=== PATIENT | female | born 1955 | race Caucasian/White ===

== ENCOUNTER 2017-07-01 17:07 | Inpatient (IN) | payer MEDICARE ==
[~2017-07-01] VITALS: Ht 170.2 cm; Wt 123.9 kg
[2017-07-01] VITALS (11 sets, daily range): BP systolic 63–171; BP diastolic 23–123
--- NOTE | 2017-07-01 17:07 | NUR ---
61 YO FEMALE BB FAMILY. PATIENT IS NON RESPONSIVE AT THIS TIME. PATIENT TAKEN TO ED ROOM 12 VIA [facility] BY [facility] STAFF. PATIENT WAS PLACED ON BOTTLE PACKING MACHINE CLEANER, PATIENT IS NOTED TO BE AGINAL BREATHING AT THIS TIME AT A RATE OF 3 BREATHS A MIN, STARTED BVM WITH RT. SPO2 WENT UP TO 80%, 18G RIGHT HAND IV STARTED AND 20G LEFT HAND IV STARTED. MD WOMACK ATTEMPTED TO INTUBATE AT BEDSIDE. MD SANCHEZ WAS UNSUCCESSFUL. AT 1520 PATIENT LOSS PULSES, STARTED CPR PER ACLS GUIDLINES. SEE CODE BLUE PAPER CHARTING. PULSES RETURNED AT 1535, NS, PATIENT DOES NOT HAVE SPONTANIOUS BREATHING, CONTINUED TO BVM WITH RT .SET UP CRIC TRAY. MD WOMACK ATTEMPTED CRIC 1740, WAS UNSUCCESSFUL, WENT BACK TO BVM. SPO2 IS IN 80'S VIA BVM. PATIENT IS IN NORMAL SINUS AT A RATE OF 80'S. BP REMAINS STABLE. SKIN WARM AND DRY, PATIENT REMAINS ON BOTTLE PACKING MACHINE CLEANER. WILL CONTINUE TO MONITOR.
[2017-07-01] MEDS ORDERED: CELLULOSE,OXIDIZED 1 EA PACK MC ONE (17:10)
[2017-07-01] MEDS ORDERED: GELATIN SPONGE,ABSORBABLE 1 GM POWDER TP ONE (17:10)
--- NOTE | 2017-07-01 17:43 | NUR ---
PAGED DR MARCH
--- NOTE | 2017-07-01 17:44 | NUR ---
EM GOYAL [phone]
--- NOTE | 2017-07-01 17:45 | NUR ---
EM DEL TORO [phone]
--- NOTE | 2017-07-01 17:57 | NUR ---
Eliza BARBOSA CALLED
--- NOTE | 2017-07-01 17:58 | NUR ---
DR WOMACK ON THE PHONE WITH DR BARBOSA
[2017-07-01] MEDS ORDERED: PROPOFOL 100 ML ONE (18:07)
--- NOTE | 2017-07-01 18:08 | NUR ---
CALLED DR. ESPITIA [phone] WILL BE HERE IN 15MIN
[2017-07-01] MEDS ORDERED: LIDOCAINE 1% INJ 50 ML MDV IJ ONE (18:27)
[2017-07-01] MEDS ORDERED: LIDOCAINE 1%-EPI 1:100,000 20 ML VIAL ONE (18:28)
[2017-07-01] MEDS: PROPOFOL 100 ML IV PRN ×2 (18:30→23:15)
--- NOTE | 2017-07-01 18:30 | NUR ---
MD FARRELL, ENT FROM [facility] IS AT BED SIDE FOR CRI
--- NOTE | 2017-07-01 18:50 | NUR ---
CRI IS IN PLACE, PATIENT IS PLACED ON VENT
[2017-07-01] MEDS ORDERED: VANCOMYCIN 1 GM in IV D5W 250 ML IV ONE (19:00)
[2017-07-01] MEDS ORDERED: PIPERACILLIN /TAZOBACTAM 3.375 G in IV D5W 50 ML IV ONE (19:00)
[2017-07-01] MEDS ORDERED: IV NS 0.9% 1,000 ML BAG IV ONE (19:00)
--- NOTE | 2017-07-01 19:05 | NUR ---
RT PATIENT WAS REC'D IN ER A CODE BLUE. PATIENT BAGGED AND INTUBATION ATTEMPTED BUT WAS UNSUCCESSFUL. EMERGENCY TRACH WAS NEEDED. PATIENT WAS BAGGED UNTIL ENT DOCTOR ARRIVED AND WAS ABLE TO TRACH PATIENT. NOC SHIFT TOOK OVER PATIENT TO RELIEVE DAY SHIFT.
[2017-07-01] MEDS ORDERED: VANCOMYCIN 1 GM VIAL ONE (19:33)
[2017-07-01] MEDS ORDERED: PIPERACILLIN /TAZOBACTAM 3.375 G VIAL IV ONE (19:33)
[2017-07-01 19:58] LABS: BASOPHILS # (AUTO) 0.3 /CMM (0.0-0.2); BASOPHILS % (AUTO) 2.6 % (0.0-2.0); EOSINOPHILS % (AUTO) 0.2 % (0.0-6.0); HEMATOCRIT 41 % (33-45); HEMOGLOBIN 13.4 g/dL (11.5-14.8); LYMPHOCYTES # (AUTO) 1.3 /CMM (0.8-4.8); LYMPHOCYTES % (AUTO) 9.8 % (20.0-44.0); MEAN CORPUSCULAR HGB CONC 33 g/dl (31.0-36.0); MEAN CORPUSCULAR VOLUME 93 fL (82-100); MONOCYTES # (AUTO) 0.4 /CMM (0.1-1.30); MONOCYTES % (AUTO) 3.2 % (2.0-12.0); NEUTROPHILS # (AUTO) 11.2 /CMM (1.8-8.9); NEUTROPHILS % (AUTO) 84.2 % (43.0-81.0); PLATELET COUNT (AUTO) 177 /CMM (150-450); RDW COEFFICIENT OF VARIATION 15.9 (11.5-15.0); RED BLOOD CELL COUNT(AUTO) 4.38 MIL/uL (4.0-5.2); WHITE BLOOD COUNT (AUTO) 13.3 K/uL (4.3-11.0)
[2017-07-01] MEDS ORDERED: ETOMIDATE 2 MG/ML VIAL IV ONE (20:00)
[2017-07-01] MEDS ORDERED: SUCCINYLCHOLINE CHLORIDE 20 MG/ML VIAL IV ONE (20:00)
[2017-07-01] MEDS ORDERED: IV NS 0.9% 1,000 ML BAG IV PRN ×2 (20:00)
[2017-07-01 20:03] LABS: ABG BASE EXCESS -7.5 mmol/L; ABG OXYGEN SATURATION 94.6 % (92.0-98.5); ABG PCO2 60.7 mmHg (35.0-45.0); ABG PH 7.172 (7.350-7.450); ABG PO2 90.6 mmHg (75.0-100.0); AaDO2 561.7 mmHg; COHb 2.5 % (0.5-1.5); MetHb 0.5 % (0.0-1.5); O2Hb 91.8 % (94.0-97.0); PEEP,BG 5 cm H2O; SITE, ABG Left Radial; VENT MODE, BG A/C 16 500 100% +5; VT, ABG 550 mL
[2017-07-01 20:10] LABS: INR 1.16 (0.85-1.15)
[2017-07-01 20:12] LABS: CALCIUM, SERUM 7.4 mg/dL (8.5-10.1); CARBON DIOXIDE 21 mmol/L (21-32); CHLORIDE 110 mmol/L (98-107); CREATININE 1.6 mg/dL (0.6-1.3); GLUCOSE 124 mg/dL (74-106); POTASSIUM 5.2 mmol/L (3.5-5.1); SODIUM SERUM 142 mmol/L (136-145); UREA NITROGEN, BLOOD 28 mg/dL (7-18)
[2017-07-01 20:24] LABS: TROPONIN I 0.829 ng/mL (0.00-0.056)
[2017-07-01 20:26] LABS: ALANINE AMINOTRANSFERASE 1033 U/L (12-78); ALBUMIN 2.2 g/dL (3.4-5.0); ALKALINE PHOSPHATASE 90 U/L (46-116); ASPARTATE AMINOTRANSFERASE -1 U/L (15-37); B-TYPE NATRIURETIC PEPTIDE 6319 PG/ML (0-125); BILIRUBIN,DIRECT 0.2 mg/dL (0.0-0.2); BILIRUBIN,TOTAL 0.7 mg/dL (0.2-1.0); TOTAL PROTEIN, SERUM 5.2 g/dL (6.4-8.2)
--- NOTE | 2017-07-01 20:32 | NUR ---
RADIOLOGY AT BED SIDE FOR CHEST X RAY FOR PICC LINE PLACEMENT
[2017-07-01 21:06] LABS: APPEARANCE,URINE Clear (CLEAR); BILIRUBIN,URINE MODERATE (NEGATIVE); BLOOD, URINE Large Ery/uL (NEGATIVE); COLOR,URINE Yellow (YELLOW); KETONES,URINE Negative (NEGATIVE); LEUKOCYTE ESTERASE ,URINE Negative (NEGATIVE); NITRITE, URINE Negative (NEGATIVE); PROTEIN,URINE >=300 mg/dl (NEGATIVE); UGLUCOSE Negative (NEGATIVE)
--- NOTE | 2017-07-01 21:09 | NUR ---
TRANSPORTED PATIENT TO ICU BED WITHOUT INCIDENT WITH EMT AND RT WITHOUT INCIDENT
[2017-07-01 22:00] LABS: BACTERIA,URINE Moderate /HPF (None Seen); RBC,URINE 81-100 /HPF (0-2); SQUAMOUS EPITHELIAL CELL,UR Moderate /HPF (None Seen)
[2017-07-01 22:01] LABS: URINE AMORPHOUS URATE Moderate /HPF (None Seen)
[2017-07-01] MEDS ORDERED: NOREPINEPHRINE 4 MG/4 ML AMPUL IV ONE (22:40)
[2017-07-01] MEDS ORDERED: IV NS 0.9% 1,000 ML IV PRN (23:30)
[2017-07-01] MEDS ORDERED: ONDANSETRON HCL/PF 4 MG/2 ML VIAL IVP PRN (23:30)
[2017-07-01] MEDS ORDERED: MAGNESIUM HYDROXIDE 30 ML UDC PO PRN (23:30)
[2017-07-01] MEDS ORDERED: ZOLPIDEM TARTRATE 5 MG TABLET PO PRN (23:30)
[2017-07-01] MEDS ORDERED: HYDROCODONE/APAP 5/325MG 1 EACH TABLET PO PRN (23:30)
[2017-07-01] MEDS: NOREPINEPHRINE 16 MG in IV D5W 500 ML IV PRN (23:39)
[2017-07-02] VITALS (63 sets, daily range): BP systolic 79–148; BP diastolic 39–90
--- NOTE | 2017-07-02 00:18 | NUR ---
FUEL CELL TECHNICIAN; BLOOD PRESSURE DROPPED TO SBP 75/23, LEVOPHED STARTED AT 2MCG/MIN, IV FLUID ONGOING NS AT 50 ML/HR. DIPRIVAN STOPPED FOR NOW DUE TO HEART RATE GOES DOWN TO 30, JENNIFER GOMEZ AT BEDSIDE,AWARE FOR HEART RATE DWON TO 30. CRASH CART AT BEDSIDE. PATIENT IS UNRESPONSIVE. PUPILS ARE SLUGGISH, PIN PO[place]. FAMILY ATE BEDSIDE, JENNIFER GOMEZ DISCUSSED WITH FAMILY CURRENT SITUATION. FAMILY UNDERSTANDS WELL. EARLIER UNABLE TO FIND BLOOD PRESSURE, MANNUALY CHECKED BY JENNIFER GOMEZ, ONGOING MONITORING.
--- NOTE | 2017-07-02 00:48 | NUR ---
FACILITIES MAINTENANCE MANAGER: PATIENT WAKES UP, OPEN EYES WHEN SUCTIONED TRACH AND ORALLY, DOES HAVE COUGH AND GAG REFLEX.. , FOLLOWS SIMPLE COMMANDS, FAMILY AT BEDSIDE. KEEP MONITORING.
[2017-07-02] MEDS ORDERED: ENOXAPARIN SODIUM 40 MG/0.4 ML DISP.SYRIN SQ ONE (01:30)
--- NOTE | 2017-07-02 02:50 | NUR ---
CHEMISTRY ACCOUNT MANAGER: troponin level 4.563, MADE AWARE JENNIFER DENSON, ORDERS TO GIVE LOVENOX 140 MG SQ WHICH IS GIVEN 40 MG SQ EARLIER, NEEDS TO GIVE 100 MG SQ X ONE. PT HAS NO URINE OUTPUT , MADE AWARE TO JENNIFER GOMEZ, ORDERS TO GIVE NS 500ML BOLUS. WILL FOLLOW UP ALL ORDERS.
[2017-07-02] MEDS ORDERED: CEFTRIAXONE 1 G VIAL ONE ×2 (02:54→03:22)
[2017-07-02] MEDS ORDERED: ENOXAPARIN SODIUM 100 MG/ML DISP.SYRIN SQ ONE (03:00)
[2017-07-02] MEDS ORDERED: CEFTRIAXONE 2 G in IV NS 0.9% 100 ML IV SCH (03:00)
[2017-07-02] MEDS ORDERED: ENOXAPARIN SODIUM 60 MG/0.6 ML DISP.SYRIN SQ SCH (03:00)
--- NOTE | 2017-07-02 03:25 | NUR ---
SHEET METAL PATTERN CUTTER; LOVENOX 100 MG SQ GIVEN, NS 500 ML BOLUS ONGOING. AWAITING FOR SLUBBER FRAME CHANGER TO GET ROCEPHIN 2 GM..
[2017-07-02] MEDS ORDERED: IV NS 0.9% 500 ML IV ONE (03:30)
--- NOTE | 2017-07-02 05:08 | NUR ---
CRACKING STILL OPERATOR; PATIENT HAS NO URINE OUTPUT EVEN AFTER GAVE NS BOLUS, JENNIFER DENSON ACNP AWARE.
[2017-07-02 05:11] LABS: HEMATOCRIT 40 % (33-45); HEMOGLOBIN 13.2 g/dL (11.5-14.8); LYMPHOCYTES # (AUTO) 0.8 /CMM (0.8-4.8); LYMPHOCYTES % (AUTO) 5.4 % (20.0-44.0); MEAN CORPUSCULAR HGB CONC 33 g/dl (31.0-36.0); MEAN CORPUSCULAR VOLUME 93 fL (82-100); MONOCYTES # (AUTO) 0.6 /CMM (0.1-1.30); MONOCYTES % (AUTO) 3.9 % (2.0-12.0); NEUTROPHILS # (AUTO) 13.3 /CMM (1.8-8.9); NEUTROPHILS % (AUTO) 90.7 % (43.0-81.0); PLATELET COUNT (AUTO) 133 /CMM (150-450); RDW COEFFICIENT OF VARIATION 16.7 (11.5-15.0); RED BLOOD CELL COUNT(AUTO) 4.25 MIL/uL (4.0-5.2); WHITE BLOOD COUNT (AUTO) 14.7 K/uL (4.3-11.0)
[2017-07-02 05:29] LABS: CALCIUM, SERUM 7.7 mg/dL (8.5-10.1); CREATININE 2.1 mg/dL (0.6-1.3); MAGNESIUM 1.6 mg/dL (1.8-2.4); PHOSPHORUS 4.6 mg/dL (2.5-4.9); POTASSIUM 4.1 mmol/L (3.5-5.1)
--- NOTE | 2017-07-02 05:57 | NUR ---
CLINICAL DIETITIAN; NEW ORDERS RECEIVED LASIX 20 MG X 1 NOW, GIVEN FOR LOW URINE OUTPUT.
[2017-07-02] MEDS ORDERED: FUROSEMIDE 20 MG/2 ML VIAL IV ONE (06:00)
--- NOTE | 2017-07-02 08:10 | NUR ---
WOUND CARE CONSULT: PT PRESENTS WITH IMMOBILITY, ON VENTILATOR WITH CURRENT HODA SCORE OF 11. SKIN TEAR NOTED TO RT ARM PRESENT ON ADMISSION. ALL SKIN PROTECTION MEASURES IN PLACE AND DISCUSSED WITH NURSING STAFF. RECOMMENDATIONS MADE FOR WOUND CARE AND DISCUSSED WITH NURSING STAFF. BARIMAX BED ORDERED. WILL SEE PRN. GREER IN AGREEMENT WITH PLAN OF CARE. Addendum: 07/02/17 at 0812 by TULIO MANCUSO WNDNU Amended: Links added.
[2017-07-02 08:25] LABS: ABG BASE EXCESS 0.1 mmol/L; ABG OXYGEN SATURATION 94.6 % (92.0-98.5); ABG PCO2 42.9 mmHg (35.0-45.0); ABG PH 7.388 (7.350-7.450); ABG PO2 79.9 mmHg (75.0-100.0); AaDO2 373.1 mmHg; COHb 0.5 % (0.5-1.5); MetHb 0.5 % (0.0-1.5); O2Hb 93.7 % (94.0-97.0); PEEP,BG 5 cm H2O; SITE, ABG Right Radial; VT, ABG 550 mL
[2017-07-02] MEDS ORDERED: FEE EMEERGENCY 1 MIN EA MC ONE ×2 (08:32→11:47)
[2017-07-02] MEDS ORDERED: ETOMIDATE 2 MG/ML VIAL IV ONE (08:32)
[2017-07-02] MEDS ORDERED: SUCCINYLCHOLINE CHLORIDE 20 MG/ML VIAL IV ONE (08:32)
--- NOTE | 2017-07-02 08:39 | NUR ---
SPOKE WITH RN. PATIENT STILL UNSTABLE TO COME DOWN FOR CT. ALSO, PATIENT'S CREATININE HAS INCREASED TO 2.1. RN WILL DISCUSS WITH MD REGARDING CARE AND WILL CALL RADIOLOGY BACK TO COORDINATE.
[2017-07-02] MEDS: ASPIRIN 81 MG TAB.CHEW PO SCH (10:27)
[2017-07-02] MEDS: FUROSEMIDE 40 MG/4 ML VIAL IV SCH ×2 (10:27→17:09)
[2017-07-02] MEDS ORDERED: Magnesium 1GM/D5W 100ML PREMIX 100 ML IV SCH (11:30)
[2017-07-02] MEDS ORDERED: EPINEPHRINE (1:10,000) SYRINGE 1 MG/10 ML DISP.SYRIN IVP ONE (11:47)
[2017-07-02] MEDS: CEFEPIME 1 GM in IV D5W 50 ML IV SCH (12:41)
[2017-07-02] MEDS: ENOXAPARIN SODIUM 60 MG/0.6 ML DISP.SYRIN SQ SCH ×2 (12:42→23:16)
--- NOTE | 2017-07-02 15:43 | NUR ---
NETWORK OPERATIONS SPECIALIST NOTE 0720: Received patient awake, A/Ox3, able to follow commands. No respiratory distress noted at this time. With trache to vent, tolerated settings well. No c/o paina t this time. Wuth right NGT intact, clamped. SR 70's on the monitor. Barkley cath intact, very minimal king colored urine noted. NOAH PICC intact, on Levo @ 5mcg will titrate as ordered. 0930: S/E by Dr. Fleming, daughter at bedside, made aware for the POC, MD aware for trop 6.996, said to continue Lovenox, also ordered to DC IVF and start on Lasix 40 q8. MD aware for no UOP noted. Asked MD if able to bring patient to CT for CT angio, MD said to DC order, not needed at this time. 1130: S/E by Dr. Sotelo, aware for the ABG, asked MD if able to bring patient to CT for CT head and neck, per MD, patient does not need any more CT for patient is A/Ox3 and able to communicate well. DCd order for CT. 1220: S/E by Dr. Steven, still no UOP. Will keep Lasix on and no HD needed at this time. 2 daughters at bedside, discussed re: the POC. 1330: S/E by Dr. Rebolledo, no new order at this time. Daughter at bedside, discussed re: the POC. industrial technology education teacher at bedside. EKG done and notified Dr. Fleming for the result., no new order at this time 1530: Cleaned and placed patient to Barimaxx.
[2017-07-02] MEDS: NOREPINEPHRINE 16 MG in IV D5W 500 ML IV PRN (17:09)
[2017-07-02] MEDS: Z GUARD REMEDY 2 OZ OINT TP PRN (17:09)
--- NOTE | 2017-07-02 17:20 | NUR ---
RT END OF THE SHIFT REPORT, PT 61 Y OLD FEMALE REMAINED TRACHED SHILEY XLT # 6 ON VENT. FIO2 TITRATED TO 70% T/O DAY NO OTHER CHANGES. TOLERATING VENT SETTINGS. NO DISTRESS NOTED T/O SHIFT SUX'D FOR SMALL AMT OF THICK PALE SECRETIONS. B/S BILATERALLY RALED/DIMINISHED, EQUAL CHEST RISE NOTED. NO CHANGES ON VENT, ALARMS SET AND AUDIBLE. AMBU BAG AT BEDSIDE. VENT PLUGGED INTO RED OUTLET. HME CHANGED. WILL CONTINUE TO MONITOR. AND REPORT WILL PASS TO PM SHIFT. Addendum: 07/02/17 at 1721 by LUX LEVIN RT Amended: Links added.
[2017-07-02] MEDS ORDERED: NOREPINEPHRINE 16 MG in IV D5W 500 ML IV PRN (17:30)
--- NOTE | 2017-07-02 19:00 | NUR ---
RN INITIAL NOTES RECEIVED PT SLEEPING ON BED, EASILY AROUSABLE TO NAME, A/OX3, ABLE TO MOUTH WORDS IN RESPONSE. CURRENTLY ON VENT WITH SETTINGS AC 20, TV 550, FIO2 70%, AND PEEP 5, SHILEY 6, NO S/S OF RESP DISTRESS, SATURATING WELL. CURRENTLY SR ON THE MONITOR, HR 60'S. RIGHT NARE NGT IS CLAMPED. GERMAN CATH INTACT, NO URINE OUTPUT NOTED. RIGHT UPER ARM PICC, LEFT HAND 20G, AND RIGHT HAND 18G ALL FLUSHED AND PATENT, NO S/S OF INFILTRATION/INFECTION, DRESSINGS CDI. BED LOW AND LOCKED, SIDERAILS UP, CALL LIGHT WITHIN REACH. WILL MONITOR
[2017-07-02] MEDS ORDERED: ENOXAPARIN SODIUM 40 MG/0.4 ML DISP.SYRIN SQ SCH (21:00)
[2017-07-02] MEDS ORDERED: CEFEPIME 1 GM VIAL IM SCH (21:00)
--- NOTE | 2017-07-02 22:25 | NUR ---
RN NOTES NOTIFIED ON-CALL DR TERRY OF PATIENT'S ACTIVE BLEEDING IN TRACH SITE WELL PRESENCE OF MULTIPLE CLOTS THAT WERE SUCTIONED FROM HER MOUTH. PER MD, DO NOT ADMINISTER LOVENOX 140MG SCHEDULED TO BE GIVEN AT MIDNIGHT.
[2017-07-02 23:22] LABS: CREATININE, URINE 113.7 MG/DL (30.0-125.0)
[2017-07-03] VITALS (51 sets, daily range): BP systolic 94–152; BP diastolic 49–98
[2017-07-03] MEDS: FUROSEMIDE 40 MG/4 ML VIAL IV SCH ×3 (00:33→16:28)
[2017-07-03 04:13] LABS: EOSINOPHILS % (AUTO) 0.1 % (0.0-6.0); HEMATOCRIT 35 % (33-45); HEMOGLOBIN 11.7 g/dL (11.5-14.8); LYMPHOCYTES # (AUTO) 0.9 /CMM (0.8-4.8); LYMPHOCYTES % (AUTO) 8.5 % (20.0-44.0); MEAN CORPUSCULAR HGB CONC 34 g/dl (31.0-36.0); MEAN CORPUSCULAR VOLUME 92 fL (82-100); MONOCYTES # (AUTO) 0.4 /CMM (0.1-1.30); NEUTROPHILS # (AUTO) 8.9 /CMM (1.8-8.9); NEUTROPHILS % (AUTO) 87.4 % (43.0-81.0); PLATELET COUNT (AUTO) 104 /CMM (150-450); RDW COEFFICIENT OF VARIATION 16.6 (11.5-15.0); RED BLOOD CELL COUNT(AUTO) 3.76 MIL/uL (4.0-5.2); WHITE BLOOD COUNT (AUTO) 10.2 K/uL (4.3-11.0)
[2017-07-03 04:30] LABS: CALCIUM, SERUM 7.5 mg/dL (8.5-10.1); CREATININE 4.1 mg/dL (0.6-1.3); MAGNESIUM 1.9 mg/dL (1.8-2.4); PHOSPHORUS 3.9 mg/dL (2.5-4.9); POTASSIUM 4.4 mmol/L (3.5-5.1)
--- NOTE | 2017-07-03 06:30 | NUR ---
RN CLOSING NOTES PT REMAINS TO BLEED ON TRACH SITE. OTHERWISE, VITALS ARE STABLE. ALL DUE MEDS GIVEN, AM CARE PROVIDED. WILL ENDORSE ROSE TO AM RN
--- NOTE | 2017-07-03 08:00 | NUR ---
PATIENT SEEN FULLY AWAKE AND FOLLOWING COMMNADS. INDICATES UNDERSTANDING TO CONDITION AND PLAN OF CARE. NO DISTRESS ON THE VENT. DENIES PAIN. SIGNIFICANT AMOUNT OF BLOOD NOTED UPON SUCTIONING ORALLY AND VIA TRACHE. WILL NOTIFY MD. BP STABLE OFF PRESSOR. AFEBRILE. NO URINE OUTPUT NOTED. WILL REFER ACCORDINGLY.
[2017-07-03] MEDS: ASPIRIN 81 MG TAB.CHEW PO SCH (08:40)
--- NOTE | 2017-07-03 09:00 | NUR ---
PATIENT SEEN AND EXAMINED BY DR. SINGH. DISCUSSED WITH MD BLEEDING ON TRACHE SITE-LOVENOX DISCONTINUED BY . JON TO GIVE ASPIRIN ORDERED.
[2017-07-03] MEDS ORDERED: IV D5/ 0.9% NACL 1,000 ML IV PRN (10:00)
--- NOTE | 2017-07-03 10:00 | NUR ---
DR. STOVALL FOR RENAL FF UP. DISCUSSED WITH PATIENT AND FAMILY POSSIBLE HD IF KIDNEY FUNCTION WILL NOT IMPROVED BY TOMORROW. PATIENT AND FAMILY AGGREED WITH PLAN OF CARE.
--- NOTE | 2017-07-03 10:30 | NUR ---
DR. DOMINGUEZ IN TO SEE PATIENT. SPOKE TO PATIENT AND FAMILY AT [facility] FOR PLAN OF CARE. NOTIFIED MD RE: BLEEDING AT TRACHE SITE. PER MD TO CALL DR. DAY FOR FF UP.
[2017-07-03 11:25] LABS: ABG BASE EXCESS -2.2 mmol/L; ABG OXYGEN SATURATION 98.1 % (92.0-98.5); ABG PCO2 29.6 mmHg (35.0-45.0); ABG PH 7.461 (7.350-7.450); ABG PO2 148.4 mmHg (75.0-100.0); AaDO2 318.9 mmHg; COHb 0.1 % (0.5-1.5); MetHb 0.6 % (0.0-1.5); O2Hb 97.4 % (94.0-97.0); PEEP,BG 5 cm H2O; SITE, ABG Left Radial; VT, ABG 650 mL
--- NOTE | 2017-07-03 12:00 | NUR ---
DR. KIM FOR PULMO FF UP. NO VENT CHANGES AT THIS TIME. TITRATE FIO2 ABLE. CONTINUE TO SUCTION BLOODY SECRETIONS BUT LESS AMOUNT.
[2017-07-03] MEDS: CEFEPIME 1 GM in IV D5W 50 ML IV SCH (12:47)
--- NOTE | 2017-07-03 14:00 | NUR ---
DR. DAY NOTIFIED REGARDING TRACH BLEEDING TO FOLLOW UP. AWARE FOR FOLLOW UP.
--- NOTE | 2017-07-03 14:08 | NUR ---
FIO2 DECREASED FROM 70% TO 60%. SPO2 96% Addendum: 07/03/17 at 1409 by LUANNE WANG RT Amended: Links added.
--- NOTE | 2017-07-03 16:00 | NUR ---
LESS BLEEDING NOTED UPON ORAL/TRACHE SUCTIONING. BP REMIANS STABLE. AFEBRILE.
--- NOTE | 2017-07-03 18:00 | NUR ---
NO SIGNIFICANT CHANGES. URINE OUTPUT IMPROVED TOWARDS THE END OF SHIFT-TOTAL 100ML. LASIX 80 MG IV GIVEN ORDERED. WILL CONTINUE TO MONITOR AND REFER ACCORDINGLY.
--- NOTE | 2017-07-03 19:00 | NUR ---
RN INITIAL NOTES RECEIVED PT AWAKE ON BED, A/OX3, ABLE TO MOUTH WORDS IN RESPONSE. CURRENTLY ON VENT WITH SETTINGS AC 20, TV 550, FIO2 60%, AND PEEP 5, SHILEY 6, NO S/S OF RESP DISTRESS, SATURATING WELL. SOME BLEEDING FROM THE TRACH SITE IS PRESENT. CURRENTLY SR ON THE MONITOR, HR 60'S, BP IS WNL. RIGHT NARE NGT IS CLAMPED. GERMAN CATH INTACT, NO URINE OUTPUT NOTED. RIGHT UPPER ARM PICC FLUSHED AND PATENT, NO S/S OF INFILTRATION/INFECTION, DRESSING CDI. BED LOW AND LOCKED, SIDERAILS UP, CALL LIGHT WITHIN REACH. WILL MONITOR
[2017-07-04] VITALS (37 sets, daily range): BP systolic 79–144; BP diastolic 45–70
[2017-07-04] MEDS: FUROSEMIDE 40 MG/4 ML VIAL IV SCH ×3 (00:43→16:38)
[2017-07-04 04:58] LABS: EOSINOPHILS % (AUTO) 0.3 % (0.0-6.0); HEMATOCRIT 32 % (33-45); HEMOGLOBIN 10.6 g/dL (11.5-14.8); LYMPHOCYTES # (AUTO) 0.8 /CMM (0.8-4.8); LYMPHOCYTES % (AUTO) 9.6 % (20.0-44.0); MEAN CORPUSCULAR HGB CONC 33 g/dl (31.0-36.0); MEAN CORPUSCULAR VOLUME 92 fL (82-100); MONOCYTES # (AUTO) 0.6 /CMM (0.1-1.30); MONOCYTES % (AUTO) 6.9 % (2.0-12.0); NEUTROPHILS % (AUTO) 83.2 % (43.0-81.0); PLATELET COUNT (AUTO) 95 /CMM (150-450); RDW COEFFICIENT OF VARIATION 16.7 (11.5-15.0); RED BLOOD CELL COUNT(AUTO) 3.48 MIL/uL (4.0-5.2); WHITE BLOOD COUNT (AUTO) 8.4 K/uL (4.3-11.0)
[2017-07-04 05:13] LABS: CALCIUM, SERUM 7.8 mg/dL (8.5-10.1); CREATININE 6.2 mg/dL (0.6-1.3); POTASSIUM 4.6 mmol/L (3.5-5.1)
--- NOTE | 2017-07-04 06:00 | NUR ---
RN CLOSING NOTES PT REMAINS STABLE OF THE MOMENT. ALL DUE MEDS GIVEN, AM CARE PROVIDED. WILL ENDORSE ROSE TO AM RN
--- NOTE | 2017-07-04 07:57 | NUR ---
RN NOTES RECEIVED PT AWAKE ON BED, A/OX3, ABLE TO MOUTH WORDS TO COMMUNICATE. TRACHE MIDLINE SHILEY 6, CURRENTLY ON VENT WITH SETTINGS AC 20, TV 550, FIO2 60%, AND PEEP 5. SUCTIONED FOR AIRWAY CLEARANCE. NO S/S OF RESP DISTRESS, SATURATING WELL. NO BLEEDING ON TRACHE SITE NOTED. CURRENTLY SB ON THE MONITOR, HR 58. BP IS WNL 109/63. RIGHT NARE NGT. CLAMPED. GERMAN CATH INTACT, NO URINE OUTPUT NOTED AT THIS TIME. RIGHT UPPER ARM PICC FLUSHED AND PATENT, NO S/S OF INFILTRATION/INFECTION, DRESSING CDI. BED LOW AND LOCKED, SIDERAILS UP, INSTRUCTED PT REGARDIBF THE USE OF CALL LIGHT NEEDED, KEPT WITHIN REACH. WILL MONITOR
[2017-07-04] MEDS: ASPIRIN 81 MG TAB.CHEW PO SCH (08:49)
[2017-07-04] MEDS ORDERED: LIDOCAINE HCL/MPF 1% 30 ML VIAL IJ ONE (10:11)
[2017-07-04] MEDS ORDERED: FENTANYL PF 100MCG/2ML AMPUL IV ONE (10:30)
[2017-07-04] MEDS ORDERED: LIDOCAINE 1%-EPI 1:100,000 20 ML VIAL TP ONE ×2 (10:30)
--- NOTE | 2017-07-04 10:59 | NUR ---
RN NOTES S/P HD CATH INSERTION ON R FEMORAL BY DR SINGH AT BEDSIDE. LIDOCAINE 1% GIVEN BY MD PRE-OP. PT WAS ALSO GIVEN FENTANYL 50MCG IVP PER MD ORDER. PT TOLERATED PROCEDURE WELL. VS STABLE. PER DR ERNST PT WILL GET DIALYSIS TODAY
[2017-07-04] MEDS: CEFEPIME 1 GM in IV D5W 50 ML IV SCH (12:16)
[2017-07-04 12:28] LABS: ABG BASE EXCESS -3.6 mmol/L; ABG OXYGEN SATURATION 95.9 % (92.0-98.5); ABG PCO2 41.6 mmHg (35.0-45.0); ABG PH 7.341 (7.350-7.450); ABG PO2 95.3 mmHg (75.0-100.0); AaDO2 286.7 mmHg; COHb 0.3 % (0.5-1.5); MetHb 0.6 % (0.0-1.5); PEEP,BG 5 cm H2O; SITE, ABG Left Radial
[2017-07-04] MEDS: FIBERSOURCE HN 1,000 ML BOTTLE GT PRN (16:38)
[2017-07-04] MEDS: IPRATROPIUM NEB FS 0.5 MG/2.5 ML AMPUL.NEB NEB SCH ×2 (17:00→19:58)
--- NOTE | 2017-07-04 18:10 | NUR ---
RN NOTES PT REFUSED REPOSITIONING AT THIS TIME. PT REFUSED BED BATH.RISKS AND BENEFITS EXPLAINED. PT SAID SHE'S OKAY. CALL LIGHT KEPT WITHIN REACH. ENCOURAGE TO USE CALL LIGHT FOR ASSISTANCE
--- NOTE | 2017-07-04 18:53 | NUR ---
RN NOTES PT RESTING IN BED, DAUGHTER AT BEDSIDE. TOLERATING CURRENT [facility] VENT SETTINGS WELL. SUCTIONED FOR AIRWAY CLEARANCE. OPT SUCTIONED ORALLY, ORAL CARE PROVIDED. NO BLEEDING NOTED ON TRACHE SITE. ONGOING GTF FIBERSOURCE@20ML/HR, CHANTAL WELL NO RESIDUAL NOTED. DENIES PAIN AT THIS TIME. VS STABLE. DUE MEDS GIVEN, NEEDS ATTENDED. ENDORSED TO EVARISTO LINARES FOR CONTINUITY OF CARE
--- NOTE | 2017-07-04 19:00 | NUR ---
RN INITIAL NOTES RECEIVED PT AWAKE ON BED, A/OX3, ABLE TO MOUTH WORDS IN RESPONSE. CURRENTLY ON VENT WITH SETTINGS AC 20, TV 550, FIO2 60%, AND PEEP 5, SHILEY 6, NO S/S OF RESP DISTRESS, SATURATING WELL. SOME BLEEDING FROM THE TRACH SITE IS PRESENT. CURRENTLY SB/SR ON THE MONITOR, HR 50-60'S, BP IS WNL. RIGHT NARE NGT IS CONNECTED TO FIBERSOURCE FEEDING @ 20MLS/HR, NO RESIDUALS, TOLERATING WELL. GERMAN CATH INTACT, NO URINE OUTPUT NOTED. RIGHT UPPER ARM PICC FLUSHED AND PATENT, NO S/S OF INFILTRATION/INFECTION, DRESSING CDI. BED LOW AND LOCKED, SIDERAILS UP, CALL LIGHT WITHIN REACH. WILL MONITOR
[2017-07-04] MEDS: Z GUARD REMEDY 2 OZ OINT TP PRN (20:47)
[2017-07-04] MEDS: Z GUARD REMEDY 2 OZ OINT TP SCH (21:10)
[2017-07-05] VITALS (48 sets, daily range): BP systolic 94–137; BP diastolic 43–79
[2017-07-05] MEDS: IPRATROPIUM NEB FS 0.5 MG/2.5 ML AMPUL.NEB NEB SCH ×4 (02:08→19:12)
[2017-07-05] MEDS: FUROSEMIDE 40 MG/4 ML VIAL IV SCH ×3 (02:17→16:26)
[2017-07-05 05:22] LABS: BASOPHILS % (AUTO) 0.3 % (0.0-2.0); EOSINOPHILS % (AUTO) 1.6 % (0.0-6.0); HEMATOCRIT 29 % (33-45); HEMOGLOBIN 9.8 g/dL (11.5-14.8); LYMPHOCYTES # (AUTO) 0.8 /CMM (0.8-4.8); LYMPHOCYTES % (AUTO) 12.7 % (20.0-44.0); MEAN CORPUSCULAR HGB CONC 34 g/dl (31.0-36.0); MEAN CORPUSCULAR VOLUME 92 fL (82-100); MONOCYTES # (AUTO) 0.6 /CMM (0.1-1.30); MONOCYTES % (AUTO) 10.9 % (2.0-12.0); NEUTROPHILS # (AUTO) 4.4 /CMM (1.8-8.9); NEUTROPHILS % (AUTO) 74.5 % (43.0-81.0); PLATELET COUNT (AUTO) 79 /CMM (150-450); RDW COEFFICIENT OF VARIATION 16.2 (11.5-15.0); RED BLOOD CELL COUNT(AUTO) 3.18 MIL/uL (4.0-5.2)
[2017-07-05 05:42] LABS: BILIRUBIN,DIRECT 0.2 mg/dL (0.0-0.2); BILIRUBIN,TOTAL 0.6 mg/dL (0.2-1.0); CALCIUM, SERUM 8.1 mg/dL (8.5-10.1); CREATININE 5.9 mg/dL (0.6-1.3); POTASSIUM 4.4 mmol/L (3.5-5.1); TOTAL PROTEIN, SERUM 5.2 g/dL (6.4-8.2)
--- NOTE | 2017-07-05 06:00 | NUR ---
RN CLOSING NOTES PT REMAINS STABLE OF THE MOMENT. ALL DUE MEDS GIVEN, AM CARE PROVIDED. WILL ENDORSE ROSE TO AM RN
--- NOTE | 2017-07-05 07:36 | NUR ---
RN NOTES RECEIVED PT ASLEEP IN BED, AROUSABLE TO VERBAL AND TACTILE STIMULI, ABLE TO MOUTH WORDS TO COMMUNICATE. TRACHE MIDLINE SHILEY 6, CURRENTLY ON VENT WITH SETTINGS AC 20, TV 550, FIO2 60%, AND PEEP 5. SUCTIONED FOR AIRWAY CLEARANCE. NO S/S OF RESP DISTRESS, SATURATING WELL. NO FURTHER BLEEDING ON TRACHE SITE NOTED. CURRENTLY SB ON THE MONITOR, HR 47. RIGHT NARE NGT WITH ONGOING GTF FIBERSOURCE CHANTAL WELL NO RESIDUAL NOTED. GERMAN CATH INTACT, MIN UO NOTED AT THIS TIME. RIGHT UPPER ARM PICC FLUSHED, PATENT NO S/S OF INFILTRATION/INFECTION, DRESSING CDI. BED LOW AND LOCKED, SIDERAILS UPX3. PT ABLE TO USE CALL LIGHT FOR ASSISTANCE. KEPT WITHIN REACH. WILL MONITOR CLOSELY
[2017-07-05] MEDS: ASPIRIN 81 MG TAB.CHEW PO SCH (08:40)
[2017-07-05] MEDS: Z GUARD REMEDY 2 OZ OINT TP SCH ×2 (08:41→21:00)
[2017-07-05 09:39] LABS: EOSINOPHILS % (MANUAL) 2 % (0-4); LYMPHOCYTES % (MANUAL) 9 % (16-48); MONOCYTES % (MANUAL) 5 % (0-11.0); NEUTROPHILS % (MANUAL) 84 (42-76)
[2017-07-05] MEDS ORDERED: ALBUMIN 25% 25 GM in PREMIX 1 EA IV PRN (11:30)
[2017-07-05] MEDS: CEFEPIME 1 GM in IV D5W 50 ML IV SCH (12:45)
[2017-07-05 16:18] LABS: ABG BASE EXCESS 8.5 mmol/L; ABG OXYGEN SATURATION 93.5 % (92.0-98.5); ABG PCO2 52.3 mmHg (35.0-45.0); ABG PH 7.432 (7.350-7.450); ABG PO2 72.2 mmHg (75.0-100.0); AaDO2 189.2 mmHg; COHb 0.4 % (0.5-1.5); MetHb 0.4 % (0.0-1.5); O2Hb 92.8 % (94.0-97.0); SITE, ABG Left Radial; VENT MODE, BG CPAP 5 PSV 12 45% +5
--- NOTE | 2017-07-05 16:30 | NUR ---
RN NOTES PT CURRENTLY ON CPAP MODE, WILL RECHECK ABG PER DR IVGIL ORDER. TOLERATING CURRENT SETTINGS WELL. PT APPEARS CALM AND COMFORTABLE. REFUSED TO BE REPOSITIONED AT THIS TIME.
--- NOTE | 2017-07-05 18:28 | NUR ---
RN NOTES PT RESTING COMFORTABLY. TRACHE SHILEY 6 XLT PROXIMAL, ON COOL AEROSOL AT 80% FIO2. SUCTIONED JOHN AIRWAY CLEARANCE STILL NOTED WITH SOME BLOOD UPON SUCTIONING. PT APPEARS CALM AND COMFORTABLE, DAUGHTER AT [facility]. PM CARE GIVEN, PT HAD ONE LARGE BM. ONGOING GTF FIBERSOURCE@40ML/HR TOLERATED WELL. NOAH PICC RUNNING NS AT TKO, DRESSING CDI. ALL DUE MEDS GIVEN. FC PATENT UO IMPROVING. S/P HD TODAY 1 LITER OUT. NEEDS ATTENDED. CALL LIGHT WITHIN REACH.
--- NOTE | 2017-07-05 19:34 | NUR ---
WAREHOUSE PACKAGING SUPERVISOR. INITIAL ASSESSMENT. RECEIVED THE PT REST ON THE BED. AWAKE, ALERT, FOLLOW COMMANDS. TRACH TO CONNECTED OXYGEN T PIECE 80%. SAT 93%, HOB ELEVATED. RT NARE NGT FIBER SOURCE 40 ML/H. FC PATENT. TURN AND REPOSITION Q2H. IV RT UPPER ARM PICC LINE. TKO RUNNING. RT FEMORAL HD CATH. WILL CONTINUE TO MONITOR VITALS.
[2017-07-05] MEDS: ATORVASTATIN 10 MG TABLET PO SCH (22:24)
[2017-07-06] VITALS (33 sets, daily range): BP systolic 101–157; BP diastolic 34–85
[2017-07-06] MEDS: FUROSEMIDE 40 MG/4 ML VIAL IV SCH ×3 (00:25→16:55)
[2017-07-06] MEDS: FIBERSOURCE HN 1,000 ML BOTTLE GT PRN (00:25)
[2017-07-06] MEDS: IPRATROPIUM NEB FS 0.5 MG/2.5 ML AMPUL.NEB NEB SCH ×4 (01:01→19:38)
--- NOTE | 2017-07-06 05:16 | NUR ---
SUPERVISOR FIREWORKS ASSEMBLY, AM CARE, ORAL CARE, BED BATH GIVEN, REMAINING SAME OXYGEN TOLERATED WELL. SAT 97%, DISTRIBUTION COLLECTION OPERATOR SHOWING NSR, IV RT UPPER ARM PICC LINE SALINE LOCK. FC PATENT. HOB ELEVATED, TURN AND REPOSITION Q2H. WILL CONTINUE TO MONITOR VITALS.
[2017-07-06 05:31] LABS: BASOPHILS % (AUTO) 0.2 % (0.0-2.0); EOSINOPHILS % (AUTO) 2.2 % (0.0-6.0); HEMATOCRIT 32 % (33-45); HEMOGLOBIN 10.8 g/dL (11.5-14.8); LYMPHOCYTES # (AUTO) 0.6 /CMM (0.8-4.8); LYMPHOCYTES % (AUTO) 11.3 % (20.0-44.0); MEAN CORPUSCULAR HGB CONC 34 g/dl (31.0-36.0); MEAN CORPUSCULAR VOLUME 91 fL (82-100); MONOCYTES # (AUTO) 0.8 /CMM (0.1-1.30); MONOCYTES % (AUTO) 13.7 % (2.0-12.0); NEUTROPHILS # (AUTO) 4.1 /CMM (1.8-8.9); NEUTROPHILS % (AUTO) 72.6 % (43.0-81.0); PLATELET COUNT (AUTO) 84 /CMM (150-450); RDW COEFFICIENT OF VARIATION 16.7 (11.5-15.0); WHITE BLOOD COUNT (AUTO) 5.7 K/uL (4.3-11.0)
[2017-07-06 05:49] LABS: CALCIUM, SERUM 8.3 mg/dL (8.5-10.1); CREATININE 5.6 mg/dL (0.6-1.3); MAGNESIUM 2.4 mg/dL (1.8-2.4); PHOSPHORUS 5.5 mg/dL (2.5-4.9); POTASSIUM 4.3 mmol/L (3.5-5.1)
[2017-07-06 05:57] LABS: THYROID STIMULATING HORMONE 5.479 uIU/mL (0.358-3.74)
[2017-07-06 05:59] LABS: BAND % (MANUAL) 1 % (0.0-5.0); EOSINOPHILS % (MANUAL) 2 % (0-4); LYMPHOCYTES % (MANUAL) 14 % (16-48); MONOCYTES % (MANUAL) 14 % (0-11.0); NEUTROPHILS % (MANUAL) 69 (42-76)
[2017-07-06] MEDS: ASPIRIN 81 MG TAB.CHEW PO SCH (08:34)
[2017-07-06] MEDS: Z GUARD REMEDY 2 OZ OINT TP SCH ×2 (08:34→22:23)
[2017-07-06 09:21] LABS: ABG BASE EXCESS 7.6 mmol/L; ABG OXYGEN SATURATION 91.7 % (92.0-98.5); ABG PCO2 58.6 mmHg (35.0-45.0); ABG PH 7.385 (7.350-7.450); ABG PO2 66.5 mmHg (75.0-100.0); AaDO2 296.8 mmHg; COHb 0.8 % (0.5-1.5); MetHb 0.4 % (0.0-1.5); O2Hb 90.6 % (94.0-97.0); SITE, ABG Left Radial; VENT MODE, BG CA 60%
--- NOTE | 2017-07-06 10:47 | NUR ---
SUPPLY ASSISTANT NOTE 0720: Received patient resting well. A/Ox4. With trache to cool aerosol, tolerated. Noted with bleeding on the trache site. With OGT intact, feeding tolerated, no residuals noted. Kept HOB elevated. ON Barimaxx. With dubon cath intact, but noted with minimal yellow urine drained to BSD. NOAH PICC intact. SR 60-70's on the monitor. 1035: S/E by Dr. Hartmann, aware for the ABG, verbalized with the RT to place patient on CPAP at night and cool aerosol during the day. Patient aware for the POC, verbalized understanding. Hold transfer, keep in ICU for now per MD. 1045: No significant changes noted at this time. Continue POC. Kept clean, warm and dry. Needs attended.
[2017-07-06] MEDS: CEFEPIME 1 GM in IV D5W 50 ML IV SCH (11:07)
[2017-07-06] MEDS: RENAL NOVASOURCE 1,000 ML BOTTLE GT PRN (16:55)
--- NOTE | 2017-07-06 19:45 | NUR ---
ICU/PARIMUTUEL CLERK PT PLACED ON CPAP FROM T-PIECE, WILL MONITOR PT PT'S SATURATION.
--- NOTE | 2017-07-06 21:50 | NUR ---
ICU/TELEVISION NEWS ANCHOR PT ASKED IF IT'S OK TO HAVE PM CARE GIVEN AT THIS TIME, PT REFUSED. EXPLAINED THE BENEFITS OF PM CARE. CALL LIGHT WITHIN REACH.
[2017-07-06] MEDS: ATORVASTATIN 10 MG TABLET PO SCH (22:23)
--- NOTE | 2017-07-06 23:50 | NUR ---
ICU/MANUFACTURING SALES REPRESENTATIVE PT ASKED IF IT'S OK TO HAVE PM CARE GIVEN AT THIS TIME, PT REFUSED. EXPLAINED THE BENEFITS OF PM CARE AGAIN, HOWEVER PT STILL REFUSED. CALL LIGHT WITHIN REACH.
[2017-07-07] VITALS (34 sets, daily range): BP systolic 105–149; BP diastolic 54–75
[2017-07-07] MEDS: FUROSEMIDE 40 MG/4 ML VIAL IV SCH ×3 (00:35→17:04)
--- NOTE | 2017-07-07 01:15 | NUR ---
ICU/INVESTIGATOR WELFARE PT ASKED IF IT'S OK TO HAVE AM CARE GIVEN AT THIS TIME, PT REFUSED. EXPLAINED THE BENEFITS OF AM CARE AGAIN BUT STILL REFUSED. CALL LIGHT WITHIN REACH. PT DENIED ANY PAIN AND NO SOB SEEN. PT APPEARS COMFORTABLE.
[2017-07-07] MEDS: IPRATROPIUM NEB FS 0.5 MG/2.5 ML AMPUL.NEB NEB SCH ×4 (01:30→20:18)
--- NOTE | 2017-07-07 03:20 | NUR ---
ICU/CLOCKMAKER APPRENTICE PT ASKED IF IT'S OK TO HAVE AM CARE GIVEN AT THIS TIME, PT REFUSED. EXPLAINED THE BENEFITS OF AM CARE AGAIN BUT STILL REFUSED. CALL LIGHT WITHIN REACH. PT DENIED ANY PAIN AND NO SOB SEEN. PT APPEARS COMFORTABLE.
[2017-07-07 04:35] LABS: BASOPHILS % (AUTO) 0.1 % (0.0-2.0); EOSINOPHILS % (AUTO) 3.4 % (0.0-6.0); HEMATOCRIT 31 % (33-45); HEMOGLOBIN 10.5 g/dL (11.5-14.8); LYMPHOCYTES # (AUTO) 0.7 /CMM (0.8-4.8); LYMPHOCYTES % (AUTO) 13.8 % (20.0-44.0); MEAN CORPUSCULAR HGB CONC 34 g/dl (31.0-36.0); MEAN CORPUSCULAR VOLUME 91 fL (82-100); MONOCYTES # (AUTO) 0.9 /CMM (0.1-1.30); MONOCYTES % (AUTO) 17.4 % (2.0-12.0); NEUTROPHILS # (AUTO) 3.2 /CMM (1.8-8.9); NEUTROPHILS % (AUTO) 65.3 % (43.0-81.0); PLATELET COUNT (AUTO) 90 /CMM (150-450); RDW COEFFICIENT OF VARIATION 16.2 (11.5-15.0); RED BLOOD CELL COUNT(AUTO) 3.44 MIL/uL (4.0-5.2); WHITE BLOOD COUNT (AUTO) 4.9 K/uL (4.3-11.0)
[2017-07-07 04:44] LABS: CALCIUM, SERUM 8.4 mg/dL (8.5-10.1); CREATININE 5.1 mg/dL (0.6-1.3); MAGNESIUM 2.3 mg/dL (1.8-2.4); PHOSPHORUS 4.7 mg/dL (2.5-4.9); POTASSIUM 4.4 mmol/L (3.5-5.1)
--- NOTE | 2017-07-07 06:30 | NUR ---
ICU/PRODUCTION GRIP PT ASKED IF IT'S OK TO HAVE AM CARE GIVEN AT THIS TIME, PT REFUSED. EXPLAINED THE BENEFITS OF AM CARE AGAIN BUT STILL REFUSED. CALL LIGHT WITHIN REACH. PT DENIED ANY PAIN AND NO SOB SEEN. PT APPEARS COMFORTABLE.
--- NOTE | 2017-07-07 07:46 | NUR ---
RT PT RECEIVED TRACHED ON THE VENT WITH NOTE SETTINGS. PT IS AWAKE AND ALERT. VENT ALARMS ARE SET AND AUDIBLE WITH BVM BY BEDSIDE. BROKERAGE OFFICE MANAGER CUFF PRESSURE NOTED. VENT IS PLUGGED INTO RED OUTLET. SX MINIMAL SECRETIONS. NO RESPIRATORY DISTRESS NOTED AT THIS TIME, WILL CONTINUE TO MONITOR. Addendum: 07/07/17 at 1749 by ETHEL GUSMAN RT Amended: Links added.
[2017-07-07 08:00] LABS: ABG BASE EXCESS 7.3 mmol/L; ABG OXYGEN SATURATION 95.5 % (92.0-98.5); ABG PCO2 60.9 mmHg (35.0-45.0); ABG PH 7.369 (7.350-7.450); ABG PO2 86.9 mmHg (75.0-100.0); AaDO2 273.9 mmHg; COHb 0.9 % (0.5-1.5); MetHb 0.6 % (0.0-1.5); O2Hb 94.1 % (94.0-97.0); SITE, ABG Left Radial; VENT MODE, BG CPAP 5 / PS 12
[2017-07-07] MEDS: ASPIRIN 81 MG TAB.CHEW PO SCH (08:50)
[2017-07-07] MEDS: Z GUARD REMEDY 2 OZ OINT TP SCH ×2 (08:51→21:00)
[2017-07-07] MEDS: CEFEPIME 1 GM in IV D5W 50 ML IV SCH (13:01)
[2017-07-07] MEDS: RENAL NOVASOURCE 1,000 ML BOTTLE GT PRN (17:04)
--- NOTE | 2017-07-07 19:02 | NUR ---
BLANKET WEAVER NOTE Patient awake, A/Ox4, able to mouth words or write on a communication pad. With trache to CPAP, tolerated at this time. Dr. Hartmann aware for the ABG today, with order to do AC at night and CPAP during daytime. Still with bleeding on the trache stoma and trache when suctioned. Right NGT intact, feeding tolerated well, kept HOB elevated. NOAH PICC intact. Right femoral HD cath intact. Barkley cath intact, noted with minimal clear yellow urine drained to BSD. HD done today, with 2500mL out.
--- NOTE | 2017-07-07 20:05 | NUR ---
ROUTE PROCESS ADMINISTRATOR DF PT RECEIVED TO ROOM#259 PT A/OX4, PT RECEIVED ON CPAP TRACH TO VENT SETTINGS.VSS. PT FOLLOWING COMMANDS, ALL NEEDS ATTENDED TO NO COMPLAINTS AT THIS TIME.POC PT SWITCHED BACK TO AC SETTINGS FROM [id number] PER PULMONARY MD. PT TOLERATING TUBE FEEDING OF NOVASOURCE NO RESIDUALS NOTED.
--- NOTE | 2017-07-07 20:25 | NUR ---
PT PLACED ON AC PER MD ORDER AC AT NOC Addendum: 07/07/17 at 2025 by CHERRIE VASQUEZ RT Amended: Links added.
[2017-07-07] MEDS: ATORVASTATIN 10 MG TABLET PO SCH (21:17)
--- NOTE | 2017-07-07 22:22 | NUR ---
PT RECEIVED ON VENT VIA CHARTED SETTINGS AND ROUTE. DISCONNECT ALARMS CHECKED. VENT PLUGGED INTO RED OUTLET. AMBU BAG AT BEDSIDE. ALARMS SET AND AUDIBLE. TOLERATING VENT SETTINGS AT THIS TIME Addendum: 07/07/17 at 2222 by CHERRIE VASQUEZ RT Amended: Links added.
[2017-07-08] VITALS (32 sets, daily range): BP systolic 114–155; BP diastolic 56–74
[2017-07-08] MEDS: FUROSEMIDE 40 MG/4 ML VIAL IV SCH ×3 (01:12→16:22)
[2017-07-08] MEDS: IPRATROPIUM NEB FS 0.5 MG/2.5 ML AMPUL.NEB NEB SCH ×4 (02:14→19:31)
[2017-07-08 04:51] LABS: BASOPHILS % (AUTO) 0.2 % (0.0-2.0); EOSINOPHILS % (AUTO) 3.8 % (0.0-6.0); HEMATOCRIT 29 % (33-45); HEMOGLOBIN 9.7 g/dL (11.5-14.8); LYMPHOCYTES # (AUTO) 0.8 /CMM (0.8-4.8); LYMPHOCYTES % (AUTO) 15.9 % (20.0-44.0); MEAN CORPUSCULAR HGB CONC 33 g/dl (31.0-36.0); MEAN CORPUSCULAR VOLUME 90 fL (82-100); MONOCYTES # (AUTO) 0.7 /CMM (0.1-1.30); MONOCYTES % (AUTO) 13.8 % (2.0-12.0); NEUTROPHILS # (AUTO) 3.4 /CMM (1.8-8.9); NEUTROPHILS % (AUTO) 66.3 % (43.0-81.0); PLATELET COUNT (AUTO) 97 /CMM (150-450); RDW COEFFICIENT OF VARIATION 16.3 (11.5-15.0); RED BLOOD CELL COUNT(AUTO) 3.24 MIL/uL (4.0-5.2); WHITE BLOOD COUNT (AUTO) 5.1 K/uL (4.3-11.0)
[2017-07-08 04:59] LABS: CALCIUM, SERUM 8.3 mg/dL (8.5-10.1); CREATININE 5.4 mg/dL (0.6-1.3); MAGNESIUM 2.3 mg/dL (1.8-2.4); PHOSPHORUS 3.8 mg/dL (2.5-4.9); POTASSIUM 4.2 mmol/L (3.5-5.1)
--- NOTE | 2017-07-08 05:38 | NUR ---
FLOORWORKER DISTRIBUTOR DF PT REFUSED AM BATH. PT IS CLEAN NO BM NOTED.VSS.NAD NOTED.
--- NOTE | 2017-07-08 05:39 | NUR ---
SCRAP BALER DF PT REFUSED TURNING Q 2 HOURS. PT EXPLAINED IMPORTANCE OF TURNING AND PT STILL REFUSED TO BE TURNED Q 2 HOURS.
[2017-07-08] MEDS: ASPIRIN 81 MG TAB.CHEW PO SCH (08:17)
[2017-07-08] MEDS: Z GUARD REMEDY 2 OZ OINT TP SCH ×2 (08:18→21:47)
[2017-07-08 08:49] LABS: ABG BASE EXCESS 6.2 mmol/L; ABG OXYGEN SATURATION 94.9 % (92.0-98.5); ABG PCO2 56.8 mmHg (35.0-45.0); ABG PH 7.378 (7.350-7.450); ABG PO2 82.3 mmHg (75.0-100.0); AaDO2 210.3 mmHg; COHb 0.9 % (0.5-1.5); MetHb 0.5 % (0.0-1.5); O2Hb 93.6 % (94.0-97.0); PEEP,BG 5 cm H2O; SITE, ABG Left Radial; VT, ABG 500 mL
[2017-07-08] MEDS: CEFEPIME 1 GM in IV D5W 50 ML IV SCH (12:43)
--- NOTE | 2017-07-08 13:36 | NUR ---
BLUE SPLIT TRIMMER NOTE 0720: Received patient awake, A/Ox4, able to mouth words. With trache to CPAP, tolerated at this time. No respiratory distress noted. With trache bleeding still, MD aware. Right NGT intact, feeding tolerated, no residuals. Kept HOB elevated. NOAH PICC intact. Right femoral HD cath intact. With Barkley cath, noted with minimal amount of clear yellow urine drained to BSD. Able to suction mouth independently, nick at reach. 1000: S/E by Dr. Lisa, verbalized may transfer to [facility] per CN. With order to do cool aerosol tomorrow. and 2 daughters at bedside aware for the POC. 1130: S/E by Dr. Steven, with repeat labs in am and HD in am. 1300: S/E by Phyllis NIÑO, agreed for transfer to [facility]. 1330: S/E by wound nurse re: lower back blister, applied Mepilex. Made nurse aware with episode of refusal or turning at times even though after telling the risks of repositioning frequently. 1335: No any significant changes noted at this time. Kept clean, warm and dry. Needs attended. Kept call light at reach.
--- NOTE | 2017-07-08 13:38 | NUR ---
WOUND CARE CONSULT: PT SEEN FOR LOWER MIDBACK OPEN BLISTER. PT NOTED TO HAVE GENERALIZED EDEMA. RECOMMENDATIONS MADE FOR SKIN PROTECTION AND WOUND CARE. DISCUSSED WITH NURSING STAFF. PT ON BARICAYCE BED WITH ETS AIR. ALL SKIN PROTECTION MEASURES IN PLACE. WILL SEE PRN. GREER IN AGREEMENT WITH PLAN OF CARE. Addendum: 07/08/17 at 1339 by TULIO MANCUSO WNDNU Amended: Links added.
--- NOTE | 2017-07-08 18:41 | NUR ---
URGENT CARE PHYSICIAN NOTE No any significant changes. Kept clean, warm and dry. Needs attended. Kept call light at reach. Transferred patient to [facility] 115-1. On CPAP tolerated.
--- NOTE | 2017-07-08 18:45 | NUR ---
RN [facility] NOTE: RECEIVED PATIENT IN RM 115-1 AND REPORT WAS RECEIVED FROM DIMITRY SCIENCE INSTRUCTOR. PATIENT IS AWAKE, ALERT AND NON-VERBAL, BUT MOUTH WORDS AND USED A WHITEBOARD TO COMMUNICATE W/ THE NURSES. NGT ON THE (R) NARE NOTED IN PLACED W/ GT FEEDING OF NOVASOURCE @45CC/HR. (R) UA PICC LINE PATENT AND INTACT. ON TOOLING SPECIALIST, SR HR= 77. (R) FEMORAL HD CATH NOTED W/ DRESSING CLEAN AND DRY. GERMAN CATHETER IN PLACED W/ YELLOW URINE DRAINING TO GRAVITY. BED ALARM AND LOCKED AT ALL TIMES. CALL LIGHT WITHIN REACH. REPORT GIVEN TO PM SHIFT NURSE FOR CONTINUITY OF CARE AND EMPHASIZED THE ORDER FROM DR. VIGIL RE: TO START THE COOL AEROSOL IN AM AND TO DO AN ABG 2HOUR POST COOL AEROSOL.
[2017-07-08] MEDS: RENAL NOVASOURCE 1,000 ML BOTTLE GT PRN (18:50)
[2017-07-08] MEDS: ATORVASTATIN 10 MG TABLET PO SCH (21:46)
[2017-07-08] MEDS: METOPROLOL TARTRATE 25 MG TABLET PO SCH (21:47)
[2017-07-09] VITALS: BP 128/59
[2017-07-09] MEDS: FUROSEMIDE 40 MG/4 ML VIAL IV SCH ×3 (00:44→18:37)
[2017-07-09] MEDS: IPRATROPIUM NEB FS 0.5 MG/2.5 ML AMPUL.NEB NEB SCH ×4 (00:57→19:28)
[2017-07-09 04:00] VITALS: BP 135/61
--- NOTE | 2017-07-09 07:15 | NUR ---
[facility] RN NOTES RECEIVED PATIENT AOX3 ABLE TO MOUTH WORDS AND COMMUNICATE THROUGH WHITE BOARD , DENIES SOB AND DISCOMFORT AT THIS TIME , SPO2 OF 100% VIA CPAP MODE , TRACH OF DELON # [address] , SR 75 ON BEDSIDE MONITOR , FC DRAINING VIA GRAVITY , ON [facility] BED , R NARE NGT IN PLACE WITH NOVASOURCE @ 45ML/HR TOLERATING WELL WITH NO RESIDUALS , NOAH PICC LINE PATENT AND INTACT , R FEMORAL HD CATH C/D/I , ALL NEEDS ATTENDED , BED ON LOW AND LOCKED POSITION , SIDE RAILS X2 ,CALL LIGHT WITHIN REACH , HOB @ 35 , WILL CONTINUE TO MONITOR.
[2017-07-09 07:51] LABS: BASOPHILS % (AUTO) 0.1 % (0.0-2.0); EOSINOPHILS % (AUTO) 5.1 % (0.0-6.0); HEMATOCRIT 30 % (33-45); HEMOGLOBIN 10.1 g/dL (11.5-14.8); LYMPHOCYTES # (AUTO) 0.7 /CMM (0.8-4.8); LYMPHOCYTES % (AUTO) 13.4 % (20.0-44.0); MEAN CORPUSCULAR HGB CONC 34 g/dl (31.0-36.0); MEAN CORPUSCULAR VOLUME 91 fL (82-100); MONOCYTES # (AUTO) 0.7 /CMM (0.1-1.30); MONOCYTES % (AUTO) 12.6 % (2.0-12.0); NEUTROPHILS # (AUTO) 3.8 /CMM (1.8-8.9); NEUTROPHILS % (AUTO) 68.8 % (43.0-81.0); PLATELET COUNT (AUTO) 124 /CMM (150-450); RED BLOOD CELL COUNT(AUTO) 3.27 MIL/uL (4.0-5.2); WHITE BLOOD COUNT (AUTO) 5.5 K/uL (4.3-11.0)
[2017-07-09 08:00] VITALS: BP 122/52
[2017-07-09 08:08] LABS: CALCIUM, SERUM 8.4 mg/dL (8.5-10.1); CREATININE 7.3 mg/dL (0.6-1.3); MAGNESIUM 2.8 mg/dL (1.8-2.4); PHOSPHORUS 5.5 mg/dL (2.5-4.9); POTASSIUM 4.4 mmol/L (3.5-5.1)
[2017-07-09] MEDS: ASPIRIN 81 MG TAB.CHEW PO SCH (08:11)
[2017-07-09] MEDS: METOPROLOL TARTRATE 25 MG TABLET PO SCH ×2 (08:11→21:35)
[2017-07-09] MEDS: Z GUARD REMEDY 2 OZ OINT TP SCH ×2 (08:12→21:35)
--- NOTE | 2017-07-09 08:16 | NUR ---
PT. IS AWAKE AND FOLLOW COMMANDS, PLACED INTO COOL AEROSOL @ 50% FIO2 ORDER. SPO2 96% HR 72 Addendum: 07/09/17 at 0818 by LUANNE WANG RT Amended: Links added.
--- NOTE | 2017-07-09 10:00 | NUR ---
SOLAR PANEL INSTALLER NOTES TRACH SUTURES REMOVED BY RT LUX , TRACH TIE CHANGED , NOTED WITH MINIMAL BLEEDING , APPLIED 4X4 GAUZE , WILL CONTINUE TO MONITOR
--- NOTE | 2017-07-09 10:25 | NUR ---
SANTOS RN NOTES SEEN AND EVALUATED BY DR VIGIL , DISCUSSED PT WAS ON CPAP AT NIGHT , CHANGE TO COOL AEROSOL 50% FIO2 @ 10LPM SPO2 OF 97% TOLERATING WELL WITH NO S/S OF DISTRESS , NOTIFIED THAT SUTURE WAS STILL INTACT , PER MD OK TO REMOVE SUTURES AND DO SWALLOW EVAL ( PSV ) MD AWARE .
[2017-07-09 10:52] LABS: ABG BASE EXCESS 6.2 mmol/L; ABG PH 7.366 (7.350-7.450); ABG PO2 71.7 mmHg (75.0-100.0); AaDO2 218.4 mmHg; COHb 0.9 % (0.5-1.5); MetHb 0.6 % (0.0-1.5); O2Hb 91.6 % (94.0-97.0); SITE, ABG Left Radial
--- NOTE | 2017-07-09 11:22 | NUR ---
SANTOS RN NOTES NOTIFIED DR VIGIL REGARDING ABG RESULT ON COOL AEROSOL @ 50% FIO2 , PER COOL AEROSOL @ AM AND CPAP 15/5 AT NIGHT .
[2017-07-09] MEDS: CEFEPIME 1 GM in IV D5W 50 ML IV SCH (11:47)
[2017-07-09 12:00] VITALS: BP 140/59
--- NOTE | 2017-07-09 12:12 | NUR ---
SANTOS RN NOTES NOTIFIED DR RUBEN COLLINS THAT PT WAS NOT ON PROTONIX , PT COMPLAINING OF ACID REFLUX , PER MD START PT ON PROTONIX 40MG Q DAILY AND CARAFATE Q6 ,ORDERS CARRIED OUT
[2017-07-09] MEDS: PANTOPRAZOLE 40 MG VIAL IV SCH (12:38)
[2017-07-09 16:00] VITALS: BP 138/77
--- NOTE | 2017-07-09 16:00 | NUR ---
SANTOS RN NOTES PT STABLE AT THIS TIME , HD ONGOING , WILL CONTINUE TO MONITOR
--- NOTE | 2017-07-09 18:36 | NUR ---
SANTOS RN NOTES PT STABLE S/P HD BP OF 126/50 2 L OUT , WILL CONTINUE TO MONITOR
[2017-07-09] MEDS: SUCRALFATE 1 G/10 ML UDC NG SCH (18:37)
[2017-07-09] MEDS: RENAL NOVASOURCE 1,000 ML BOTTLE GT PRN (18:38)
--- NOTE | 2017-07-09 19:20 | NUR ---
MINK FARMER OPENING NOTES RECEIVED REPORT FROM DULCE LINARES. PATIENT A/A/O X3, ABLE TO MAKE NEEDS KNOWN. BREATHING EVEN & UNLABORED W/ TRACH INTACT & ON COOL AEROSOL. TOLERATING WELL. ON TELE W/ SINUS RHYTHM, HR IN THE 80S. RIGHT NARE NGT INTACT & FLUSHING WELL, TOLERATING FIBERSOURCE @ 45 ML/HR. NO RESIDUAL NOTED @ THIS TIME. RIGHT UPPER ARM PICC LINE W/ DRESSING CDI, TKO. RIGHT FEMORAL HD CATH W/ PIGTAILS INTACT W/ DRESSING CDI. GERMAN CATH DRAINING LIVAN COLORED URINE. DENIES ANY PAIN OR DISCOMFORT @ THIS TIME. SAFETY MEASURES IN PLACE W/ CALL LIGHT WITHIN REACH. INSTRUCTED TO CALL FOR ASSISTANCE. HOB ELEVATED. WILL CONTINUE TO MONITOR CLOSELY.
[2017-07-09 20:00] VITALS: BP 128/62
--- NOTE | 2017-07-09 21:15 | NUR ---
PT IS AWAKE AND ALERT. PLACED ON NOC CPAP PS 15, +5, 50%. RN NOTIFIED. WILL CONTINUE TO MONITOR. Addendum: 07/09/17 at 2117 by JV CONLEY RT Amended: Links added.
[2017-07-09] MEDS: ATORVASTATIN 10 MG TABLET PO SCH (21:35)
[2017-07-10] VITALS: BP_SYST 115; BP_SYST 119; BP_DIAS 50; BP_DIAS 52
[2017-07-10] MEDS: FUROSEMIDE 40 MG/4 ML VIAL IV SCH ×3 (00:20→16:46)
[2017-07-10] MEDS: SUCRALFATE 1 G/10 ML UDC NG SCH ×4 (00:20→18:21)
[2017-07-10] MEDS: IPRATROPIUM NEB FS 0.5 MG/2.5 ML AMPUL.NEB NEB SCH ×4 (01:16→20:11)
[2017-07-10 04:00] VITALS: BP 114/49
[2017-07-10 07:20] LABS: BASOPHILS % (AUTO) 0.2 % (0.0-2.0); EOSINOPHILS % (AUTO) 4.5 % (0.0-6.0); HEMATOCRIT 30 % (33-45); HEMOGLOBIN 10.1 g/dL (11.5-14.8); LYMPHOCYTES # (AUTO) 0.9 /CMM (0.8-4.8); LYMPHOCYTES % (AUTO) 13.7 % (20.0-44.0); MEAN CORPUSCULAR HGB CONC 34 g/dl (31.0-36.0); MEAN CORPUSCULAR VOLUME 91 fL (82-100); MONOCYTES # (AUTO) 0.8 /CMM (0.1-1.30); MONOCYTES % (AUTO) 12.7 % (2.0-12.0); NEUTROPHILS # (AUTO) 4.4 /CMM (1.8-8.9); NEUTROPHILS % (AUTO) 68.9 % (43.0-81.0); PLATELET COUNT (AUTO) 112 /CMM (150-450); RDW COEFFICIENT OF VARIATION 15.6 (11.5-15.0); RED BLOOD CELL COUNT(AUTO) 3.29 MIL/uL (4.0-5.2); WHITE BLOOD COUNT (AUTO) 6.4 K/uL (4.3-11.0)
[2017-07-10 07:31] LABS: CALCIUM, SERUM 8.4 mg/dL (8.5-10.1); CREATININE 6.5 mg/dL (0.6-1.3); MAGNESIUM 2.6 mg/dL (1.8-2.4); PHOSPHORUS 4.8 mg/dL (2.5-4.9); POTASSIUM 4.3 mmol/L (3.5-5.1)
--- NOTE | 2017-07-10 07:36 | NUR ---
PER ORDER SWITCHED PT FROM VENT TO COOL AEROSOL. Addendum: 07/10/17 at 0748 by NADEEN MONREAL RT Amended: Links added.
--- NOTE | 2017-07-10 07:48 | NUR ---
CHAIR FRAME BUILDER NOTE: RECEIVED PATIENT IN BED, AWAKE, ALERT AND NONVERBAL, BUT ABLE TO MOUTHWORD AND USED A WHITE BOARD TO COMMUNICATE W/ THE NURSES. DENIED PAIN. ON COOL AEROSOL SATURATING 98%. ON CONCRETE BATCHER, SR HR= 61. NOTED W/ NGT ON THE (R) NARE W/ FEEDING OF FIBERSOURCE @45CC/HR AND TOLERATING IT WELL. (R) UA PICC LINE NOTED PATENT AND INTACT W/ TRANSPARENT DRESSING. (R) FEMORAL HD CATH NOTED W/ DRESSING. GERMAN CATHETER IN PLACED W/ SMALL AMOUNT OF YELLOW URINE DRAINING TO GRAVITY. BED LOCKED AT ALL TIMES. CALL LIGHT WITHIN REACH. NEEDS ANTICIPATED. Addendum: 07/10/17 at 0844 by DAVID DESAI RN ON NOVASOURCE RENAL @45CC/HR.
[2017-07-10 08:00] VITALS: BP 135/52
[2017-07-10] MEDS: ASPIRIN 81 MG TAB.CHEW PO SCH (09:39)
[2017-07-10] MEDS: METOPROLOL TARTRATE 25 MG TABLET PO SCH ×2 (09:41→21:26)
[2017-07-10] MEDS: Z GUARD REMEDY 2 OZ OINT TP SCH ×2 (09:42→21:26)
[2017-07-10] MEDS: PANTOPRAZOLE 40 MG VIAL IV SCH (11:42)
[2017-07-10] MEDS: CEFEPIME 1 GM in IV D5W 50 ML IV SCH (11:42)
[2017-07-10 12:00] VITALS: BP 125/46
--- NOTE | 2017-07-10 14:35 | NUR ---
TECHNICIAN SUPPORT ENGINEER NOTE: SALINAS MIRANDA WAS INFORMED ABOUT THE PATIENT'S TOLERANCE FOR THE PUREED DIET W/ THIN LIQUID FOR LUNCH TIME (ORAL GRATIFICATION). HE WAS INFORMED THAT THE PATIENT WAS COUGHING IN BETWEEN THE SPOON OF PUREED FOOD. BUT WAS ABLE TO TOLERATE THE ICE CHIPS. INTERACTIVE MULTIMEDIA DESIGNER W/ NO NEW ORDER.
[2017-07-10 16:00] VITALS: BP 126/56
--- NOTE | 2017-07-10 16:28 | NUR ---
RT NOTE PT CHANTAL AEROSOL T/O DAY. PMV TRIAL IN MORNING, PT DID WELL. SPEECH THERAPIST ON STANDBY. AMBU BAG AT HOB. SX T/O SHIFT.
--- NOTE | 2017-07-10 19:25 | NUR ---
YOUTH TEACHER OPENING NOTES RECEIVED REPORT FROM VIVIAN LINARES. PATIENT A/A/O X3, ABLE TO MAKE NEEDS KNOWN BY MOUTHING WORDS AND WIRITNG ON COMMUNICATION BOARD. BREATHING EVEN & UNLABORED W/ TRACH INTACT & ON CPAP. TOLERATING WELL. ON TELE W/ SINUS RHYTHM, HR IN THE 80S. RIGHT NARE NGT INTACT & FLUSHING WELL, TOLERATING NOVASOURCE @ 45 ML/HR. NO RESIDUAL NOTED @ THIS TIME. RIGHT UPPER ARM PICC LINE W/ DRESSING CDI, TKO. RIGHT FEMORAL HD CATH W/ PIGTAILS INTACT W/ DRESSING CDI. GERMAN CATH DRAINING LIVAN COLORED URINE W/ MINIMAL BLOOD CLOTS . DENIES ANY PAIN OR DISCOMFORT @ THIS TIME. SAFETY MEASURES IN PLACE W/ CALL LIGHT WITHIN REACH. INSTRUCTED TO CALL FOR ASSISTANCE. HOB ELEVATED. WILL CONTINUE TO MONITOR CLOSELY.
--- NOTE | 2017-07-10 19:41 | NUR ---
ASSOCIATE MANAGER AFFILIATE MARKETING NOTE: PATIENT IN BED, AWAKE, ALERT AND WATCHING TELEVISION. NOT ON ANY FORM OF DISTRESS. VERBALIZED THAT SHE FELT GASSY, BUT NOT NAUSEOUS. PT ALSO VERBALIZED THAT SHE FELT UNCOMFORTABLE W/ HER EARS. SALINAS MIRANDA WAS MADE AWARE AND GAVE NEW ORDER AND SAID THAT HE WOULD CHECK THE PATIENT'S EAR IN AM. NOTED AND CARRIED OUT. ON RETAIL LEADER, SR HR= 64. CALL LIGHT WITHIN REACH. REPORT GIVEN TO PM SHIFT FOR CONTINUITY OF CARE.
[2017-07-10 20:00] VITALS: BP 132/61
[2017-07-10] MEDS: SIMETHICONE 80 MG TAB.CHEW PO PRN (21:25)
[2017-07-10] MEDS: ATORVASTATIN 10 MG TABLET PO SCH (21:26)
[2017-07-11] VITALS: BP 119/52
[2017-07-11] MEDS: SUCRALFATE 1 G/10 ML UDC NG SCH ×5 (00:23→23:43)
[2017-07-11] MEDS: FUROSEMIDE 40 MG/4 ML VIAL IV SCH ×2 (00:23→09:01)
[2017-07-11] MEDS: IPRATROPIUM NEB FS 0.5 MG/2.5 ML AMPUL.NEB NEB SCH ×4 (02:08→19:41)
[2017-07-11] MEDS: RENAL NOVASOURCE 1,000 ML BOTTLE GT PRN (02:10)
[2017-07-11 04:00] VITALS: BP 116/48
[2017-07-11 07:20] LABS: BASOPHILS % (AUTO) 0.2 % (0.0-2.0); HEMATOCRIT 28 % (33-45); HEMOGLOBIN 9.3 g/dL (11.5-14.8); LYMPHOCYTES # (AUTO) 0.8 /CMM (0.8-4.8); LYMPHOCYTES % (AUTO) 15.9 % (20.0-44.0); MEAN CORPUSCULAR HGB CONC 33 g/dl (31.0-36.0); MEAN CORPUSCULAR VOLUME 91 fL (82-100); MONOCYTES # (AUTO) 0.7 /CMM (0.1-1.30); MONOCYTES % (AUTO) 13.3 % (2.0-12.0); NEUTROPHILS # (AUTO) 3.3 /CMM (1.8-8.9); NEUTROPHILS % (AUTO) 65.6 % (43.0-81.0); PLATELET COUNT (AUTO) 132 /CMM (150-450); RDW COEFFICIENT OF VARIATION 15.8 (11.5-15.0)
[2017-07-11 07:35] LABS: CALCIUM, SERUM 7.9 mg/dL (8.5-10.1); MAGNESIUM 2.5 mg/dL (1.8-2.4); PHOSPHORUS 4.8 mg/dL (2.5-4.9); POTASSIUM 4.6 mmol/L (3.5-5.1)
--- NOTE | 2017-07-11 07:44 | NUR ---
AIR HOLE DRILLER NOTES RECEIVED PATIENT IN BED, ALERT AND ORIENTED. CURRENTLY ON HD. WITH TRACH TO VENT SETTING ON CPAP MODE ORDERED, AMBU BAG AT BEDSIDE. PATIENT HAS FC TO GRAVITY CLEAR YELLOW COLOR. NGT INTACT PATENT WITH NO RESIDUAL, HOB ELEVATED TO PREVENT ASPIRATION. PATIENT HAS A RIGHT UA PICC LINE AND RIGHT FEMORAL HD CATH WITH PIGTAIL. JUANJO RT WAS AT BEDSIDE ADJUST SETTINGS. CALL LIGHT WITHIN REACH, BED LOCK LOW POSITION, PLAN DISCUSSED WITH PATIENT
[2017-07-11 07:48] LABS: CREATININE 7.8 mg/dL (0.6-1.3)
[2017-07-11 08:00] VITALS: BP 113/53
[2017-07-11] MEDS: METOPROLOL TARTRATE 25 MG TABLET PO SCH ×2 (09:00→21:37)
[2017-07-11] MEDS: ASPIRIN 81 MG TAB.CHEW PO SCH (09:01)
[2017-07-11] MEDS: Z GUARD REMEDY 2 OZ OINT TP SCH ×2 (09:01→21:49)
--- NOTE | 2017-07-11 09:04 | NUR ---
KNITTING MACHINE MECHANIC NOTE HD COMPLETED REMOVED 2.5 L BP 113/53 HR 52 ,RT AT BEDSIDE PLACED ON COOLER AEROSOL 40% TO 10 L O2 SAT 96%, SPOKE WITH DR DEE MASTER MECHANIC OK TO HOLD LASIX 80 MG IVP AT THIS TIME, AWARE THAT HD JUST DONE AND 2.5 L OUT
--- NOTE | 2017-07-11 10:11 | NUR ---
BUSINESS CENTER MANAGER NOTE PER ST OK TO FEED PATIENT PUREE DIET
[2017-07-11] MEDS: SIMETHICONE 80 MG TAB.CHEW PO PRN (10:22)
[2017-07-11] MEDS: PANTOPRAZOLE 40 MG VIAL IV SCH (11:17)
[2017-07-11] MEDS: CEFEPIME 1 GM in IV D5W 50 ML IV SCH (11:17)
[2017-07-11 12:00] VITALS: BP 118/48
--- NOTE | 2017-07-11 13:05 | NUR ---
VESSEL SLAG WORKER NOTE N G TUBE REMOVED ORDERED, PT EVAL DONE ORDERED
--- NOTE | 2017-07-11 14:00 | NUR ---
YOUTH ADVOCATE NOTE HAD LUNCH ATE 10% RT AT BEDSIDE HAD PMV ON TRACH NO SOB
--- NOTE | 2017-07-11 14:08 | NUR ---
EXPERIMENTAL MECHANIC SPACECRAFT OPENING NOTES RECEIVED REPORT FROM VIVIAN LINARES FOR ROSE PATIENT A/A/O X3, ABLE TO MAKE NEEDS KNOWN BY MOUTH VERB RESPIRATIONS EVEN & UNLABORED ON TRACH PIECE CONNECTED TO COOL AEROSOL 40% AT 10LPM 02 SAT AT94%, ON MONITOR CPAP WITH NIGHTLY USE. ON TELE W/ SINUS RHYTHM, HR IN THE 60S. RIGHT UPPER ARM PICC LINE W/ DRESSING CDI, TKO. RIGHT FEMORAL HD CATH W/ DRESSING CDI. GERMAN CATH DRAINING LIVAN COLORED URINE. PATIENT DENIES PAIN OR DISCOMFORT AT THIS TIME. SAFETY MEASURES IN PLACE W/ CALL LIGHT WITHIN EASY REACH. WILL CONTINUE TO MONITOR.
--- NOTE | 2017-07-11 14:45 | NUR ---
RELATIONSHIP MGR NOTE \ENDORSED CARE TO CESAR LINARES
--- NOTE | 2017-07-11 19:44 | NUR ---
TELE/RN NOTES PATIENT RESTING IN BED COMFORTABLY, NO S/S OF DISTRESS OR DISCOMFORT, ON T-PIECE CONNECTED TO COOL AEROSOL 40% 10L. SUCTIONED PATIENT NEEDED. PATIENT CONSUMED 15% OF MEAL WITH SLIGHT DIFFICULTIES OF SWALLOWING. GERMAN CATH IN PLACE DRAINING WELL. PER TELE READING SR IN 70S. TKO TO NOAH PICCLINE. SAFETY MEASURES RENDERED, CALL LIGHT PLACED WITHIN REACH. WILL ENDORSE CARE TO REAL ESTATE SALES ASSOCIATE FOR ROSE.
[2017-07-11 20:00] VITALS: BP 123/48
--- NOTE | 2017-07-11 20:00 | NUR ---
RN NOTES IN BED WATCHING TV WITH NO RESPIRATORY DISTRESS OR SHORTNESS OF BREATH. BREATHING EVEN AND UNLABORED. ALERT AND ORIENTED. ABLE TO COMMUNICATE NEEDS THROUGH MOUTHWORDS OR HANDWRITING. NO COMPLAINT OF PAIN OF THIS TIME. COOL AEROSOL WELL TOLERATED. GERMAN CATHETER IN PLACE DRAINING CLEAR YELLOW WITH FOUL ODOR URINE. KEPT CLEAN AND DRY. WILL CONTINUE TO MONITOR.
[2017-07-11] MEDS: ATORVASTATIN 10 MG TABLET PO SCH (21:35)
[2017-07-11 22:00] VITALS: BP 135/66
[2017-07-12] VITALS: BP 135/66
[2017-07-12] MEDS: IPRATROPIUM NEB FS 0.5 MG/2.5 ML AMPUL.NEB NEB SCH ×4 (01:08→20:20)
[2017-07-12 04:00] VITALS: BP 141/67
[2017-07-12] MEDS: SUCRALFATE 1 G/10 ML UDC NG SCH ×3 (06:36→17:34)
[2017-07-12 07:23] LABS: BASOPHILS % (AUTO) 0.2 % (0.0-2.0); EOSINOPHILS % (AUTO) 4.6 % (0.0-6.0); HEMATOCRIT 30 % (33-45); HEMOGLOBIN 9.9 g/dL (11.5-14.8); LYMPHOCYTES % (AUTO) 17.8 % (20.0-44.0); MEAN CORPUSCULAR HGB CONC 33 g/dl (31.0-36.0); MEAN CORPUSCULAR VOLUME 90 fL (82-100); MONOCYTES # (AUTO) 0.7 /CMM (0.1-1.30); MONOCYTES % (AUTO) 13.2 % (2.0-12.0); NEUTROPHILS # (AUTO) 3.5 /CMM (1.8-8.9); NEUTROPHILS % (AUTO) 64.2 % (43.0-81.0); PLATELET COUNT (AUTO) 149 /CMM (150-450); WHITE BLOOD COUNT (AUTO) 5.4 K/uL (4.3-11.0)
--- NOTE | 2017-07-12 07:23 | NUR ---
RN CLSOING NOTES PATIENT IN BED RESTING COMFORTABLY WITH NO DISTRESS NOTED. BREATHING EVEN AND UNLABORED. NO COMPLAINT OF PAIN. NOTED PATIENT TO HAVE DIFFICULTY SWALLOWING. VITAL SIGNS WNL. WILL ENDORSE TO AM SHIFT FOR CONTINUITY OF CARE
[2017-07-12 07:38] LABS: CALCIUM, SERUM 8.5 mg/dL (8.5-10.1); MAGNESIUM 2.5 mg/dL (1.8-2.4); PHOSPHORUS 5.1 mg/dL (2.5-4.9); POTASSIUM 5.4 mmol/L (3.5-5.1)
[2017-07-12 07:39] LABS: CREATININE 7.7 mg/dL (0.6-1.3)
--- NOTE | 2017-07-12 07:50 | NUR ---
RN NOTE(INITIAL) PATIENT RECEIVED ALERT AWAKE ORIENTED X4, INTUBATED, TOLERATING SETTINGS WELL. ABLE TO COMMUNICATE VIA WRITING ON BOARD & MOUTH WORDS. NO RESPIRATORY DISTRESS NOTED. HOB ELEVATED. ASPIRATION PRECAUTIONS OBSERVED. SAFETY MEASURES MAINTAIN. PT CLEAN & DRY. IV CATHETER INTACT. DRESSING DRY & INTACT. CALL LIGHT WITHIN REACH. WILL CONTINUE TO MONITOR.
[2017-07-12 08:00] VITALS: BP 132/53
[2017-07-12] MEDS: METOPROLOL TARTRATE 25 MG TABLET PO SCH ×2 (09:32→21:00)
[2017-07-12] MEDS: ASPIRIN 81 MG TAB.CHEW PO SCH (09:32)
[2017-07-12] MEDS: Z GUARD REMEDY 2 OZ OINT TP SCH ×2 (09:36→21:57)
--- NOTE | 2017-07-12 10:30 | NUR ---
RN NOTE;(COOL AEROSOL) PT SWITCH TO COOL AEROSOL/T-PIECE ON 10 LPM FROM VENTILATOR. SPO2 MAINTAINS 93-95%. NO RESPIRATORY DISTRESS NOTED. ABLE TO CONSUME ONLY 25% MEAL, TOLERATED WELL. CONTINUE TO MONITOR.
[2017-07-12 12:00] VITALS: BP 137/46
[2017-07-12] MEDS: PANTOPRAZOLE 40 MG VIAL IV SCH (12:16)
[2017-07-12 16:00] VITALS: BP 120/50
[2017-07-12] MEDS: IV NS 0.9% 250 ML IV PRN (17:35)
--- NOTE | 2017-07-12 17:56 | NUR ---
RN NOTE: PATIENT REMAINS ALERT AWAKE ORIENTED DURING SHIFT. ABLE TO MAKE NEEDS KNOWN VIA WRITING METHOD & ABLE TO MOUTH WORDS. T-PIECE/COOL AEROSOL TOLERATING WELL. ABLE TO CONSUME >25% MEAL, TOLERATING WELL. CONTINUE TO ENCOURAGE. PICC LINE INTACT, RED PORT EASILY ABLE TO FLUSH WITH GOOD BLOOD RETURN, FINCH PORT ABLE TO FLUSH WITH DIFFICULTY WITH GOOD BLOOD RETURN & WHITE PORT ABLE TO FLUSH WITH DIFFICULTY WITH NO BLOOD RETURN, CONTINUE TO FLUSH Q4H. RIGHT FEMORAL HD CATH INTACT. PATIENT REFUSED FOR BED BATH. PERINEAL CARE IS DONE. WOUND DRESSING CHANGED ON RIGHT FOREARM ORDERED. ASPIRATION PRECAUTIONS OBSERVED. SAFETY MEASURES OBSERVED. CALL LIGHT WITHIN REACH. WILL ENDORSE TO PM SHIFT FOR CONTINUITY OF CARE.
[2017-07-12 20:00] VITALS: BP 150/57
--- NOTE | 2017-07-12 20:00 | NUR ---
HUMAN RESOURCES DISTRICT MANAGER NOTES RECEIVED PTS ON BED ON CPAP SETTINGS WELL TOLERATED NO SOB NO DISTRESS NOTED ,ON TELE SB -55 ON THE MONITOR, NO SOB NO DISTRESS NOTED , HOB ELEVATED FOR ASPIRATION PRECAUTION , SUCTION SECRETION DONE AND PRN ALL NEEDS ATTENDED TOO CALL LIGHT WITHIN REACH , KEPT PTS CLEAN DRY AND COMFORTABLE V/S STABLE AFEBRILE.WILL CONTINUE TO MONITOR PTS.
--- NOTE | 2017-07-12 20:23 | NUR ---
RT NOTE PT PLACED ON CPAP SETTING. NO RESP DISTRESS OR SOB NOTED.
[2017-07-12] MEDS: ATORVASTATIN 10 MG TABLET PO SCH (21:58)
--- NOTE | 2017-07-12 22:00 | NUR ---
GREEN MATERIAL VALUE ADDED ASSESSOR NOTES ALL DUE MEDS GIVEN EXCEPT METOPROLOL D/T HR IS 55 WILL CONTINUE TO MONITOR PTS.
[2017-07-13] VITALS: BP 147/59
[2017-07-13] MEDS: SUCRALFATE 1 G/10 ML UDC NG SCH ×5 (00:18→23:50)
[2017-07-13] MEDS: IPRATROPIUM NEB FS 0.5 MG/2.5 ML AMPUL.NEB NEB SCH ×4 (01:23→19:15)
[2017-07-13 04:00] VITALS: BP 140/52
--- NOTE | 2017-07-13 04:53 | NUR ---
PT ANDERSON'D ON MECHANICAL VENT. TREATMENTS GIVEN AND NO ADVERSE REACTION NOTED. SUCTION DONE THROUGHOUT SHIFT. PT ANDERSON SECURE AND PATENT. ALARMS SET AND AUDIBLE. WILLIAMU BAG AT [facility]. VENT PLUGGED INTO RED OUTLET. Addendum: 07/13/17 at 0457 by NADEEN MONREAL RT Amended: Links added.
--- NOTE | 2017-07-13 05:51 | NUR ---
teletypesetter operator notes pts remains in bed awake and responsive remains on cpap settings well tolerated ,v/s stable afebrile hob elevated at all times , suction secretion done and prn, will endorse to rn dy shift for continuity of care.
[2017-07-13 08:00] VITALS: BP 134/59
[2017-07-13] MEDS: ASPIRIN 81 MG TAB.CHEW PO SCH (09:16)
[2017-07-13] MEDS: METOPROLOL TARTRATE 25 MG TABLET PO SCH ×2 (09:16→21:14)
[2017-07-13] MEDS: Z GUARD REMEDY 2 OZ OINT TP SCH ×2 (09:32→21:15)
[2017-07-13 12:00] VITALS: BP 134/59
[2017-07-13] MEDS: PANTOPRAZOLE 40 MG VIAL IV SCH (13:17)
[2017-07-13 16:00] VITALS: BP 134/59
--- NOTE | 2017-07-13 19:20 | NUR ---
VEGETABLE II FARMWORKER OPENING NOTES RECEIVED REPORT FROM AMBER LINARES. PATIENT A/A/O X3, ABLE TO MAKE NEEDS KNOWN BY MOUTHING WORDS AND WRITING ON COMMUNICATION BOARD. BREATHING EVEN & UNLABORED W/ TRACH INTACT & ON CPAP MODE. TOLERATING WELL. ON TELE W/ SINUS RHYTHM, HR IN THE 60S. RIGHT UPPER ARM PICC LINE W/ DRESSING CDI, TKO. RIGHT FEMORAL HD CATH W/ PIGTAIL INTACT W/ DRESSING CDI. GERMAN CATH DRAINING LIVAN COLORED URINE. DENIES ANY PAIN OR DISCOMFORT @ THIS TIME. SAFETY MEASURES IN PLACE W/ CALL LIGHT WITHIN REACH. INSTRUCTED TO CALL FOR ASSISTANCE. SUCTIONED & HOB KEPT ELEVATED. WILL CONTINUE TO MONITOR CLOSELY.
[2017-07-13 20:00] VITALS: BP 143/56
[2017-07-13] MEDS: ATORVASTATIN 10 MG TABLET PO SCH (21:14)
[2017-07-14] VITALS: BP_SYST 135; BP_SYST 144; BP_DIAS 110; BP_DIAS 64
[2017-07-14] MEDS: IPRATROPIUM NEB FS 0.5 MG/2.5 ML AMPUL.NEB NEB SCH ×4 (00:54→19:31)
[2017-07-14 04:00] VITALS: BP 156/76
[2017-07-14] MEDS: SUCRALFATE 1 G/10 ML UDC NG SCH ×3 (06:05→17:14)
[2017-07-14 06:36] LABS: INR 0.99 (0.87-1.13)
[2017-07-14 06:54] LABS: CALCIUM, SERUM 8.8 mg/dL (8.5-10.1); POTASSIUM 4.9 mmol/L (3.5-5.1)
[2017-07-14 07:58] LABS: CREATININE 8.1 mg/dL (0.6-1.3)
[2017-07-14 08:00] VITALS: BP 132/41
[2017-07-14] MEDS: Z GUARD REMEDY 2 OZ OINT TP SCH ×2 (09:00→21:30)
[2017-07-14] MEDS: METOPROLOL TARTRATE 25 MG TABLET PO SCH ×2 (09:00→21:00)
[2017-07-14] MEDS: ASPIRIN 81 MG TAB.CHEW PO SCH (09:00)
[2017-07-14] MEDS: AMLODIPINE BESYLATE 2.5 MG TABLET PO SCH (11:30)
--- NOTE | 2017-07-14 11:44 | NUR ---
RN NOTES: PATIENT REFUSING ASPIRIN. BENEFITS AND RISKS EXPLAINED TO PATIENT. REFUSED ZGUARD AND PATIENT STATED THAT SHE WILL GET CHANGED LATER AMLODIPINE OFFERED TO PATIENT. BP NOTED TO BE 130/70. PATIENT STATES THAT IT IS NORMAL FOR HER, REFUSED MEDICATION
[2017-07-14 12:00] VITALS: BP 130/70
[2017-07-14] MEDS: PANTOPRAZOLE 40 MG VIAL IV SCH (12:52)
[2017-07-14 16:00] VITALS: BP 132/60
--- NOTE | 2017-07-14 17:14 | NUR ---
RN NOTES: PATIENT REFUSING SUCRALFATE. BENEFITS AND RISKS EXPLAINED TO PATIENT AT LENGTH. PATIENT STATES THAT "IT TASTES BAD"
--- NOTE | 2017-07-14 19:25 | NUR ---
RN NOTES: PATIENT RESTING IN BED. NONLABORED BREATHING NOTED ON 10 L COOL AEROSOL. PATIENT AOX3 MOUTHING WORDS AND WRITING ON WHITE BOARD. DENYING SOB. PICCLINE ON NOAH AND FEMORAL HD CATHETER ITNACT WITH DRESSINGS INTACT WELL. PATIENT SINUS RHYTHM AND SINUS BRADYCADIC DURING SHIFT 58-66. DENYING CHEST PAIN DURING SHIFT. DR RUBEN COLLINS AWARE OF LABS. PATIENT RECEIVED DIALYSIS TODAY WITH 2 L OUTPUT, TOLERATED WELL. GERMAN CATHETER INTACT. PATIENT TO BE NPO AT MIDNIGHT, DISCUSSED WITH NIGHT NURSE AND PATIENT. PATIENT TO BE TRANSFERRED TO [facility] TOMORROW. FAMILY AWARE. PATIENT KEPT CLEAN AND DRY DURING SHIFT. TURNED AND REPOSITIONED EVERY 2 HOURS. ENDORSED TO NEXT SHIFT
[2017-07-14 20:00] VITALS: BP 120/51
--- NOTE | 2017-07-14 20:11 | NUR ---
RN NOTE RECEIVED PATIENT IN THE BED, ALERT/ORIENTED X 3, NO RESPIRATORY DISTRESS NOTED, ALL SAFETY MEASURES TAKEN, WILL CONTINUE TO MONITOR PATIENT
[2017-07-14] MEDS: ATORVASTATIN 10 MG TABLET PO SCH (21:31)
[2017-07-15] VITALS: BP 130/54
[2017-07-15] MEDS: IPRATROPIUM NEB FS 0.5 MG/2.5 ML AMPUL.NEB NEB SCH ×4 (01:26→19:18)
[2017-07-15 04:00] VITALS: BP 133/57
[2017-07-15] MEDS: SUCRALFATE 1 G/10 ML UDC NG SCH ×4 (06:00→18:09)
--- NOTE | 2017-07-15 07:48 | NUR ---
RN NOTE' NO CHANGES ON MY SHIFT, PATIENT IS STABLE, VITAL SIGNS ARE STABLE, ALL SAFETY MEASURES TAKEN
--- NOTE | 2017-07-15 08:00 | NUR ---
RN NOTE Pt in stable condition left to [facility] cardiac cath via ambulance, report given to Kalani by maintenance technician 2nd shift nurse, papers signed, Passy Dariela valve given to pt. Pt's family aware.
[2017-07-15] MEDS: METOPROLOL TARTRATE 25 MG TABLET PO SCH ×2 (09:00→21:00)
[2017-07-15] MEDS: AMLODIPINE BESYLATE 2.5 MG TABLET PO SCH (09:00)
[2017-07-15] MEDS: ASPIRIN 81 MG TAB.CHEW PO SCH (09:00)
--- NOTE | 2017-07-15 14:50 | NUR ---
RN NOTE PT BACK TO UNIT FROM [facility] CARDIAC CATH, AFTER THE CATHETERIZATION WITHOUT ANY SIGNIFICANT FINDINGS. PT AOX4, VS STABLE, DENIES PAIN OR SOB. PT HAS DRESSING AND BRACE ON THE R WRIST. PICC LINE IN PLACE, HD CATH IN PLACE. WILL MONITOR. AWARE.
[2017-07-15] MEDS: PANTOPRAZOLE 40 MG VIAL IV SCH (14:55)
[2017-07-15] MEDS: Z GUARD REMEDY 2 OZ OINT TP SCH ×2 (14:55→22:07)
[2017-07-15 16:00] VITALS: BP 149/85
[2017-07-15 20:00] VITALS: BP 153/63
[2017-07-15] MEDS: ATORVASTATIN 10 MG TABLET PO SCH (22:07)
[2017-07-16] VITALS (7 sets, daily range): BP systolic 122–143; BP diastolic 50–72
[2017-07-16] MEDS: IPRATROPIUM NEB FS 0.5 MG/2.5 ML AMPUL.NEB NEB SCH ×4 (01:06→20:00)
[2017-07-16] MEDS: SUCRALFATE 1 G/10 ML UDC NG SCH ×5 (06:00→23:42)
--- NOTE | 2017-07-16 07:30 | NUR ---
RN INITIAL NOTE ; PATIENT ON THE BED WITHOUT ANY DISTRESS , ON COOL AEROSOL ORDERED. ALERT/ORIENTED . SR IN TELE MONITOR , NOAH PICC LINE INTACT AND PATENT . DENIED ANY PAIN AT THIS TIME . F/C INTACT AND DRAINING CLOUDY COLORED URINE . WILL TURN AND REPOSITION Q2H. WILL CONTINUE TO MONITOR .
--- NOTE | 2017-07-16 07:35 | NUR ---
RN NOTE NO CHANGES DURING MY SHIFT, PATIENT RESTED WELL AT NIGHT, NO RESPIRATORY DISTRESS NOTED, ALL SAFETY MEASURES TAKEN
[2017-07-16 08:28] LABS: CALCIUM, SERUM 8.8 mg/dL (8.5-10.1); MAGNESIUM 2.4 mg/dL (1.8-2.4); PHOSPHORUS 7.6 mg/dL (2.5-4.9); POTASSIUM 4.7 mmol/L (3.5-5.1)
[2017-07-16 08:30] LABS: CREATININE 9.3 mg/dL (0.6-1.3)
[2017-07-16] MEDS: ASPIRIN 81 MG TAB.CHEW PO SCH (09:08)
[2017-07-16] MEDS: AMLODIPINE BESYLATE 2.5 MG TABLET PO SCH (09:08)
[2017-07-16] MEDS: METOPROLOL TARTRATE 25 MG TABLET PO SCH ×2 (09:09→21:00)
[2017-07-16] MEDS: Z GUARD REMEDY 2 OZ OINT TP SCH ×2 (09:10→21:58)
--- NOTE | 2017-07-16 09:40 | NUR ---
Pt taken off CA, self propelled dredge operator and O2 via nasal cannula placed on pt per MD order. Dr. Lisa at bedside. Pt tolerating self propelled dredge operator at this time. Addendum: 07/16/17 at 1315 by YARA NUÑEZ RT Amended: Links added.
[2017-07-16] MEDS: PANTOPRAZOLE 40 MG VIAL IV SCH (11:30)
--- NOTE | 2017-07-16 15:00 | NUR ---
RN NOTE; HEMODIALYSIS DONE WITH 2 LTR OUTPUT . PATIENT TOLERATED WELL. NO DISTRESS NOTED.
--- NOTE | 2017-07-16 19:09 | NUR ---
RN EOS NOTE; no distress within the shift. report given to electrician outside rn .
--- NOTE | 2017-07-16 20:00 | NUR ---
TELE 1 RN NOTE PT IN BED AWAKE. ON T PIECE SHELEY #6 WITH PMV ON. ON 3L 02 VIA N/C O2 SAT 99%. NO DISTRESS OR DISCOMFORT NOTED. DENIES PAIN. F/C INTACT AND PATENT. DRAINING YELLOWISH COLOR URINE. ON TELE SR HR 71. NOAH PICC LINE INTACT AND PATENT TKO. R FEMORAL HD CATH WITH PIGTAIL INTACT. SIDE RAILS UP X 3 AND CALL LIGHT WITHIN REACH. VSS. CONTINUE TO MONITOR HER.
[2017-07-16] MEDS: ATORVASTATIN 10 MG TABLET PO SCH (21:57)
[2017-07-17] VITALS: BP 126/61
[2017-07-17] MEDS: IPRATROPIUM NEB FS 0.5 MG/2.5 ML AMPUL.NEB NEB SCH ×4 (01:53→19:53)
--- NOTE | 2017-07-17 03:39 | NUR ---
TELE 1 RN NOTE FREQUENTLY SUCTIONED THE PT, THICK YELLOWISH SECRETIONS NOTED. ALL NEEDS ATTENDED. PT IS TOLERATING COOL AEROSOL WELL. NO DISTRESS NOTED. SLEEPING ON AND OFF.
[2017-07-17 04:00] VITALS: BP 139/64
[2017-07-17] MEDS: SUCRALFATE 1 G/10 ML UDC NG SCH ×4 (05:07→23:47)
--- NOTE | 2017-07-17 06:39 | NUR ---
TELE 1 RN NOTE PT IN BED ASLEEP, EASILY AROUSABLE. NO DISTRESS OR DISCOMFORT NOTED. DENIES PAIN. ON TELE SR HR IN 72. F/C INTACT AND PATENT DRAINING YELLOWISH COLOR URINE. SIDE RAILS UP X 3 AND CALL LIGHT WITHIN REACH. WILL ENDORSE TO DAY SHIFT NURSE FOR CONTINUE TO CARE.
[2017-07-17 07:26] LABS: BASOPHILS % (AUTO) 0.4 % (0.0-2.0); HEMATOCRIT 30 % (33-45); HEMOGLOBIN 10.2 g/dL (11.5-14.8); LYMPHOCYTES % (AUTO) 19.1 % (20.0-44.0); MEAN CORPUSCULAR HGB CONC 34 g/dl (31.0-36.0); MEAN CORPUSCULAR VOLUME 90 fL (82-100); MONOCYTES # (AUTO) 0.7 /CMM (0.1-1.30); MONOCYTES % (AUTO) 13.1 % (2.0-12.0); NEUTROPHILS # (AUTO) 3.4 /CMM (1.8-8.9); NEUTROPHILS % (AUTO) 64.4 % (43.0-81.0); PLATELET COUNT (AUTO) 194 /CMM (150-450); RDW COEFFICIENT OF VARIATION 15.8 (11.5-15.0); RED BLOOD CELL COUNT(AUTO) 3.35 MIL/uL (4.0-5.2); WHITE BLOOD COUNT (AUTO) 5.3 K/uL (4.3-11.0)
[2017-07-17 07:29] LABS: ALBUMIN 2.7 g/dL (3.4-5.0); BILIRUBIN,TOTAL 0.5 mg/dL (0.2-1.0); CALCIUM, SERUM 8.6 mg/dL (8.5-10.1); MAGNESIUM 2.2 mg/dL (1.8-2.4); PHOSPHORUS 6.2 mg/dL (2.5-4.9); POTASSIUM 4.7 mmol/L (3.5-5.1); TOTAL PROTEIN, SERUM 6.4 g/dL (6.4-8.2)
--- NOTE | 2017-07-17 07:35 | NUR ---
AURICULAR THERAPIST OPENING RECEIVED PATIENT A/XO4 UNABLE TO SPEAK HOWEVER ALERT AND MOUTHING WORDS. PATIENT DENIES PAIN, SOB, DIFFICULTY BREATHING. LUNG SOUNDS CLEAR. PATIENT STATES NO NEEDS AT THIS TIME. ALL NEEDS IN REACH. CALL LIGHT IN REACH. PATIENT APPEARS STABLE AT THIS TIME. BED LOWERED AND LOCKED, RAILS UPX3 FOR SAFETY AND BED ALARM ON. HOB ELEVATED. PATIENT TOLERATING COOL AEROSOL.
[2017-07-17 07:36] LABS: CREATININE 8.3 mg/dL (0.6-1.3)
[2017-07-17 08:00] VITALS: BP 124/51
[2017-07-17] MEDS: ASPIRIN 81 MG TAB.CHEW PO SCH (08:12)
[2017-07-17] MEDS: Z GUARD REMEDY 2 OZ OINT TP SCH ×2 (08:13→21:16)
--- NOTE | 2017-07-17 08:14 | NUR ---
ASSURANCE SENIOR NOTES RT CAPPED PATIENT TRACH AND PATIENT ON COOL AEROSOL 3LPM. TOLERATING WELL. NO SOB, DIFFICULTY BREATHING. WILL CONTINUE TO MONITOR
[2017-07-17] MEDS: METOPROLOL TARTRATE 25 MG TABLET PO SCH ×2 (09:00→21:00)
--- NOTE | 2017-07-17 09:13 | NUR ---
REGRINDER NOTES DR VIGIL AT BEDSIDE. UPDATED ON PATIENT PLAN OF CARE. PATIENT SPEAKING WITH NO COMPLICATIONS WITH EDUCATIONAL RECRUITER.
--- NOTE | 2017-07-17 09:14 | NUR ---
ABSTRACT MANAGER NOTES CONFIRMED WITH PHYSICAL THERAPY PATIENT WILL HAVE TREATMENT TODAY
[2017-07-17] MEDS: AMLODIPINE BESYLATE 2.5 MG TABLET PO SCH (10:09)
--- NOTE | 2017-07-17 11:25 | NUR ---
ENGINE CLEANER NOTES DR Manas STOVALL AT BEDSIDE. MD AWARE AND UPDATED ON PATIENT LAB VALUES AND CONDITION. NO NEW ORDERS PER MD.
[2017-07-17 12:00] VITALS: BP 136/59
[2017-07-17] MEDS: PANTOPRAZOLE 40 MG VIAL IV SCH (12:28)
--- NOTE | 2017-07-17 12:30 | NUR ---
FIELD CLINICAL ENGINEER NOTES DR SINGH AT BEDSIDE.
[2017-07-17 16:00] VITALS: BP 127/59
--- NOTE | 2017-07-17 19:23 | NUR ---
WORKFORCE DEVELOPMENT VICE PRESIDENT CLOSING PATIENT STABLE. ALL DUE MEDS GIVEN AND ALL NEEDS MET. PATIENT NEEDS IN REACH. TRACH CAPPED AND TOLERATING WELL. BED LOWERED AND LOCKED, RAILS UPX3 FOR SAFRTY AND BED ALARM ON. CARE ENDORSED TO RN FOR ROSE
[2017-07-17 20:00] VITALS: BP 126/52
[2017-07-17] MEDS: ATORVASTATIN 10 MG TABLET PO SCH (22:16)
[2017-07-18] VITALS: BP 123/77
[2017-07-18] MEDS: IPRATROPIUM NEB FS 0.5 MG/2.5 ML AMPUL.NEB NEB SCH ×4 (01:34→19:37)
[2017-07-18 04:00] VITALS: BP 109/53
[2017-07-18] MEDS: SUCRALFATE 1 G/10 ML UDC NG SCH ×3 (05:55→17:13)
--- NOTE | 2017-07-18 07:14 | NUR ---
PRESCRIPTION BENEFIT SPECIALIST NOTES RECEIVED PATIENT A/OX4 DENIES SOB, DIFFICULTY BREATHING OR PAIN AT THIS TIME AT REST. PATIENT NEEDS IN REACH, BED LOWERED AND LOCKED, RAILS UPX3 FOR SAFETY. TRACH CAPPED AND NO SOB TOLERATING WELL. HOB ELEVATED. WILL ROUND PRN
[2017-07-18 08:00] VITALS: BP 122/56
[2017-07-18] MEDS: Z GUARD REMEDY 2 OZ OINT TP SCH ×2 (08:19→21:55)
[2017-07-18] MEDS: METOPROLOL TARTRATE 25 MG TABLET PO SCH ×2 (08:19→21:54)
[2017-07-18] MEDS: AMLODIPINE BESYLATE 2.5 MG TABLET PO SCH (08:20)
[2017-07-18] MEDS: ASPIRIN 81 MG TAB.CHEW PO SCH (08:24)
--- NOTE | 2017-07-18 08:45 | NUR ---
CLINICAL PHARMACY TECHNICIAN NOTES HD RN AT BEDSIDE
--- NOTE | 2017-07-18 11:08 | NUR ---
MOBILE MARKETING SPECIALIST NOTES HD COMPLETED. 1.5L OUT. PATIENT VS STABLE. PROVIDED ICE CHIPS. EDUCATED PATIENT ON ORAL INTAKE FLUIDS
[2017-07-18 12:00] VITALS: BP 139/53
[2017-07-18] MEDS: PANTOPRAZOLE 40 MG VIAL IV SCH (12:04)
--- NOTE | 2017-07-18 14:44 | NUR ---
MIDDLE SCHOOL TECHNOLOGY TEACHER NOTES CALLED KITCHEN TO HAVE BOOST BROUGHT FOR PATIENT
[2017-07-18] MEDS: RENAL NOVASOURCE (8OZ) 1 EA BOX PO SCH ×2 (14:57→20:29)
[2017-07-18 16:00] VITALS: BP 138/55
[2017-07-18] MEDS: Z GUARD REMEDY 2 OZ OINT TP PRN (17:13)
[2017-07-18] MEDS: SEVELAMER CARBONATE 0.8 GM POWD.PACK PO SCH (17:35)
[2017-07-18] MEDS ORDERED: SEVELAMER CARBONATE 800 MG TABLET PO SCH (18:00)
--- NOTE | 2017-07-18 18:43 | NUR ---
POSITION CLERK CLOSING PATIENT STABLE. ALL DUE MEDS GIVEN AND ALL NEEDS MET. PATIENT NEEDS IN REACH. PATIENT ON T PEICE AT 10LPM TOLERATING WELL. BED LOWERED AND LOCKED, RAILS UPX3 FOR SAFRTY AND BED ALARM ON. CARE ENDORSED TO RN FOR ROSE
[2017-07-18 20:00] VITALS: BP 112/47
[2017-07-18] MEDS: ATORVASTATIN 10 MG TABLET PO SCH (21:48)
[2017-07-19] VITALS: BP 128/56
[2017-07-19] MEDS: SUCRALFATE 1 G/10 ML UDC NG SCH ×5 (00:47→23:28)
[2017-07-19] MEDS: IPRATROPIUM NEB FS 0.5 MG/2.5 ML AMPUL.NEB NEB SCH ×4 (01:38→19:50)
[2017-07-19 04:00] VITALS: BP 133/50
--- NOTE | 2017-07-19 06:37 | NUR ---
RN CLOSING NOTE PT REMAINS IN NO ACUTE DISTRESS IN BED. PT DID NOT HAVE ANY SIGNIFICANT CHANGE IN CONDITION DURING SHIFT. PT TOLERATED COOL AEROSOL WELL WITH O2 SAT @ 98%. ALL NEEDS MET, ALL ORDERS CARRIED OUT. WILL ENDORSE CARE TO AM RN FOR CONTINUITY OF CARE.
[2017-07-19 08:00] VITALS: BP 131/54
[2017-07-19] MEDS: Z GUARD REMEDY 2 OZ OINT TP SCH ×2 (09:00→21:42)
[2017-07-19] MEDS: RENAL NOVASOURCE (8OZ) 1 EA BOX PO SCH ×3 (10:00→21:34)
[2017-07-19] MEDS: ASPIRIN 81 MG TAB.CHEW PO SCH (11:04)
[2017-07-19] MEDS: METOPROLOL TARTRATE 25 MG TABLET PO SCH ×2 (11:05→21:33)
[2017-07-19] MEDS: ATORVASTATIN 10 MG TABLET PO SCH (11:05)
[2017-07-19] MEDS: PANTOPRAZOLE 40 MG VIAL IV SCH (11:07)
[2017-07-19] MEDS: AMLODIPINE BESYLATE 2.5 MG TABLET PO SCH (11:07)
[2017-07-19] MEDS: SEVELAMER CARBONATE 0.8 GM POWD.PACK PO SCH ×3 (11:09→17:16)
[2017-07-19 12:00] VITALS: BP_SYST 109; BP_SYST 130; BP_DIAS 55; BP_DIAS 65
[2017-07-19] MEDS ORDERED: ALLA266C2 TP (14:05)
[2017-07-19] MEDS ORDERED: METO25TA20 PO (14:05)
[2017-07-19] MEDS ORDERED: ASPI-1169 PO (14:05)
[2017-07-19] MEDS ORDERED: ATOR10TA PO (14:05)
[2017-07-19] MEDS ORDERED: ACET325T53 PO (14:05)
[2017-07-19] MEDS ORDERED: SEVE0.8P PO (14:05)
[2017-07-19] MEDS ORDERED: HYDR-3972 PO (14:05)
[2017-07-19] MEDS ORDERED: SIME80TA15 PO (14:05)
[2017-07-19] MEDS ORDERED: AMLO2.5T3 PO (14:05)
[2017-07-19] MEDS ORDERED: IPRA0.2S9 NEB (14:05)
[2017-07-19] MEDS ORDERED: Renal Novasource GT (14:05)
[2017-07-19] MEDS ORDERED: SUCR1ORA6 NG (14:05)
[2017-07-19] MEDS ORDERED: PANT40TA2 PO (14:05)
[2017-07-19 16:00] VITALS: BP_SYST 109; BP_SYST 122; BP_DIAS 46; BP_DIAS 65
--- NOTE | 2017-07-19 19:14 | NUR ---
ALL AM CARE RCVD. NO DISTRESS NOTED THIS SHIFT. CALL LIGHT AVAILABLE AND WITHIN REACH. COOPERATIVE WITH STAFF. TURNED AND REPOSITIONED FOR COMFORT AND REQUESTED. CALL LIGHT AVAILABLE AND WITHIN REACH. ENCOURAGED TO CALL FOR ASSIST IF NEEDED. VERBALIZED UNDERSTANDING
[2017-07-19 20:00] VITALS: BP 127/75
--- NOTE | 2017-07-19 20:13 | NUR ---
RN TEL INITIAL NOTE RECEVIED PT IN NO ACUTE DISTRESS IN BED. PT IS A/O X 3 AND ABLE TO MAKE NEEDS KNOWN. PT CAN MOUTH WORDS. PT IS ON COOL AEROSOL VIA TRACH. TRACH SITE IS CLEAN DRY AND INTACT. PT TOLERATING COOL AEROSOL WELL WITH O2 SAT @ 98%. PT IS NOT C/O ANY SOB, DIFFICULTY BREATHING OR PAIN AT THIS TIME. BED IN LOW LOCK POSITION WITH RIALS UP X 2. CALL LIGHT WITHIN REACH AND ALL SAFETY MEASURES ENSURED AND CARRIED OUT. WILL CONTINUE TO MONITOR PT.
[2017-07-20] VITALS: BP 130/62
[2017-07-20] MEDS: IPRATROPIUM NEB FS 0.5 MG/2.5 ML AMPUL.NEB NEB SCH ×4 (01:50→19:40)
[2017-07-20 04:00] VITALS: BP_SYST 110; BP_SYST 133; BP_DIAS 46; BP_DIAS 59
[2017-07-20] MEDS: SUCRALFATE 1 G/10 ML UDC NG SCH ×3 (05:06→17:37)
--- NOTE | 2017-07-20 07:15 | NUR ---
RN TEL CLOSING NOTE PT ENDORSED STABLE ON C/A WELL CHANTAL, FOR POSSIBLE DC IN AM, REFUSED AM CARE STATING SHE'S CLEAN AND WOULD PREFER TO BE CLEANED AT 9AM, RISK AND BENEFIT EXPLAINED, WILL ENDORSE TO AM SHIFT NURSE TO F/U ON PT NON COMPLIANT BEHAVIOR, ALL NEEDS MET.
[2017-07-20 08:00] VITALS: BP_SYST 129; BP_SYST 130; BP_DIAS 58; BP_DIAS 62
[2017-07-20] MEDS: METOPROLOL TARTRATE 25 MG TABLET PO SCH ×2 (09:00→21:00)
[2017-07-20] MEDS: ASPIRIN 81 MG TAB.CHEW PO SCH (09:20)
[2017-07-20] MEDS: AMLODIPINE BESYLATE 2.5 MG TABLET PO SCH (09:23)
[2017-07-20] MEDS: Z GUARD REMEDY 2 OZ OINT TP SCH ×2 (09:24→21:09)
[2017-07-20] MEDS: RENAL NOVASOURCE (8OZ) 1 EA BOX PO SCH ×3 (09:25→20:59)
[2017-07-20] MEDS: SEVELAMER CARBONATE 0.8 GM POWD.PACK PO SCH ×3 (09:26→17:38)
--- NOTE | 2017-07-20 11:40 | NUR ---
CARPET LAYER HELPER NOTE ON HD AT THIS TIME
[2017-07-20 12:00] VITALS: BP_SYST 112; BP_SYST 129; BP_DIAS 53; BP_DIAS 62
--- NOTE | 2017-07-20 12:50 | NUR ---
KICKING MACHINE OPERATOR NOTE HD COMPLETED REMOVED 1.5 L OF FLUIDS BP 112/53, PER RUBEN LORENZANA OK TO HOLD DISCHARGE NEED TO PLACE PERMCATH FOR HD WILL F\U
[2017-07-20] MEDS: PANTOPRAZOLE 40 MG VIAL IV SCH (12:56)
--- NOTE | 2017-07-20 15:25 | NUR ---
MS RN NOTE ALL NEEDS ATTENDED ,KEEP CLEAN DRY ,NOT IN ACUTE DISTRESS
[2017-07-20 16:00] VITALS: BP 110/46
--- NOTE | 2017-07-20 19:00 | NUR ---
MS RN NOTE CONT CARE FED BY AWNING CRAFTSMAN, NOT IN ACUTE DISTRESS
[2017-07-20 20:00] VITALS: BP_SYST 116; BP_DIAS 46; BP_DIAS 50
--- NOTE | 2017-07-20 20:29 | NUR ---
RN INITIAL TEL NOTE RECEIVED PT IN NO ACUTE DISTRESS IN BED. PT IS A/O X 3 AND ABLE TO MAKE NEEDS KNOWN. PT CAN MOUTH WORDS. PT IS ON COOL AEROSOL VIA TRACH. TRACH SITE IS CLEAN DRY AND INTACT. PT TOLERATING COOL AEROSOL 35% WELL WITH O2 SAT @ 98%. PT IS NOT C/O ANY SOB, DIFFICULTY BREATHING OR PAIN AT THIS TIME. BED IN LOW LOCK POSITION WITH RIALS UP X 2. CALL LIGHT WITHIN REACH AND ALL SAFETY MEASURES ENSURED AND CARRIED OUT. WILL CONTINUE TO MONITOR PT. WITH GERMAN CATH TO GRAVITY BED IN LOWEST AND LOCKED POSITION , CALL LIGHT WITHIN REACH
[2017-07-20] MEDS: ATORVASTATIN 10 MG TABLET PO SCH (21:00)
[2017-07-21] VITALS (7 sets, daily range): BP systolic 110–124; BP diastolic 50–56
[2017-07-21] MEDS: IPRATROPIUM NEB FS 0.5 MG/2.5 ML AMPUL.NEB NEB SCH ×4 (00:56→19:41)
[2017-07-21] MEDS: SUCRALFATE 1 G/10 ML UDC NG SCH ×4 (01:05→17:09)
--- NOTE | 2017-07-21 06:24 | NUR ---
RN CLOSING NOTE PT CONT TO BE STABLE, FOR PENDING DC TO ACUTE REHAB D/T HD CATH PLACEMENT PLANNING NEXT WK, F/U WITH PLAN OF CARE.
--- NOTE | 2017-07-21 07:18 | NUR ---
RN INITIAL NOTES: REC'D PT AWAKE ON BED, A/O X 3, NOT IN ANY DISTRESS. HAS TRACH, CAPPED, ON NC AT 4LPM, SATING AT 96%. HAS NOAH PICC LINE, TLC, FLUSHING WELL, NO S/SX OF INFECTION/INFILTRATION NOTED. HAS R FEMORAL HD CATH IN PLACE. HAS FC PATENT & INTACT DRAINING TO LIVAN COLORED URINE OUTPUT. PROVIDED COMFORT & SAFETY MEASURES. BED KEPT LOW & IN LOCKED POS. CALL LIGHT PLACED W/IN REACH. WILL CONTINUE TO MONITOR & ATTEND PT NEEDS.
[2017-07-21] MEDS: SEVELAMER CARBONATE 0.8 GM POWD.PACK PO SCH ×3 (08:49→17:09)
[2017-07-21] MEDS: ASPIRIN 81 MG TAB.CHEW PO SCH (08:49)
[2017-07-21] MEDS: Z GUARD REMEDY 2 OZ OINT TP SCH ×2 (08:50→21:13)
[2017-07-21] MEDS: AMLODIPINE BESYLATE 2.5 MG TABLET PO SCH (08:52)
[2017-07-21] MEDS: METOPROLOL TARTRATE 25 MG TABLET PO SCH ×2 (08:52→21:00)
[2017-07-21] MEDS: RENAL NOVASOURCE (8OZ) 1 EA BOX PO SCH ×3 (08:55→21:04)
[2017-07-21] MEDS: PANTOPRAZOLE 40 MG VIAL IV SCH (11:44)
[2017-07-21] MEDS: ACETAMINOPHEN 325 MG TABLET PO PRN (11:44)
--- NOTE | 2017-07-21 12:00 | NUR ---
RN NOTES: PT SEEN & EXAMINED BY DR. VALENTINO. PLACED BACK TO COOL AEROSOL, PER PT'S REQUEST & MD'S ORDER.
--- NOTE | 2017-07-21 18:32 | NUR ---
RN CLOSING NOTES: NO ACUTE CHANGES NOTED W/IN SHIFT. PT TOLERATING TPIECE AT 8LPM, SATING AT 96%. NOAH PICC LINE, TLC, KEPT PATENT & INTACT W/ NO S/SX OF INFECTION/INFILTRATION NOTED. R FEMORAL HD CATH KEPT IN PLACE. FC KEPT PATENT & INTACT, DR MIRANDA MADE AWARE OF BLOODY URINE W/ NO NEW ORDERS MADE. KEPT WELL RESTED. NEEDS ATTENDED. BED KEPT LOW & IN LOCKED POS. CALL LIGHT PLACED W/IN REACH. WILL ENDORSE TO PM RN FOR ROSE.
[2017-07-21] MEDS: ATORVASTATIN 10 MG TABLET PO SCH (21:04)
--- NOTE | 2017-07-21 21:15 | NUR ---
RN NOTE HR 56, METOPROLOL WAS NOT ADMINISTERED
--- NOTE | 2017-07-21 23:30 | NUR ---
RN NOTE PATIENT WAS TRANSFERRED TO ROOM 205 (1), REPORT GIVEN , NO RESPIRATORY DISTRESS NOTED, PATIENT WAS TRANSFERRED IN STABLE CONDITION, RT MARLO ACCOMPANIED, ALL SAFETY MEASURES TAKEN, ENDORSED TO NURSE TO TAKE WEEKLY SKIN PICTURES
--- NOTE | 2017-07-21 23:45 | NUR ---
MS RN NOTE: RECEIVED PATIENT FROM [facility], NO ACUTE DISTRESS NOTED. BREATHING EVEN AND UNLABORED, NO SOB NOTED. T-PIECE IN PLACE TO COOL AEROSOL. PICCLINE TO NOAH IN PLACE. HD CATH TO RIGHT FEMORAL IN PLACE. BED LOCKED AND IN LOWEST POSITION, CALL LIGHT IN REACH. WILL CONTINUE TO MONITOR.
[2017-07-22] MEDS: SUCRALFATE 1 G/10 ML UDC NG SCH ×5 (00:34→23:27)
[2017-07-22] MEDS: IPRATROPIUM NEB FS 0.5 MG/2.5 ML AMPUL.NEB NEB SCH ×4 (01:26→19:34)
--- NOTE | 2017-07-22 06:20 | NUR ---
MS RN NOTE: PATIENT RESTING IN BED, NO ACUTE DISTRESS NOTED. BREATHING EVEN AND UNLABORED, NO SOB NOTED. T-PIECE IN PLACE TO COOL AEROSOL. PICC LINE TO NOAH IN PLACE. HD CATH TO RIGHT FEMORAL IN PLACE. BED LOCKED AND IN LOWEST POSITION, CALL LIGHT IN REACH. WILL ENDORSE TO DAY NURSE TO CONTINUE WITH PLAN OF CARE.
--- NOTE | 2017-07-22 07:15 | NUR ---
MS RN NOTES PATIENT IN BED, A/O X4, ABLE TO MOUTH WORDS TO COMMUNICATE. TRACH INTACT CONNECTED TO COOL AEROSOL 35% 8L OXYGEN, TOLERATING WELL. GERMAN CATH INTACT, DRAINING TO GRAVITY, URINE LIVAN COLORED WITH MINIMAL SMALL CLOTS OF BLOOD, HEMATURIA MD IS AWARE PER NIGHT RN REPORT. DENIES PAIN, MAINTAIN FALL PRECAUTION. WILL CONT TO MONITOR.
[2017-07-22 07:31] LABS: BASOPHILS % (AUTO) 0.5 % (0.0-2.0); EOSINOPHILS % (AUTO) 4.7 % (0.0-6.0); HEMATOCRIT 33 % (33-45); HEMOGLOBIN 11.1 g/dL (11.5-14.8); MEAN CORPUSCULAR HGB CONC 34 g/dl (31.0-36.0); MEAN CORPUSCULAR VOLUME 89 fL (82-100); MONOCYTES # (AUTO) 0.6 /CMM (0.1-1.30); MONOCYTES % (AUTO) 11.3 % (2.0-12.0); NEUTROPHILS # (AUTO) 3.2 /CMM (1.8-8.9); NEUTROPHILS % (AUTO) 63.5 % (43.0-81.0); PLATELET COUNT (AUTO) 171 /CMM (150-450); RDW COEFFICIENT OF VARIATION 15.3 (11.5-15.0); RED BLOOD CELL COUNT(AUTO) 3.71 MIL/uL (4.0-5.2); WHITE BLOOD COUNT (AUTO) 5.1 K/uL (4.3-11.0)
[2017-07-22 07:44] LABS: PHOSPHORUS 5.5 mg/dL (2.5-4.9); POTASSIUM 3.9 mmol/L (3.5-5.1)
[2017-07-22 07:45] LABS: CREATININE 8.4 mg/dL (0.6-1.3)
[2017-07-22 08:00] VITALS: BP 121/60
[2017-07-22] MEDS: AMLODIPINE BESYLATE 2.5 MG TABLET PO SCH (08:29)
[2017-07-22] MEDS: METOPROLOL TARTRATE 25 MG TABLET PO SCH ×2 (08:29→21:49)
[2017-07-22] MEDS: SEVELAMER CARBONATE 0.8 GM POWD.PACK PO SCH ×3 (08:29→17:23)
[2017-07-22] MEDS: ASPIRIN 81 MG TAB.CHEW PO SCH (08:29)
[2017-07-22] MEDS: Z GUARD REMEDY 2 OZ OINT TP SCH ×2 (09:05→21:49)
[2017-07-22] MEDS: RENAL NOVASOURCE (8OZ) 1 EA BOX PO SCH ×3 (09:08→19:48)
[2017-07-22] MEDS: PANTOPRAZOLE 40 MG VIAL IV SCH (11:31)
[2017-07-22 13:21] VITALS: BP 87/50
--- NOTE | 2017-07-22 13:23 | NUR ---
LOW BP 87/50 ALBUMIN VIA FEMORAL HD CATH ADMINISTERED BY AMET-DIALYSIS NURSE.
[2017-07-22 13:57] VITALS: BP 105/51
--- NOTE | 2017-07-22 14:24 | NUR ---
RT PLACED PT ON TPLUG AT 0900 UNTIL NOON TIME CHANTAL WELL BUT PT IS UNCOMFORTABLE DUE TO COPIOUS THICK SECRETIONS. PLACE BACK ON TBAR ORE FEEDER AEROSOL AND SHE SAID SHES COMFORTABOE DOES NOT NOT TO TRY AGAIN INFORMED RN
[2017-07-22 16:00] VITALS: BP 108/53
--- NOTE | 2017-07-22 19:16 | NUR ---
MS RN CLOSING NOTES A/O X4. PATIENT HAD DIALYSIS TODAY WITH ZERO OUTPUT, CLEANING ONLY PER DIALYSIS NURSE. SEEN BY PT TODAY, NOT ABLE TO AMBULATE PER PT, SAT DOWN ONLY AT THE EDGE OF THE BED. TRACH INTACT, SUCTION PRN. T-PIECE IN PLACE CONNECTED TO COOL AEROSOL 35% 8L OXYGEN, PATIENT TOLERATED WELL. PATIENT WILL BE NPO MIDNIGHT, FOR PERMACATH PLACEMENT BY DR. MARCH AND DR. SHOEMAKER ORDERED. DAUGHTER CONSENTED THE PROCEDURE, CONSENT FORM PLACE IN THE CHART. MAINTAIN FALL PRECAUTION. ENDORSED TO NIGHT RN.
[2017-07-22] MEDS: ACETAMINOPHEN 325 MG TABLET PO PRN (19:48)
--- NOTE | 2017-07-22 19:50 | NUR ---
MS RN NOTE: PATIENT RESTING IN BED, NO ACUTE DISTRESS NOTED, FAMILY AT BEDSIDE. BREATHING EVEN AND UNLABORED, NO SOB NOTED. T-PIECE IN PLACE TO COOL AEROSOL. PICC LINE TO NOAH IN PLACE. HD CATH TO RIGHT FEMORAL IN PLACE. PATIENT TO HAVE PERMACATH PLACEMENT TOMORROW, CONSENT SIGNED AND IN CHART. INFORMED PATIENT THAT SHE CAN NOT EAT OR DRINK AFTER MIDNIGHT FOR PROCEDURE. BED LOCKED AND IN LOWEST POSITION, CALL LIGHT IN REACH. WILL CONTINUE TO MONITOR.
[2017-07-22 19:51] VITALS: BP 120/56
[2017-07-22] MEDS: ATORVASTATIN 10 MG TABLET PO SCH (21:48)
[2017-07-22] MEDS: IV NS 0.9% 250 ML IV PRN (21:49)
--- NOTE | 2017-07-23 00:30 | NUR ---
MS RN NOTE: PATIENT NPO FOR PERMACATH PLACEMENT IN THE MORNING. INFORMED PATIENT THAT SHE IS SCHEDULED AT 0730 IN THE MORNING AND THAT WE INFORMED HER DAUGHTER ABOUT SURGERY TIME. INFORMED PATIENT SHE CAN NOT EAT OR DRINK. WILL CONTINUE TO MONITOR.
[2017-07-23] MEDS: IPRATROPIUM NEB FS 0.5 MG/2.5 ML AMPUL.NEB NEB SCH ×4 (01:23→20:29)
[2017-07-23] MEDS: SUCRALFATE 1 G/10 ML UDC NG SCH ×4 (05:08→23:46)
--- NOTE | 2017-07-23 06:30 | NUR ---
MS RN NOTE: PATIENT RESTING IN BED, NO ACUTE DISTRESS NOTED. BREATHING EVEN AND UNLABORED, NO SOB NOTED. T-PIECE IN PLACE TO COOL AEROSOL. PICC LINE TO NOAH IN PLACE. HD CATH TO RIGHT FEMORAL IN PLACE. PATIENT WAITING TO BE PICKED UP FOR PERMACATH PLACEMENT. BED LOCKED AND IN LOWEST POSITION, CALL LIGHT IN REACH. WILL ENDORSE TO DAY NURSE TO CONTINUE WITH PLAN OF CARE.
[2017-07-23] MEDS ORDERED: HEPARIN SODIUM, PORCINE 1,000 UNIT/ML VIAL ONE (06:46)
[2017-07-23] MEDS ORDERED: LIDOCAINE 1% INJ 50 ML MDV IJ ONE (06:46)
[2017-07-23] MEDS ORDERED: ANESTHESIA TRAY IN PYXIS 1 EA TRAY MC ONE (06:48)
[2017-07-23 08:00] VITALS: BP 129/62
--- NOTE | 2017-07-23 08:30 | NUR ---
MS RN NOTES PATIENT IS A/OX4, TRACH INTACT WITH TPIECE, ON COOL AEROSOL 38% AT 8L OXYGEN. PATIENT IN NPO STATUS, TAKEN TO OR FOR PERMACATH PLACEMENT, DAUGHTER CONSENTED THE PROCEDURE. WILL CONT TO MONITOR.
--- NOTE | 2017-07-23 09:30 | NUR ---
PATIENT IS BACK TO THE UNIT MS-2, S/P PERMACATH PLACEMENT BY DR. MARCH/DR. ALEJANDRA. LEFT CHEST WALL PERMACATH, DRESSING INTACT, NO BLEEDING NOTED. VS BP 118/57 P58 R20 TEMP 98.3 WILL CONT TO MONITOR PATIENT, CONT PREOP ORDERS PER MD.
[2017-07-23] MEDS: ASPIRIN 81 MG TAB.CHEW PO SCH (09:57)
[2017-07-23] MEDS: SEVELAMER CARBONATE 0.8 GM POWD.PACK PO SCH ×3 (09:57→17:36)
[2017-07-23] MEDS: METOPROLOL TARTRATE 25 MG TABLET PO SCH ×2 (09:57→21:28)
[2017-07-23] MEDS: AMLODIPINE BESYLATE 2.5 MG TABLET PO SCH (09:57)
[2017-07-23] MEDS: Z GUARD REMEDY 2 OZ OINT TP SCH ×2 (09:58→21:29)
[2017-07-23] MEDS: RENAL NOVASOURCE (8OZ) 1 EA BOX PO SCH ×3 (09:58→21:27)
[2017-07-23] MEDS: PANTOPRAZOLE 40 MG VIAL IV SCH (13:30)
[2017-07-23 16:00] VITALS: BP_SYST 111; BP_SYST 115; BP_DIAS 51
[2017-07-23] MEDS ORDERED: SEVELAMER CARBONATE 800 MG TABLET PO SCH (18:00)
--- NOTE | 2017-07-23 18:21 | NUR ---
RT NOTE PATIENT TRANSFERRED TO SURGERY @ 0750 VIA T-PIECE @ 35%. TRACH SECURED AND PATENT AT ALL TIMES. PATIENT RETURNED TO ROOM AND REFUSED WEANING ON HOSPITALIST POST PROCEDURE. EXPLAINED RISKS AND BENEFITS. PATIENT REQUESTED TO TRY WEANING TOMORROW. CONTINUOUS PULSE OX @ BEDSIDE. NO SOB NOTED T/O SHIFT.
--- NOTE | 2017-07-23 18:44 | NUR ---
MS RN CLOSING NOTES PATIENT IN BED, A/O X4. S/P PERMACATH PLACEMENT TODAY BY DR. MARCH/[place] WITH NO BLEEDING ON THE SITE-LEFT CHEST WALL PERMACATH INTACT, DRESSING IN PLACE. NO HD TODAY. PATIENT IS SEEN BY PT TODAY, PATIENT UNABLE TO AMBULATE PER PT. ABLE TO SIT DOWN IN THE CHAIR WITH SHORT PERIOD OF TIME BUT EPISODE OF BLOOD PRESSURE DROPPED, FROM BP 116/64 DROPPED DOWN TO 86/31. ASSISTED PATIENT BACK TO BED, MADE COMFORTABLE. RECHECK BP SHOWED 126/49. URINE STILL NOTED TEA COLO TO DARK RED, MD IS AWARE WITH NO NEW ORDERS AT THIS TIME. MAINTAIN FALL PRECAUTION AND ASPIRATION PRECAUTION. DC PLANNING, CM FOR PLACEMENT PER MD. WILL ENDORSE TO ONCOMING RN.
--- NOTE | 2017-07-23 19:00 | NUR ---
RN NOTES RECEIVE PT IN BED A/O X 4, NO S/S OF DISTRESS, STABLE, SAFETY MEASURES IN PLACE, CALL LIGHT WITHIN REACH, WILL CONTINUE TO MONITOR.
[2017-07-23 19:55] VITALS: BP 116/56
[2017-07-23 20:00] VITALS: BP 116/56
[2017-07-23] MEDS: ATORVASTATIN 10 MG TABLET PO SCH (21:28)
--- NOTE | 2017-07-23 23:52 | NUR ---
MS RN NOTES CARAFATE DUE AT 0000 NON ADMINISTRATION REFUSED DESPITE EXPLAINING RISKS AND BENEFITS OFFERED 3 TIMES STILL REFUSING PER PATIENT IT MAKES HER NAUSEAS PT A/O X4, HOSPITALIST DIETARY AIDE COOK MADE AWARE.
[2017-07-24] MEDS: IPRATROPIUM NEB FS 0.5 MG/2.5 ML AMPUL.NEB NEB SCH ×4 (01:25→19:56)
[2017-07-24] MEDS: SUCRALFATE 1 G/10 ML UDC NG SCH ×4 (06:00→23:58)
--- NOTE | 2017-07-24 06:29 | NUR ---
MS RN CLOSING NOTES PT COMFORTABLY ASLEEP AND EASILY AWAKEN, A/0 X 4, T PIECE IN PLACE TO COOL AEROSOL. 02 SAT 100%. HEAD OF BED ELEVATED AT ALL TIMES FOR BETTER LUNG EXPANSION AND GOOD CIRCULATION. NOT IN RESPIRATORY DISTRESS, STABLE, KEPT CLEAN AND DRY AND COMFORTABLE. NURSING CARE RENDERED. NEEDS ATTENDED AND ANTICIPATED. GOOD SKIN CARE PROVIDED.ASSISTED REPOSITION EVERY 2 HOURS FOR SKIN MANAGEMENT. ON LOW BED TO ENSURE SAFETY, CALL LIGHT WITHIN REACH, WILL ENDORSE TO THE NEXT SHIFT CONTINUE PLAN OF CARE.
--- NOTE | 2017-07-24 06:45 | NUR ---
MS RN NOTES CARAFATE DUE AT 0600 NON ADMINISTRATION REFUSED DESPITE EXPLAINING RISKS AND BENEFITS OFFERED 3 TIMES STILL REFUSING PER PATIENT IT MAKES HER NAUSEOUS PT A/O X4, HOSPITALIST HELPER/DRIVER MADE AWARE.
--- NOTE | 2017-07-24 07:02 | NUR ---
MS RN OPENING NOTES RECEIVED BEDSIDE SBAR REPORT ON THE PATIENT. PATIENT IS AWAKE, A/O X3, FORGETFUL OF SPECIFIC DATES. PATIENT IS IN BED. BED IS LOCKED IN LOWEST POSITION, SIDE RAILS UP X3, BED ALARM IS ON, CALL LIGHT WITHIN REACH., PATIENT EDUCATED TO CALL FOR ASSISTANCE USING THE CALL LIGHT AND VERBALIZED UNDERSTANDING. DENIES PAIN/DISCOMFORT AT THIS TIME. PATIENT HAS A T-PIECE CAPPED. PATIENT IS ON 4L OXYGEN VIA NC. TOLERATING WELL, SPO2 95%. WILL CONTINUE TO ASSESS/MONITOR THROUGHOUT THE SHIFT.
[2017-07-24 08:00] VITALS: BP 118/56
[2017-07-24] MEDS: AMLODIPINE BESYLATE 2.5 MG TABLET PO SCH (09:09)
[2017-07-24] MEDS: METOPROLOL TARTRATE 25 MG TABLET PO SCH ×2 (09:09→21:25)
[2017-07-24] MEDS: ASPIRIN 81 MG TAB.CHEW PO SCH (09:09)
[2017-07-24] MEDS: Z GUARD REMEDY 2 OZ OINT TP SCH ×2 (09:10→21:25)
[2017-07-24] MEDS: PANTOPRAZOLE 40 MG TABLET.DR PO SCH (09:11)
[2017-07-24] MEDS: RENAL NOVASOURCE (8OZ) 1 EA BOX PO SCH ×3 (09:11→20:00)
[2017-07-24] MEDS: SEVELAMER CARBONATE 0.8 GM POWD.PACK PO SCH ×3 (09:11→17:52)
--- NOTE | 2017-07-24 09:17 | NUR ---
PER DR VIGIL SPEECH THERAPIST TO DO ANOTHER SPEECH EVALUATION TO SEE IF THE DIET CAN BE ADVANCED. ORDER RECEIVED AND READ BACK.
--- NOTE | 2017-07-24 12:00 | NUR ---
PATIENT PRESENTS WITH AN ANXIETY EPISODE. GUIDED IMAGERY TECHNIQUE USED BY RN A RELAXATION TECHNIQUE. PATIENT IS ALLERGIC TO BENZODIAZEPINES. ALLERGIES RECORDED/VERIFIED. PATIENT DESATURATED. OPLACED ON COOL AEROSOL 35% ORDERED. SPO2 96%.
--- NOTE | 2017-07-24 12:34 | NUR ---
HD NURSE AT THE BEDSIDE . NO NEW LAB RESULTS AVAILABLE. STAT CBC ORDER PLACED. LAB NOTIFIED. PER DR DOMINGUEZ ORDER STAT CMP. ORDER READ BACK AND VERIFIED.
[2017-07-24 13:17] LABS: CALCIUM, SERUM 9.3 mg/dL (8.5-10.1); POTASSIUM 4.2 mmol/L (3.5-5.1)
[2017-07-24 13:24] LABS: ALBUMIN 3.4 g/dL (3.4-5.0); BILIRUBIN,TOTAL 0.4 mg/dL (0.2-1.0); TOTAL PROTEIN, SERUM 7.1 g/dL (6.4-8.2)
--- NOTE | 2017-07-24 13:58 | NUR ---
PATIENT REFUSED TO TAKE TRAZADONE STATING SHE TAKES IT AT NIGHT FOR SLEEP. PHARMACY NOTIFIED.
[2017-07-24 16:00] VITALS: BP 128/66
[2017-07-24 16:25] VITALS: BP 128/66
--- NOTE | 2017-07-24 17:51 | NUR ---
RT NOTE PATIENT TOLERATED MACHINE TOOL ELECTRICIAN WITH NASAL CANNULA @ 32% WELL FOR 4 HOURS. PLACED PATIENT BACK ON COOL AEROSOL @ 35% DUE TO SOB POST PT THERAPY. SUCTION DONE, TRACH SECURED AND PATENT AT ALL TIMES. WATER REPLACED. PATIENT STABLE ON C/A.
--- NOTE | 2017-07-24 19:47 | NUR ---
MS RN CLOSING NOTES GAVE BEDSIDE SBAR REPORT ON THE PATIENT. PATIENT IS AWAKE, A/O X3, FORGETFUL OF SPECIFIC DATES. PATIENT IS IN BED. BED IS LOCKED IN LOWEST POSITION, SIDE RAILS UP X3, BED ALARM IS ON, CALL LIGHT WITHIN REACH., PATIENT EDUCATED TO CALL FOR ASSISTANCE USING THE CALL LIGHT AND VERBALIZED UNDERSTANDING. DENIES PAIN/DISCOMFORT AT THIS TIME. PATIENT IS STILL ON T-PIECE ORDERED. ENDORSED TO THE RN PERITONEAL DIALYSIS NURSE FOR ROSE.
--- NOTE | 2017-07-24 19:48 | NUR ---
MS RN NOTES (OPENING) RECEIVED PT IN BED, AWAKE, A/O X4 , ABLE TO COMMUNICATE THROUGH MOUTHING OF WORDS AND WRITING ON WHITE BOARD. PT ON TRACH , T PIECE WITH COOL AEROSOL , CHANTAL WELL. 02 SAT IS 98 % AT THIS TIME. NO S/S OF DISTRESS NOR SOB NOTED, RESPIRATION IS EVEN AND UNLABORED. SUCTIONED PRN. NOAH PICC LINE, INTACT AND PATENT, NO S/S OF INFILTRATION NOTED. LCW PERMACATH INTACT WITH CLEAN AND INTACT DRESSING. NO BLEEDING NOTED AT THIS TIME. DENIES PAIN OR DISCOMFORT AT THIS TIME. ALL NEEDS ATTENDED AND MET. SAFETY MEASURES IN PLACE, CALL LIGHT WITHIN REACH, WILL CONTINUE TO MONITOR.
[2017-07-24 19:51] VITALS: BP 137/59
--- NOTE | 2017-07-24 20:18 | NUR ---
PT REFUSED NOVASOURCE RENAL BOX SNACK, RISK AND BENEFITS EXPLAINED PT STILL REFUSED X 3. PT IS A/O X 4. WILL CONT TO MONITOR
[2017-07-24] MEDS: ATORVASTATIN 10 MG TABLET PO SCH (21:24)
[2017-07-25] MEDS: IPRATROPIUM NEB FS 0.5 MG/2.5 ML AMPUL.NEB NEB SCH ×4 (02:27→20:28)
[2017-07-25] MEDS: SUCRALFATE 1 G/10 ML UDC NG SCH ×4 (06:08→23:19)
--- NOTE | 2017-07-25 06:53 | NUR ---
MS RN NOTES (CLOSING) PT IN BED, AWAKE, WATCHING TV AT THIS TIME, A/O X4 , ABLE TO COMMUNICATE THROUGH MOUTHING OF WORDS AND WRITING ON WHITE BOARD. PT ON TRACH , T PIECE WITH COOL AEROSOL , CHANTAL WELL. 02 SAT IS 98 % AT THIS TIME. NO S/S OF DISTRESS NOR SOB NOTED, RESPIRATION IS EVEN AND UNLABORED. SUCTIONED PRN. NOAH PICC LINE, INTACT AND PATENT, NO S/S OF INFILTRATION NOTED. LCW PERMACATH INTACT WITH CLEAN AND INTACT DRESSING. NO BLEEDING NOTED AT THIS TIME. FC IS INTACT AND PATENT. DENIES PAIN OR DISCOMFORT AT THIS TIME. ALL NEEDS ATTENDED AND MET. SAFETY MEASURES IN PLACE, CALL LIGHT WITHIN REACH, WILL ENDORSE TO NEXT SHIFT ACCORDINGLY FOR ROSE.
[2017-07-25 08:00] VITALS: BP 122/46
--- NOTE | 2017-07-25 08:00 | NUR ---
M/S RN - AM Assessment Received pt in bed awake, A/O x 4, denies pain at this time, no apparent distress noted, t-piece in place Chhayaley#6 xlt, tolerating CA at 35%, PMV in use. Trach care done as ordered. PICC line on the NOAH is patent, intact, with no s/s of infiltration. Barkley catheter in place. Skin assessment done and documented. Pt independent with bed mobility. All needs anticipated and met. Will continue with current plan of care.
[2017-07-25] MEDS: SEVELAMER CARBONATE 0.8 GM POWD.PACK PO SCH ×3 (08:09→17:14)
[2017-07-25] MEDS: AMLODIPINE BESYLATE 2.5 MG TABLET PO SCH (08:10)
[2017-07-25] MEDS: ASPIRIN 81 MG TAB.CHEW PO SCH (08:10)
[2017-07-25] MEDS: METOPROLOL TARTRATE 25 MG TABLET PO SCH ×2 (08:10→21:00)
[2017-07-25] MEDS: PANTOPRAZOLE 40 MG TABLET.DR PO SCH (08:10)
[2017-07-25] MEDS: Z GUARD REMEDY 2 OZ OINT TP SCH ×2 (08:11→21:57)
--- NOTE | 2017-07-25 08:40 | NUR ---
REMOVED COOL AEROSOL. PLACED PT ON LOGGING ENGINEER. PT CHANTAL WELL. SPO2: 98% Addendum: 07/25/17 at 1645 by RAUDEL ROLDAN RT Amended: Links added.
--- NOTE | 2017-07-25 10:44 | NUR ---
PLACED PT BACK ON COOL AEROSOL PER PT SHE WANTS TO DO P/T WITH COOL AEROSOL ON. Addendum: 07/25/17 at 1645 by RAUDEL ROLDAN RT Amended: Links added.
--- NOTE | 2017-07-25 13:00 | NUR ---
M/S RN - Notes Pt watching TV comfortably, denies pain, not in any form of distress, remain afebrile. Needs attended. Daughter at bedside. Will continue to monitor.
--- NOTE | 2017-07-25 14:26 | NUR ---
PT RQST TO STAY ON C/A. PT NOT CHANTAL DEPUTY SHERIFF BAILIFF ON AT THIS TIME. WILL CONTINUE TO MONITOR PT. Addendum: 07/25/17 at 1647 by RAUDEL ROLDAN RT Amended: Links added.
[2017-07-25 16:15] VITALS: BP 119/69
--- NOTE | 2017-07-25 18:50 | NUR ---
M/S RN -End of shift notes No new events seen, denies pain, no apparent distress. Patient did well with PT treatment. Anticipate discharge to sub-acute facility if she continues to be stable. Will continue with current medical management.
--- NOTE | 2017-07-25 19:30 | NUR ---
MS RN NOTES RECEIVED PT IN BED, AWAKE, WATCHING TV AT THIS TIME, A/O X4 , ABLE TO COMMUNICATE THROUGH MOUTHING OF WORDS AND WRITING ON WHITE BOARD. PT ON TRACH, ON T PIECE WITH COOL AEROSOL , CHANTAL WELL. 02 SAT IS 98 % AT THIS TIME. NO S/S OF DISTRESS NOR SOB NOTED, RESPIRATION IS EVEN AND UNLABORED. SUCTIONED PRN. NOAH PICC LINE, INTACT AND PATENT, NO S/S OF INFILTRATION NOTED. LCW PERMACATH INTACT WITH CLEAN AND INTACT DRESSING. NO BLEEDING NOTED AT THIS TIME. DENIES PAIN OR DISCOMFORT AT THIS TIME. ALL NEEDS ATTENDED AND MET. SAFETY MEASURES IN PLACE, CALL LIGHT WITHIN REACH, WILL CONTINUE TO MONITOR.
[2017-07-25 20:00] VITALS: BP 118/55
[2017-07-25] MEDS: ATORVASTATIN 10 MG TABLET PO SCH (21:59)
[2017-07-26] MEDS: IPRATROPIUM NEB FS 0.5 MG/2.5 ML AMPUL.NEB NEB SCH ×4 (01:10→20:38)
[2017-07-26] MEDS: SUCRALFATE 1 G/10 ML UDC NG SCH ×3 (06:04→17:20)
--- NOTE | 2017-07-26 06:40 | NUR ---
MS RN CLOSING NOTES PT IN BED, AWAKE, WATCHING TV AT THIS TIME, A/O X4 , ABLE TO COMMUNICATE THROUGH MOUTHING OF WORDS AND WRITING ON WHITE BOARD. PT ON TRACH, ON T PIECE WITH COOL AEROSOL , CHANTAL WELL. 02 SAT IS 98 % AT THIS TIME. NO S/S OF DISTRESS NOR SOB NOTED, RESPIRATION IS EVEN AND UNLABORED. SUCTIONED PRN. NOAH PICC LINE, INTACT AND PATENT, NO S/S OF INFILTRATION NOTED. LCW PERMACATH INTACT WITH CLEAN AND INTACT DRESSING. NO BLEEDING NOTED AT THIS TIME. DENIES PAIN OR DISCOMFORT AT THIS TIME. ALL MEDS DUE GIVEN. ALL NEEDS ATTENDED AND MET. SAFETY MEASURES IN PLACE, CALL LIGHT WITHIN REACH, WILL ENDORSE TO NEXT SHIFT ACCORDINGLY. .
[2017-07-26 08:00] VITALS: BP 115/60
--- NOTE | 2017-07-26 08:00 | NUR ---
M/S RN - AM Assessment Patient in bed awake, A/O x 4, no events overnight, denies pain, t-piece in place Chhayaley#6 xlt, tolerating CA at 35%, PMV in use. PICC line on the NOAH is patent, intact, with no s/s of infiltration. Barkley catheter in place. Pt independent with bed mobility. All needs anticipated and met. Possible discharge to [facility] sub-acute unit today per .
[2017-07-26] MEDS: ASPIRIN 81 MG TAB.CHEW PO SCH (08:14)
[2017-07-26] MEDS: PANTOPRAZOLE 40 MG TABLET.DR PO SCH (08:14)
[2017-07-26] MEDS: METOPROLOL TARTRATE 25 MG TABLET PO SCH ×2 (08:14→20:33)
[2017-07-26] MEDS: SEVELAMER CARBONATE 0.8 GM POWD.PACK PO SCH ×3 (08:14→17:20)
[2017-07-26] MEDS: Z GUARD REMEDY 2 OZ OINT TP SCH (08:15)
[2017-07-26] MEDS: AMLODIPINE BESYLATE 2.5 MG TABLET PO SCH (08:15)
--- NOTE | 2017-07-26 13:00 | NUR ---
M/S RN - HD treatment and right femoral HD catheter removal HD RN notified me that she removed the right femoral HD catheter as ordered by Dr. Uziel Hua. Noted right femoral access site with dressing heavily saturated with blood, pressure dressing and sandbag applied to the area. HD RN informed Dr. Hua. Will continue to monitor right femoral site for bleeding. HD treatment completed and pt tolerated it well, total fluid removed was 4 liters out.
[2017-07-26 15:55] VITALS: BP 115/54
--- NOTE | 2017-07-26 16:30 | NUR ---
M/S RN - Notes Report given to MILAGROS Llamas (sub-acute) accordingly.
--- NOTE | 2017-07-26 18:00 | NUR ---
M/S RN - End of shift notes Patient stable for discharge tonight to [facility] sub-acute unit, daughter at beside aware. Patient with no further bleeding on the right femoral HD catheter site, pressure dressing still in place. Flu vaccine administered on the right deltoid with no adverse reaction seen. All discharge papers done and endorsed to MILAGROS Parker accordingly.
--- NOTE | 2017-07-26 19:30 | NUR ---
MS2/RN RECEIVE PATIENT AWAKE, ALERT, ORIENTED COMFORTABLE, NO C/O PAIN, NO DISTRESS NOTED, PATIENT IS WITH TRACH CONNECTION TO COOL AEROSOL TOLERATING WELL. PATIENT IS TO BE DISCHARGED TO SUB ACUTE.
[2017-07-26 20:00] VITALS: BP 110/63
[2017-07-26] MEDS ORDERED: PNEUMOCOCCAL 23-VAL P-SAC VAC 0.5 ML VIAL SQ ONE (20:00)
[2017-07-26] MEDS: ATORVASTATIN 10 MG TABLET PO SCH (20:32)
[2017-07-26 20:33] VITALS: BP 110/63
--- NOTE | 2017-07-26 21:00 | NUR ---
MS2/RN PATIENT WAS TRANSFERRED TO SUB ACUTE ROOM 206 PER HOSPITAL PROTOCOL.
[2017-07-27] MEDS ORDERED: ACET-868 PO (09:04)
[2017-07-27] MEDS ORDERED: HYDR-552 PO (09:04)
[2017-07-27] MEDS ORDERED: ASPI-1169 PO (09:04)
[2017-07-27] MEDS ORDERED: ATOR10TA PO (09:04)
[2017-07-27] MEDS ORDERED: PANT40TA2 PO (09:05)
[2017-07-27] MEDS ORDERED: ONDA4VIA52 IVP (09:05)
[2017-07-27] MEDS ORDERED: IPRA0.2S9 IH (09:05)
[2017-07-27] MEDS ORDERED: SIME40DR7 PO (09:05)
[2017-07-27] MEDS ORDERED: ALLA266C2 TP (09:05)
[2017-07-27] MEDS ORDERED: SEVE0.8P PO (09:05)
[2017-07-27] MEDS ORDERED: MAGN400O6 PO (09:05)
[2017-07-27] MEDS ORDERED: SUCR1ORA PO (09:05)
[2017-07-27] MEDS ORDERED: METO25TA20 PO (09:05)
== END 2017-07-26 21:00 | DRG 3 ==
LOC: ER 17:09 → ICU 19:23 → TELE-TD 07-08 18:18 → TELE1 07-09 12:29 → MEDSG1 07-20 10:35 → MEDSG2 07-21 23:10
PROVIDERS: ADMIT Nurse Practitioner Acute Care; ATTEND Nurse Practitioner Acute Care
PROC: 0B110F4 Bypass Trachea to Cutaneous with Tracheostomy Device, Open Approach (ICD-10-PCS; principal; 2017-07-01)
PROC: 0BB10ZZ Excision of Trachea, Open Approach (ICD-10-PCS; 2017-07-01)
PROC: 5A12012 Performance of Cardiac Output, Single, Manual (ICD-10-PCS; 2017-07-01)
PROC: 5A1945Z Respiratory Ventilation, 24-96 Consecutive Hours (ICD-10-PCS; 2017-07-01)
PROC: 02HV33Z Insertion of Infusion Device into Superior Vena Cava, Percutaneous Approach (ICD-10-PCS; 2017-07-01)
PROC: B548ZZA Ultrasonography of Superior Vena Cava, Guidance (ICD-10-PCS; 2017-07-01)
PROC: 06HM33Z Insertion of Infusion Device into Right Femoral Vein, Percutaneous Approach (ICD-10-PCS; 2017-07-04)
PROC: 5A1D70Z Performance of Urinary Filtration, Intermittent, Less than 6 Hours Per Day (ICD-10-PCS; 2017-07-04)
PROC: 5A1D70Z Performance of Urinary Filtration, Intermittent, Less than 6 Hours Per Day (ICD-10-PCS; 2017-07-05)
PROC: 5A1D70Z Performance of Urinary Filtration, Intermittent, Less than 6 Hours Per Day (ICD-10-PCS; 2017-07-06)
PROC: 5A1945Z Respiratory Ventilation, 24-96 Consecutive Hours (ICD-10-PCS; 2017-07-07)
PROC: 5A1D70Z Performance of Urinary Filtration, Intermittent, Less than 6 Hours Per Day (ICD-10-PCS; 2017-07-07)
PROC: 5A1D70Z Performance of Urinary Filtration, Intermittent, Less than 6 Hours Per Day (ICD-10-PCS; 2017-07-09)
PROC: 5A1D70Z Performance of Urinary Filtration, Intermittent, Less than 6 Hours Per Day (ICD-10-PCS; 2017-07-11)
PROC: 5A1D70Z Performance of Urinary Filtration, Intermittent, Less than 6 Hours Per Day (ICD-10-PCS; 2017-07-13)
PROC: 5A1D70Z Performance of Urinary Filtration, Intermittent, Less than 6 Hours Per Day (ICD-10-PCS; 2017-07-14)
PROC: 4A023N7 Measurement of Cardiac Sampling and Pressure, Left Heart, Percutaneous Approach (ICD-10-PCS; 2017-07-15)
PROC: B211YZZ Fluoroscopy of Multiple Coronary Arteries using Other Contrast (ICD-10-PCS; 2017-07-15)
PROC: 5A1D70Z Performance of Urinary Filtration, Intermittent, Less than 6 Hours Per Day (ICD-10-PCS; 2017-07-16)
PROC: 5A1D70Z Performance of Urinary Filtration, Intermittent, Less than 6 Hours Per Day (ICD-10-PCS; 2017-07-18)
PROC: 5A1D70Z Performance of Urinary Filtration, Intermittent, Less than 6 Hours Per Day (ICD-10-PCS; 2017-07-20)
PROC: 5A1D70Z Performance of Urinary Filtration, Intermittent, Less than 6 Hours Per Day (ICD-10-PCS; 2017-07-22)
PROC: 02H633Z Insertion of Infusion Device into Right Atrium, Percutaneous Approach (ICD-10-PCS; 2017-07-23)
PROC: B214YZZ Fluoroscopy of Right Heart using Other Contrast (ICD-10-PCS; 2017-07-23)
PROC: 5A1D70Z Performance of Urinary Filtration, Intermittent, Less than 6 Hours Per Day (ICD-10-PCS; 2017-07-24)
PROC: 5A1D70Z Performance of Urinary Filtration, Intermittent, Less than 6 Hours Per Day (ICD-10-PCS; 2017-07-26)
DX: J96.02 Acute respiratory failure with hypercapnia (principal); I46.9 Cardiac arrest, cause unspecified; I21.A1 Myocardial infarction type 2; J69.0 Pneumonitis due to inhalation of food and vomit; E43 Unspecified severe protein-calorie malnutrition; D69.6 Thrombocytopenia, unspecified; N17.0 Acute kidney failure with tubular necrosis; E83.51 Hypocalcemia; I50.33 Acute on chronic diastolic (congestive) heart failure; E87.2 Acidosis; E46 Unspecified protein-calorie malnutrition; N39.0 Urinary tract infection, site not specified; Z99.11 Dependence on respirator [ventilator] status; E66.2 Morbid (severe) obesity with alveolar hypoventilation; Z68.41 Body mass index [BMI] 40.0-44.9, adult; J96.01 Acute respiratory failure with hypoxia; I11.0 Hypertensive heart disease with heart failure; D63.8 Anemia in other chronic diseases classified elsewhere; G47.30 Sleep apnea, unspecified; I25.2 Old myocardial infarction; J44.9 Chronic obstructive pulmonary disease, unspecified; M79.7 Fibromyalgia; Z87.01 Personal history of pneumonia (recurrent); D72.829 Elevated white blood cell count, unspecified; R73.9 Hyperglycemia, unspecified; R74.0 Nonspecific elevation of levels of transaminase and lactic acid dehydrogenase [LDH]; L98.8 Other specified disorders of the skin and subcutaneous tissue; S51.811A Laceration without foreign body of right forearm, initial encounter; X58.XXXA Exposure to other specified factors, initial encounter; Y93.9 Activity, unspecified; Y92.009 Unspecified place in unspecified non-institutional (private) residence as the place of occurrence of the external cause; K76.0 Fatty (change of) liver, not elsewhere classified; M06.9 Rheumatoid arthritis, unspecified; Z72.0 Tobacco use
CPT/HCPCS: 31720; 36415; 36600; 71045-TC; 76770-TC; 80048-TC; 80053-TC; 80061-TC; 80076-TC; 81000-TC; 82570-TC; 82803-TC; 82962-TC; 83605-TC; 83735-TC; 83880; 84100-TC; 84439-TC; 84443-TC; 84484-TC; 85025-TC; 85610-TC; 85730-TC; 86704; 86705; 86706; 86803; 87040-TC; 87081-TC; 87086-TC; 87340; 90732; 90935-TC; 92526; 92611-TC; 93307-TC; 93970-TC; 94002-TC; 94003-TC; 94640-TC; 94664-TC; 94760-TC; 94762-TC; 97110-TC; 97116-TC; 97530-TC; 99082-TC; A4216; A4217; A4606; A4623; A6253; A6402; A6403; A7526; C1750; C9113; J0171; J0330; J0690; J0692; J0696; J1644; J1650; J1940; J2543; J2704; J3010; J3370; J3475; J3490; J7030; J7040; J7050; J7060; L8501; P9047; Q2036; Z7610

== ENCOUNTER 2017-07-26 15:19 | Inpatient (IN) | payer MEDICARE ==
[~2017-07-26] VITALS: Ht 170.2 cm; Wt 120.4 kg
[~2017-07-26 15:19] MED LIST: ACET325T53 PO; ALLA266C2 TP; AMLO2.5T PO; ASPI-1169 PO; ATOR10TA PO; HYDR-3972 PO; IPRA0.2S9 NEB; METO25TA20 PO; PANT40TA2 PO; Renal Novasource GT; SEVE0.8P PO; SIME80TA15 PO; SUCR1ORA6 NG
[2017-07-26 21:30] VITALS: BP 105/54
--- NOTE | 2017-07-26 21:30 | NUR ---
RN NOTES Newly admitted 61yr old female from med surg, under the care of Dr. Rebolledo. Dx: Respiratory failure, anemia, acute renal failure with HD (q [id number]) sleep apnea, COPD, sepsis, NSTEMI. Pt alert and oriented x3. On c/a @ 35% fiO2 with no respiratory distress no SOB. HD catheter to left upper chest with no s/s of bleeding, right upper arm PICC line, intact and patent. F/C intact and draining dark reddish urine. Right femoral old HD site with pressure gauze in place, no bleeding noted. All orders verified with Dr. Rebolledo. Routine body assessment done. Pt able to make needs known. No c/o pain or discomfort at this time. Will continue to monitor.
[2017-07-27 03:21] VITALS: BP 110/57
[2017-07-27 06:11] VITALS: BP 112/55
[2017-07-27 07:49] VITALS: BP 119/73
[2017-07-27] MEDS ORDERED: ATOR10TA PO (09:04)
[2017-07-27] MEDS ORDERED: HYDR-552 PO (09:04)
[2017-07-27] MEDS ORDERED: ASPI-1169 PO (09:04)
[2017-07-27] MEDS ORDERED: ACET-868 PO (09:04)
[2017-07-27] MEDS ORDERED: ONDA4VIA30 IVP (09:05)
[2017-07-27] MEDS ORDERED: METO25TA20 PO (09:05)
[2017-07-27] MEDS ORDERED: SUCR1ORA PO (09:05)
[2017-07-27] MEDS ORDERED: SIME40DR7 PO (09:05)
[2017-07-27] MEDS ORDERED: PANT40TA2 PO (09:05)
[2017-07-27] MEDS ORDERED: ALLA266C2 TP (09:05)
[2017-07-27] MEDS ORDERED: SEVE0.8P PO (09:05)
[2017-07-27] MEDS ORDERED: IPRA0.2S9 IH (09:05)
[2017-07-27] MEDS ORDERED: MAGN400O6 PO (09:05)
--- NOTE | 2017-07-27 09:05 | NUR ---
Notified Dr. Rebolledo that per record resident does not have any bowel movement for the past 10 days. New order given for Colace and Senakot to be given routinely. Resident informed.
--- NOTE | 2017-07-27 10:00 | NUR ---
Resident alert oriented x3, on cool aerosol breathing regularly, no evidence of discomfort and distress. Resident did not want to be bothered at this time, refused to be clean or turn. Tolerating PO feeding with SUPERVISOR BOAT OUTFITTING assist, no s/s of aspiration.
[2017-07-27] MEDS ORDERED: ONDANSETRON HCL/PF 4 MG/2 ML VIAL IVP PRN (11:00)
[2017-07-27] MEDS ORDERED: SIMETHICONE 80 MG TAB.CHEW PO PRN (11:00)
[2017-07-27] MEDS ORDERED: HYDROCODONE/APAP 5/325MG 1 EACH TABLET PO PRN (11:00)
[2017-07-27] MEDS: METOPROLOL TARTRATE 25 MG TABLET PO SCH ×2 (11:00→20:31)
[2017-07-27] MEDS: DOCUSATE SODIUM 100 MG CAPSULE PO SCH (11:04)
[2017-07-27 12:00] VITALS: BP 121/57
[2017-07-27] MEDS: TUBERCULIN,PURIF.PROT.DERIV. 5 TU/0.1 ML VIAL ID SCH ×2 (12:06→12:19)
[2017-07-27] MEDS: SUCRALFATE 1 G/10 ML UDC PO SCH ×3 (12:11→23:24)
[2017-07-27] MEDS: SENNOSIDES 8.6 MG TABLET PO SCH ×2 (12:12→12:19)
[2017-07-27] MEDS: Z GUARD REMEDY 4 OZ OINT TP SCH ×3 (12:12→20:32)
[2017-07-27] MEDS: SEVELAMER CARBONATE 800 MG TABLET PO SCH ×2 (13:40→17:00)
[2017-07-27] MEDS: IPRATROPIUM NEB FS 0.5 MG/2.5 ML AMPUL.NEB NEB SCH ×2 (14:59→19:24)
[2017-07-27 16:00] VITALS: BP 112/65
--- NOTE | 2017-07-27 19:00 | NUR ---
Notified Dr. Rebolledo resident's urine output dark red in color, according to patient it has been like this for the past 3 days, dark red color. But at this time patient's F/C tubing and drainage bag with bloody urine. Per Dr. Rebolledo to call Dr. Hua. Place a call to Dr. Hua's polymerization kettle operator, awaiting for call back. Resident's daughter Beba at bedside aware that MD will be notified regarding blood in the urine.
--- NOTE | 2017-07-27 19:15 | NUR ---
Received a call from Dr. Lo, drilling field professional for Dr. Hua and reported hematuria. New order given to irrigate F/C with NS and do an bladder ultrasound in AM. Endorsed to incoming shift.
[2017-07-27] MEDS: HYDROGEN PEROXIDE 480 ML BOTTLE TP SCH (20:32)
[2017-07-27 20:39] VITALS: BP 109/55
[2017-07-27] MEDS ORDERED: ATORVASTATIN 40 MG TABLET ONE (21:03)
[2017-07-27] MEDS: ATORVASTATIN 10 MG TABLET PO SCH (21:10)
--- NOTE | 2017-07-28 00:05 | NUR ---
Pt remains afebrile and with stable v/s, dubon cath flushed with 60 cc Ns , tolerated well , dubon patent and free flowing urine with hematuria still noted light red in color. Cont to monitor.
[2017-07-28 00:39] VITALS: BP 111/55
[2017-07-28] MEDS: IPRATROPIUM NEB FS 0.5 MG/2.5 ML AMPUL.NEB NEB SCH ×4 (01:56→19:56)
[2017-07-28] MEDS ORDERED: PANTOPRAZOLE 40 MG/PACK PACK ONE (04:01)
[2017-07-28 04:30] VITALS: BP 110/60
[2017-07-28] MEDS: PANTOPRAZOLE 40 MG TABLET.DR PO SCH (05:13)
[2017-07-28] MEDS: SUCRALFATE 1 G/10 ML UDC PO SCH ×4 (05:13→23:08)
--- NOTE | 2017-07-28 06:36 | NUR ---
Pt awake , denies pain or discomfort, completed and javad pm/am care, no resp. distress noted, remains afebrile and v/s wnl, flushed dubon cath with 60 cc NS, urine output of 400 cc's with hematuria. Dubon cath set up changed PRN d/t to soiled, javad well by pt with no c/o pain clear yellow urine flowing with no s/sx of hematuria at this time. Will cont to monitor, and endorse continue of care to am oncoming nurse. Call light kept within pt's reach, hob elevated, sr's up x 2 for safety, pulse ox monitor on with 02 98% hr.
[2017-07-28] MEDS: DOCUSATE SODIUM 100 MG CAPSULE PO SCH (09:00)
[2017-07-28] MEDS: SENNOSIDES 8.6 MG TABLET PO SCH (09:00)
[2017-07-28] MEDS: METOPROLOL TARTRATE 25 MG TABLET PO SCH ×2 (09:00→20:15)
[2017-07-28] MEDS: SEVELAMER CARBONATE 800 MG TABLET PO SCH ×3 (09:21→17:14)
[2017-07-28] MEDS: HYDROGEN PEROXIDE 480 ML BOTTLE TP SCH ×2 (09:22→20:15)
[2017-07-28] MEDS: Z GUARD REMEDY 4 OZ OINT TP SCH ×2 (09:23→20:15)
[2017-07-28] MEDS: ASPIRIN 81 MG TAB.CHEW PO SCH (09:27)
[2017-07-28 10:00] VITALS: BP 114/56
--- NOTE | 2017-07-28 10:45 | NUR ---
Patient refused her morning laxatives today, gesturing that she's been having bowel movements already, same reported by night nurse that she did bowel two times during the night. Will continue to monitor,
[2017-07-28 11:07] VITALS: BP 114/56
[2017-07-28 20:04] VITALS: BP 107/54
[2017-07-28] MEDS: ATORVASTATIN 10 MG TABLET PO SCH (22:18)
[2017-07-29] MEDS: IPRATROPIUM NEB FS 0.5 MG/2.5 ML AMPUL.NEB NEB SCH ×4 (01:50→19:03)
[2017-07-29] MEDS: SUCRALFATE 1 G/10 ML UDC PO SCH ×4 (06:00→23:32)
[2017-07-29] MEDS: PANTOPRAZOLE 40 MG TABLET.DR PO SCH (06:00)
[2017-07-29 07:54] VITALS: BP 124/52
[2017-07-29] MEDS: HYDROGEN PEROXIDE 480 ML BOTTLE TP SCH ×2 (09:00→21:11)
[2017-07-29] MEDS: METOPROLOL TARTRATE 25 MG TABLET PO SCH ×2 (09:00→21:11)
[2017-07-29] MEDS: ASPIRIN 81 MG TAB.CHEW PO SCH (09:00)
[2017-07-29] MEDS: DOCUSATE SODIUM 100 MG CAPSULE PO SCH (09:00)
[2017-07-29] MEDS: SENNOSIDES 8.6 MG TABLET PO SCH (09:00)
[2017-07-29] MEDS: Z GUARD REMEDY 4 OZ OINT TP SCH ×2 (09:00→21:11)
[2017-07-29] MEDS: SEVELAMER CARBONATE 800 MG TABLET PO SCH ×3 (09:00→17:08)
--- NOTE | 2017-07-29 09:00 | NUR ---
Seen by Dr. Lisa. He ordered trach capping during the day as tolerated.
--- NOTE | 2017-07-29 09:48 | NUR ---
RECEIVED ORDER FOR PATIENT TO GET CAPPED DURING DAY CHANTAL. PT REFUSED TO BE CAPPED AT THIS TIME. PT WROTE THAT SHE HAS A LOT OF FLEM AND DOES NOT WANT TO BE CAPPED. SPOKE TO CHARGE NURSE. WILL CONT TO MONITOR PT.
--- NOTE | 2017-07-29 10:00 | NUR ---
Notified Dr. Lisa that pt refused trach capping. Dr. Lisa said he has seen the pt trach capped in the acute hospital and she was fine. He said to try this afternoon. Notified RT.
--- NOTE | 2017-07-29 12:18 | NUR ---
Dr. Bowden ordered to DC pt's Barkley catheter and PICC line.
--- NOTE | 2017-07-29 13:17 | NUR ---
PT REFUSED DRAPERY WORKER AT THIS TIME. Addendum: 07/29/17 at 1317 by NADEEN MONREAL RT Amended: Links added.
--- NOTE | 2017-07-29 15:00 | NUR ---
Pt ambulated a few step from the bed to the door with PT. Pt said she felt a little tired. No respiratory distress noted.
--- NOTE | 2017-07-29 16:00 | NUR ---
Dr. Bowden ordered renal high pureed diet per driver medic's recommendation. Pt may also have ice chips and candies per [facility]'s recommendation and pt's request.
[2017-07-29 19:49] VITALS: BP 114/58
[2017-07-29] MEDS: ATORVASTATIN 10 MG TABLET PO SCH (21:11)
[2017-07-30] MEDS: IPRATROPIUM NEB FS 0.5 MG/2.5 ML AMPUL.NEB NEB SCH ×4 (01:57→19:08)
[2017-07-30] MEDS: PANTOPRAZOLE 40 MG TABLET.DR PO SCH (05:40)
[2017-07-30] MEDS: SUCRALFATE 1 G/10 ML UDC PO SCH ×4 (05:40→21:12)
[2017-07-30 08:00] VITALS: BP 121/47
[2017-07-30] MEDS: SENNOSIDES 8.6 MG TABLET PO SCH (09:00)
[2017-07-30] MEDS: SEVELAMER CARBONATE 800 MG TABLET PO SCH ×3 (09:00→17:00)
[2017-07-30] MEDS: DOCUSATE SODIUM 100 MG CAPSULE PO SCH (09:00)
[2017-07-30] MEDS: ASPIRIN 81 MG TAB.CHEW PO SCH (09:00)
[2017-07-30] MEDS: METOPROLOL TARTRATE 25 MG TABLET PO SCH ×2 (09:00→21:13)
[2017-07-30] MEDS: Z GUARD REMEDY 4 OZ OINT TP SCH ×2 (15:00→21:14)
[2017-07-30] MEDS: HYDROGEN PEROXIDE 480 ML BOTTLE TP SCH ×2 (15:00→21:13)
--- NOTE | 2017-07-30 18:30 | NUR ---
Discontinued PICC LINE, intact ,no bleeding noticed.apply dry dressing .resident denied the pain.continue to monitor.
[2017-07-30 20:09] VITALS: BP 104/56
[2017-07-30] MEDS: ATORVASTATIN 10 MG TABLET PO SCH (21:13)
[2017-07-31] MEDS: IPRATROPIUM NEB FS 0.5 MG/2.5 ML AMPUL.NEB NEB SCH ×4 (01:10→20:55)
[2017-07-31] MEDS: PANTOPRAZOLE 40 MG TABLET.DR PO SCH (05:54)
[2017-07-31] MEDS: SUCRALFATE 1 G/10 ML UDC PO SCH ×4 (05:54→23:35)
[2017-07-31 07:47] VITALS: BP 96/40
[2017-07-31] MEDS: Z GUARD REMEDY 4 OZ OINT TP SCH ×2 (09:00→21:20)
[2017-07-31] MEDS: METOPROLOL TARTRATE 25 MG TABLET PO SCH ×3 (09:00→21:19)
[2017-07-31] MEDS: HYDROGEN PEROXIDE 480 ML BOTTLE TP SCH ×2 (09:00→21:20)
[2017-07-31] MEDS: DOCUSATE SODIUM 100 MG CAPSULE PO SCH (09:50)
[2017-07-31] MEDS: SEVELAMER CARBONATE 800 MG TABLET PO SCH ×3 (09:50→17:35)
[2017-07-31] MEDS: ASPIRIN 81 MG TAB.CHEW PO SCH (09:50)
[2017-07-31] MEDS: SENNOSIDES 8.6 MG TABLET PO SCH (09:51)
--- NOTE | 2017-07-31 14:30 | NUR ---
Spoke with [facility] dispatch c/o [facility] confirming transportation for tomorrow's dialysis. PUT between [id number]. Resident observed ambulating using FWW with physical therapist in the hallway, well tolerated using O2. No c/o pain, SOB. Patient stable frequent visual rounds made and kept call light within easy reach.
[2017-07-31 20:10] VITALS: BP 117/86
[2017-07-31] MEDS: ATORVASTATIN 10 MG TABLET PO SCH (21:20)
[2017-08-01] MEDS: IPRATROPIUM NEB FS 0.5 MG/2.5 ML AMPUL.NEB NEB SCH ×4 (01:28→19:23)
[2017-08-01] MEDS ORDERED: PANTOPRAZOLE 40 MG/PACK PACK ONE (03:56)
[2017-08-01] MEDS: PANTOPRAZOLE 40 MG TABLET.DR PO SCH (05:23)
[2017-08-01] MEDS: SUCRALFATE 1 G/10 ML UDC PO SCH ×4 (05:23→23:57)
--- NOTE | 2017-08-01 06:09 | NUR ---
Pt remains stable and afebrile, no c/o pain or discomfort, no changes in loc, pt able to make needs known. Noted with no BM x 3 days and 1/2 , abd soft non tender no distention,.no n/v, offered PRN MOM for constipation , pt refused explained benefits of medication and risks , verbalized understanding but still refused to take mom, and verbalized that she prefers to have PRN Dulcolax suppository instead, notified transmitter engineer in charge nurse, shakir ask MD for order. Pt voided x 3 clear yellow urine, completed and tolerated am care. Hob elevated, sr's up x 2, call light within pt's reach. SPo2 monitor on with O2 sat 98% hr 60.
[2017-08-01 07:50] VITALS: BP 96/40
[2017-08-01] MEDS: DOCUSATE SODIUM 100 MG CAPSULE PO SCH (09:00)
[2017-08-01] MEDS: Z GUARD REMEDY 4 OZ OINT TP SCH ×2 (09:35→20:21)
[2017-08-01] MEDS: SENNOSIDES 8.6 MG TABLET PO SCH (09:35)
[2017-08-01] MEDS: SEVELAMER CARBONATE 800 MG TABLET PO SCH ×3 (09:35→17:00)
[2017-08-01] MEDS: ASPIRIN 81 MG TAB.CHEW PO SCH (09:35)
[2017-08-01] MEDS: HYDROGEN PEROXIDE 480 ML BOTTLE TP SCH ×2 (09:35→20:21)
--- NOTE | 2017-08-01 18:57 | NUR ---
Seen by Dr. Rebolledo. Received order to give Dulcolax suppository for constipation and he said if it it ineffective, pt may be given Miralax. Pt aware of new orders.
[2017-08-01] MEDS ORDERED: POLYETHYLENE GLYCOL 3350 17 GM POWD.PACK PO PRN (19:30)
[2017-08-01] MEDS: METOPROLOL TARTRATE 25 MG TABLET PO SCH (20:21)
[2017-08-01] MEDS: BISACODYL SUPP (10 MG) 10 MG/SUPP.RECT SUPP.RECT RC PRN (20:33)
[2017-08-01 21:16] VITALS: BP 112/60
[2017-08-01] MEDS: ATORVASTATIN 10 MG TABLET PO SCH (21:18)
[2017-08-02] MEDS: IPRATROPIUM NEB FS 0.5 MG/2.5 ML AMPUL.NEB NEB SCH ×4 (02:17→20:00)
[2017-08-02] MEDS: SUCRALFATE 1 G/10 ML UDC PO SCH ×4 (05:08→23:17)
[2017-08-02] MEDS: PANTOPRAZOLE 40 MG TABLET.DR PO SCH (05:08)
[2017-08-02 07:47] VITALS: BP 121/51
[2017-08-02] MEDS: SEVELAMER CARBONATE 800 MG TABLET PO SCH ×3 (09:00→17:00)
[2017-08-02] MEDS: Z GUARD REMEDY 4 OZ OINT TP SCH ×2 (09:00→21:20)
[2017-08-02] MEDS: METOPROLOL TARTRATE 25 MG TABLET PO SCH ×2 (09:00→21:00)
[2017-08-02] MEDS: ASPIRIN 81 MG TAB.CHEW PO SCH (09:00)
[2017-08-02] MEDS: HYDROGEN PEROXIDE 480 ML BOTTLE TP SCH ×2 (09:00→21:20)
[2017-08-02] MEDS: SENNOSIDES 8.6 MG TABLET PO SCH (09:00)
[2017-08-02] MEDS: DOCUSATE SODIUM 100 MG CAPSULE PO SCH (09:00)
--- NOTE | 2017-08-02 09:50 | NUR ---
Seen and examined by Chloe Sanchez, SALINAS, resident expressed to Chloe that she has thick secretions. Chloe ordered Musinex and she told the patient that it will be stopped if she complain of too much secretions. Order noted and carried out.
[2017-08-02] MEDS ORDERED: GUAIFENESIN LA 600 MG TABLET.SA PO SCH (10:11)
--- NOTE | 2017-08-02 14:42 | NUR ---
RT NOTE PT TOLERATED TRACH CAP WELL TODAY FOR 4 HOURS. NO RESPIRATORY DISTRESS NOTED WITH A MAINTAINED SP02 OF 98% ON 3LPM N/C. PT AND FAMILY WAS EDUCATED ON APPROPRIATE USE OF CAP. MV RN AWARE. WILL CONTINUE TO MONITOR T/O SHIFT.
--- NOTE | 2017-08-02 16:08 | NUR ---
Worked with the Dietitian to provide better menu for Resident who has limited choices of food to eat while in subacute. Rubia somewhat satisfied with suggestions so she could eat. Also provided with crossword puzzles as Activity while in bed.. She loves to listen to music in nature to be able to sleep. I am still working with Engineering to provide music channel for Residents as intervention.
[2017-08-02] MEDS: GUAIFENESIN 300 MG/15 ML UDC PO SCH ×2 (17:00→23:00)
[2017-08-02 19:54] VITALS: BP 103/51
[2017-08-02] MEDS: ATORVASTATIN 10 MG TABLET PO SCH (21:20)
[2017-08-03] MEDS: IPRATROPIUM NEB FS 0.5 MG/2.5 ML AMPUL.NEB NEB SCH ×4 (00:46→19:17)
[2017-08-03] MEDS: GUAIFENESIN 300 MG/15 ML UDC PO SCH ×4 (05:00→23:00)
[2017-08-03] MEDS: PANTOPRAZOLE 40 MG TABLET.DR PO SCH (05:23)
[2017-08-03] MEDS: SUCRALFATE 1 G/10 ML UDC PO SCH ×3 (05:23→18:16)
--- NOTE | 2017-08-03 06:41 | NUR ---
Pt slept good during shift, woke up @ 0600, complete bed bath given and tolerated well , trach care rendered, suctioned mod amt pale yellow secretions, no episode of resp distress noted. Refused her cough medicine, and verbalized that she doesn't like the taste and it makes her nauseous. @ 0630 Pt complained sharp pain to left chest area radiating to left ear with pain scale of 7/10, v/s noted B/p 106/58 hr 68 rr 16 SPo2 99%, offered pt pain medicine, but refused; verbalizing " it's painful sharp shooting pain , then goes away" . furnace charger made aware and will notify md regarding pt's concern. Call light within pt's reach and safety measures noted. Will endorse care to am oncoming nurse.
--- NOTE | 2017-08-03 07:08 | NUR ---
Endorsed pt to am nurse, re- assessed pt's pain and verbalized " no pain at this time".
[2017-08-03 07:49] VITALS: BP 107/46
[2017-08-03] MEDS: METOPROLOL TARTRATE 25 MG TABLET PO SCH ×2 (08:38→21:00)
[2017-08-03] MEDS: ASPIRIN 81 MG TAB.CHEW PO SCH (08:38)
[2017-08-03] MEDS: DOCUSATE SODIUM 100 MG CAPSULE PO SCH (08:38)
[2017-08-03] MEDS: SEVELAMER CARBONATE 800 MG TABLET PO SCH ×3 (08:39→17:00)
[2017-08-03] MEDS: Z GUARD REMEDY 4 OZ OINT TP SCH ×2 (08:39→21:00)
[2017-08-03] MEDS: SENNOSIDES 8.6 MG TABLET PO SCH (08:39)
[2017-08-03] MEDS: HYDROGEN PEROXIDE 480 ML BOTTLE TP SCH ×2 (08:39→21:00)
--- NOTE | 2017-08-03 18:30 | NUR ---
Resident verbalized that her food taste bland and did not want to eat. Dietary staff came to talk to her and offer options, the only one she like was the soup which has a sodium content of her entire diet for 24 hours. Endorsed to incoming shift to obtain an order from the doctor for a swallow re-eval if diet can be upgraded. Resident can wait if this happen on Saturday. Resident's friend and daughter at bedside. Patient also wants an entire history of what happened how she ended up in this condition. Suggested to speak with [facility] on Saturday to obtain release of information from medical records. Verbalized understanding.
--- NOTE | 2017-08-03 18:30 | NUR ---
Resident came back from dialysis, alert oriented x4, no respiratory distress noted, BP 104/52, HR 71, Temperature 98.2, denies pain at this time, HD access on left upper chest dressing intact with no bleeding noted.
[2017-08-03] MEDS: ATORVASTATIN 10 MG TABLET PO SCH (22:00)
--- NOTE | 2017-08-04 | NUR ---
PATIENT REFUSED TO TAKE ROBITUSSIN AT 2300 AND ALSO CARAFATE AT 0000, SHE JUST TAKE ORAL PILL WITH APPLESAUCE.TOLERATED.
[2017-08-04 00:10] VITALS: BP 110/59
[2017-08-04] MEDS: IPRATROPIUM NEB FS 0.5 MG/2.5 ML AMPUL.NEB NEB SCH ×4 (00:42→19:57)
[2017-08-04] MEDS: GUAIFENESIN 300 MG/15 ML UDC PO SCH ×4 (05:00→22:34)
[2017-08-04] MEDS: SUCRALFATE 1 G/10 ML UDC PO SCH ×5 (05:17→23:14)
[2017-08-04] MEDS: PANTOPRAZOLE 40 MG TABLET.DR PO SCH (06:10)
[2017-08-04 07:29] VITALS: BP 108/41
[2017-08-04] MEDS: DOCUSATE SODIUM 100 MG CAPSULE PO SCH (08:45)
[2017-08-04] MEDS: ASPIRIN 81 MG TAB.CHEW PO SCH (08:45)
[2017-08-04] MEDS: METOPROLOL TARTRATE 25 MG TABLET PO SCH ×2 (08:45→21:27)
[2017-08-04] MEDS: SEVELAMER CARBONATE 800 MG TABLET PO SCH ×3 (08:46→17:00)
[2017-08-04] MEDS: SENNOSIDES 8.6 MG TABLET PO SCH (08:46)
[2017-08-04] MEDS: Z GUARD REMEDY 4 OZ OINT TP SCH ×2 (09:07→21:27)
[2017-08-04] MEDS: HYDROGEN PEROXIDE 480 ML BOTTLE TP SCH ×2 (09:07→21:27)
--- NOTE | 2017-08-04 17:27 | NUR ---
Patient refused to take Robitussin syrup as routine saying she vomits when she takes it, explain R/B but she cannot take it. CN informed.
[2017-08-04 20:25] VITALS: BP 105/55
[2017-08-04] MEDS: ATORVASTATIN 10 MG TABLET PO SCH (21:30)
[2017-08-05] MEDS: IPRATROPIUM NEB FS 0.5 MG/2.5 ML AMPUL.NEB NEB SCH ×4 (01:09→20:05)
[2017-08-05] MEDS: GUAIFENESIN 300 MG/15 ML UDC PO SCH ×4 (05:00→23:00)
[2017-08-05] MEDS: PANTOPRAZOLE 40 MG TABLET.DR PO SCH (05:46)
[2017-08-05] MEDS: SUCRALFATE 1 G/10 ML UDC PO SCH ×4 (05:46→23:35)
[2017-08-05 07:55] VITALS: BP 112/55
[2017-08-05] MEDS: METOPROLOL TARTRATE 25 MG TABLET PO SCH ×2 (08:41→21:21)
[2017-08-05] MEDS: ASPIRIN 81 MG TAB.CHEW PO SCH (08:41)
[2017-08-05] MEDS: DOCUSATE SODIUM 100 MG CAPSULE PO SCH (08:41)
[2017-08-05] MEDS: Z GUARD REMEDY 4 OZ OINT TP SCH ×2 (08:42→21:21)
[2017-08-05] MEDS: SEVELAMER CARBONATE 800 MG TABLET PO SCH ×3 (08:42→17:27)
[2017-08-05] MEDS: HYDROGEN PEROXIDE 480 ML BOTTLE TP SCH ×2 (08:42→21:21)
[2017-08-05] MEDS: SENNOSIDES 8.6 MG TABLET PO SCH (08:42)
--- NOTE | 2017-08-05 10:40 | NUR ---
Seen by [facility]. Received order to change diet to mechanical soft. Perl Developer recommended to continue renal high diet.
[2017-08-05 19:53] VITALS: BP 106/58
[2017-08-05] MEDS: ATORVASTATIN 10 MG TABLET PO SCH (21:20)
[2017-08-06] MEDS: IPRATROPIUM NEB FS 0.5 MG/2.5 ML AMPUL.NEB NEB SCH ×4 (00:58→20:20)
[2017-08-06] MEDS: GUAIFENESIN 300 MG/15 ML UDC PO SCH (05:00)
[2017-08-06] MEDS: SUCRALFATE 1 G/10 ML UDC PO SCH ×4 (05:29→23:02)
[2017-08-06] MEDS: PANTOPRAZOLE 40 MG TABLET.DR PO SCH (05:29)
[2017-08-06 08:03] VITALS: BP 112/46
[2017-08-06] MEDS: ASPIRIN 81 MG TAB.CHEW PO SCH (08:57)
[2017-08-06] MEDS: SEVELAMER CARBONATE 800 MG TABLET PO SCH ×2 (08:57→13:00)
[2017-08-06] MEDS: HYDROGEN PEROXIDE 480 ML BOTTLE TP SCH ×2 (08:57→21:30)
[2017-08-06] MEDS: SENNOSIDES 8.6 MG TABLET PO SCH (08:57)
[2017-08-06] MEDS: Z GUARD REMEDY 4 OZ OINT TP SCH ×2 (08:57→21:30)
[2017-08-06] MEDS: METOPROLOL TARTRATE 25 MG TABLET PO SCH ×2 (08:58→21:00)
--- NOTE | 2017-08-06 09:30 | NUR ---
Patient seen and examined by Dr Lisa. Orders given and carried out: -discontinue robitussin and colace as patient refusing both medications. -trach capping as tolerated.
--- NOTE | 2017-08-06 17:10 | NUR ---
Phosphorus level low at 2.3. angel Borrero to be held until further notice.
[2017-08-06 20:54] VITALS: BP 97/50
[2017-08-06] MEDS: ATORVASTATIN 10 MG TABLET PO SCH (21:29)
[2017-08-07] MEDS: IPRATROPIUM NEB FS 0.5 MG/2.5 ML AMPUL.NEB NEB SCH ×4 (00:42→20:09)
[2017-08-07] MEDS: PANTOPRAZOLE 40 MG TABLET.DR PO SCH (06:18)
[2017-08-07] MEDS: SUCRALFATE 1 G/10 ML UDC PO SCH ×3 (06:18→17:43)
[2017-08-07] MEDS: METOPROLOL TARTRATE 25 MG TABLET PO SCH ×2 (09:00→21:00)
[2017-08-07] MEDS: ASPIRIN 81 MG TAB.CHEW PO SCH (09:33)
[2017-08-07] MEDS: SENNOSIDES 8.6 MG TABLET PO SCH (09:33)
[2017-08-07] MEDS: HYDROGEN PEROXIDE 480 ML BOTTLE TP SCH ×2 (09:33→21:59)
[2017-08-07] MEDS: Z GUARD REMEDY 4 OZ OINT TP SCH ×2 (09:33→21:59)
[2017-08-07 11:21] VITALS: BP 104/64
--- NOTE | 2017-08-07 12:50 | NUR ---
Seen by Dr. Rebolledo today. Relayed lab results from [facility] to him. No new order.
[2017-08-07] MEDS: BISACODYL SUPP (10 MG) 10 MG/SUPP.RECT SUPP.RECT RC PRN (19:10)
[2017-08-07 21:41] VITALS: BP 97/55
[2017-08-07] MEDS: ATORVASTATIN 10 MG TABLET PO SCH (22:00)
[2017-08-08] MEDS: SUCRALFATE 1 G/10 ML UDC PO SCH ×4 (00:32→18:02)
[2017-08-08] MEDS: IPRATROPIUM NEB FS 0.5 MG/2.5 ML AMPUL.NEB NEB SCH ×5 (01:58→20:23)
[2017-08-08] MEDS: PANTOPRAZOLE 40 MG TABLET.DR PO SCH (05:59)
--- NOTE | 2017-08-08 06:57 | NUR ---
Patient no bowel movement during the shift.Dulcolax suppository not effective yet will endorse.
[2017-08-08 07:37] VITALS: BP 97/52
[2017-08-08] MEDS: HYDROGEN PEROXIDE 480 ML BOTTLE TP SCH ×2 (09:00→21:49)
[2017-08-08] MEDS: Z GUARD REMEDY 4 OZ OINT TP SCH ×2 (09:00→21:49)
[2017-08-08] MEDS: METOPROLOL TARTRATE 25 MG TABLET PO SCH ×2 (09:00→21:00)
[2017-08-08] MEDS: ASPIRIN 81 MG TAB.CHEW PO SCH (09:06)
[2017-08-08] MEDS: SENNOSIDES 8.6 MG TABLET PO SCH (09:06)
--- NOTE | 2017-08-08 09:35 | NUR ---
Resident picked up by Reynold 2 EMT's via [facility] for hemodialysis tx. LT upper chest HD catheter intact, no bleeding noted. covered with dressing, clean and dry. trach intact, at midline, airway patent, no respiratory distress noted. resident in stable condition.
--- NOTE | 2017-08-08 09:50 | NUR ---
Social Service Section of [facility] (admission) completed. Resident is alert and oriented and can communicate by using her whiteboard and mouthing words. Her daughters Keyonna Kay and Karoline Grimm are her responsible parties . Discharge to a lower level of care when medically appropriate. Resident understands her need for placement in subacute at this time. The resident was transferred from [facility] to [facility] on 07/26/2017. The resident is receiving dialysis 3x/week (Tuesdays, , and Saturdays). Her daughter's visit as often as they can. LENA sent referral to [facility] at the wound center for the resident to be seen by the roundhouse worker. SW to ask resident if she wants an optometry consultation (currently wears glasses) and a dental consultation. LENA will follow up.
--- NOTE | 2017-08-08 09:53 | NUR ---
SW spoke to the resident to complete [facility] assessment. She noted that she feels sad/depressed because of her current situation and being in the hospital. She noted that she sometimes thinks about not wanting to be here (ideation) but expressed no suicidal plan, means, or intent. She stated "I would not hurt myself." Informed the charge nurse to ask resident's doctor to see if the resident would benefit from a psych consult.
--- NOTE | 2017-08-08 12:11 | NUR ---
Received recommendation from [facility] slabber light to offer double portions of high protein foods and to hold Renagel. Renagel already on hold due to low phosphorus level. Discussed pt's diet with slabber light Mar. She is aware of pt's low albumin and low phosphorus. Pt has been offered several high protein food options but pt has been refusing them and pt does not eat well. Performing Artist discussed pt's diet with her and her daughter yesterday. Pt only likes to eat chicken and meat.
--- NOTE | 2017-08-08 14:15 | NUR ---
Resident returned from S/P hemodialysis tx. LT upper chest HD catheter, intact, no bleeding noted. covered with dressing, clean and dry. no respiratory distress noted. afebrile. resident in stable condition.
--- NOTE | 2017-08-08 14:39 | NUR ---
Pt's blood pressure 78/47 HR 66. Pt awake, alert and responsive, able to communicate verbally. Pt unable to tolerate Trendelenburg position, placed her flat in bed. Pt just had dialysis, 1.3 L of fluids removed. Notified Dr. Rebolledo. Received order to give NS 250 mL IV bolus x 1. Pt aware of order.
--- NOTE | 2017-08-08 14:45 | NUR ---
dry drug worker spoke to the resident about her request to see her medical information. Resident notes that she wants to know if she was defibrillated in the emergency room. SW printed out the H&P and informed the resident that she was coded with four rounds of epinephrine and ROSC was achieved but that there is no mention of defibrillation. H&P also indicates that the resident was given CPR. Resident noted that she did not have any other questions and appreciated the information given to her by the SW. She did not ask for a copy of her medical record.
--- NOTE | 2017-08-08 14:55 | NUR ---
Started NS IV bolus. Pt alert and responsive.
[2017-08-08] MEDS ORDERED: IV NS 0.9% 250 ML IV ONE (15:00)
--- NOTE | 2017-08-08 15:15 | NUR ---
Rechecked pt's blood pressure, BP 107/45 HR 62.
--- NOTE | 2017-08-08 16:13 | NUR ---
Pt's blood pressure 108/42 HR 58. HOB elevated.
[2017-08-08 19:57] VITALS: BP 103/58
[2017-08-08] MEDS: ATORVASTATIN 10 MG TABLET PO SCH (21:49)
[2017-08-09] MEDS: IPRATROPIUM NEB FS 0.5 MG/2.5 ML AMPUL.NEB NEB SCH ×4 (01:57→19:30)
[2017-08-09] MEDS: SUCRALFATE 1 G/10 ML UDC PO SCH ×5 (06:33→23:23)
[2017-08-09] MEDS: PANTOPRAZOLE 40 MG TABLET.DR PO SCH (06:33)
[2017-08-09 07:55] VITALS: BP 98/49
[2017-08-09] MEDS: METOPROLOL TARTRATE 25 MG TABLET PO SCH ×2 (09:00→20:07)
[2017-08-09] MEDS: ASPIRIN 81 MG TAB.CHEW PO SCH (09:21)
[2017-08-09] MEDS: SENNOSIDES 8.6 MG TABLET PO SCH (09:23)
[2017-08-09] MEDS: VIT B CMPLX 3/FA/VIT C/BIOTIN 1 TAB TABLET PO SCH (09:23)
[2017-08-09] MEDS: Z GUARD REMEDY 4 OZ OINT TP SCH ×2 (09:24→20:23)
[2017-08-09] MEDS: HYDROGEN PEROXIDE 480 ML BOTTLE TP SCH ×2 (10:15→20:23)
[2017-08-09 20:03] VITALS: BP 95/49
--- NOTE | 2017-08-09 21:30 | NUR ---
PATIENT BLOOD PRESSURE LEVEL 95/49, NO S/S OF HYPOTENSION NOTED. PATIENT DENIES DIZZINESS AT THIS TIME. WILL CONTINUE TO MONITOR. Addendum: 08/10/17 at 0108 by TARA WALKER RN LOPRESSOR MEDICATION HELD DUE TO LOW BLOOD PRESSURE.
[2017-08-09] MEDS: ATORVASTATIN 10 MG TABLET PO SCH (21:39)
[2017-08-10] MEDS: IPRATROPIUM NEB FS 0.5 MG/2.5 ML AMPUL.NEB NEB SCH ×4 (01:23→19:52)
[2017-08-10] MEDS: SUCRALFATE 1 G/10 ML UDC PO SCH ×4 (05:23→23:24)
[2017-08-10] MEDS: PANTOPRAZOLE 40 MG TABLET.DR PO SCH (05:23)
--- NOTE | 2017-08-10 08:47 | NUR ---
Left a message to Dr. Rebolledo, patient's B/P at 8am 95/60, HR 82 but now 83/46, 68. Awaiting for MD to call back.
[2017-08-10] MEDS: ASPIRIN 81 MG TAB.CHEW PO SCH (08:56)
[2017-08-10] MEDS: METOPROLOL TARTRATE 25 MG TABLET PO SCH ×2 (08:56→21:00)
[2017-08-10] MEDS: HYDROGEN PEROXIDE 480 ML BOTTLE TP SCH ×2 (08:57→21:07)
[2017-08-10] MEDS: VIT B CMPLX 3/FA/VIT C/BIOTIN 1 TAB TABLET PO SCH (08:57)
[2017-08-10] MEDS: Z GUARD REMEDY 4 OZ OINT TP SCH ×2 (08:57→21:07)
[2017-08-10] MEDS: SENNOSIDES 8.6 MG TABLET PO SCH (08:57)
--- NOTE | 2017-08-10 09:05 | NUR ---
Obtain an order from Dr. Rebolledo to start patient on Midodrine 5 mg. daily to hold if SBP greater than 120. Resident informed.
[2017-08-10] MEDS: MIDODRINE HCL (5MG) 5 MG TABLET PO SCH (09:37)
[2017-08-10 11:04] VITALS: BP 95/60
--- NOTE | 2017-08-10 19:20 | NUR ---
Patient in bed awake with family member at bedside. Member express concern regarding latest Midodrine order. Morning charge nurse and night charge nurse informed her that will evaluate on Saturday and contact the MD to see if Midodrine can be order as PRN instead of routine. Patient verbalized understanding
[2017-08-10 20:01] VITALS: BP 103/58
[2017-08-10] MEDS: ATORVASTATIN 10 MG TABLET PO SCH (21:07)
[2017-08-11] MEDS: IPRATROPIUM NEB FS 0.5 MG/2.5 ML AMPUL.NEB NEB SCH ×4 (01:47→20:03)
[2017-08-11] MEDS: SUCRALFATE 1 G/10 ML UDC PO SCH ×3 (05:20→18:39)
[2017-08-11] MEDS: PANTOPRAZOLE 40 MG TABLET.DR PO SCH (05:20)
[2017-08-11 07:27] VITALS: BP 95/52
[2017-08-11] MEDS: ASPIRIN 81 MG TAB.CHEW PO SCH (08:48)
[2017-08-11] MEDS: SENNOSIDES 8.6 MG TABLET PO SCH (08:52)
[2017-08-11] MEDS: MIDODRINE HCL (5MG) 5 MG TABLET PO SCH ×2 (08:52→09:00)
[2017-08-11] MEDS: METOPROLOL TARTRATE 25 MG TABLET PO SCH ×2 (08:52→20:51)
[2017-08-11] MEDS: HYDROGEN PEROXIDE 480 ML BOTTLE TP SCH ×2 (08:52→21:00)
[2017-08-11] MEDS: VIT B CMPLX 3/FA/VIT C/BIOTIN 1 TAB TABLET PO SCH (08:52)
[2017-08-11] MEDS: Z GUARD REMEDY 4 OZ OINT TP SCH ×2 (08:52→21:00)
[2017-08-11 20:12] VITALS: BP 124/74
[2017-08-11] MEDS: ATORVASTATIN 10 MG TABLET PO SCH (22:52)
--- NOTE | 2017-08-12 | NUR ---
RN NOTES Reassessed, B/P 130/61, HR 61. Pt appears to be calm and relaxed. Offered to come back in an hour and if she would feel more comfortable for charge nurse to give her next medications due and she stated it would make her feel so much better. She apologized for being so upset and angry earlier and was smiling and very appreciative of care provided and for comforting her. Stated she felt more comfortable and safe. Expressed her gratitude for providing the comfort she needed. Will reassess b/p. Addendum: 08/13/17 at 0651 by NIA ADHIKARI RN error in time and date CORRECT TIME AND DATE: 08/13/17 0000
[2017-08-12] MEDS: SUCRALFATE 1 G/10 ML UDC PO SCH ×4 (00:52→23:59)
[2017-08-12] MEDS: IPRATROPIUM NEB FS 0.5 MG/2.5 ML AMPUL.NEB NEB SCH ×4 (01:00→19:54)
[2017-08-12 07:46] VITALS: BP 92/48
[2017-08-12] MEDS: MIDODRINE HCL (5MG) 5 MG TABLET PO SCH (09:00)
[2017-08-12] MEDS: ASPIRIN 81 MG TAB.CHEW PO SCH (09:00)
[2017-08-12] MEDS: SENNOSIDES 8.6 MG TABLET PO SCH (09:00)
[2017-08-12] MEDS: Z GUARD REMEDY 4 OZ OINT TP SCH ×2 (09:00→21:00)
[2017-08-12] MEDS: METOPROLOL TARTRATE 25 MG TABLET PO SCH ×2 (09:00→21:00)
[2017-08-12] MEDS: HYDROGEN PEROXIDE 480 ML BOTTLE TP SCH ×2 (09:00→21:00)
[2017-08-12] MEDS: VIT B CMPLX 3/FA/VIT C/BIOTIN 1 TAB TABLET PO SCH (09:00)
--- NOTE | 2017-08-12 11:01 | NUR ---
Social Service Section of [facility] (14 day PPS) completed. Resident is alert and oriented and can communicate by using her whiteboard and mouthing words. She has no difficulties speaking with her PMV on. Her daughters Keyonna Kay and Karoline Grimm are her responsible parties . Discharge to a lower level of care when medically appropriate. Resident understands her need for placement in subacute at this time. The resident was transferred from [facility] to [facility] on 07/26/2017. The resident is receiving dialysis 3x/week (Tuesdays, , and Saturdays). Her daughter's visit as often as they can. Resident was seen by education supervisor Dr. Huffman on 08/09/2017. LENA sent referral to office of Dr. Rodriguez/Dr William GARCIA and will be seen by Dr. William GARCIA on 08/26/2017 for initial exam. LENA sent referral to office of Dr. Agosto and will await appt date. LENA to follow up.
[2017-08-12 19:51] VITALS: BP 99/79
--- NOTE | 2017-08-12 20:30 | NUR ---
RN NOTES Seen and examined by Dr. Colorado. Dr. Colorado explained to use of Cymbalta, benefits and risks of medication. He spoke to her about starting a low dose to treat her depression. Pt verbalized understanding of medication and expressed feeling afraid of taking medication but agreed to try medication. Received new order from Dr. Colorado and obtained consent form with Dr. Colorado and pt's signature. Order noted and carried out, faxed to pharmacy.
[2017-08-12] MEDS: ATORVASTATIN 10 MG TABLET PO SCH (22:52)
--- NOTE | 2017-08-12 23:00 | NUR ---
RN NOTES Was called to speak with pt regarding a concern of medication received. Pt verbalized she was given a medication that she was not supposed to receive. When asked what medication she stated Metoprolol. She was extremely anxious and worried her B/P would drop dangerously low. B/P was checked at the moment and reassured B/P 131/78, HR 87 was safe parameters for medication to be given. Pt seemed very upset and angry and she began to cry. She expressed how she feared that medication because her boyfriend, who a year ago, was taking that medication and also expressed her fear of taking medications from past bad experiences. She stated it is exactly why she does not like to take medications and asked me to rip up consent signed earlier for Rosanna. Reassured and attempted to comfort pt that she would be ok. Also reassured that if she has changed her mind on medication she will not be obligated to take it and we would notify Dr. Colorado in am. Reassured pt B/p can be monitored in 30min. Pt agreed to have it checked in 30min. Will reassess B/P and monitor pt.
--- NOTE | 2017-08-12 23:30 | NUR ---
RN NOTES Pt appears to be upset still. B/P 133/78, HR 82. Reassured pt b/p is stable and we will recheck in one hour. Pt restated story of boyfriend who and how she is scared of everything. Allowed pt to express feelings and concerns. After she finished pt seem to be more calm since no drop in b/p was observed. Reassured pt she is not alone and we will continue to monitor b/p. Will continue to monitor.
--- NOTE | 2017-08-13 01:00 | NUR ---
RN NOTES B/P 99/54, HR 61. Pt stable and is comfortable in bed. Pt is smiling and stated she can now go to sleep. Will continue to monitor pt.
[2017-08-13] MEDS: IPRATROPIUM NEB FS 0.5 MG/2.5 ML AMPUL.NEB NEB SCH ×4 (02:11→19:56)
[2017-08-13] MEDS: SUCRALFATE 1 G/10 ML UDC PO SCH ×4 (05:52→23:36)
[2017-08-13] MEDS: PANTOPRAZOLE 40 MG TABLET.DR PO SCH (05:53)
[2017-08-13 07:24] VITALS: BP 101/49
[2017-08-13] MEDS ORDERED: DULOXETINE HCL 20 MG CAPSULE.DR PO SCH (09:00)
[2017-08-13] MEDS: METOPROLOL TARTRATE 25 MG TABLET PO SCH ×2 (09:00→21:00)
[2017-08-13] MEDS: ASPIRIN 81 MG TAB.CHEW PO SCH (09:01)
[2017-08-13] MEDS: VIT B CMPLX 3/FA/VIT C/BIOTIN 1 TAB TABLET PO SCH (09:07)
[2017-08-13] MEDS: SENNOSIDES 8.6 MG TABLET PO SCH (09:08)
[2017-08-13] MEDS: Z GUARD REMEDY 4 OZ OINT TP SCH ×2 (09:08→21:31)
[2017-08-13] MEDS: MIDODRINE HCL (5MG) 5 MG TABLET PO SCH ×2 (09:08→18:04)
--- NOTE | 2017-08-13 10:00 | NUR ---
Seen by Dr. Lisa. Notified him pt is on Metoprolol 25 mg q 12 and Midodrine [address] Lisa that pt's blood pressure runs low that is why Midodrine is being given. Pt said her blood pressure last night was (SBP) 130. Dr. Lisa aware that heart rate is in the 50s and 60s. He ordered to decrease Metoprolol to 12.5 mg BID and to give Midodrine [address] mg [address]. Also notified Dr. Lisa that SUPERVISOR FRAME SAMPLE AND PATTERN Chloe Sanchez is concerned pt is being dialyzed when pt's BUN 17 Cr 2.8, pt hypotensive after hemodialysis, and pt is voiding regularly. Pt verbalized she is sometimes unable to control her bladder. Dr. Lisa ordered nephrology consult. Pt still has sutures on her trach tube site. Dr. Lisa ordered to DC the sutures.
[2017-08-13] MEDS: HYDROGEN PEROXIDE 480 ML BOTTLE TP SCH ×2 (14:35→21:31)
--- NOTE | 2017-08-13 14:52 | NUR ---
SW spoke to the resident to clarify if she wants to take the medication that Dr. Colorado prescribed to her (Cymbalta) for her depression. Resident stated that she does not want to take any medications that she does not need to and is currently declining to take the Cymbalta. anode worker informed charge nurse who will inform Dr. Colorado (psychiatrist). anode worker asked resident if she would like to see a psychologist and she stated she would be okay with that. Informed charge nurse who stated that resident would be comfortable seeing a psychologist and she will obtain order from the resident's physician.
--- NOTE | 2017-08-13 15:09 | NUR ---
Notified Dr. Colorado that pt is refusing to take Cymbalta. SW already spoke with pt about Cymbalta and pt said she does not want to take any more medication that she does not really need.
--- NOTE | 2017-08-13 15:35 | NUR ---
Spoke with Dr. Steven regarding pt's need for dialysis based on her lab results. Dr. Steven said pt is being seen by a physician at [facility] and whoever is seeing her there is assessing pt's need for dialysis. Called [facility] and spoke with Nile. Discussed with him pt's BUN 17 Cr 2.8 and that pt is voiding. He said Dr. Carvajal is seeing the pt and he will notify Dr. Carvajal.
--- NOTE | 2017-08-13 16:33 | NUR ---
Dr. Colorado ordered to [facility]. Notified pt.
--- NOTE | 2017-08-13 16:34 | NUR ---
Resident would like soft music so she can sleep. Told Resident to check out [employer] which is our new music channel. It plays different types of music and hope she enjoys music also during healing time.
--- NOTE | 2017-08-13 17:59 | NUR ---
Notified Dr. Lisa that RTs are not comfortable changing the pt's trach because according to them, it took 2 ENTs working together to place pt's trach. Dr. Lisa said to have Dr. Monroy change it.
--- NOTE | 2017-08-13 18:48 | NUR ---
Removed pt's suture on the trach site. Pt tolerated procedure well. No bleeding noted. Pt's daughter came to visit and brought pureed chicken breast. She said she only put in half a dash of garlic salt. Pt tried it and asked to have it placed in the fridge since she already had dinner.
[2017-08-13 19:56] VITALS: BP 100/56
--- NOTE | 2017-08-13 21:00 | NUR ---
RN NOTE METOPROLOL 12.5 MG HELD PER MD ORDER HOLD ON HD DAYS T--SAT.BP 100/60, HR 59. WILL CONTINUE TO MONITOR.
--- NOTE | 2017-08-13 21:00 | NUR ---
RN NOTES Seen and examined by Dr. Rebolledo. Notified him BUN 17 and Cr 2.81 and that that she has a nephrology consult and notified her b/p frequently is low. Received new order for check orthostatic b/p in am, noted and carried out.
[2017-08-13] MEDS: ATORVASTATIN 10 MG TABLET PO SCH (21:32)
[2017-08-14] MEDS: IPRATROPIUM NEB FS 0.5 MG/2.5 ML AMPUL.NEB NEB SCH ×4 (02:11→19:42)
[2017-08-14] MEDS: BISACODYL SUPP (10 MG) 10 MG/SUPP.RECT SUPP.RECT RC PRN (05:25)
[2017-08-14] MEDS: SUCRALFATE 1 G/10 ML UDC PO SCH ×5 (05:25→23:58)
[2017-08-14] MEDS: PANTOPRAZOLE 40 MG TABLET.DR PO SCH (05:25)
[2017-08-14 07:50] VITALS: BP 98/50
[2017-08-14 08:07] VITALS: BP 117/74
[2017-08-14] MEDS: VIT B CMPLX 3/FA/VIT C/BIOTIN 1 TAB TABLET PO SCH (08:40)
[2017-08-14] MEDS: MIDODRINE HCL (5MG) 5 MG TABLET PO SCH ×2 (08:40→17:00)
[2017-08-14] MEDS: ASPIRIN 81 MG TAB.CHEW PO SCH (08:41)
[2017-08-14] MEDS: SENNOSIDES 8.6 MG TABLET PO SCH ×2 (08:41→09:00)
[2017-08-14] MEDS: HYDROGEN PEROXIDE 480 ML BOTTLE TP SCH ×2 (09:00→21:07)
[2017-08-14] MEDS: METOPROLOL TARTRATE 25 MG TABLET PO SCH ×2 (09:00→21:00)
[2017-08-14] MEDS: Z GUARD REMEDY 4 OZ OINT TP SCH ×2 (09:00→21:07)
[2017-08-14] MEDS ORDERED: DULOXETINE HCL 20 MG CAPSULE.DR PO SCH (09:00)
--- NOTE | 2017-08-14 10:30 | NUR ---
Spoke with Katerina at [facility] to notify move coordinator taking care of patient and relay lab result done on 08/01/17 with BUN 17, Creat 2.81. According to Katerina, RN she will notify move coordinator and will let us know what the recommendations are.
[2017-08-14 12:36] VITALS: BP 124/60
[2017-08-14 13:00] VITALS: BP_SYST 120; BP_SYST 88; BP_DIAS 64
--- NOTE | 2017-08-14 13:47 | NUR ---
Made a follow-up call with Katerina RN from [facility], according to her she paged Dr. Vital twice but no response. Place a call to drum maker's office, spoke with Dafne who said that Dr. Hua is handling [facility]. Dr. Uziel Hua returned notified him of the reason for consult, BUN 17, Creat 2.81. Urine output 1-2 times per shift, per MD "Don't worry about it".
[2017-08-14 14:00] VITALS: BP_SYST 110; BP_SYST 119; BP_DIAS 54; BP_DIAS 57
--- NOTE | 2017-08-14 14:13 | NUR ---
Spoke with Anny from Dr. Monroy's office for trach change, Anny will notify MD via text message regarding consult.
--- NOTE | 2017-08-14 17:10 | NUR ---
Dr Rebolledo notified of orthostatic BP, at 1300 her laying BP 120/64, sitting 88/64; 1500 laying BP 110/57, sitting 119/54. Resident did not want her BP taken standing up. NNO given at this time.
--- NOTE | 2017-08-14 17:46 | NUR ---
RT PT NOT FEELING WELL DOESN'T WANT TO BE CAPPED
[2017-08-14 19:59] VITALS: BP 98/58
[2017-08-14] MEDS: ATORVASTATIN 10 MG TABLET PO SCH (21:07)
--- NOTE | 2017-08-15 | NUR ---
RN NOTES REFUSED CARAFATE DOSE,OPENED AND WASTED
[2017-08-15] MEDS: IPRATROPIUM NEB FS 0.5 MG/2.5 ML AMPUL.NEB NEB SCH ×4 (01:53→19:36)
[2017-08-15] MEDS: SUCRALFATE 1 G/10 ML UDC PO SCH ×4 (06:00→23:07)
[2017-08-15] MEDS: PANTOPRAZOLE 40 MG TABLET.DR PO SCH (06:01)
--- NOTE | 2017-08-15 06:53 | NUR ---
Seen by informed him that RT are not comfortable changing the trache of patient.He said prepare the trach and he will comeback to after his surgery.Will endorse.
[2017-08-15 07:33] VITALS: BP 86/64
[2017-08-15] MEDS: METOPROLOL TARTRATE 25 MG TABLET PO SCH ×2 (08:40→20:45)
[2017-08-15] MEDS: ASPIRIN 81 MG TAB.CHEW PO SCH (08:40)
[2017-08-15] MEDS: VIT B CMPLX 3/FA/VIT C/BIOTIN 1 TAB TABLET PO SCH (08:40)
[2017-08-15] MEDS: MIDODRINE HCL (5MG) 5 MG TABLET PO SCH ×2 (08:41→17:33)
[2017-08-15] MEDS: SENNOSIDES 8.6 MG TABLET PO SCH (08:41)
[2017-08-15] MEDS: Z GUARD REMEDY 4 OZ OINT TP SCH ×2 (08:41→20:45)
[2017-08-15] MEDS: HYDROGEN PEROXIDE 480 ML BOTTLE TP SCH ×2 (08:41→20:45)
--- NOTE | 2017-08-15 09:25 | NUR ---
LENA informed the resident about IDT meeting on Sunday August 13, 2017 from 12:30-1:30pm. Resident noted that she would like to attend and would like for SW to call her daughter Keyonna ([phone]) to see if she attend. LENA called her dtr and Keyonna noted that she would be able to attend IDT meeting. LENA informed her to be in the resident's room between 12:30-1:30pm tomorrow and she stated she would. Daughter and resident to attend IDT meeting.
--- NOTE | 2017-08-15 10:10 | NUR ---
wire preparation worker was informed by charge nurse Rima that the resident has an order for a psychologist consult. Sw contacted psychologist Dr. Shruthi Orellana who stated that she will be able to follow up with the resident. Informed the charge nurse.
--- NOTE | 2017-08-15 13:29 | NUR ---
Dr. Shruthi Orellana (psychologist) came to see the resident but resident is currently at dialysis. She stated she will return later today or tomorrow.
--- NOTE | 2017-08-15 14:00 | NUR ---
Dr. Bowden ordered to hold pt's Metoprolol tartrate prior to hemodialysis q Saturday, , Saturday.
--- NOTE | 2017-08-15 18:51 | NUR ---
Pt verbalized she does not like taking oral medications as much as possible. She wants to keep her own Icy Hot topical analgesic at bedside. Notified Dr. Bowden and received order for pt to keep Icy Hot at bedside which she may apply to affected areas PRN for pain or discomfort.
[2017-08-15 19:32] VITALS: BP 115/52
[2017-08-15] MEDS ORDERED: [UNRECOGNIZED DRUG - OTHER] TP PRN (20:00)
[2017-08-15] MEDS: MAGNESIUM HYDROXIDE 30 ML UDC PO PRN (20:46)
[2017-08-15] MEDS: ATORVASTATIN 10 MG TABLET PO SCH (21:10)
[2017-08-16] MEDS: IPRATROPIUM NEB FS 0.5 MG/2.5 ML AMPUL.NEB NEB SCH ×4 (00:46→19:40)
[2017-08-16] MEDS: SUCRALFATE 1 G/10 ML UDC PO SCH ×4 (05:18→23:20)
[2017-08-16] MEDS: PANTOPRAZOLE 40 MG TABLET.DR PO SCH (05:18)
[2017-08-16 07:47] VITALS: BP 96/67
[2017-08-16] MEDS: SENNOSIDES 8.6 MG TABLET PO SCH (09:00)
[2017-08-16] MEDS: METOPROLOL TARTRATE 25 MG TABLET PO SCH ×2 (09:00→20:06)
[2017-08-16] MEDS: HYDROGEN PEROXIDE 480 ML BOTTLE TP SCH ×2 (09:00→20:07)
[2017-08-16] MEDS: Z GUARD REMEDY 4 OZ OINT TP SCH ×2 (09:00→20:07)
[2017-08-16] MEDS: ASPIRIN 81 MG TAB.CHEW PO SCH (09:52)
[2017-08-16] MEDS: VIT B CMPLX 3/FA/VIT C/BIOTIN 1 TAB TABLET PO SCH (09:53)
[2017-08-16] MEDS: MIDODRINE HCL (5MG) 5 MG TABLET PO SCH ×2 (09:53→17:00)
--- NOTE | 2017-08-16 14:44 | NUR ---
INTERDISCIPLINARY PLAN OF CARE CONFERENCE was held today. Both daughters attended IDT meeting. Dr. Lisa and the interdisciplinary team discussed the current plan of care in detail. Current orders as well as treatments and medications were reviewed. Resident has a current psychologist order and Dr. Shruthi Orellana will follow up. Resident will have trach change done by Dr. Monroy. Dr. Lisa asked about discharge plan and both daughter's state that the resident will stay in [place] and will reside with one of them and that home with trach is the goal. Dr. Lisa is in agreement. Per daughter's, resident has not been pushing herself too much. Dr. Lisa will also be speaking to the resident regarding her liquid intake as per dtr, resident thinks that there is a restriction on her liquid intake due to her dialysis. Field Representative is concerned about the resident's weight loss however resident also has her own weight loss goal and welt treater will follow up. Field Representative will also follow up with daughters in terms of meals that they can make for the resident so that she is able to eat foods low in sodium.
--- NOTE | 2017-08-16 16:50 | NUR ---
Spoke with MILAGROS Celaya at the dialysis center and asked what is the patient's order for fluid restriction, he said it is 1500ml. It was also mentioned that patient c/o on and off chest pain toward the dialysis access site. He said that they will take a look at it tomorrow.
--- NOTE | 2017-08-16 17:00 | NUR ---
Notified Dr. Lisa, resident is complaining of on and off chest pain radiating by the shoulder near her dialysis access site in the L upper chest. At this time she denies any pain. Dr. Lisa ordered EKG and ordered fluid restriction 1500 ml/day as recommended by dialysis center. Resident informed of EKG and fluid restriction, also instructed to inform dialysis nurse of her on and off c/o chest pain towards the dialysis assess site. Patient gave her thumbs up in agreement.
--- NOTE | 2017-08-16 18:00 | NUR ---
EKG result, sinus bradycardia, 52, otherwise normal ECG. Resident aware.
[2017-08-16 19:36] VITALS: BP 105/52
[2017-08-16] MEDS: ATORVASTATIN 10 MG TABLET PO SCH (21:07)
[2017-08-17] MEDS: IPRATROPIUM NEB FS 0.5 MG/2.5 ML AMPUL.NEB NEB SCH ×4 (01:30→21:20)
[2017-08-17] MEDS: SUCRALFATE 1 G/10 ML UDC PO SCH ×4 (05:08→23:13)
[2017-08-17] MEDS: PANTOPRAZOLE 40 MG TABLET.DR PO SCH (05:08)
[2017-08-17 08:01] VITALS: BP 93/53
--- NOTE | 2017-08-17 08:19 | NUR ---
RT PT REFUSED CAP DUE TO DIALYSIS APPOINTMENT
[2017-08-17] MEDS: METOPROLOL TARTRATE 25 MG TABLET PO SCH ×2 (08:55→20:30)
[2017-08-17] MEDS: Z GUARD REMEDY 4 OZ OINT TP SCH ×2 (09:00→20:30)
[2017-08-17] MEDS: SENNOSIDES 8.6 MG TABLET PO SCH (09:00)
[2017-08-17] MEDS: HYDROGEN PEROXIDE 480 ML BOTTLE TP SCH ×2 (09:00→20:30)
[2017-08-17] MEDS: VIT B CMPLX 3/FA/VIT C/BIOTIN 1 TAB TABLET PO SCH (09:05)
[2017-08-17] MEDS: MIDODRINE HCL (5MG) 5 MG TABLET PO SCH ×2 (09:06→17:39)
[2017-08-17] MEDS: ASPIRIN 81 MG TAB.CHEW PO SCH (09:06)
--- NOTE | 2017-08-17 09:56 | NUR ---
Notified dialysis center ([facility]) of the delay in picking up resident, spoke with Nile. He was also made aware to assess patient's HD access due to patient's complain of on and off chest pain towards the HD access site and notify child development professor. Copy of the EKG done yesterday sent with the patient and report given to ambulance staff regarding patient's condition. Patient alert and oriented, stable with the ff: V/S taken prior to leaving for dialysis B/P100/51, 53, 16, 97.5, 100% 02 sat.
--- NOTE | 2017-08-17 19:00 | NUR ---
Patient states no pain all day today at my dialysis site. check HD site no redness, not warm to touch, no s/s of infection noted. afebrile.
[2017-08-17 19:25] VITALS: BP 119/52
[2017-08-17] MEDS: ATORVASTATIN 10 MG TABLET PO SCH (21:08)
[2017-08-18] MEDS: IPRATROPIUM NEB FS 0.5 MG/2.5 ML AMPUL.NEB NEB SCH ×4 (02:06→20:08)
[2017-08-18] MEDS: SUCRALFATE 1 G/10 ML UDC PO SCH ×3 (05:14→18:16)
[2017-08-18] MEDS: PANTOPRAZOLE 40 MG TABLET.DR PO SCH (05:14)
[2017-08-18 07:43] VITALS: BP 108/57
[2017-08-18] MEDS: ASPIRIN 81 MG TAB.CHEW PO SCH (08:45)
[2017-08-18] MEDS: VIT B CMPLX 3/FA/VIT C/BIOTIN 1 TAB TABLET PO SCH (08:47)
[2017-08-18] MEDS: SENNOSIDES 8.6 MG TABLET PO SCH (08:47)
[2017-08-18] MEDS: METOPROLOL TARTRATE 25 MG TABLET PO SCH ×2 (08:49→21:00)
[2017-08-18] MEDS: MIDODRINE HCL (5MG) 5 MG TABLET PO SCH ×2 (08:50→17:00)
[2017-08-18] MEDS: HYDROGEN PEROXIDE 480 ML BOTTLE TP SCH ×2 (09:00→21:22)
[2017-08-18] MEDS: Z GUARD REMEDY 4 OZ OINT TP SCH ×2 (09:00→21:22)
[2017-08-18] MEDS: BISACODYL SUPP (10 MG) 10 MG/SUPP.RECT SUPP.RECT RC PRN (13:36)
[2017-08-18 19:59] VITALS: BP 119/55
[2017-08-18] MEDS: ATORVASTATIN 10 MG TABLET PO SCH (21:23)
--- NOTE | 2017-08-18 21:30 | NUR ---
METOPROLOL WAS HELD FOR LOW HEART RATE OF 48. WILL CONT TO MONITOR ,
[2017-08-19] MEDS: IPRATROPIUM NEB FS 0.5 MG/2.5 ML AMPUL.NEB NEB SCH ×4 (00:36→20:02)
--- NOTE | 2017-08-19 01:00 | NUR ---
HOLD CARAFATE PER PT'S PREFERENCE THAT DOES NOT WANT TO BE WAKEN UP FOR THE MEDICATION. RISK VS. BENEFIT WERE EXPLAINED TO THE PATIENT AND CHECKED ON PATIENT MULTIPLE TIMES. EVERY TIME SHE WAS SLEEPING COMFORTABLY.
[2017-08-19] MEDS: PANTOPRAZOLE 40 MG TABLET.DR PO SCH (05:57)
[2017-08-19] MEDS: SUCRALFATE 1 G/10 ML UDC PO SCH ×4 (05:57→17:09)
[2017-08-19 07:20] VITALS: BP 100/50
[2017-08-19] MEDS: HYDROGEN PEROXIDE 480 ML BOTTLE TP SCH ×2 (09:00→20:55)
[2017-08-19] MEDS: METOPROLOL TARTRATE 25 MG TABLET PO SCH ×2 (09:00→21:00)
[2017-08-19] MEDS: VIT B CMPLX 3/FA/VIT C/BIOTIN 1 TAB TABLET PO SCH (09:00)
[2017-08-19] MEDS: MIDODRINE HCL (5MG) 5 MG TABLET PO SCH ×2 (09:00→17:09)
[2017-08-19] MEDS: SENNOSIDES 8.6 MG TABLET PO SCH (09:00)
[2017-08-19] MEDS: ASPIRIN 81 MG TAB.CHEW PO SCH (09:00)
[2017-08-19] MEDS: Z GUARD REMEDY 4 OZ OINT TP SCH ×2 (09:00→20:55)
--- NOTE | 2017-08-19 15:48 | NUR ---
Called Dr Monroy's office to remind him of trach tube change. Left message with Angela.
--- NOTE | 2017-08-19 18:50 | NUR ---
Seen by SALINAS Sanchez. Notified SALINAS Corona of pt's complaint of on and off chest pain. SALINAS Sanchez examined her and said it does not seem like it is cardiac pain, and pt agrees with her. Pt verbalized she does not think it is cardiac. SALINAS Sanchez told her it might be gastric or muscle cramps. She advised pt to apply some Vicks on the chest. Pt said she is using Icy Hot. SALINAS Sanchez ordered BMP tomorrow morning and to relay result to [facility]. She thinks pt might need less dialysis due to recent lab results and because pt is voiding daily.
[2017-08-19 20:01] VITALS: BP 118/54
[2017-08-19] MEDS: ATORVASTATIN 10 MG TABLET PO SCH (21:02)
[2017-08-20] MEDS: IPRATROPIUM NEB FS 0.5 MG/2.5 ML AMPUL.NEB NEB SCH ×4 (01:48→20:25)
[2017-08-20] MEDS: PANTOPRAZOLE 40 MG TABLET.DR PO SCH (06:02)
[2017-08-20] MEDS: SUCRALFATE 1 G/10 ML UDC PO SCH ×5 (06:02→23:24)
[2017-08-20 07:39] VITALS: BP 108/52
[2017-08-20 07:54] LABS: CALCIUM, SERUM 9.9 mg/dL (8.5-10.1); CREATININE 3.8 mg/dL (0.6-1.3); POTASSIUM 3.7 mmol/L (3.5-5.1)
[2017-08-20] MEDS: METOPROLOL TARTRATE 25 MG TABLET PO SCH (09:00)
--- NOTE | 2017-08-20 09:00 | NUR ---
Pt was seen by Dr. Lisa. Notified him that when PT came to walk the pt, pt's BP was 108/47 HR 62 lying down. When pt stood up, BP dropped to 58/37 HR 67 and pt verbalized feeling dizzy. Advised her to lie down back in bed. Rechecked her BP after a few minutes and it was 125/[address] Also [address] Dr[address] Lisa regarding pt's complaint of on and off chest pain which she does not think is cardiac pain. Pt has not complained of chest pain yesterday and today. Pt requesting for chewable form of Nephrovite which she said her family will provide, Dr. Lisa said it is fine. Notified Dr. Lisa that AML ANALYST Chloe Sanchez ordered BMP for pt to see her BUN and Cr levels.
[2017-08-20] MEDS: ASPIRIN 81 MG TAB.CHEW PO SCH (09:35)
[2017-08-20] MEDS: SENNOSIDES 8.6 MG TABLET PO SCH (09:36)
[2017-08-20] MEDS: MIDODRINE HCL (5MG) 5 MG TABLET PO SCH ×2 (09:36→17:56)
[2017-08-20] MEDS: HYDROGEN PEROXIDE 480 ML BOTTLE TP SCH ×2 (09:36→21:34)
[2017-08-20] MEDS: VIT B CMPLX 3/FA/VIT C/BIOTIN 1 TAB TABLET PO SCH (09:36)
[2017-08-20] MEDS: Z GUARD REMEDY 4 OZ OINT TP SCH ×2 (09:36→21:34)
[2017-08-20] MEDS ORDERED: IV D5/ 0.9% NACL 1,000 ML IV ONE (10:30)
--- NOTE | 2017-08-20 10:40 | NUR ---
Dr. Lisa ordered to DC Metoprolol tartrate and to give D5NS at 75 mL/hr IV x [address] Lisa pt is at the dialysis center. He said to give D5NS after hemodialysis.
--- NOTE | 2017-08-20 15:00 | NUR ---
Started IV heplock on pt's right forearm. Administered D5NS at 75 mL/hr IV as ordered.
[2017-08-20 20:48] VITALS: BP 113/60
[2017-08-20] MEDS: ATORVASTATIN 10 MG TABLET PO SCH (21:34)
[2017-08-21] MEDS: IPRATROPIUM NEB FS 0.5 MG/2.5 ML AMPUL.NEB NEB SCH ×4 (02:27→19:35)
[2017-08-21] MEDS: SUCRALFATE 1 G/10 ML UDC PO SCH ×4 (06:09→23:36)
[2017-08-21] MEDS: PANTOPRAZOLE 40 MG TABLET.DR PO SCH (06:09)
[2017-08-21 07:43] VITALS: BP 99/54
[2017-08-21] MEDS: ASPIRIN 81 MG TAB.CHEW PO SCH (09:44)
[2017-08-21] MEDS: SENNOSIDES 8.6 MG TABLET PO SCH (09:44)
[2017-08-21] MEDS: MIDODRINE HCL (5MG) 5 MG TABLET PO SCH ×2 (09:44→17:43)
[2017-08-21] MEDS: VIT B CMPLX 3/FA/VIT C/BIOTIN 1 TAB TABLET PO SCH (09:44)
[2017-08-21] MEDS: Z GUARD REMEDY 4 OZ OINT TP SCH ×2 (09:45→21:17)
[2017-08-21] MEDS: HYDROGEN PEROXIDE 480 ML BOTTLE TP SCH ×2 (09:45→21:17)
--- NOTE | 2017-08-21 16:24 | NUR ---
Resident is a picky eater but with the assistance of [employer], able to provide more food choices. Resident said thank you when car record clerk able to bring suggested food to Resident and we actually eats especially after dialysis.
[2017-08-21] MEDS: ATORVASTATIN 10 MG TABLET PO SCH (21:17)
[2017-08-21 23:03] VITALS: BP 107/55
[2017-08-22] MEDS: IPRATROPIUM NEB FS 0.5 MG/2.5 ML AMPUL.NEB NEB SCH ×4 (01:29→19:53)
[2017-08-22] MEDS: SUCRALFATE 1 G/10 ML UDC PO SCH ×3 (06:14→18:13)
[2017-08-22] MEDS: PANTOPRAZOLE 40 MG TABLET.DR PO SCH (06:14)
[2017-08-22 07:44] VITALS: BP 114/54
[2017-08-22] MEDS: ASPIRIN 81 MG TAB.CHEW PO SCH (08:14)
[2017-08-22] MEDS: MIDODRINE HCL (5MG) 5 MG TABLET PO SCH ×2 (08:14→16:49)
[2017-08-22] MEDS: VIT B CMPLX 3/FA/VIT C/BIOTIN 1 TAB TABLET PO SCH (08:14)
[2017-08-22] MEDS: SENNOSIDES 8.6 MG TABLET PO SCH (08:14)
[2017-08-22] MEDS: HYDROGEN PEROXIDE 480 ML BOTTLE TP SCH ×2 (08:15→21:00)
[2017-08-22] MEDS: Z GUARD REMEDY 4 OZ OINT TP SCH ×2 (08:15→21:00)
--- NOTE | 2017-08-22 15:26 | NUR ---
SW spoke to the resident and checked in with her regarding her current mood. Resident stated that she just finished eating some soup that her daughters brought to her and that she has been feeling okay. She noted that PT is still difficult for her but that she wants to get better. She noted that they are currently running labs to see if she even needs to go to dialysis anymore and she was looking forward to hearing the result. Resident noted that she was going to be resting since she just got back to dialysis and acknowledged she can let the SW know if she needs anything.
[2017-08-22 19:56] VITALS: BP 104/55
[2017-08-22] MEDS: ATORVASTATIN 10 MG TABLET PO SCH (22:21)
[2017-08-23] MEDS: SUCRALFATE 1 G/10 ML UDC PO SCH ×5 (00:25→23:09)
[2017-08-23] MEDS: IPRATROPIUM NEB FS 0.5 MG/2.5 ML AMPUL.NEB NEB SCH ×4 (01:27→20:11)
[2017-08-23] MEDS: PANTOPRAZOLE 40 MG TABLET.DR PO SCH (05:59)
--- NOTE | 2017-08-23 06:17 | NUR ---
PATIENT HAD NO BOWEL MOVEMENT FOR 4 DAYS,OFFER TO GIVE SUPPOSITORY,REFUSED SHE SAID SHE WANT SUPPOSITORY ONLY ON SATURDAY.ASKED PATIENT IF ANY STOMACH PAIN OR DISCOMFORT AND DENIED IT.TOLD PATIENT TO LET THE NURSES KNOW IF SHE'S HAVING STOMACH ACHE.WILL CONTINUE TO MONITOR.
[2017-08-23 07:33] VITALS: BP 105/52
[2017-08-23] MEDS: VIT B CMPLX 3/FA/VIT C/BIOTIN 1 TAB TABLET PO SCH (08:07)
[2017-08-23] MEDS: ASPIRIN 81 MG TAB.CHEW PO SCH (08:10)
[2017-08-23] MEDS: MIDODRINE HCL (5MG) 5 MG TABLET PO SCH ×2 (08:11→17:43)
[2017-08-23] MEDS: SENNOSIDES 8.6 MG TABLET PO SCH (08:11)
[2017-08-23] MEDS: Z GUARD REMEDY 4 OZ OINT TP SCH ×2 (09:00→21:35)
[2017-08-23] MEDS: HYDROGEN PEROXIDE 480 ML BOTTLE TP SCH ×2 (09:00→21:35)
--- NOTE | 2017-08-23 09:26 | NUR ---
RT TCAP ON ROOM AIR CHANTAL WELL Addendum: 08/23/17 at 0930 by DIRK MCKNIGHT RT Amended: Links added.
[2017-08-23 19:46] VITALS: BP 114/40
[2017-08-23] MEDS: ATORVASTATIN 10 MG TABLET PO SCH (21:35)
[2017-08-24] MEDS: IPRATROPIUM NEB FS 0.5 MG/2.5 ML AMPUL.NEB NEB SCH ×4 (02:02→19:53)
[2017-08-24] MEDS: PANTOPRAZOLE 40 MG TABLET.DR PO SCH (05:15)
[2017-08-24] MEDS: SUCRALFATE 1 G/10 ML UDC PO SCH ×3 (05:15→17:05)
--- NOTE | 2017-08-24 07:35 | NUR ---
found pt on cool aerosol. Pt does not want to go back on cap at this time. Scanned [employer] at a later time, scanner was not working. Will continue to monitor pt.
[2017-08-24 07:39] VITALS: BP 108/42
[2017-08-24 08:12] LABS: CALCIUM, SERUM 9.2 mg/dL (8.5-10.1); CREATININE 2.9 mg/dL (0.6-1.3); POTASSIUM 3.5 mmol/L (3.5-5.1)
[2017-08-24] MEDS: ASPIRIN 81 MG TAB.CHEW PO SCH (08:32)
[2017-08-24] MEDS: SENNOSIDES 8.6 MG TABLET PO SCH (08:33)
[2017-08-24] MEDS: MIDODRINE HCL (5MG) 5 MG TABLET PO SCH ×2 (08:33→16:57)
[2017-08-24] MEDS: Z GUARD REMEDY 4 OZ OINT TP SCH ×2 (09:00→21:38)
[2017-08-24] MEDS: HYDROGEN PEROXIDE 480 ML BOTTLE TP SCH ×2 (09:00→21:38)
[2017-08-24] MEDS: VIT B CMPLX 3/FA/VIT C/BIOTIN 1 TAB TABLET PO SCH (09:00)
--- NOTE | 2017-08-24 09:30 | NUR ---
Patient went for HD as ordered with two EMT's via ambulance. Alert oriented, able to make needs known. Tracheostomy with CA as ordered. Oxygen saturation at 98 percent. Left upper chest with HD catheter with clean dressing. V/S BP BP 108/42 HR 57 T. 97.4 R 18 PA 0/10.
--- NOTE | 2017-08-24 13:30 | NUR ---
Patient returned from HD as ordered with two EMT's. Tracheostomy with CA as ordered. Oxygen saturation 98 percent. left upper chest HD catheter with clean dressing. Alert oriented able to make needs know. V/S BP 104/54 P 52 R18 T98.2 PA 0/10.
[2017-08-24 19:57] VITALS: BP 112/62
[2017-08-24] MEDS: ATORVASTATIN 10 MG TABLET PO SCH (21:38)
[2017-08-25] MEDS: SUCRALFATE 1 G/10 ML UDC PO SCH ×4 (00:21→17:07)
[2017-08-25] MEDS: IPRATROPIUM NEB FS 0.5 MG/2.5 ML AMPUL.NEB NEB SCH ×4 (01:16→19:07)
[2017-08-25] MEDS: PANTOPRAZOLE 40 MG TABLET.DR PO SCH (06:32)
[2017-08-25 07:25] VITALS: BP 89/59
[2017-08-25 08:00] VITALS: BP 89/59
[2017-08-25] MEDS: VIT B CMPLX 3/FA/VIT C/BIOTIN 1 TAB TABLET PO SCH ×2 (08:01→08:07)
[2017-08-25] MEDS: ASPIRIN 81 MG TAB.CHEW PO SCH (08:02)
[2017-08-25] MEDS: MIDODRINE HCL (5MG) 5 MG TABLET PO SCH ×2 (08:02→17:07)
[2017-08-25] MEDS: HYDROGEN PEROXIDE 480 ML BOTTLE TP SCH ×2 (08:03→21:00)
[2017-08-25] MEDS: Z GUARD REMEDY 4 OZ OINT TP SCH ×2 (08:03→21:00)
[2017-08-25] MEDS: SENNOSIDES 8.6 MG TABLET PO SCH (08:05)
[2017-08-25 10:00] VITALS: BP 110/72
[2017-08-25] MEDS: BISACODYL SUPP (10 MG) 10 MG/SUPP.RECT SUPP.RECT RC PRN (13:55)
[2017-08-25 19:58] VITALS: BP 117/52
[2017-08-25] MEDS: ATORVASTATIN 10 MG TABLET PO SCH (22:02)
[2017-08-26] MEDS: SUCRALFATE 1 G/10 ML UDC PO SCH ×5 (00:20→23:33)
[2017-08-26] MEDS: IPRATROPIUM NEB FS 0.5 MG/2.5 ML AMPUL.NEB NEB SCH ×4 (01:08→19:19)
[2017-08-26] MEDS: PANTOPRAZOLE 40 MG TABLET.DR PO SCH (05:48)
[2017-08-26 07:48] VITALS: BP 116/57
[2017-08-26] MEDS: ASPIRIN 81 MG TAB.CHEW PO SCH (08:16)
[2017-08-26] MEDS: MIDODRINE HCL (5MG) 5 MG TABLET PO SCH ×2 (08:17→16:43)
[2017-08-26] MEDS: VIT B CMPLX 3/FA/VIT C/BIOTIN 1 TAB TABLET PO SCH (08:17)
[2017-08-26] MEDS: SENNOSIDES 8.6 MG TABLET PO SCH (08:17)
[2017-08-26] MEDS: HYDROGEN PEROXIDE 480 ML BOTTLE TP SCH ×2 (10:00→21:25)
[2017-08-26] MEDS: Z GUARD REMEDY 4 OZ OINT TP SCH ×2 (10:00→21:26)
--- NOTE | 2017-08-26 10:18 | NUR ---
Social Service Section of [facility] (30 day PPS) completed. Resident is able to communicate with others and respond to questions. Her daughters Keyonna Kay and Karoline Grimm are her responsible parties. Discharge to a lower level of care when medically appropriate. Resident understands her need for placement in subacute at this time. The resident is receiving dialysis 3x/week (Tuesdays, , and Saturdays). Her daughter's visit as often as they can. They have been bringing her food since resident is reporting that she has no appetite when eating the hospital food. Resident was seen by medicare contact specialist Dr. Huffman on 08/09/2017. LENA sent referral to office of Dr. Rodriguez/Dr William GARCIA and will be seen by Dr. William GARCIA today on 08/26/2017 for initial exam. LENA sent referral to office of Dr. Agosto and will await appt date. LENA to follow up.
--- NOTE | 2017-08-26 12:50 | NUR ---
LENA informed the resident's daughter Keyonna that there is an IDT meeting this Saturday from 12:30-1:30pm. She noted that she should be able to attend and will also be notifying the resident's other daughter.
[2017-08-26 20:24] VITALS: BP 109/64
[2017-08-26] MEDS: ATORVASTATIN 10 MG TABLET PO SCH (21:26)
[2017-08-27] MEDS: IPRATROPIUM NEB FS 0.5 MG/2.5 ML AMPUL.NEB NEB SCH ×4 (02:17→20:14)
[2017-08-27] MEDS: SUCRALFATE 1 G/10 ML UDC PO SCH ×4 (05:34→23:55)
[2017-08-27] MEDS: PANTOPRAZOLE 40 MG TABLET.DR PO SCH (05:34)
[2017-08-27 07:36] VITALS: BP 84/35
[2017-08-27] MEDS: ASPIRIN 81 MG TAB.CHEW PO SCH (08:17)
[2017-08-27] MEDS: SENNOSIDES 8.6 MG TABLET PO SCH (08:17)
[2017-08-27] MEDS: VIT B CMPLX 3/FA/VIT C/BIOTIN 1 TAB TABLET PO SCH (08:17)
[2017-08-27] MEDS: MIDODRINE HCL (5MG) 5 MG TABLET PO SCH ×2 (08:17→17:21)
--- NOTE | 2017-08-27 08:30 | NUR ---
Called [facility] to confirm pt's hemodialysis schedule. According to MORTGAGE CLOSING CLERK Chloe Sanchez, Dr. Lisa spoke with Dr. Hua regarding decreasing hemodialysis to twice a week. Marisol of [facility] confirmed that pt's hemodialysis has been changed from three times a week to twice a week q Tuesdays and Saturdays. Arranged new transportation schedule with [facility], spoke with Maria Del Carmen.
--- NOTE | 2017-08-27 11:45 | NUR ---
Pt was seen by Dr. Lisa this morning. He said to ask [facility] not to take out any fluids. Spoke with Nile of [facility]. He said he will discuss it with their freight car loader. Addendum: 08/27/17 at 1149 by ARGELIA SHAFER RN Notified Dr. Lisa that PT came to ambulate the pt but pt's blood pressure dropped when she sat up on the edge of the bed and she felt dizzy.
[2017-08-27] MEDS: HYDROGEN PEROXIDE 480 ML BOTTLE TP SCH ×2 (14:00→21:51)
[2017-08-27] MEDS: Z GUARD REMEDY 4 OZ OINT TP SCH ×2 (14:00→21:51)
--- NOTE | 2017-08-27 17:34 | NUR ---
Pt not eating well and asked her if there is any reason why. Pt denied that she is not eating well, she said she eats enough. She said that she feels full when she eats. Pt's family brings her food from home but she also eats only a small portion of it.
[2017-08-27 20:24] VITALS: BP 109/57
[2017-08-27] MEDS: ATORVASTATIN 10 MG TABLET PO SCH (21:51)
[2017-08-28] MEDS: IPRATROPIUM NEB FS 0.5 MG/2.5 ML AMPUL.NEB NEB SCH ×4 (01:46→20:12)
[2017-08-28] MEDS: PANTOPRAZOLE 40 MG TABLET.DR PO SCH (06:24)
[2017-08-28] MEDS: SUCRALFATE 1 G/10 ML UDC PO SCH ×4 (06:24→23:45)
[2017-08-28 07:55] VITALS: BP 113/67
[2017-08-28] MEDS: HYDROGEN PEROXIDE 480 ML BOTTLE TP SCH ×2 (09:00→21:17)
[2017-08-28] MEDS: VIT B CMPLX 3/FA/VIT C/BIOTIN 1 TAB TABLET PO SCH (09:00)
[2017-08-28] MEDS: SENNOSIDES 8.6 MG TABLET PO SCH (09:00)
[2017-08-28] MEDS: Z GUARD REMEDY 4 OZ OINT TP SCH ×2 (09:00→21:17)
[2017-08-28] MEDS: MIDODRINE HCL (5MG) 5 MG TABLET PO SCH ×2 (09:52→17:00)
[2017-08-28] MEDS: ASPIRIN 81 MG TAB.CHEW PO SCH (09:52)
--- NOTE | 2017-08-28 10:50 | NUR ---
RT PATIENT REFUSED TCAP STATES HER THROAT IS RAW AT THIS TIME
--- NOTE | 2017-08-28 11:30 | NUR ---
Notified Dr. Lisa that patient complaining of sore throat and prefers to have Cepacol lozenges. Order for PRN Cepacol obtained.
[2017-08-28] MEDS: MENTHOL/CETYLPYRD (CEPACOL) 1 LOZ LOZENGE PO PRN (14:29)
[2017-08-28] MEDS: ATORVASTATIN 10 MG TABLET PO SCH (21:17)
[2017-08-28 21:23] VITALS: BP 103/59
[2017-08-29] MEDS: IPRATROPIUM NEB FS 0.5 MG/2.5 ML AMPUL.NEB NEB SCH ×4 (02:09→19:52)
[2017-08-29] MEDS: PANTOPRAZOLE 40 MG TABLET.DR PO SCH (05:45)
[2017-08-29] MEDS: SUCRALFATE 1 G/10 ML UDC PO SCH ×3 (05:45→17:00)
[2017-08-29 08:12] VITALS: BP 106/58
[2017-08-29] MEDS: VIT B CMPLX 3/FA/VIT C/BIOTIN 1 TAB TABLET PO SCH (08:26)
[2017-08-29] MEDS: MIDODRINE HCL (5MG) 5 MG TABLET PO SCH ×2 (08:27→16:48)
[2017-08-29] MEDS: Z GUARD REMEDY 4 OZ OINT TP SCH ×2 (08:27→21:00)
[2017-08-29] MEDS: ASPIRIN 81 MG TAB.CHEW PO SCH (08:27)
[2017-08-29] MEDS: SENNOSIDES 8.6 MG TABLET PO SCH (08:27)
[2017-08-29] MEDS: HYDROGEN PEROXIDE 480 ML BOTTLE TP SCH ×2 (08:27→21:00)
--- NOTE | 2017-08-29 08:37 | NUR ---
RECEIVED PATIENT ON COOL AEROSOL. TX GIVEN, NO ADVERSE REACTIONS NOTED. SUCTION DONE, SMALL THICK WHITE YELLOW SECRETIONS NOTED. PLACED PATIENT ON T-CAP POST TX. SOB NOTED. PLACED PATIENT BACK ON COOL AEROSOL. NURSE NOTIFIED. WILL CONTINUE TO MONITOR.
--- NOTE | 2017-08-29 12:00 | NUR ---
RD recommended for weekly weight x4 weeks for weight loss
--- NOTE | 2017-08-29 14:15 | NUR ---
SALINAS Corona seen the pt and ordered robitussin 5cc Q6hr PRN for sore throat x7days and BMP on 09/03/17 in am.New orders noted and carried out.
--- NOTE | 2017-08-29 21:00 | NUR ---
Patient awake and alert and stated by writing down in her board " My throat is killing me it hurts i have the chills and headache, I don't want to take any more pills tonight they are getting stuck in my throat and choking me even my peaches also causing it puree peaches. Liquid i will take". Encouraged the pt but she refused to take her medications.
[2017-08-29 21:21] VITALS: BP 136/87
[2017-08-29] MEDS: ATORVASTATIN 10 MG TABLET PO SCH (22:00)
--- NOTE | 2017-08-30 | NUR ---
Patient is awake and she took her lozenges for her sore throat but she refused taking her routine medication. Will continue to monitor.
[2017-08-30] MEDS: MENTHOL/CETYLPYRD (CEPACOL) 1 LOZ LOZENGE PO PRN ×2 (01:31→06:50)
[2017-08-30] MEDS: IPRATROPIUM NEB FS 0.5 MG/2.5 ML AMPUL.NEB NEB SCH ×4 (02:12→20:04)
[2017-08-30] MEDS: PANTOPRAZOLE 40 MG TABLET.DR PO SCH (06:00)
[2017-08-30] MEDS: SUCRALFATE 1 G/10 ML UDC PO SCH ×5 (06:00→23:58)
[2017-08-30] MEDS: ACETAMINOPHEN 650 MG/20 ML UDC- FOR SA PATIENTS ONLY PO PRN (06:51)
[2017-08-30 07:35] VITALS: BP 106/53
[2017-08-30] MEDS: MIDODRINE HCL (5MG) 5 MG TABLET PO SCH ×2 (09:00→17:00)
[2017-08-30] MEDS: SENNOSIDES 8.6 MG TABLET PO SCH (09:00)
[2017-08-30] MEDS: ASPIRIN 81 MG TAB.CHEW PO SCH (09:00)
[2017-08-30] MEDS: VIT B CMPLX 3/FA/VIT C/BIOTIN 1 TAB TABLET PO SCH (09:00)
--- NOTE | 2017-08-30 10:47 | NUR ---
SW spoke to Dr. Shruthi Hamilton (psychologist) and informed her that the resident has been refusing to take her medications and has been complaining of a sore throat. Resident even stated that the puree peaches are getting stuck and choking her. Per Javier, MAT MACHINE TENDER already seen the resident and resident can physically swallow. Dr. Orellana noted that she will come to see the resident tomorrow. Per Dr. Orellana, resident told her that she was being discharged which is inaccurate. Informed Dr. Orellana that the resident is not ready for discharge nor any discharge plan discussed. SW informed the charge nurse. Also informed Dr. Orellana of the resident's dialysis schedule (Tuesdays and Saturdays) and stated that she should be back after 2pm. Appreciated the information.
[2017-08-30] MEDS: HYDROGEN PEROXIDE 480 ML BOTTLE TP SCH ×2 (12:30→21:49)
[2017-08-30] MEDS: Z GUARD REMEDY 4 OZ OINT TP SCH ×2 (12:30→21:49)
--- NOTE | 2017-08-30 15:00 | NUR ---
Dr. Lisa gave an order for GI consult for possible upper endoscopy to r/o any physical barriers why she sary eat or feels like she is choking when she swallows. Left a message for Thai Lopez's office, hygiene teacher, c/o with Savi regarding the consult.
--- NOTE | 2017-08-30 15:45 | NUR ---
INTERDISCIPLINARY TEAM CONFERENCE (IDT) was held today. Resident's daughter attended IDT meeting. Dr. Lisa and the interdisciplinary team reviewed the current plan of care in detail. Orders as well as treatment and medications were reviewed. It was noted that resident does not want to eat her meals and that she has been refusing meds. Per charge nurse, she was seen by SAP PROJECT MANAGER and she is able to swallow. Bin Worker expressed that she has been losing alot of weight. Daughter stated that she brought some soup and will encourage her to eat that. Daughter asked Dr. Lisa questions about the resident's BP and concerns were addressed by him. He noted that her BP tends to drop when she sits up and that this could be due to a variety of things incl. dehydration, decreased HD, etc. Resident will be seen by the psychologist tomorrow and she was informed of the resident's refusal to eat and take her meds.
--- NOTE | 2017-08-30 15:45 | NUR ---
Seen and examined by MEIR Andrews. Assessed resident. He said that patient also complaining of R ear pain, aside from feeling of chocking. MD said she may be experiencing sinus infection, or post sinusitis. Dr. Murdock ordered ear drops to the R ear and esophagram. Order noted and carried out.
--- NOTE | 2017-08-30 15:47 | NUR ---
plastics factory worker spoke to the resident and stated that her daughter (during the IDT meeting) disclosed that she was not going to be receiving hemodialysis anymore. SW was also told by Dr. Orellana (psychologist) that the resident told her she was going home soon. However, none of these are true. Resident stated that she was misunderstood by both of them. She noted she told her daughter about the reduction in hemodialysis (not that she was going to be stopping it) and did not mention discharge to the psychologist but stated that once she is discharged, she was going to be going home with her daughter. She stated "I not crazy" and that she has not been eating because she feels that she is choking and even saw the pieces of food in the tubing. She states that sometimes she feels she is crazy but has no thoughts of wanting to harm herself. She was okay with the psychologist seeing her tomorrow.
[2017-08-30] MEDS: OFLOXACIN OTIC SOLN 5 ML BOTTLE OT SCH (17:40)
[2017-08-30] MEDS: GUAIFENESIN 300 MG/15 ML UDC PO PRN (17:45)
--- NOTE | 2017-08-30 18:50 | NUR ---
Patient noted with no bowel movement for four days now. Offered X 3 stool softener, pt refused inspite of explaining of risks and consequences. pt states i get suppository every saturday. patient alert and oriented x 4. charge nurse aware. will endorse to oncoming shift.
--- NOTE | 2017-08-30 19:50 | NUR ---
Spoke to All from Radiology,he said they will do the Esophagram on Saturday09/02/17 @ 9;30 to 10am.Ok to give breakfast.Will endorse.
--- NOTE | 2017-08-30 21:30 | NUR ---
Patient refused to take routine medication of Atorvastatin PO and complaining of her throat hurts and having difficulty swallowing even the pill. Explaining the risk of refusing routine medication, still refused.
[2017-08-30] MEDS: ATORVASTATIN 10 MG TABLET PO SCH ×2 (21:49→22:00)
[2017-08-30 23:26] VITALS: BP 101/57
[2017-08-31] MEDS: IPRATROPIUM NEB FS 0.5 MG/2.5 ML AMPUL.NEB NEB SCH ×4 (02:09→19:54)
[2017-08-31] MEDS: SUCRALFATE 1 G/10 ML UDC PO SCH ×4 (06:48→23:57)
[2017-08-31] MEDS: PANTOPRAZOLE 40 MG TABLET.DR PO SCH (06:48)
--- NOTE | 2017-08-31 07:08 | NUR ---
Pt still complaining of throat pain,hard to swallow medications.Told patient about her procedure on Saturday for esophagram.Will continue to monitor.
[2017-08-31 07:45] VITALS: BP 91/57
[2017-08-31] MEDS: HYDROGEN PEROXIDE 480 ML BOTTLE TP SCH ×2 (08:54→21:40)
[2017-08-31] MEDS: MIDODRINE HCL (5MG) 5 MG TABLET PO SCH ×2 (08:54→17:00)
[2017-08-31] MEDS: SENNOSIDES 8.6 MG TABLET PO SCH (08:54)
[2017-08-31] MEDS: ASPIRIN 81 MG TAB.CHEW PO SCH (08:54)
[2017-08-31] MEDS: VIT B CMPLX 3/FA/VIT C/BIOTIN 1 TAB TABLET PO SCH (08:54)
[2017-08-31] MEDS: OFLOXACIN OTIC SOLN 5 ML BOTTLE OT SCH ×2 (08:54→16:14)
[2017-08-31] MEDS: Z GUARD REMEDY 4 OZ OINT TP SCH ×2 (08:55→21:40)
--- NOTE | 2017-08-31 15:30 | NUR ---
Resident left and came back for her dialysis in stable condition. Still complaining of sore throat but does not want to take any of the medications prescribed. Dr. Pola Andre GI came to see patient and made aware that esophagram will be done on Saturday. He said OK. Patient also seen by psychologist Dr. Shruthi Hamilton. According to patient's nurse, resident said that she has been complaining about her sore throat and claims that nothing has been done. Resident's daughter at bedside and explained one by one all the intervention being done but the patient is refusing to take the medicine. Suggested to take the Cepacol lozenges as a start, to help relieve some of the discomfort, it may help swallow her medication and eat something. She said the will try.
[2017-08-31] MEDS: GUAIFENESIN 300 MG/15 ML UDC PO PRN (16:14)
[2017-08-31] MEDS: MENTHOL/CETYLPYRD (CEPACOL) 1 LOZ LOZENGE PO PRN (18:59)
[2017-08-31] MEDS: ATORVASTATIN 10 MG TABLET PO SCH (22:00)
[2017-08-31] MEDS: ACETAMINOPHEN 650 MG/20 ML UDC- FOR SA PATIENTS ONLY PO PRN (22:11)
[2017-08-31 23:19] VITALS: BP 117/63
[2017-09-01] MEDS: IPRATROPIUM NEB FS 0.5 MG/2.5 ML AMPUL.NEB NEB SCH ×4 (01:19→19:49)
[2017-09-01] MEDS: PANTOPRAZOLE 40 MG TABLET.DR PO SCH (06:00)
[2017-09-01] MEDS: SUCRALFATE 1 G/10 ML UDC PO SCH ×3 (06:33→17:52)
--- NOTE | 2017-09-01 06:47 | NUR ---
SUPERVISOR CIGARETTE MAKING DEPARTMENT NOTE: Patient refused all oral pill medications due on this shift, complaining of throat pain. Offered to crush medication and mix with apple juice and still refused. Explained the risk of refusing medications.
--- NOTE | 2017-09-01 07:00 | NUR ---
Patient stated that she cough and then she felt like something "pop" inside her throat and it taste bad and smell bad and she feels pressure. charge nurse checked the mouth no bleeding noted, back of the throat is red. patient then stated that she feels better already. charge nurse informed her that she has a schedule esophagram tomorrow and she stated ok. will endorse to upcoming charge nurse.
[2017-09-01 08:00] VITALS: BP 96/41
[2017-09-01 08:16] VITALS: BP 96/41
[2017-09-01] MEDS: SENNOSIDES 8.6 MG TABLET PO SCH (09:00)
[2017-09-01] MEDS: ASPIRIN 81 MG TAB.CHEW PO SCH (09:00)
[2017-09-01] MEDS: VIT B CMPLX 3/FA/VIT C/BIOTIN 1 TAB TABLET PO SCH (09:00)
[2017-09-01] MEDS: MIDODRINE HCL (5MG) 5 MG TABLET PO SCH ×2 (09:00→17:00)
[2017-09-01] MEDS: OFLOXACIN OTIC SOLN 5 ML BOTTLE OT SCH ×2 (09:56→17:51)
[2017-09-01] MEDS: Z GUARD REMEDY 4 OZ OINT TP SCH ×2 (09:57→21:16)
[2017-09-01] MEDS: NEOMY SULF/BACITRAC ZN/POLY 15 GM TUBE TP SCH ×2 (09:57→21:16)
[2017-09-01] MEDS: HYDROGEN PEROXIDE 480 ML BOTTLE TP SCH ×2 (09:57→21:15)
--- NOTE | 2017-09-01 14:00 | NUR ---
Resident up in the gerichair and taken by her daughter to the patio for about 30 minutes, she enjoyed the experience a taking a lot of photos with her family. Resident seen by Dr. Andre, GI still waiting for the esophagram which is schedule for tomorrow. Patient ate the soup her daughter brought in today.
[2017-09-01] MEDS: BISACODYL SUPP (10 MG) 10 MG/SUPP.RECT SUPP.RECT RC PRN (14:44)
[2017-09-01 20:29] VITALS: BP 109/64
[2017-09-01] MEDS: ATORVASTATIN 10 MG TABLET PO SCH (21:16)
[2017-09-02] MEDS: SUCRALFATE 1 G/10 ML UDC PO SCH ×4 (00:13→17:34)
[2017-09-02] MEDS: IPRATROPIUM NEB FS 0.5 MG/2.5 ML AMPUL.NEB NEB SCH ×4 (01:52→20:06)
[2017-09-02] MEDS: PANTOPRAZOLE 40 MG TABLET.DR PO SCH (06:00)
[2017-09-02 07:01] VITALS: BP 109/64
--- NOTE | 2017-09-02 08:22 | NUR ---
Seen by SALINAS Sanchez. Pt was complaining of sore throat and pain on the side of her neck. She said she coughed up a big mucus plug yesterday and she felt better afterwards. Pt will have esophagram today. SALINAS Sanchez ordered to do neck x-ray. Pt aware.
[2017-09-02] MEDS: VIT B CMPLX 3/FA/VIT C/BIOTIN 1 TAB TABLET PO SCH (09:00)
[2017-09-02] MEDS: SENNOSIDES 8.6 MG TABLET PO SCH (09:00)
[2017-09-02] MEDS: ASPIRIN 81 MG TAB.CHEW PO SCH (09:00)
[2017-09-02] MEDS: MIDODRINE HCL (5MG) 5 MG TABLET PO SCH ×2 (09:00→17:34)
[2017-09-02] MEDS: HYDROGEN PEROXIDE 480 ML BOTTLE TP SCH ×2 (09:58→21:23)
[2017-09-02] MEDS: Z GUARD REMEDY 4 OZ OINT TP SCH ×2 (09:58→21:23)
[2017-09-02] MEDS: OFLOXACIN OTIC SOLN 5 ML BOTTLE OT SCH ×2 (09:58→17:34)
[2017-09-02] MEDS: NEOMY SULF/BACITRAC ZN/POLY 15 GM TUBE TP SCH ×2 (09:58→21:23)
[2017-09-02 11:50] VITALS: BP 102/56
--- NOTE | 2017-09-02 16:00 | NUR ---
Seen by Dr. Rebolledo. Notified him that pt's blood pressure drops and she feels dizzy whenever she tries to get up, pt has been unable to ambulate. Pt currently on Midodrine. Dr. Rebolledo ordered to add Florinef 0.1 mg po daily. Pt aware of new order. Addendum: 09/02/17 at 1915 by ARGELIA SHAFER RN Relayed esophagram and neck x-ray results to Dr. Rebolledo. No new order.
[2017-09-02] MEDS ORDERED: FLUDROCORTISONE 0.1 MG TABLET PO SCH (18:17)
[2017-09-02 20:22] VITALS: BP 120/63
[2017-09-02] MEDS: ATORVASTATIN 10 MG TABLET PO SCH (21:23)
[2017-09-03] MEDS: SUCRALFATE 1 G/10 ML UDC PO SCH ×4 (00:30→17:27)
[2017-09-03] MEDS: IPRATROPIUM NEB FS 0.5 MG/2.5 ML AMPUL.NEB NEB SCH ×5 (01:39→19:29)
[2017-09-03] MEDS: PANTOPRAZOLE 40 MG TABLET.DR PO SCH (06:19)
[2017-09-03 07:23] LABS: CALCIUM, SERUM 9.3 mg/dL (8.5-10.1); CREATININE 2.7 mg/dL (0.6-1.3); POTASSIUM 3.1 mmol/L (3.5-5.1)
[2017-09-03 07:59] VITALS: BP 112/58
[2017-09-03] MEDS: MIDODRINE HCL (5MG) 5 MG TABLET PO SCH ×2 (08:00→17:27)
[2017-09-03] MEDS: HYDROGEN PEROXIDE 480 ML BOTTLE TP SCH ×2 (08:00→21:16)
[2017-09-03] MEDS: VIT B CMPLX 3/FA/VIT C/BIOTIN 1 TAB TABLET PO SCH (08:00)
[2017-09-03] MEDS: OFLOXACIN OTIC SOLN 5 ML BOTTLE OT SCH ×2 (08:00→17:27)
[2017-09-03] MEDS: ASPIRIN 81 MG TAB.CHEW PO SCH (08:00)
[2017-09-03] MEDS: SENNOSIDES 8.6 MG TABLET PO SCH (08:00)
[2017-09-03] MEDS: FLUDROCORTISONE 0.1 MG TABLET PO SCH (08:00)
[2017-09-03] MEDS: Z GUARD REMEDY 4 OZ OINT TP SCH ×2 (08:01→21:16)
[2017-09-03] MEDS: NEOMY SULF/BACITRAC ZN/POLY 15 GM TUBE TP SCH ×2 (08:01→21:16)
--- NOTE | 2017-09-03 08:35 | NUR ---
RT NOTE: AWAKE AND ALERT PATIENT REFUSED TRACH CAP AT THIS TIME. WILL CONTINUE TO MONITOR.
[2017-09-03 10:32] LABS: ALBUMIN 2.6 g/dL (3.4-5.0); BILIRUBIN,DIRECT 0.1 mg/dL (0.0-0.2); BILIRUBIN,TOTAL 0.4 mg/dL (0.2-1.0); TOTAL PROTEIN, SERUM 6.3 g/dL (6.4-8.2)
--- NOTE | 2017-09-03 11:18 | NUR ---
Seen by Dr. Lisa. Notified him pt not eating well. Pt verbalized she has no appetite. Dr. Lisa ordered dietary consult. Relayed K 3.[address] iLsa. No new order at this time. Notified [facility] of lab results. Addendum: 09/03/17 at 1321 by ARGELIA SHAFER RN Also notified Dr. Lisa of pt's esophagram and neck x-ray results. Pt asked Dr. Lisa if she can have prune juice to help her move her bowels. Dr. Lisa ordered prune juice BID.
[2017-09-03] MEDS: MEGESTROL ACETATE SUSP 400 MG/10 ML UDC PO SCH (17:00)
[2017-09-03] MEDS: NEUTRA PHOS 1 POWD.PACKET PO SCH (17:00)
--- NOTE | 2017-09-03 17:38 | NUR ---
Pt complaining of abdominal cramping pain. Abdomen not distended, pt said she already had [address] Rebolledo ordered Bentyl 20 mg po q 6 hours. Notified pt of new order. Addendum: 09/03/17 at 1808 by ARGELIA SHAFER RN Dr. Rebolledo ordered Bentyl for 3 days.
[2017-09-03] MEDS: DICYCLOMINE HCL 10 MG CAPSULE PO SCH (18:00)
--- NOTE | 2017-09-03 18:17 | NUR ---
[facility] bread icer and [facility] bread icer discussed pt's labs and nutritional status. Relayed recommendations to Dr. Rebolledo. He ordered Megace 400 mg po BID for 30 days, Neutraphos 1 packet po TID for 7 days, and liberal mechanical diet. Notified pt of new orders.
--- NOTE | 2017-09-03 18:21 | NUR ---
Notified pt's daughter Keyonna of new orders and that pt's diet has been changed to liberal mechanical soft diet, pt may have regular food with the same mechanical soft diet consistency and pureed vegetables and fruits.
[2017-09-03] MEDS: ATORVASTATIN 10 MG TABLET PO SCH (21:16)
[2017-09-03 21:17] VITALS: BP_SYST 112; BP_SYST 136; BP_DIAS 58; BP_DIAS 67
[2017-09-04] MEDS: SUCRALFATE 1 G/10 ML UDC PO SCH ×5 (00:19→23:47)
[2017-09-04] MEDS: IPRATROPIUM NEB FS 0.5 MG/2.5 ML AMPUL.NEB NEB SCH ×4 (01:48→20:16)
[2017-09-04] MEDS: DICYCLOMINE HCL 10 MG CAPSULE PO SCH ×5 (06:00→23:47)
[2017-09-04] MEDS: PANTOPRAZOLE 40 MG TABLET.DR PO SCH (06:00)
[2017-09-04 07:01] VITALS: BP 136/67
[2017-09-04 07:53] VITALS: BP 103/63
[2017-09-04] MEDS: FLUDROCORTISONE 0.1 MG TABLET PO SCH (09:00)
[2017-09-04] MEDS: MIDODRINE HCL (5MG) 5 MG TABLET PO SCH ×2 (09:00→16:17)
[2017-09-04] MEDS: HYDROGEN PEROXIDE 480 ML BOTTLE TP SCH ×2 (09:00→22:00)
[2017-09-04] MEDS: OFLOXACIN OTIC SOLN 5 ML BOTTLE OT SCH ×2 (09:00→16:17)
[2017-09-04] MEDS: MEGESTROL ACETATE SUSP 400 MG/10 ML UDC PO SCH ×2 (09:00→16:17)
[2017-09-04] MEDS: NEOMY SULF/BACITRAC ZN/POLY 15 GM TUBE TP SCH ×2 (09:00→22:00)
[2017-09-04] MEDS: VIT B CMPLX 3/FA/VIT C/BIOTIN 1 TAB TABLET PO SCH (09:00)
[2017-09-04] MEDS: Z GUARD REMEDY 4 OZ OINT TP SCH ×2 (09:00→22:00)
[2017-09-04] MEDS: SENNOSIDES 8.6 MG TABLET PO SCH (09:00)
[2017-09-04] MEDS: ASPIRIN 81 MG TAB.CHEW PO SCH (09:00)
--- NOTE | 2017-09-04 10:39 | NUR ---
Spoke with Marisol, facetor from Renal and inform her of [facility] pharmacist's concern that Phosphorus level should be monitored since patient is receiving Neutra Phos TID 1/week. According to Marisol normally because of the patient's poor oral intake her level is low and she needs the supplement and usually take the level in a week, but since the patient is coming in today for dialysis they will draw lab today. Pharmacist Rin notified.
[2017-09-04] MEDS: NEUTRA PHOS 1 POWD.PACKET PO SCH ×2 (13:22→16:31)
--- NOTE | 2017-09-04 16:40 | NUR ---
Resident left for dialysis, alert in stable condition, no signs of distress. Patient claims that her throat does not bother her like it used to be. Will save dinner tray for when she comes back from dialysis.
[2017-09-04 20:00] VITALS: BP 105/55
--- NOTE | 2017-09-04 20:30 | NUR ---
HOMEBOUND TEACHER NOTE Pt Back from dialysis with stable vital signs, no c/o of pain, cheerful and cooperative to nursing staff. safety maintained.
[2017-09-04] MEDS: ATORVASTATIN 10 MG TABLET PO SCH (22:38)
[2017-09-05] MEDS: IPRATROPIUM NEB FS 0.5 MG/2.5 ML AMPUL.NEB NEB SCH ×4 (01:30→19:56)
[2017-09-05] MEDS: DICYCLOMINE HCL 10 MG CAPSULE PO SCH ×4 (06:00→23:11)
--- NOTE | 2017-09-05 06:00 | NUR ---
YARD RIGGER NOTE: Patient refused routine PO med Bentyl 10 mg for abdominal cramps during shift. Stating she does not need and she does not any abdominal cramps. Explained the risk of not taking medicine, patient still refused.
[2017-09-05] MEDS: PANTOPRAZOLE 40 MG TABLET.DR PO SCH (06:41)
[2017-09-05] MEDS: SUCRALFATE 1 G/10 ML UDC PO SCH ×4 (06:41→23:11)
[2017-09-05 07:50] VITALS: BP 108/63
--- NOTE | 2017-09-05 08:06 | NUR ---
PT REFUSES TO GO ON CAP. PT STATES : SHE IS COUGHING TOO MUCH MUCOUS. WILL CONTINUE TO MONITOR PT.
[2017-09-05] MEDS: NEUTRA PHOS 1 POWD.PACKET PO SCH (09:00)
[2017-09-05] MEDS: VIT B CMPLX 3/FA/VIT C/BIOTIN 1 TAB TABLET PO SCH (09:00)
[2017-09-05] MEDS: SENNOSIDES 8.6 MG TABLET PO SCH (09:00)
[2017-09-05] MEDS: MEGESTROL ACETATE SUSP 400 MG/10 ML UDC PO SCH ×2 (09:50→17:00)
[2017-09-05] MEDS: FLUDROCORTISONE 0.1 MG TABLET PO SCH (09:50)
[2017-09-05] MEDS: ASPIRIN 81 MG TAB.CHEW PO SCH (09:50)
[2017-09-05] MEDS: MIDODRINE HCL (5MG) 5 MG TABLET PO SCH ×2 (09:51→17:00)
[2017-09-05] MEDS: Z GUARD REMEDY 4 OZ OINT TP SCH ×2 (09:51→20:51)
[2017-09-05] MEDS: NEOMY SULF/BACITRAC ZN/POLY 15 GM TUBE TP SCH ×2 (09:51→20:51)
[2017-09-05] MEDS: HYDROGEN PEROXIDE 480 ML BOTTLE TP SCH ×2 (09:51→20:51)
--- NOTE | 2017-09-05 11:00 | NUR ---
Relayed lab results from [facility] to Dr. Bowden. [facility] vehicle dismantler recommended to DC Neutraphos since Phosphorus level is now 4.0. Potassium level 3.0. Dr. Bowden ordered to DC Neutraphos and give K-Dur 40 mEq po x 1.
[2017-09-05] MEDS ORDERED: POTASSIUM CHLORIDE 20 MEQ TAB.PRT.SR PO ONE (12:00)
--- NOTE | 2017-09-05 13:02 | NUR ---
Seen by SINTER MACHINE OPERATOR Chloe Sanchez. She reviewed pt's lab results and spoke with Dr. Lisa regarding pt's need for hemodialysis. She said she requested Dr. Lisa to speak with medical oncologist if pt still needs hemodialysis.
--- NOTE | 2017-09-05 13:15 | NUR ---
Dr. Lisa said he spoke with Dr. Carvajal and Dr. Carvajal told him to hold hemodialysis until further order. Addendum: 09/05/17 at 1700 by ARGELIA SHAFER RN Pt aware. She said she already notified her daughter that hemodialysis is on hold for now. She said they are both happy about it.
--- NOTE | 2017-09-05 16:18 | NUR ---
Resident woke up late but convinced him to eat breakfast in the Activity Room. Resident watched TV, played erin and blocks but not interested to color. Resident stayed calm all day.
[2017-09-05 19:40] VITALS: BP 122/65
[2017-09-05] MEDS: ATORVASTATIN 10 MG TABLET PO SCH (21:05)
[2017-09-06] MEDS: IPRATROPIUM NEB FS 0.5 MG/2.5 ML AMPUL.NEB NEB SCH ×4 (01:45→19:49)
[2017-09-06] MEDS: SUCRALFATE 1 G/10 ML UDC PO SCH ×4 (05:13→23:25)
[2017-09-06] MEDS: DICYCLOMINE HCL 10 MG CAPSULE PO SCH ×2 (05:13→12:00)
[2017-09-06] MEDS: PANTOPRAZOLE 40 MG TABLET.DR PO SCH (05:13)
[2017-09-06 07:45] VITALS: BP 110/53
[2017-09-06] MEDS: HYDROGEN PEROXIDE 480 ML BOTTLE TP SCH ×2 (09:00→20:22)
[2017-09-06] MEDS: NEOMY SULF/BACITRAC ZN/POLY 15 GM TUBE TP SCH ×2 (09:00→20:22)
[2017-09-06] MEDS: SENNOSIDES 8.6 MG TABLET PO SCH (09:00)
[2017-09-06] MEDS: VIT B CMPLX 3/FA/VIT C/BIOTIN 1 TAB TABLET PO SCH (09:00)
[2017-09-06] MEDS: PROSOURCE / PROSTAT (PYXIS) 30 ML UDC PO SCH (09:00)
[2017-09-06] MEDS: FLUDROCORTISONE 0.1 MG TABLET PO SCH (09:00)
[2017-09-06] MEDS: ASPIRIN 81 MG TAB.CHEW PO SCH (09:00)
[2017-09-06] MEDS: MIDODRINE HCL (5MG) 5 MG TABLET PO SCH ×2 (09:00→17:00)
[2017-09-06] MEDS: MEGESTROL ACETATE SUSP 400 MG/10 ML UDC PO SCH ×2 (09:00→17:00)
[2017-09-06] MEDS: Z GUARD REMEDY 4 OZ OINT TP SCH ×2 (09:00→20:22)
--- NOTE | 2017-09-06 12:00 | NUR ---
Resident [place] [facility] [place] front of the nursing station. She is watching [employer] in her cell phone. Asked Dr. Lisa if he wants a repeat BMP since K+ level 3.1 on the 09/03 and 3.0 on 09/04, taken at [facility]. New order for BMP today.
[2017-09-06 13:13] LABS: CALCIUM, SERUM 9.4 mg/dL (8.5-10.1); CREATININE 2.4 mg/dL (0.6-1.3); POTASSIUM 3.1 mmol/L (3.5-5.1)
--- NOTE | 2017-09-06 13:49 | NUR ---
Resident was seen by Dr. Agosto (stencil typist) for initial exam. He stated that he will be ordering glasses for the resident and that these will be covered through the resident's medi-pretty. He recommends a follow up in 9-12 months.
--- NOTE | 2017-09-06 16:56 | NUR ---
Notified Dr. Lisa of BMP result, K= level 3.1, with new order for KCL 20 meq x 1. Order carried out.
[2017-09-06] MEDS ORDERED: POTASSIUM CHLORIDE 20 MEQ TAB.PRT.SR PO ONE (18:00)
[2017-09-06] MEDS ORDERED: POTASSIUM CHLORIDE 20 MEQ POWDER PACKET PO ONE (18:30)
[2017-09-06 19:25] VITALS: BP 115/70
[2017-09-06] MEDS: ATORVASTATIN 10 MG TABLET PO SCH (21:27)
[2017-09-07] MEDS: IPRATROPIUM NEB FS 0.5 MG/2.5 ML AMPUL.NEB NEB SCH ×4 (00:31→19:21)
[2017-09-07] MEDS: PANTOPRAZOLE 40 MG TABLET.DR PO SCH (05:24)
[2017-09-07] MEDS: SUCRALFATE 1 G/10 ML UDC PO SCH ×3 (05:24→18:50)
[2017-09-07 07:36] VITALS: BP 106/53
[2017-09-07] MEDS: FLUDROCORTISONE 0.1 MG TABLET PO SCH (09:00)
[2017-09-07] MEDS: HYDROGEN PEROXIDE 480 ML BOTTLE TP SCH ×2 (09:00→21:37)
[2017-09-07] MEDS: SENNOSIDES 8.6 MG TABLET PO SCH (09:00)
[2017-09-07] MEDS: ASPIRIN 81 MG TAB.CHEW PO SCH (09:00)
[2017-09-07] MEDS: NEOMY SULF/BACITRAC ZN/POLY 15 GM TUBE TP SCH ×2 (09:00→21:00)
[2017-09-07] MEDS: MIDODRINE HCL (5MG) 5 MG TABLET PO SCH ×2 (09:00→17:00)
[2017-09-07] MEDS: MEGESTROL ACETATE SUSP 400 MG/10 ML UDC PO SCH ×2 (09:00→17:00)
[2017-09-07] MEDS: Z GUARD REMEDY 4 OZ OINT TP SCH ×2 (09:00→21:00)
[2017-09-07] MEDS: VIT B CMPLX 3/FA/VIT C/BIOTIN 1 TAB TABLET PO SCH (09:00)
[2017-09-07] MEDS: PROSOURCE / PROSTAT (PYXIS) 30 ML UDC PO SCH (09:00)
--- NOTE | 2017-09-07 18:00 | NUR ---
Resident visited by her daughter, patient in good mood, denies any tracheal pain or difficulty swallowing her food. Encouraged to eat her bananas to keep her K+ level WNL.
[2017-09-07 19:35] VITALS: BP 139/63
[2017-09-07] MEDS: ATORVASTATIN 10 MG TABLET PO SCH (21:37)
[2017-09-08] MEDS: IPRATROPIUM NEB FS 0.5 MG/2.5 ML AMPUL.NEB NEB SCH ×4 (01:37→19:28)
[2017-09-08] MEDS: SUCRALFATE 1 G/10 ML UDC PO SCH ×5 (06:00→23:48)
[2017-09-08] MEDS: PANTOPRAZOLE 40 MG TABLET.DR PO SCH (06:08)
[2017-09-08 08:00] VITALS: BP 115/46
[2017-09-08] MEDS: MEGESTROL ACETATE SUSP 400 MG/10 ML UDC PO SCH ×2 (08:40→17:00)
[2017-09-08] MEDS: MIDODRINE HCL (5MG) 5 MG TABLET PO SCH ×2 (08:40→17:00)
[2017-09-08] MEDS: VIT B CMPLX 3/FA/VIT C/BIOTIN 1 TAB TABLET PO SCH (08:40)
[2017-09-08] MEDS: FLUDROCORTISONE 0.1 MG TABLET PO SCH (08:40)
[2017-09-08] MEDS: ASPIRIN 81 MG TAB.CHEW PO SCH (08:40)
[2017-09-08] MEDS: SENNOSIDES 8.6 MG TABLET PO SCH (08:41)
[2017-09-08] MEDS: PROSOURCE / PROSTAT (PYXIS) 30 ML UDC PO SCH (08:41)
[2017-09-08] MEDS: HYDROGEN PEROXIDE 480 ML BOTTLE TP SCH ×2 (08:42→21:17)
[2017-09-08] MEDS: NEOMY SULF/BACITRAC ZN/POLY 15 GM TUBE TP SCH ×2 (08:42→21:18)
--- NOTE | 2017-09-08 08:56 | NUR ---
PT REFUSES TO USE TRACH CAP AT THIS TIME S/P NAUSEA. RN AWARE AND AT BEDSIDE.
[2017-09-08] MEDS: Z GUARD REMEDY 4 OZ OINT TP SCH ×2 (09:00→21:18)
--- NOTE | 2017-09-08 13:30 | NUR ---
Patients' daughter came and requested to bring her mom out in the patio, patient has order to go out on patio. Patient placed on portable 02 via n/c 3 l/min, 02 sat 99%, B/P 98/60. Patient able to transfer from bed to cardiac chair with assistance,patient denies pain, no dizziness. Patient accompanied by daughter to go to patio. Instructions given on 02, to observe safety precaution at all times.
[2017-09-08 19:50] VITALS: BP 104/52
[2017-09-08] MEDS: ATORVASTATIN 10 MG TABLET PO SCH (21:18)
[2017-09-09] MEDS: IPRATROPIUM NEB FS 0.5 MG/2.5 ML AMPUL.NEB NEB SCH ×4 (00:50→19:54)
[2017-09-09] MEDS: PANTOPRAZOLE 40 MG TABLET.DR PO SCH (06:06)
[2017-09-09] MEDS: SUCRALFATE 1 G/10 ML UDC PO SCH ×4 (06:06→23:14)
[2017-09-09 08:04] VITALS: BP 105/63
[2017-09-09] MEDS: ASPIRIN 81 MG TAB.CHEW PO SCH (09:08)
[2017-09-09] MEDS: MEGESTROL ACETATE SUSP 400 MG/10 ML UDC PO SCH ×2 (09:08→17:00)
[2017-09-09] MEDS: VIT B CMPLX 3/FA/VIT C/BIOTIN 1 TAB TABLET PO SCH (09:08)
[2017-09-09] MEDS: FLUDROCORTISONE 0.1 MG TABLET PO SCH (09:08)
[2017-09-09] MEDS: MIDODRINE HCL (5MG) 5 MG TABLET PO SCH ×2 (09:09→17:00)
[2017-09-09] MEDS: PROSOURCE / PROSTAT (PYXIS) 30 ML UDC PO SCH (09:10)
[2017-09-09] MEDS: SENNOSIDES 8.6 MG TABLET PO SCH (09:10)
[2017-09-09] MEDS: HYDROGEN PEROXIDE 480 ML BOTTLE TP SCH ×2 (09:10→20:43)
[2017-09-09] MEDS: Z GUARD REMEDY 4 OZ OINT TP SCH ×2 (09:10→20:43)
[2017-09-09] MEDS: NEOMY SULF/BACITRAC ZN/POLY 15 GM TUBE TP SCH ×2 (09:10→20:43)
--- NOTE | 2017-09-09 09:14 | NUR ---
PT REFUSED CAPPED
--- NOTE | 2017-09-09 16:47 | NUR ---
Pt tolerated and hour and 15 minutes sitting on the gerichair. Pt's blood pressure dropped to 66/44 HR 74. Lowered head of gerichair, pt's blood pressure improved to 115/54 HR 75. Pt was feeling dizzy when her blood pressure dropped. PT and OT worked with pt while she was in the gerichair.
--- NOTE | 2017-09-09 19:00 | NUR ---
Pt trach capped intermittently throughout this shift, tolerated well.
--- NOTE | 2017-09-09 19:05 | NUR ---
Seen by MANUFACTURING MILLWRIGHT Chloe Sanchez. Notified her pt still has orthostatic hypotension, pt off hemodialysis. Also notified her pt does not want Megace BID but only once a day. She said to just document if pt refuses Megace. No new order at this time.
[2017-09-09 20:39] VITALS: BP 108/58
[2017-09-09] MEDS: ATORVASTATIN 10 MG TABLET PO SCH (20:43)
[2017-09-10] MEDS: IPRATROPIUM NEB FS 0.5 MG/2.5 ML AMPUL.NEB NEB SCH ×4 (01:39→20:08)
[2017-09-10] MEDS: PANTOPRAZOLE 40 MG TABLET.DR PO SCH (05:16)
[2017-09-10] MEDS: SUCRALFATE 1 G/10 ML UDC PO SCH ×4 (05:16→23:47)
[2017-09-10 07:42] LABS: CALCIUM, SERUM 9.4 mg/dL (8.5-10.1); CREATININE 2.4 mg/dL (0.6-1.3); POTASSIUM 3.6 mmol/L (3.5-5.1)
[2017-09-10 08:03] VITALS: BP 116/60
[2017-09-10] MEDS: ASPIRIN 81 MG TAB.CHEW PO SCH (08:14)
[2017-09-10] MEDS: VIT B CMPLX 3/FA/VIT C/BIOTIN 1 TAB TABLET PO SCH (08:15)
[2017-09-10] MEDS: MIDODRINE HCL (5MG) 5 MG TABLET PO SCH ×2 (08:15→17:36)
[2017-09-10] MEDS: PROSOURCE / PROSTAT (PYXIS) 30 ML UDC PO SCH (08:15)
[2017-09-10] MEDS: MEGESTROL ACETATE SUSP 400 MG/10 ML UDC PO SCH ×2 (08:15→17:00)
[2017-09-10] MEDS: FLUDROCORTISONE 0.1 MG TABLET PO SCH (08:15)
[2017-09-10] MEDS: HYDROGEN PEROXIDE 480 ML BOTTLE TP SCH ×2 (08:16→21:24)
[2017-09-10] MEDS: SENNOSIDES 8.6 MG TABLET PO SCH (08:16)
[2017-09-10] MEDS: NEOMY SULF/BACITRAC ZN/POLY 15 GM TUBE TP SCH ×2 (08:16→21:24)
[2017-09-10] MEDS: Z GUARD REMEDY 4 OZ OINT TP SCH ×2 (08:16→21:24)
--- NOTE | 2017-09-10 10:25 | NUR ---
Seen by Dr. Lisa. Notified him pt still has orthostatic hypotension. Dr. Lisa ordered PASCUAL hose stockings for blood circulation.
[2017-09-10] MEDS ORDERED: PHENYLEPHRINE/SHK LV/MO/PET,WH 30 GM TUBE RC PRN (12:30)
[2017-09-10 20:22] VITALS: BP 114/52
[2017-09-10] MEDS: ATORVASTATIN 10 MG TABLET PO SCH (21:24)
[2017-09-11] MEDS: IPRATROPIUM NEB FS 0.5 MG/2.5 ML AMPUL.NEB NEB SCH ×4 (01:19→19:36)
[2017-09-11] MEDS: PANTOPRAZOLE 40 MG TABLET.DR PO SCH (05:28)
[2017-09-11] MEDS: SUCRALFATE 1 G/10 ML UDC PO SCH ×4 (05:28→23:23)
[2017-09-11 07:35] VITALS: BP 123/63
[2017-09-11] MEDS: SENNOSIDES 8.6 MG TABLET PO SCH (09:00)
[2017-09-11] MEDS: VIT B CMPLX 3/FA/VIT C/BIOTIN 1 TAB TABLET PO SCH (09:00)
[2017-09-11] MEDS: FLUDROCORTISONE 0.1 MG TABLET PO SCH (09:09)
[2017-09-11] MEDS: PROSOURCE / PROSTAT (PYXIS) 30 ML UDC PO SCH (09:09)
[2017-09-11] MEDS: MEGESTROL ACETATE SUSP 400 MG/10 ML UDC PO SCH ×2 (09:09→16:48)
[2017-09-11] MEDS: MIDODRINE HCL (5MG) 5 MG TABLET PO SCH ×2 (09:09→17:08)
[2017-09-11] MEDS: ASPIRIN 81 MG TAB.CHEW PO SCH (09:09)
[2017-09-11] MEDS: HYDROGEN PEROXIDE 480 ML BOTTLE TP SCH ×2 (09:10→21:43)
[2017-09-11] MEDS: NEOMY SULF/BACITRAC ZN/POLY 15 GM TUBE TP SCH ×2 (09:11→21:43)
[2017-09-11] MEDS: Z GUARD REMEDY 4 OZ OINT TP SCH ×2 (09:11→21:43)
--- NOTE | 2017-09-11 11:49 | NUR ---
Left a message for the resident's daughter Karoline ([phone]) regarding IDT meeting this upcoming Wednesday September 13, 2017 from 12:30-1:30PM. SW notified her two weeks ago as well.
[2017-09-11 21:16] VITALS: BP 114/63
[2017-09-11] MEDS: ATORVASTATIN 10 MG TABLET PO SCH (21:43)
[2017-09-12] MEDS: IPRATROPIUM NEB FS 0.5 MG/2.5 ML AMPUL.NEB NEB SCH ×4 (01:52→19:58)
[2017-09-12] MEDS: SUCRALFATE 1 G/10 ML UDC PO SCH ×4 (05:59→23:09)
[2017-09-12] MEDS: PANTOPRAZOLE 40 MG TABLET.DR PO SCH (05:59)
[2017-09-12] MEDS: HYDROGEN PEROXIDE 480 ML BOTTLE TP SCH ×2 (09:00→20:27)
[2017-09-12] MEDS: MIDODRINE HCL (5MG) 5 MG TABLET PO SCH ×2 (09:00→17:33)
[2017-09-12] MEDS: Z GUARD REMEDY 4 OZ OINT TP SCH ×2 (09:00→20:27)
[2017-09-12] MEDS: VIT B CMPLX 3/FA/VIT C/BIOTIN 1 TAB TABLET PO SCH (09:00)
[2017-09-12] MEDS: ASPIRIN 81 MG TAB.CHEW PO SCH (09:00)
[2017-09-12] MEDS: NEOMY SULF/BACITRAC ZN/POLY 15 GM TUBE TP SCH ×2 (09:00→20:27)
[2017-09-12] MEDS: SENNOSIDES 8.6 MG TABLET PO SCH (09:00)
[2017-09-12] MEDS: MEGESTROL ACETATE SUSP 400 MG/10 ML UDC PO SCH ×2 (09:00→17:00)
[2017-09-12] MEDS: PROSOURCE / PROSTAT (PYXIS) 30 ML UDC PO SCH (09:00)
[2017-09-12] MEDS: FLUDROCORTISONE 0.1 MG TABLET PO SCH (09:00)
[2017-09-12 09:15] VITALS: BP 124/56
[2017-09-12] MEDS: MENTHOL/CETYLPYRD (CEPACOL) 1 LOZ LOZENGE PO PRN (12:58)
[2017-09-12] MEDS: ATORVASTATIN 10 MG TABLET PO SCH (21:02)
[2017-09-12 22:59] VITALS: BP 121/50
[2017-09-13] MEDS: IPRATROPIUM NEB FS 0.5 MG/2.5 ML AMPUL.NEB NEB SCH ×4 (01:18→19:39)
[2017-09-13] MEDS: PANTOPRAZOLE 40 MG TABLET.DR PO SCH (05:34)
[2017-09-13] MEDS: SUCRALFATE 1 G/10 ML UDC PO SCH ×4 (05:34→23:49)
[2017-09-13 08:23] VITALS: BP 131/88
[2017-09-13] MEDS: SENNOSIDES 8.6 MG TABLET PO SCH (09:00)
[2017-09-13] MEDS: VIT B CMPLX 3/FA/VIT C/BIOTIN 1 TAB TABLET PO SCH (09:00)
[2017-09-13] MEDS: Z GUARD REMEDY 4 OZ OINT TP SCH ×2 (09:00→21:20)
[2017-09-13] MEDS: MIDODRINE HCL (5MG) 5 MG TABLET PO SCH ×2 (09:59→17:00)
[2017-09-13] MEDS: MEGESTROL ACETATE SUSP 400 MG/10 ML UDC PO SCH ×2 (09:59→17:00)
[2017-09-13] MEDS: FLUDROCORTISONE 0.1 MG TABLET PO SCH (09:59)
[2017-09-13] MEDS: PROSOURCE / PROSTAT (PYXIS) 30 ML UDC PO SCH (09:59)
[2017-09-13] MEDS: HYDROGEN PEROXIDE 480 ML BOTTLE TP SCH ×2 (09:59→21:20)
[2017-09-13] MEDS: ASPIRIN 81 MG TAB.CHEW PO SCH (09:59)
[2017-09-13] MEDS: NEOMY SULF/BACITRAC ZN/POLY 15 GM TUBE TP SCH ×2 (10:00→21:20)
[2017-09-13] MEDS ORDERED: SENNOSIDES 8.6 MG TABLET PO PRN (16:30)
[2017-09-13] MEDS ORDERED: IV NS 0.9% 1,000 ML IV PRN (16:30)
--- NOTE | 2017-09-13 18:57 | NUR ---
Seen and examined by Chloe Sanchez NP for Dr. Lisa. NNO given. Resident has no concern.
[2017-09-13 20:08] VITALS: BP 125/57
--- NOTE | 2017-09-13 20:30 | NUR ---
Pt have an order for NS 1000ml IV hydration 70ml/hr x1 for BP support.Orders carried out.
[2017-09-13] MEDS: ATORVASTATIN 10 MG TABLET PO SCH (21:20)
[2017-09-14] MEDS: IPRATROPIUM NEB FS 0.5 MG/2.5 ML AMPUL.NEB NEB SCH ×4 (01:18→19:19)
[2017-09-14] MEDS: PANTOPRAZOLE 40 MG TABLET.DR PO SCH (05:17)
[2017-09-14] MEDS: SUCRALFATE 1 G/10 ML UDC PO SCH ×4 (05:17→23:45)
--- NOTE | 2017-09-14 08:20 | NUR ---
RT PT IS AWAKE AND ALERT. PT SX'D AND CUFF FULLY DEFLATED, PLACED COOK HELPER JUICE PER MD ORDER. PT ON 2L NASAL CANNULA TOLERATING WELL. EQUAL BILATERAL BREATHE SOUNDS AND CHEST RISE. NO RESPIRATORY DISTRESS NOTED AT THIS TIME. CHARGE NURSE NOTIFIED AND AWARE OF CHANGE. Addendum: 09/14/17 at 0931 by ETHEL GUSMAN RT Amended: Links added.
[2017-09-14 08:30] VITALS: BP 133/62
[2017-09-14] MEDS: MIDODRINE HCL (5MG) 5 MG TABLET PO SCH ×2 (09:00→17:39)
[2017-09-14] MEDS: Z GUARD REMEDY 4 OZ OINT TP SCH ×2 (09:00→20:16)
[2017-09-14] MEDS ORDERED: MEGESTROL ACETATE 40 MG TABLET PO SCH (09:00)
[2017-09-14] MEDS: HYDROGEN PEROXIDE 480 ML BOTTLE TP SCH ×2 (09:00→20:16)
[2017-09-14] MEDS: FLUDROCORTISONE 0.1 MG TABLET PO SCH (09:00)
[2017-09-14] MEDS: PROSOURCE / PROSTAT (PYXIS) 30 ML UDC PO SCH (09:00)
[2017-09-14] MEDS: ASPIRIN 81 MG TAB.CHEW PO SCH (09:00)
[2017-09-14] MEDS: NEOMY SULF/BACITRAC ZN/POLY 15 GM TUBE TP SCH ×2 (09:00→20:16)
[2017-09-14] MEDS: MEGESTROL ACETATE SUSP 400 MG/10 ML UDC PO SCH ×2 (17:00→17:30)
[2017-09-14] MEDS: FLUTICASONE PROPIONATE 16 GM BOTTLE NS SCH ×2 (17:39→17:50)
[2017-09-14] MEDS: ATORVASTATIN 10 MG TABLET PO SCH (21:51)
[2017-09-14 23:29] VITALS: BP 109/61
[2017-09-14 23:37] VITALS: BP 109/61
[2017-09-15] MEDS: IPRATROPIUM NEB FS 0.5 MG/2.5 ML AMPUL.NEB NEB SCH ×4 (01:42→19:59)
[2017-09-15] MEDS: SUCRALFATE 1 G/10 ML UDC PO SCH ×4 (05:29→23:36)
[2017-09-15] MEDS: PANTOPRAZOLE 40 MG TABLET.DR PO SCH (05:29)
[2017-09-15 07:42] VITALS: BP 137/59
[2017-09-15] MEDS: FLUDROCORTISONE 0.1 MG TABLET PO SCH (08:03)
[2017-09-15] MEDS: ASPIRIN 81 MG TAB.CHEW PO SCH (08:03)
[2017-09-15] MEDS: FLUTICASONE PROPIONATE 16 GM BOTTLE NS SCH ×2 (08:03→17:42)
[2017-09-15] MEDS: MIDODRINE HCL (5MG) 5 MG TABLET PO SCH ×2 (08:06→17:42)
[2017-09-15] MEDS: MEGESTROL ACETATE SUSP 400 MG/10 ML UDC PO SCH (08:30)
[2017-09-15] MEDS: PROSOURCE / PROSTAT (PYXIS) 30 ML UDC PO SCH (09:00)
[2017-09-15] MEDS: HYDROGEN PEROXIDE 480 ML BOTTLE TP SCH ×2 (11:00→21:01)
[2017-09-15] MEDS: Z GUARD REMEDY 4 OZ OINT TP SCH ×2 (11:00→21:01)
--- NOTE | 2017-09-15 16:27 | NUR ---
Resident up in [facility], denies any feeling of dizziness. Daughter visited and took patient out to the patio. Patient returned back in stable condition, she was up for approximately 3 hours with O2 via trach mask. No distress and discomfort. She spent time watching online cooking on her phone.
[2017-09-15 19:47] VITALS: BP 117/64
[2017-09-15] MEDS: ATORVASTATIN 10 MG TABLET PO SCH (21:01)
[2017-09-16] MEDS: IPRATROPIUM NEB FS 0.5 MG/2.5 ML AMPUL.NEB NEB SCH ×4 (01:59→19:48)
[2017-09-16] MEDS: SUCRALFATE 1 G/10 ML UDC PO SCH ×3 (06:05→18:13)
[2017-09-16] MEDS: PANTOPRAZOLE 40 MG TABLET.DR PO SCH (06:05)
[2017-09-16 08:07] VITALS: BP 113/59
[2017-09-16] MEDS: FLUTICASONE PROPIONATE 16 GM BOTTLE NS SCH ×2 (08:19→17:00)
[2017-09-16] MEDS: ASPIRIN 81 MG TAB.CHEW PO SCH (08:20)
[2017-09-16] MEDS: HYDROGEN PEROXIDE 480 ML BOTTLE TP SCH ×2 (08:20→20:43)
[2017-09-16] MEDS: PROSOURCE / PROSTAT (PYXIS) 30 ML UDC PO SCH (08:20)
[2017-09-16] MEDS: MIDODRINE HCL (5MG) 5 MG TABLET PO SCH ×2 (08:20→17:00)
[2017-09-16] MEDS: MEGESTROL ACETATE SUSP 400 MG/10 ML UDC PO SCH (08:20)
[2017-09-16] MEDS: FLUDROCORTISONE 0.1 MG TABLET PO SCH (08:20)
[2017-09-16] MEDS: Z GUARD REMEDY 4 OZ OINT TP SCH ×2 (08:21→20:43)
--- NOTE | 2017-09-16 13:27 | NUR ---
RT NOTE: PATIENT TAKEN OFF CAP DUE TO DISTRESS. PATIENT IS NOW RESTING COMFORTABLY ON COOL AEROSOL. RESPIRATIONS ARE EVEN AND UNLABORED. WILL CONTINUE TO MONITOR.
--- NOTE | 2017-09-16 14:14 | NUR ---
LENA spoke to the resident's daughter Keyonna and informed her of upcoming IDT on September 27, 2017 from 12:30-1:30PM. She noted that she was not sure about attending IDT but would try to make it.
[2017-09-16 19:40] VITALS: BP 104/58
[2017-09-16] MEDS: ATORVASTATIN 10 MG TABLET PO SCH (20:43)
[2017-09-17] MEDS: SUCRALFATE 1 G/10 ML UDC PO SCH ×5 (00:18→22:53)
[2017-09-17] MEDS: IPRATROPIUM NEB FS 0.5 MG/2.5 ML AMPUL.NEB NEB SCH ×4 (02:19→20:01)
[2017-09-17] MEDS: PANTOPRAZOLE 40 MG TABLET.DR PO SCH (06:08)
[2017-09-17 08:26] VITALS: BP 128/60
--- NOTE | 2017-09-17 08:54 | NUR ---
Social Service Section of [facility] (60 day PPS) completed. Resident is able to communicate with others and respond to questions. Her daughters Keyonna Kay and Karoline Grimm are her responsible parties. Discharge to a lower level of care when medically appropriate. Resident understands her need for placement in subacute at this time. The resident is no longer receiving dialysis. Her daughter's visit as often as they can. They have been bringing her food and resident noted that her appetite has increased. Resident was seen by sticker operator Dr. Huffman on 08/30/2017, by the dentist Dr. Thomas on 08/26/2017 for oral exam, and by Dr. Agosto on 09/06/2017 and will be receiving new glasses.
[2017-09-17] MEDS: MIDODRINE HCL (5MG) 5 MG TABLET PO SCH ×2 (09:00→17:00)
[2017-09-17] MEDS: FLUDROCORTISONE 0.1 MG TABLET PO SCH (09:10)
[2017-09-17] MEDS: ASPIRIN 81 MG TAB.CHEW PO SCH (09:10)
[2017-09-17] MEDS: FLUTICASONE PROPIONATE 16 GM BOTTLE NS SCH ×2 (09:10→17:00)
[2017-09-17] MEDS: PROSOURCE / PROSTAT (PYXIS) 30 ML UDC PO SCH (09:11)
[2017-09-17] MEDS: MEGESTROL ACETATE SUSP 400 MG/10 ML UDC PO SCH (09:11)
[2017-09-17] MEDS: HYDROGEN PEROXIDE 480 ML BOTTLE TP SCH ×2 (09:12→20:56)
[2017-09-17] MEDS: Z GUARD REMEDY 4 OZ OINT TP SCH ×2 (09:12→20:56)
[2017-09-17] MEDS ORDERED: ONDANSETRON 4 MG TAB.RAPDIS PO PRN (18:00)
[2017-09-17 20:48] VITALS: BP 105/56
[2017-09-17] MEDS: ATORVASTATIN 10 MG TABLET PO SCH (20:56)
[2017-09-18] MEDS: IPRATROPIUM NEB FS 0.5 MG/2.5 ML AMPUL.NEB NEB SCH ×4 (02:04→18:49)
[2017-09-18] MEDS: PANTOPRAZOLE 40 MG TABLET.DR PO SCH (05:46)
[2017-09-18] MEDS: SUCRALFATE 1 G/10 ML UDC PO SCH ×4 (05:46→23:15)
[2017-09-18] MEDS: MEGESTROL ACETATE SUSP 400 MG/10 ML UDC PO SCH (09:00)
[2017-09-18] MEDS: PROSOURCE / PROSTAT (PYXIS) 30 ML UDC PO SCH (09:27)
[2017-09-18] MEDS: ASPIRIN 81 MG TAB.CHEW PO SCH (09:27)
[2017-09-18] MEDS: FLUDROCORTISONE 0.1 MG TABLET PO SCH (09:27)
[2017-09-18] MEDS: HYDROGEN PEROXIDE 480 ML BOTTLE TP SCH ×2 (09:27→21:51)
[2017-09-18] MEDS: Z GUARD REMEDY 4 OZ OINT TP SCH ×2 (09:27→21:51)
[2017-09-18] MEDS: MIDODRINE HCL (5MG) 5 MG TABLET PO SCH ×2 (09:27→17:00)
[2017-09-18] MEDS: FLUTICASONE PROPIONATE 16 GM BOTTLE NS SCH ×2 (09:27→17:26)
[2017-09-18 10:20] VITALS: BP 117/65
--- NOTE | 2017-09-18 11:29 | NUR ---
RT PT DSNT CHANTAL TCAP ATT
--- NOTE | 2017-09-18 12:01 | NUR ---
Seen and examined by Dr. Rebolledo, reported patient gained about 13 lbs. (09/09/17 238.8.6 -09/16/17 251.4) reweigh patient today (09/18= 252.4). Dr. Rebolledo assessed for fluid retention, with +1 edema in the lower extremities. She is refusing to take Megace and was discontinued by .
--- NOTE | 2017-09-18 15:00 | NUR ---
RADHA for 09/13/2017 INTERDISCIPLINARY TEAM CONFERENCE (IDT) was held today. Resident plan to attend the meeting but changed her mind in the last minute. Dr. Lisa and the interdisciplinary team reviewed the current plan of care in detail. Orders as well as treatment and medications were reviewed. It was noted that resident is not taking all her medications as ordered but prefers to take them as she wishes. Dr. Lisa adjusted some medication orders, other were discontinued, changed from routine to PRN and decreased the frequency. also gave an order to give 1 L of fluid for BP support since patient still experiencing hypotension when she sits up and ambulates with therapy. Resident informed of all the orders as well as the daughter who came later to visit the patient.
[2017-09-18 20:47] VITALS: BP 139/74
[2017-09-18] MEDS: ATORVASTATIN 10 MG TABLET PO SCH (21:51)
[2017-09-19] MEDS: IPRATROPIUM NEB FS 0.5 MG/2.5 ML AMPUL.NEB NEB SCH ×4 (00:31→20:15)
[2017-09-19] MEDS: SUCRALFATE 1 G/10 ML UDC PO SCH ×3 (06:02→17:22)
[2017-09-19] MEDS: PANTOPRAZOLE 40 MG TABLET.DR PO SCH (06:02)
[2017-09-19 07:29] VITALS: BP 143/65
[2017-09-19] MEDS: HYDROGEN PEROXIDE 480 ML BOTTLE TP SCH ×2 (09:00→21:30)
[2017-09-19] MEDS: Z GUARD REMEDY 4 OZ OINT TP SCH ×2 (09:00→21:30)
[2017-09-19] MEDS: FLUDROCORTISONE 0.1 MG TABLET PO SCH (09:33)
[2017-09-19] MEDS: FLUTICASONE PROPIONATE 16 GM BOTTLE NS SCH ×2 (09:33→16:29)
[2017-09-19] MEDS: PROSOURCE / PROSTAT (PYXIS) 30 ML UDC PO SCH (09:33)
[2017-09-19] MEDS: ASPIRIN 81 MG TAB.CHEW PO SCH (09:33)
[2017-09-19] MEDS: MIDODRINE HCL (5MG) 5 MG TABLET PO SCH ×2 (09:34→16:29)
[2017-09-19] MEDS: ATORVASTATIN 10 MG TABLET PO SCH (21:30)
[2017-09-19 22:49] VITALS: BP 102/66
[2017-09-20] MEDS: IPRATROPIUM NEB FS 0.5 MG/2.5 ML AMPUL.NEB NEB SCH ×4 (01:39→19:38)
[2017-09-20] MEDS: PANTOPRAZOLE 40 MG TABLET.DR PO SCH (05:02)
[2017-09-20] MEDS: SUCRALFATE 1 G/10 ML UDC PO SCH ×5 (05:02→23:52)
[2017-09-20 08:05] VITALS: BP 143/69
[2017-09-20] MEDS: FLUTICASONE PROPIONATE 16 GM BOTTLE NS SCH ×2 (09:00→17:55)
[2017-09-20] MEDS: MIDODRINE HCL (5MG) 5 MG TABLET PO SCH ×2 (09:00→17:00)
[2017-09-20] MEDS: HYDROGEN PEROXIDE 480 ML BOTTLE TP SCH ×2 (09:00→21:57)
[2017-09-20] MEDS: Z GUARD REMEDY 4 OZ OINT TP SCH ×2 (09:00→21:58)
[2017-09-20] MEDS: ASPIRIN 81 MG TAB.CHEW PO SCH (09:01)
[2017-09-20] MEDS: FLUDROCORTISONE 0.1 MG TABLET PO SCH (09:02)
[2017-09-20] MEDS: PROSOURCE / PROSTAT (PYXIS) 30 ML UDC PO SCH (09:02)
--- NOTE | 2017-09-20 13:00 | NUR ---
Seen and examined by Dr. Huffman, veterinary medical officer and reported that patient has bilateral plantar foot dryness with thick skin. He said may use na EZ scrub brush after soaking feet with warm water daily. Resident made aware.
[2017-09-20 20:14] VITALS: BP 116/61
[2017-09-20] MEDS: ATORVASTATIN 10 MG TABLET PO SCH (21:58)
[2017-09-21] MEDS: IPRATROPIUM NEB FS 0.5 MG/2.5 ML AMPUL.NEB NEB SCH ×4 (01:30→19:24)
[2017-09-21] MEDS: SUCRALFATE 1 G/10 ML UDC PO SCH ×4 (06:02→23:44)
[2017-09-21] MEDS: PANTOPRAZOLE 40 MG TABLET.DR PO SCH (06:02)
[2017-09-21 08:01] VITALS: BP 139/73
[2017-09-21] MEDS: FLUDROCORTISONE 0.1 MG TABLET PO SCH (08:56)
[2017-09-21] MEDS: VITAMINS A AND D 56.7 GM TUBE TP SCH (08:57)
[2017-09-21] MEDS: Z GUARD REMEDY 4 OZ OINT TP SCH ×2 (08:57→21:40)
[2017-09-21] MEDS: PROSOURCE / PROSTAT (PYXIS) 30 ML UDC PO SCH (08:57)
[2017-09-21] MEDS: HYDROGEN PEROXIDE 480 ML BOTTLE TP SCH ×2 (08:57→21:40)
[2017-09-21] MEDS: ASPIRIN 81 MG TAB.CHEW PO SCH (08:58)
[2017-09-21] MEDS: FLUTICASONE PROPIONATE 16 GM BOTTLE NS SCH ×2 (08:58→17:28)
[2017-09-21] MEDS: MIDODRINE HCL (5MG) 5 MG TABLET PO SCH ×2 (09:00→17:00)
[2017-09-21 19:53] VITALS: BP 132/52
[2017-09-21] MEDS: NYSTATIN TOP POWDER 15 GM BOTTLE TP SCH (21:40)
[2017-09-21] MEDS: ATORVASTATIN 10 MG TABLET PO SCH (21:40)
[2017-09-22] MEDS: IPRATROPIUM NEB FS 0.5 MG/2.5 ML AMPUL.NEB NEB SCH ×4 (01:41→20:11)
[2017-09-22] MEDS: PANTOPRAZOLE 40 MG TABLET.DR PO SCH (06:13)
[2017-09-22] MEDS: SUCRALFATE 1 G/10 ML UDC PO SCH ×4 (06:13→23:10)
[2017-09-22 08:12] VITALS: BP 136/50
[2017-09-22] MEDS: MIDODRINE HCL (5MG) 5 MG TABLET PO SCH ×2 (08:45→17:00)
[2017-09-22] MEDS: NYSTATIN TOP POWDER 15 GM BOTTLE TP SCH ×2 (09:00→21:08)
[2017-09-22] MEDS: Z GUARD REMEDY 4 OZ OINT TP SCH ×2 (09:00→21:08)
[2017-09-22] MEDS: HYDROGEN PEROXIDE 480 ML BOTTLE TP SCH ×2 (09:00→21:08)
[2017-09-22] MEDS: VITAMINS A AND D 56.7 GM TUBE TP SCH (09:00)
[2017-09-22] MEDS: ASPIRIN 81 MG TAB.CHEW PO SCH (09:00)
[2017-09-22] MEDS: FLUDROCORTISONE 0.1 MG TABLET PO SCH (09:00)
[2017-09-22] MEDS: PROSOURCE / PROSTAT (PYXIS) 30 ML UDC PO SCH (09:00)
[2017-09-22] MEDS: FLUTICASONE PROPIONATE 16 GM BOTTLE NS SCH ×2 (09:00→17:00)
[2017-09-22 19:28] VITALS: BP 98/55
[2017-09-22] MEDS: ATORVASTATIN 10 MG TABLET PO SCH (21:08)
[2017-09-23] MEDS: IPRATROPIUM NEB FS 0.5 MG/2.5 ML AMPUL.NEB NEB SCH ×4 (01:33→20:23)
[2017-09-23] MEDS: SUCRALFATE 1 G/10 ML UDC PO SCH ×4 (05:13→23:23)
[2017-09-23] MEDS: PANTOPRAZOLE 40 MG TABLET.DR PO SCH (05:13)
[2017-09-23 07:56] VITALS: BP 143/61
[2017-09-23] MEDS: FLUDROCORTISONE 0.1 MG TABLET PO SCH (08:09)
[2017-09-23] MEDS: ASPIRIN 81 MG TAB.CHEW PO SCH (08:09)
[2017-09-23] MEDS: MIDODRINE HCL (5MG) 5 MG TABLET PO SCH ×2 (08:09→16:14)
[2017-09-23] MEDS: FLUTICASONE PROPIONATE 16 GM BOTTLE NS SCH ×2 (08:09→16:15)
[2017-09-23] MEDS: PROSOURCE / PROSTAT (PYXIS) 30 ML UDC PO SCH (08:09)
[2017-09-23] MEDS: Z GUARD REMEDY 4 OZ OINT TP SCH ×2 (10:39→21:18)
[2017-09-23] MEDS: HYDROGEN PEROXIDE 480 ML BOTTLE TP SCH ×2 (10:39→21:18)
[2017-09-23] MEDS: NYSTATIN TOP POWDER 15 GM BOTTLE TP SCH ×2 (10:39→21:18)
[2017-09-23] MEDS: VITAMINS A AND D 56.7 GM TUBE TP SCH (10:40)
--- NOTE | 2017-09-23 13:54 | NUR ---
Resident ambulate with PT using FWW, with portable O2. Tolerates ambulation, with no complain of being dizzy or having SOB, she sat in the gerichair in front of the nurses' station looking into her cell phone.
[2017-09-23 19:50] VITALS: BP 117/66
[2017-09-23] MEDS: ATORVASTATIN 10 MG TABLET PO SCH (21:18)
[2017-09-24] MEDS: IPRATROPIUM NEB FS 0.5 MG/2.5 ML AMPUL.NEB NEB SCH ×4 (01:26→20:00)
[2017-09-24] MEDS: PANTOPRAZOLE 40 MG TABLET.DR PO SCH (05:24)
[2017-09-24] MEDS: SUCRALFATE 1 G/10 ML UDC PO SCH ×4 (05:24→23:12)
[2017-09-24 07:56] VITALS: BP 124/65
[2017-09-24] MEDS: MIDODRINE HCL (5MG) 5 MG TABLET PO SCH ×2 (08:21→17:22)
[2017-09-24] MEDS: PROSOURCE / PROSTAT (PYXIS) 30 ML UDC PO SCH (08:21)
[2017-09-24] MEDS: FLUDROCORTISONE 0.1 MG TABLET PO SCH (08:21)
[2017-09-24] MEDS: ASPIRIN 81 MG TAB.CHEW PO SCH (08:21)
[2017-09-24] MEDS: FLUTICASONE PROPIONATE 16 GM BOTTLE NS SCH ×2 (08:21→17:22)
--- NOTE | 2017-09-24 08:52 | NUR ---
RT RECD PT ON TBAR PLACED ON TCAP ROOM AIR CHANTAL WELL
--- NOTE | 2017-09-24 09:10 | NUR ---
Seen by LAYUP WORKER Chloe Sanchez this AM. Notified Chloe that pt with weight gain of 7lbs from last week. Order obtained to do I & O x 48 hrs to measure if pt retaining water or weight gain d/t increase in appetite.
[2017-09-24] MEDS: NYSTATIN TOP POWDER 15 GM BOTTLE TP SCH ×2 (11:56→21:23)
[2017-09-24] MEDS: Z GUARD REMEDY 4 OZ OINT TP SCH ×2 (11:56→21:23)
[2017-09-24] MEDS: HYDROGEN PEROXIDE 480 ML BOTTLE TP SCH ×2 (11:56→21:23)
[2017-09-24] MEDS: VITAMINS A AND D 56.7 GM TUBE TP SCH (11:57)
[2017-09-24] MEDS: CLOTRIMAZOLE 1% 15 GM TUBE TP SCH (17:54)
[2017-09-24 20:31] VITALS: BP 126/65
[2017-09-24] MEDS: ATORVASTATIN 10 MG TABLET PO SCH (21:23)
[2017-09-25] MEDS: IPRATROPIUM NEB FS 0.5 MG/2.5 ML AMPUL.NEB NEB SCH ×4 (02:05→19:22)
[2017-09-25] MEDS: SUCRALFATE 1 G/10 ML UDC PO SCH ×4 (05:32→23:13)
[2017-09-25] MEDS: PANTOPRAZOLE 40 MG TABLET.DR PO SCH (05:32)
[2017-09-25] MEDS: MIDODRINE HCL (5MG) 5 MG TABLET PO SCH ×2 (08:35→17:00)
[2017-09-25] MEDS: PROSOURCE / PROSTAT (PYXIS) 30 ML UDC PO SCH (08:48)
[2017-09-25] MEDS: FLUTICASONE PROPIONATE 16 GM BOTTLE NS SCH ×2 (08:48→17:00)
[2017-09-25] MEDS: FLUDROCORTISONE 0.1 MG TABLET PO SCH (08:48)
[2017-09-25] MEDS: HYDROGEN PEROXIDE 480 ML BOTTLE TP SCH ×2 (08:48→21:12)
[2017-09-25] MEDS: ASPIRIN 81 MG TAB.CHEW PO SCH (08:48)
[2017-09-25] MEDS: VITAMINS A AND D 56.7 GM TUBE TP SCH (08:49)
[2017-09-25] MEDS: CLOTRIMAZOLE 1% 15 GM TUBE TP SCH ×2 (08:49→17:00)
[2017-09-25] MEDS: NYSTATIN TOP POWDER 15 GM BOTTLE TP SCH ×2 (08:49→21:12)
[2017-09-25] MEDS: Z GUARD REMEDY 4 OZ OINT TP SCH ×2 (08:49→21:12)
[2017-09-25 09:39] VITALS: BP 137/72
--- NOTE | 2017-09-25 14:30 | NUR ---
Seen and examined by Chloe Sanchez NP NNO given, patient ambulate with OT, [facility] Patient continet of bladder, and taken to bathroom for elimination. Strict I/O observed.
[2017-09-25 19:58] VITALS: BP 136/59
[2017-09-25] MEDS: ATORVASTATIN 10 MG TABLET PO SCH (21:12)
[2017-09-26] MEDS: IPRATROPIUM NEB FS 0.5 MG/2.5 ML AMPUL.NEB NEB SCH ×4 (00:47→20:28)
[2017-09-26] MEDS: SUCRALFATE 1 G/10 ML UDC PO SCH ×4 (05:54→23:55)
[2017-09-26] MEDS: PANTOPRAZOLE 40 MG TABLET.DR PO SCH (05:54)
[2017-09-26 08:06] VITALS: BP 130/50
[2017-09-26] MEDS: VITAMINS A AND D 56.7 GM TUBE TP SCH (09:00)
[2017-09-26] MEDS: MIDODRINE HCL (5MG) 5 MG TABLET PO SCH ×2 (09:00→16:15)
[2017-09-26] MEDS: NYSTATIN TOP POWDER 15 GM BOTTLE TP SCH ×2 (09:00→21:00)
[2017-09-26] MEDS: CLOTRIMAZOLE 1% 15 GM TUBE TP SCH ×2 (09:00→16:16)
[2017-09-26] MEDS: FLUTICASONE PROPIONATE 16 GM BOTTLE NS SCH ×2 (09:47→16:16)
[2017-09-26] MEDS: ASPIRIN 81 MG TAB.CHEW PO SCH (09:48)
[2017-09-26] MEDS: PROSOURCE / PROSTAT (PYXIS) 30 ML UDC PO SCH (09:49)
[2017-09-26] MEDS: HYDROGEN PEROXIDE 480 ML BOTTLE TP SCH ×2 (09:49→21:00)
[2017-09-26] MEDS: Z GUARD REMEDY 4 OZ OINT TP SCH ×2 (09:50→21:00)
[2017-09-26] MEDS: FLUDROCORTISONE 0.1 MG TABLET PO SCH (09:51)
--- NOTE | 2017-09-26 11:30 | NUR ---
RT NOTE PLACED PT BACK ON T-PIECE DUE TO SOB. WILL CONTINUE TO MONITOR.
--- NOTE | 2017-09-26 13:30 | NUR ---
RT NOTE PATIENT NOT IN ROOM FOR 13:30 TX. TX GIVEN AT 15:48. NO ADVERSE REACTIONS NOTED. BREATH SOUNDS IMPROVED POST TX AND SUCTION. NO SOB NOTED.
[2017-09-26 20:35] VITALS: BP 145/60
--- NOTE | 2017-09-26 20:53 | NUR ---
SEEN BY SALINAS ELLIOTT NEW ORDER FOR BMP IN AM.WILL CARRIED OUT.
[2017-09-26] MEDS: ATORVASTATIN 10 MG TABLET PO SCH (22:13)
[2017-09-27] MEDS: IPRATROPIUM NEB FS 0.5 MG/2.5 ML AMPUL.NEB NEB SCH ×4 (01:56→19:36)
[2017-09-27] MEDS: SUCRALFATE 1 G/10 ML UDC PO SCH ×4 (06:34→23:14)
[2017-09-27] MEDS: PANTOPRAZOLE 40 MG TABLET.DR PO SCH (06:34)
[2017-09-27 07:14] LABS: CALCIUM, SERUM 7.9 mg/dL (8.5-10.1); CREATININE 1.9 mg/dL (0.6-1.3); POTASSIUM 3.6 mmol/L (3.5-5.1)
[2017-09-27 07:33] VITALS: BP 144/65
[2017-09-27] MEDS: FLUDROCORTISONE 0.1 MG TABLET PO SCH (08:09)
[2017-09-27] MEDS: ASPIRIN 81 MG TAB.CHEW PO SCH (08:09)
[2017-09-27] MEDS: PROSOURCE / PROSTAT (PYXIS) 30 ML UDC PO SCH (08:10)
[2017-09-27] MEDS: FLUTICASONE PROPIONATE 16 GM BOTTLE NS SCH ×2 (08:10→17:14)
[2017-09-27] MEDS: MIDODRINE HCL (5MG) 5 MG TABLET PO SCH ×2 (08:10→17:35)
[2017-09-27] MEDS: NYSTATIN TOP POWDER 15 GM BOTTLE TP SCH ×2 (09:00→21:53)
[2017-09-27] MEDS: CLOTRIMAZOLE 1% 15 GM TUBE TP SCH ×2 (09:00→17:14)
[2017-09-27] MEDS: HYDROGEN PEROXIDE 480 ML BOTTLE TP SCH ×2 (09:00→21:53)
[2017-09-27] MEDS: VITAMINS A AND D 56.7 GM TUBE TP SCH (09:00)
[2017-09-27] MEDS: Z GUARD REMEDY 4 OZ OINT TP SCH ×2 (09:00→21:53)
--- NOTE | 2017-09-27 14:30 | NUR ---
INTERDISCIPLINARY PLAN OF CARE CONFERENCE was held today. Resident and daughter attended IDT meeting. Dr. Lisa and the interdisciplinary team discussed the current plan of care in detail. Current orders as well as treatments and medications were reviewed. Patient's goal is keep her trach capped and eventually discharge home with her daughter. Currently patient is being capped maximum of 4 hours only due to her secretions. Dr. Lisa told resident that she come long way and getting closer to going home. Patient very pleased and excited. Informed family that [facility] will contact family regarding discharge plan including durable medical equipment that she needs.
--- NOTE | 2017-09-27 16:00 | NUR ---
Place a call to Dr. Adeola Steven's office regarding Dr. Lisa's request to have nephrology to assess the HD site for removal. Dr. Steven returned the call. She said she will take a look at the patient tomorrow and assess if her access site can be removed by a nurse or will require a physician's removal. Resident notified.
[2017-09-27 20:23] VITALS: BP 125/68
[2017-09-27] MEDS: ATORVASTATIN 10 MG TABLET PO SCH (21:54)
[2017-09-28] MEDS: IPRATROPIUM NEB FS 0.5 MG/2.5 ML AMPUL.NEB NEB SCH ×4 (01:30→19:12)
[2017-09-28] MEDS: SUCRALFATE 1 G/10 ML UDC PO SCH ×3 (05:12→17:10)
[2017-09-28] MEDS: PANTOPRAZOLE 40 MG TABLET.DR PO SCH (05:12)
[2017-09-28 07:51] VITALS: BP 141/58
--- NOTE | 2017-09-28 08:35 | NUR ---
RT NOTE: PATIENT SUCTIONED TO OBTAIN LARGE AMOUNT OF THICK MCINTYRE SECRETIONS. RESPIRATORY TREATMENT GIVEN. PATIENT CAPPED AFTER TREATMENT. TOLERATED CAP WELL FOR 25 MINUTES AND THEN TAKEN OFF DUE TO INCREASED WOB. PATIENT IS NOW BACK ON 28% COOL AEROSOL. RESPIRATIONS ARE NOW EVEN AND UNLABORED. WILL CONTINUE TO MONITOR.
[2017-09-28] MEDS: MIDODRINE HCL (5MG) 5 MG TABLET PO SCH ×2 (09:00→17:00)
[2017-09-28] MEDS: ASPIRIN 81 MG TAB.CHEW PO SCH (09:08)
[2017-09-28] MEDS: FLUDROCORTISONE 0.1 MG TABLET PO SCH (09:09)
[2017-09-28] MEDS: HYDROGEN PEROXIDE 480 ML BOTTLE TP SCH ×2 (09:15→21:00)
[2017-09-28] MEDS: Z GUARD REMEDY 4 OZ OINT TP SCH ×2 (09:16→21:00)
[2017-09-28] MEDS: CLOTRIMAZOLE 1% 15 GM TUBE TP SCH ×2 (09:16→17:09)
[2017-09-28] MEDS: NYSTATIN TOP POWDER 15 GM BOTTLE TP SCH ×2 (09:16→21:00)
[2017-09-28] MEDS: FLUTICASONE PROPIONATE 16 GM BOTTLE NS SCH ×2 (09:17→17:09)
--- NOTE | 2017-09-28 10:00 | NUR ---
Dr. Adeola kern, law office assistant assessed HD access site. She told the patient that it needs to be removed by a physician. She will contact Dr. Uziel Hua and it will be done on Saturday. Resident inform the doctor that it is her birthday on Saturday. MD asked her if she doesn't doing it that day. She said no. Resident's daughter however told this nurse that they plan to take her out to the patio between 10:00 Am to 1300 PM to celebrate her birthday with family. Patient's daughter was asking what time Dr. Hua usually comes. Informed daughter that this nurse cannot give a specific time when physician make their rounds, however it will be endorsed to Saturday charge nurse.
[2017-09-28 19:47] VITALS: BP 129/61
[2017-09-28] MEDS: ATORVASTATIN 10 MG TABLET PO SCH (22:02)
[2017-09-29] MEDS: SUCRALFATE 1 G/10 ML UDC PO SCH ×5 (00:06→23:17)
[2017-09-29] MEDS: IPRATROPIUM NEB FS 0.5 MG/2.5 ML AMPUL.NEB NEB SCH ×4 (01:33→19:40)
[2017-09-29] MEDS: PANTOPRAZOLE 40 MG TABLET.DR PO SCH (06:18)
[2017-09-29 07:23] LABS: BASOPHILS % (AUTO) 0.4 % (0.0-2.0); EOSINOPHILS % (AUTO) 4.9 % (0.0-6.0); HEMATOCRIT 28 % (33-45); HEMOGLOBIN 9.3 g/dL (11.5-14.8); LYMPHOCYTES # (AUTO) 1.6 /CMM (0.8-4.8); LYMPHOCYTES % (AUTO) 34.7 % (20.0-44.0); MEAN CORPUSCULAR HEMOGLOBIN 29 PG (26.0-33.0); MEAN CORPUSCULAR HGB CONC 34 g/dl (31.0-36.0); MEAN CORPUSCULAR VOLUME 87 fL (82-100); MONOCYTES # (AUTO) 0.4 /CMM (0.1-1.30); MONOCYTES % (AUTO) 8.4 % (2.0-12.0); NEUTROPHILS # (AUTO) 2.4 /CMM (1.8-8.9); NEUTROPHILS % (AUTO) 51.6 % (43.0-81.0); PLATELET COUNT (AUTO) 183 /CMM (150-450); RDW COEFFICIENT OF VARIATION 16.9 (11.5-15.0); RED BLOOD CELL COUNT(AUTO) 3.18 MIL/uL (4.0-5.2); WHITE BLOOD COUNT (AUTO) 4.7 K/uL (4.3-11.0)
[2017-09-29 07:37] LABS: INR 0.98 (0.87-1.13)
[2017-09-29 08:09] VITALS: BP 123/74
[2017-09-29] MEDS: ASPIRIN 81 MG TAB.CHEW PO SCH (08:19)
[2017-09-29] MEDS: FLUDROCORTISONE 0.1 MG TABLET PO SCH (08:19)
[2017-09-29] MEDS: MIDODRINE HCL (5MG) 5 MG TABLET PO SCH ×2 (08:19→17:00)
[2017-09-29] MEDS: FLUTICASONE PROPIONATE 16 GM BOTTLE NS SCH ×2 (08:19→17:53)
[2017-09-29] MEDS: HYDROGEN PEROXIDE 480 ML BOTTLE TP SCH ×2 (08:20→21:50)
[2017-09-29] MEDS: Z GUARD REMEDY 4 OZ OINT TP SCH ×2 (09:00→21:50)
[2017-09-29] MEDS: NYSTATIN TOP POWDER 15 GM BOTTLE TP SCH ×2 (09:00→21:50)
[2017-09-29] MEDS: CLOTRIMAZOLE 1% 15 GM TUBE TP SCH ×2 (09:00→17:53)
--- NOTE | 2017-09-29 11:45 | NUR ---
Received a call from Dr. Soni with order to prepare supplies at bedside and obtain consent for removal of Perma cath.. He said that Dr. Adeola Steven contacted him to remove patient's Perma cath. Per Dr. Soni he will be in around !) Order carried out. Resident informed. Addendum: 09/29/17 at 1314 by IQRA WILLIAMSON RN Dr. Soni will be in at 10AM.
[2017-09-29] MEDS ORDERED: LIDOCAINE 1% INJ 50 ML MDV IJ ONE (13:00)
[2017-09-29 19:32] VITALS: BP 148/70
[2017-09-29] MEDS: ATORVASTATIN 10 MG TABLET PO SCH (21:50)
[2017-09-30] MEDS: IPRATROPIUM NEB FS 0.5 MG/2.5 ML AMPUL.NEB NEB SCH ×4 (01:38→19:39)
[2017-09-30] MEDS: SUCRALFATE 1 G/10 ML UDC PO SCH ×4 (05:07→23:17)
[2017-09-30] MEDS: PANTOPRAZOLE 40 MG TABLET.DR PO SCH (05:07)
[2017-09-30] MEDS: BISACODYL SUPP (10 MG) 10 MG/SUPP.RECT SUPP.RECT RC PRN (06:43)
[2017-09-30] MEDS: MAGNESIUM HYDROXIDE 30 ML UDC PO PRN (06:47)
[2017-09-30 07:41] VITALS: BP 124/58
[2017-09-30] MEDS: HYDROGEN PEROXIDE 480 ML BOTTLE TP SCH ×2 (09:00→21:30)
[2017-09-30] MEDS: ASPIRIN 81 MG TAB.CHEW PO SCH (09:00)
[2017-09-30] MEDS: CLOTRIMAZOLE 1% 15 GM TUBE TP SCH ×2 (09:00→16:57)
[2017-09-30] MEDS: NYSTATIN TOP POWDER 15 GM BOTTLE TP SCH ×2 (09:00→21:30)
[2017-09-30] MEDS: FLUTICASONE PROPIONATE 16 GM BOTTLE NS SCH ×2 (09:00→16:56)
[2017-09-30] MEDS: Z GUARD REMEDY 4 OZ OINT TP SCH ×2 (09:00→21:30)
--- NOTE | 2017-09-30 09:20 | NUR ---
LENA spoke to the resident and LENA was informed by charge nurse Javier to start speaking to the resident about discharge planning. Resident noted that she will be going home with her daughter Keyonna to [address] [place] [address] (cell: [phone]). Per Javier, no definite discharge date just yet and resident also stated she does not know when she will be going home. Resident noted she will be going home with her trach and will need O2, a walker, a bathtub seat, a wheelchair, and home health. Resident will also need periodic suctioning. Sw also informed resident that she has not gotten her glasses because medi-pretty has not been activated and that private cost of glasses would be $174.00. She noted she does not want to pay privately for her glasses and wants to wait until her medi-pretty kicks in. Sent a message to Jagruti, medi-pretty worker, to inquire about status of resident's medi-pretty.
[2017-09-30] MEDS ORDERED: LIDOCAINE 1% INJ 50 ML MDV IJ ONE (10:00)
--- NOTE | 2017-09-30 10:00 | NUR ---
came and removed the perma cath of the pt ,no complication happened and there is a mild bleeding and applied the firm pressure for 10mt and put the dry dressing on it.Pt tolerated and doing well.
[2017-09-30] MEDS: FLUDROCORTISONE 0.1 MG TABLET PO SCH (12:06)
[2017-09-30] MEDS: MIDODRINE HCL (5MG) 5 MG TABLET PO SCH ×2 (12:06→17:00)
--- NOTE | 2017-09-30 16:00 | NUR ---
Pt had physiotherapy and tolerated well.No more bleeding from perma cath,doing well.
[2017-09-30 20:03] VITALS: BP 114/54
[2017-09-30] MEDS: ECONAZOLE NITRATE 15 GM TUBE TP SCH (21:30)
[2017-09-30] MEDS: ATORVASTATIN 10 MG TABLET PO SCH (21:30)
[2017-10-01] MEDS: IPRATROPIUM NEB FS 0.5 MG/2.5 ML AMPUL.NEB NEB SCH ×4 (01:53→20:02)
[2017-10-01] MEDS: SUCRALFATE 1 G/10 ML UDC PO SCH ×4 (05:32→23:07)
[2017-10-01] MEDS: PANTOPRAZOLE 40 MG TABLET.DR PO SCH (05:32)
[2017-10-01 08:01] VITALS: BP 110/62
[2017-10-01] MEDS: Z GUARD REMEDY 4 OZ OINT TP SCH ×2 (09:00→21:11)
[2017-10-01] MEDS: ECONAZOLE NITRATE 15 GM TUBE TP SCH ×2 (09:00→21:11)
[2017-10-01] MEDS: NYSTATIN TOP POWDER 15 GM BOTTLE TP SCH ×2 (09:00→21:11)
[2017-10-01] MEDS: HYDROGEN PEROXIDE 480 ML BOTTLE TP SCH ×2 (09:00→21:11)
[2017-10-01] MEDS: CLOTRIMAZOLE 1% 15 GM TUBE TP SCH ×2 (09:00→17:54)
[2017-10-01] MEDS: FLUTICASONE PROPIONATE 16 GM BOTTLE NS SCH ×2 (09:18→17:51)
[2017-10-01] MEDS: ASPIRIN 81 MG TAB.CHEW PO SCH (09:19)
[2017-10-01] MEDS: MIDODRINE HCL (5MG) 5 MG TABLET PO SCH ×2 (09:24→17:52)
[2017-10-01] MEDS: FLUDROCORTISONE 0.1 MG TABLET PO SCH (09:24)
--- NOTE | 2017-10-01 16:08 | NUR ---
DR.Sora kern ordered CMP,Phosphorous,PTH intact,Vit-D,25 hydroxy on 10/07/17.New orders noted and carried out.
--- NOTE | 2017-10-01 16:16 | NUR ---
Pt is doing well in PT gait training and therapeutic exercises.She is tolerated well,no signs of SOB or respiratory distress noted.Vital signs are stable.
--- NOTE | 2017-10-01 18:53 | NUR ---
We made follow up with pt regarding tinactin spray as family is providing,pt said they will bring later.
[2017-10-01 20:30] VITALS: BP 134/55
[2017-10-01] MEDS: ATORVASTATIN 10 MG TABLET PO SCH (21:11)
[2017-10-02] MEDS: IPRATROPIUM NEB FS 0.5 MG/2.5 ML AMPUL.NEB NEB SCH ×4 (01:39→19:56)
[2017-10-02] MEDS: PANTOPRAZOLE 40 MG TABLET.DR PO SCH (05:41)
[2017-10-02] MEDS: SUCRALFATE 1 G/10 ML UDC PO SCH ×4 (05:41→23:47)
[2017-10-02 07:37] VITALS: BP 118/49
[2017-10-02] MEDS: FLUDROCORTISONE 0.1 MG TABLET PO SCH (08:26)
[2017-10-02] MEDS: ASPIRIN 81 MG TAB.CHEW PO SCH (08:26)
[2017-10-02] MEDS: HYDROGEN PEROXIDE 480 ML BOTTLE TP SCH ×2 (08:27→21:57)
[2017-10-02] MEDS: ECONAZOLE NITRATE 15 GM TUBE TP SCH ×2 (08:27→21:56)
[2017-10-02] MEDS: CLOTRIMAZOLE 1% 15 GM TUBE TP SCH ×2 (08:27→17:49)
[2017-10-02] MEDS: Z GUARD REMEDY 4 OZ OINT TP SCH ×2 (08:27→21:56)
[2017-10-02] MEDS: NYSTATIN TOP POWDER 15 GM BOTTLE TP SCH (08:27)
[2017-10-02] MEDS: MIDODRINE HCL (5MG) 5 MG TABLET PO SCH ×2 (08:27→17:00)
[2017-10-02] MEDS: FLUTICASONE PROPIONATE 16 GM BOTTLE NS SCH ×2 (09:00→17:50)
--- NOTE | 2017-10-02 11:30 | NUR ---
Seen and examined by Dr. Rebolledo. Reported to MD that patient gained 22.6 lbs (August 238.4 - September 261.0). Patient's lower extremities edematous. Patient also concern of bilateral redness in her arms. Dr. Rebolledo said that it will take a while before it will subside, but it is not something he will be concern about. Patient is also excited about discharge plan, according to Dr. Rebolledo to ask Dr. Lisa of the timeline when he thinks patient can go home. According to patient she will stay with her daughter and she will be involve in her care. Dr. Rebolledo ordered Bumex 1 mg PO BID for edema if OK with Dr. Adeola Steven, entry level account representative. Placed a call to Dr. Steven's office. Awaiting for call back.
--- NOTE | 2017-10-02 11:36 | NUR ---
Informed charge nurse that in order for medical supplier to process order of what the resident will need when she goes home, physician needs to write an order for the items. Charge nurse stated okay and SW will follow up.
--- NOTE | 2017-10-02 14:45 | NUR ---
Placed a second call to Dr. Adeola Steven to confirm if OK to give Bumex img BID per Dr. Rebolledo, spoke with Neha. Awaiting for MD to call back
--- NOTE | 2017-10-02 15:16 | NUR ---
Called the office of Dr. Adeola Steven informed Neha that Dr. Adeola Steven did not respond yet. She said that she will page Dr. Hua, this is regarding the order given by Dr. Rebolledo to give patient Bumex 1 mg if OK with racehorse trainer.
--- NOTE | 2017-10-02 15:28 | NUR ---
Spoke with Dr. Adeola Steven notified of Dr. Rebolledo's order for Bumex 1 mg, BID if OK with legislators. She said that it is OK there are follow-up labs ordered for Saturday. Order carried out.
[2017-10-02] MEDS: BUMETANIDE (1 MG) 1 MG TABLET PO SCH (17:48)
--- NOTE | 2017-10-02 18:49 | NUR ---
RT NOTE PATIENT DID NOT TOLERATE CASTING MACHINE CONTROL BOARD OPERATOR T/O SHIFT. SOB NOTED WHEN PLACED. PATIENT STABLE ON COOL AEROSOL.
[2017-10-02 20:02] VITALS: BP 149/73
[2017-10-02] MEDS: TINACTIN TP SCH (21:57)
[2017-10-02] MEDS: ATORVASTATIN 10 MG TABLET PO SCH (22:58)
[2017-10-03] MEDS: IPRATROPIUM NEB FS 0.5 MG/2.5 ML AMPUL.NEB NEB SCH ×4 (01:13→19:32)
[2017-10-03] MEDS: SUCRALFATE 1 G/10 ML UDC PO SCH ×3 (06:02→17:18)
[2017-10-03] MEDS: PANTOPRAZOLE 40 MG TABLET.DR PO SCH (06:02)
[2017-10-03] MEDS: BUMETANIDE (1 MG) 1 MG TABLET PO SCH ×2 (08:47→17:17)
[2017-10-03] MEDS: ASPIRIN 81 MG TAB.CHEW PO SCH (08:47)
[2017-10-03] MEDS: FLUTICASONE PROPIONATE 16 GM BOTTLE NS SCH ×2 (08:47→17:17)
[2017-10-03] MEDS: FLUDROCORTISONE 0.1 MG TABLET PO SCH (08:47)
[2017-10-03] MEDS: HYDROGEN PEROXIDE 480 ML BOTTLE TP SCH ×2 (08:48→21:00)
[2017-10-03] MEDS: ECONAZOLE NITRATE 15 GM TUBE TP SCH ×2 (08:48→21:00)
[2017-10-03] MEDS: Z GUARD REMEDY 4 OZ OINT TP SCH ×2 (08:48→21:00)
[2017-10-03] MEDS: CLOTRIMAZOLE 1% 15 GM TUBE TP SCH ×2 (08:48→17:18)
[2017-10-03] MEDS: MIDODRINE HCL (5MG) 5 MG TABLET PO SCH ×2 (08:48→17:00)
[2017-10-03] MEDS: TINACTIN TP SCH ×2 (09:00→21:00)
[2017-10-03 13:34] VITALS: BP 110/53
[2017-10-03 19:55] VITALS: BP 116/53
[2017-10-03] MEDS: ATORVASTATIN 10 MG TABLET PO SCH (22:19)
[2017-10-04] MEDS: SUCRALFATE 1 G/10 ML UDC PO SCH ×4 (00:33→18:03)
[2017-10-04] MEDS: IPRATROPIUM NEB FS 0.5 MG/2.5 ML AMPUL.NEB NEB SCH ×4 (02:01→18:59)
[2017-10-04] MEDS: PANTOPRAZOLE 40 MG TABLET.DR PO SCH (06:33)
[2017-10-04 07:20] VITALS: BP 138/61
--- NOTE | 2017-10-04 08:00 | NUR ---
Seen and examined by Chloe Sanchez NP for Dr. Lisa. new order given to start discharge planning with HH and DME's Patient teaching to be done with patient and family regarding trach care and suctioning. SSD aware. Patient will stay with her daughter upon discharge.
[2017-10-04] MEDS: ASPIRIN 81 MG TAB.CHEW PO SCH (08:36)
[2017-10-04] MEDS: BUMETANIDE (1 MG) 1 MG TABLET PO SCH ×2 (08:36→17:00)
[2017-10-04] MEDS: FLUDROCORTISONE 0.1 MG TABLET PO SCH (08:36)
[2017-10-04] MEDS: FLUTICASONE PROPIONATE 16 GM BOTTLE NS SCH ×2 (08:36→17:00)
[2017-10-04] MEDS: TINACTIN TP SCH ×2 (08:37→21:00)
[2017-10-04] MEDS: Z GUARD REMEDY 4 OZ OINT TP SCH ×2 (08:37→21:00)
[2017-10-04] MEDS: HYDROGEN PEROXIDE 480 ML BOTTLE TP SCH ×2 (08:37→21:00)
[2017-10-04] MEDS: ECONAZOLE NITRATE 15 GM TUBE TP SCH ×2 (08:37→21:00)
[2017-10-04] MEDS: CLOTRIMAZOLE 1% 15 GM TUBE TP SCH ×2 (08:37→17:00)
[2017-10-04] MEDS: MIDODRINE HCL (5MG) 5 MG TABLET PO SCH ×2 (08:37→17:00)
--- NOTE | 2017-10-04 09:59 | NUR ---
LENA obtained a list of needed items for the resident's discharge from charge nurse. LENA spoke to PT director Gosia informing her of this and she noted that she will see the resident today and will let the SW know if there are any additional items needed. SW will follow up.
--- NOTE | 2017-10-04 15:27 | NUR ---
Resident discharge from PT services and transferred care to [facility] for ambulation. Daughter visited and [facility] She was made aware that we will start patient teaching when ever she has time in preparation for discharge plan. She said that she has some errand to do and will do patient teaching tomorrow.
[2017-10-04 19:52] VITALS: BP 141/97
[2017-10-04] MEDS: ATORVASTATIN 10 MG TABLET PO SCH (22:02)
[2017-10-05] MEDS: SUCRALFATE 1 G/10 ML UDC PO SCH ×5 (00:22→23:07)
[2017-10-05] MEDS: IPRATROPIUM NEB FS 0.5 MG/2.5 ML AMPUL.NEB NEB SCH ×4 (01:20→20:16)
[2017-10-05] MEDS: PANTOPRAZOLE 40 MG TABLET.DR PO SCH (05:35)
[2017-10-05 07:20] VITALS: BP 138/65
[2017-10-05] MEDS: FLUDROCORTISONE 0.1 MG TABLET PO SCH (08:57)
[2017-10-05] MEDS: HYDROGEN PEROXIDE 480 ML BOTTLE TP SCH ×2 (08:57→21:00)
[2017-10-05] MEDS: TINACTIN TP SCH ×2 (08:57→21:00)
[2017-10-05] MEDS: MIDODRINE HCL (5MG) 5 MG TABLET PO SCH ×2 (08:57→17:00)
[2017-10-05] MEDS: ECONAZOLE NITRATE 15 GM TUBE TP SCH ×2 (08:57→21:00)
[2017-10-05] MEDS: CLOTRIMAZOLE 1% 15 GM TUBE TP SCH ×2 (08:57→17:00)
[2017-10-05] MEDS: Z GUARD REMEDY 4 OZ OINT TP SCH ×2 (08:57→21:00)
[2017-10-05] MEDS: FLUTICASONE PROPIONATE 16 GM BOTTLE NS SCH ×2 (08:57→17:00)
[2017-10-05] MEDS: ASPIRIN 81 MG TAB.CHEW PO SCH (08:57)
[2017-10-05] MEDS: BUMETANIDE (1 MG) 1 MG TABLET PO SCH ×2 (08:57→17:00)
[2017-10-05 19:31] VITALS: BP 105/61
[2017-10-05] MEDS: ATORVASTATIN 10 MG TABLET PO SCH (22:00)
[2017-10-06] MEDS: IPRATROPIUM NEB FS 0.5 MG/2.5 ML AMPUL.NEB NEB SCH ×4 (02:05→19:24)
[2017-10-06] MEDS: SUCRALFATE 1 G/10 ML UDC PO SCH ×3 (05:08→18:00)
[2017-10-06] MEDS: PANTOPRAZOLE 40 MG TABLET.DR PO SCH (05:08)
[2017-10-06 07:18] VITALS: BP 124/71
[2017-10-06] MEDS: MIDODRINE HCL (5MG) 5 MG TABLET PO SCH ×2 (09:00→18:00)
[2017-10-06] MEDS: FLUTICASONE PROPIONATE 16 GM BOTTLE NS SCH ×2 (09:15→17:59)
[2017-10-06] MEDS: ASPIRIN 81 MG TAB.CHEW PO SCH (09:15)
[2017-10-06] MEDS: FLUDROCORTISONE 0.1 MG TABLET PO SCH (09:15)
[2017-10-06] MEDS: BUMETANIDE (1 MG) 1 MG TABLET PO SCH ×2 (09:15→17:59)
[2017-10-06] MEDS: TINACTIN TP SCH ×2 (09:17→21:09)
[2017-10-06] MEDS: HYDROGEN PEROXIDE 480 ML BOTTLE TP SCH ×2 (09:17→21:09)
[2017-10-06] MEDS: CLOTRIMAZOLE 1% 15 GM TUBE TP SCH ×2 (09:18→17:00)
[2017-10-06] MEDS: Z GUARD REMEDY 4 OZ OINT TP SCH ×2 (09:18→21:09)
[2017-10-06] MEDS: ECONAZOLE NITRATE 15 GM TUBE TP SCH ×2 (09:19→21:09)
--- NOTE | 2017-10-06 13:20 | NUR ---
Patients' daughter came to visit, she requested to bring her mom out in the patio. Patient on wheel chair accompanied by her daughter went to patio. Kept on 02 via n/c., with portable 02 tank. Patient will be back in an hour.
--- NOTE | 2017-10-06 15:03 | NUR ---
Patient came back accompanied by her daughter.
--- NOTE | 2017-10-06 16:00 | NUR ---
Patients' daughter was given teachings on how to suction her mother when patient goes home. Return demonstration done on how to suction. Patients' daughter able to do it and verbalized not so bad.
[2017-10-06 19:56] VITALS: BP 138/61
[2017-10-06] MEDS: ATORVASTATIN 10 MG TABLET PO SCH (21:09)
[2017-10-07] MEDS: SUCRALFATE 1 G/10 ML UDC PO SCH ×4 (00:27→18:15)
[2017-10-07] MEDS: IPRATROPIUM NEB FS 0.5 MG/2.5 ML AMPUL.NEB NEB SCH ×4 (00:56→19:32)
[2017-10-07] MEDS: PANTOPRAZOLE 40 MG TABLET.DR PO SCH (06:08)
[2017-10-07 06:54] LABS: ALBUMIN 2.5 g/dL (3.4-5.0); BILIRUBIN,TOTAL 0.4 mg/dL (0.2-1.0); CALCIUM, SERUM 7.3 mg/dL (8.5-10.1); CREATININE 2.2 mg/dL (0.6-1.3); PHOSPHORUS 4.6 mg/dL (2.5-4.9); POTASSIUM 3.1 mmol/L (3.5-5.1); TOTAL PROTEIN, SERUM 5.9 g/dL (6.4-8.2)
[2017-10-07 08:47] VITALS: BP 127/74
[2017-10-07] MEDS: HYDROGEN PEROXIDE 480 ML BOTTLE TP SCH ×2 (09:00→21:32)
[2017-10-07] MEDS: Z GUARD REMEDY 4 OZ OINT TP SCH ×2 (09:00→21:33)
[2017-10-07] MEDS: MIDODRINE HCL (5MG) 5 MG TABLET PO SCH ×2 (09:00→17:00)
[2017-10-07] MEDS: TINACTIN TP SCH ×2 (09:00→21:32)
[2017-10-07] MEDS: ECONAZOLE NITRATE 15 GM TUBE TP SCH ×2 (09:00→21:33)
[2017-10-07] MEDS: CLOTRIMAZOLE 1% 15 GM TUBE TP SCH ×2 (09:00→17:00)
[2017-10-07] MEDS: FLUTICASONE PROPIONATE 16 GM BOTTLE NS SCH ×2 (09:42→17:00)
[2017-10-07] MEDS: BUMETANIDE (1 MG) 1 MG TABLET PO SCH (09:42)
[2017-10-07] MEDS: ASPIRIN 81 MG TAB.CHEW PO SCH (09:42)
[2017-10-07] MEDS: FLUDROCORTISONE 0.1 MG TABLET PO SCH (09:42)
--- NOTE | 2017-10-07 10:20 | NUR ---
Pt's potassium level 3.1. Received order to give Potassium Chloride 30 mEq po x 1 for hypokalemia. Notified pt.
[2017-10-07] MEDS ORDERED: POTASSIUM CHLORIDE 10 MEQ TABLET.SA PO ONE (10:30)
[2017-10-07] MEDS ORDERED: POTASSIUM CHLORIDE 20 MEQ POWDER PACKET PO ONE (12:30)
--- NOTE | 2017-10-07 13:00 | NUR ---
Notified Dr. Rebolledo of pt's lab results. Pt was given KCl 30 mEq po x 1 for hypokalemia. No further order.
--- NOTE | 2017-10-07 17:29 | NUR ---
Seen by Dr. Steven. Relayed lab results to her. Received order to decrease Bumex 1 mg from BID to daily. Notified pt.
--- NOTE | 2017-10-07 19:07 | NUR ---
Patient refused PASCUAL hoses/compression stocking DVT pump, risk vs benefits explained verbalized understanding and still refused. RN fiberline supervisor notified.
[2017-10-07 20:30] VITALS: BP 124/56
[2017-10-07] MEDS: ATORVASTATIN 10 MG TABLET PO SCH (21:33)
[2017-10-08] MEDS: SUCRALFATE 1 G/10 ML UDC PO SCH ×4 (00:37→18:29)
[2017-10-08] MEDS: IPRATROPIUM NEB FS 0.5 MG/2.5 ML AMPUL.NEB NEB SCH ×4 (01:42→19:29)
[2017-10-08] MEDS: PANTOPRAZOLE 40 MG TABLET.DR PO SCH (05:57)
[2017-10-08 08:08] VITALS: BP 125/68
[2017-10-08] MEDS: MIDODRINE HCL (5MG) 5 MG TABLET PO SCH ×2 (09:00→17:45)
[2017-10-08] MEDS: FLUDROCORTISONE 0.1 MG TABLET PO SCH (09:15)
[2017-10-08] MEDS: BUMETANIDE (1 MG) 1 MG TABLET PO SCH (09:15)
[2017-10-08] MEDS: FLUTICASONE PROPIONATE 16 GM BOTTLE NS SCH ×2 (09:15→17:45)
[2017-10-08] MEDS: ASPIRIN 81 MG TAB.CHEW PO SCH (09:15)
[2017-10-08] MEDS: HYDROGEN PEROXIDE 480 ML BOTTLE TP SCH ×2 (09:17→21:00)
[2017-10-08] MEDS: Z GUARD REMEDY 4 OZ OINT TP SCH ×2 (09:17→21:00)
[2017-10-08] MEDS: CLOTRIMAZOLE 1% 15 GM TUBE TP SCH (09:17)
[2017-10-08] MEDS: ECONAZOLE NITRATE 15 GM TUBE TP SCH ×2 (09:17→21:00)
[2017-10-08] MEDS: TINACTIN TP SCH ×2 (09:17→20:59)
--- NOTE | 2017-10-08 10:25 | NUR ---
LENA called Debbie from [facility] (cell: [phone] fax:[phone]) and informed her that the resident will be discharging soon and is in need of DME. Debbie noted that she can fulfill order if resident is going home with O2, as resident's discharge location is in [place], [place] and that it is some distance from their office ([address] [place] [address]). Debbie asked the SW to fax her the order sheet of what the resident will need and will get back to the SW. LENA called resident's daughter Keyonna ([phone]) but she did not answer and SW left her a voice message stating that SW will begin planning for discharge and arranging DME that the resident needs. SW will follow up.
--- NOTE | 2017-10-08 10:59 | NUR ---
LENA called [facility] ([address], [address], [place]-[phone]) and spoke with Susan. LENA informed her that the resident will be discharging home soon to [address] [place] [address] and will be needing home health with PT and medication management. LENA faxed referral to [phone]. LENA will follow up.
--- NOTE | 2017-10-08 14:00 | NUR ---
Seen by Dr. Lisa. Notified him that pt's trach tube has not been changed since pt was admitted in Subacute. No ENT has seen pt and several calls were made to Dr. Monroy to change the trach tube. RTs are not comfortable changing the pt's trach. Dr. Lisa said it would have followed up when pt gets discharged. Discharge planning is currently being done for pt. Pt said she plans to go home in 2 weeks.
[2017-10-08 20:18] VITALS: BP 127/70
[2017-10-08] MEDS: ATORVASTATIN 10 MG TABLET PO SCH (21:00)
[2017-10-09] MEDS: SUCRALFATE 1 G/10 ML UDC PO SCH ×5 (00:01→23:27)
[2017-10-09] MEDS: IPRATROPIUM NEB FS 0.5 MG/2.5 ML AMPUL.NEB NEB SCH ×4 (02:28→19:48)
[2017-10-09] MEDS: PANTOPRAZOLE 40 MG TABLET.DR PO SCH (05:59)
[2017-10-09 07:48] VITALS: BP 139/59
[2017-10-09] MEDS: MIDODRINE HCL (5MG) 5 MG TABLET PO SCH ×2 (09:00→16:09)
[2017-10-09] MEDS: TINACTIN TP SCH ×2 (09:00→21:19)
[2017-10-09] MEDS: HYDROGEN PEROXIDE 480 ML BOTTLE TP SCH ×2 (09:00→21:19)
[2017-10-09] MEDS: Z GUARD REMEDY 4 OZ OINT TP SCH ×2 (09:00→21:19)
[2017-10-09] MEDS: ECONAZOLE NITRATE 15 GM TUBE TP SCH ×2 (09:00→21:19)
[2017-10-09] MEDS: FLUTICASONE PROPIONATE 16 GM BOTTLE NS SCH ×2 (09:11→16:09)
[2017-10-09] MEDS: BUMETANIDE (1 MG) 1 MG TABLET PO SCH (09:11)
[2017-10-09] MEDS: ASPIRIN 81 MG TAB.CHEW PO SCH (09:11)
[2017-10-09] MEDS: FLUDROCORTISONE 0.1 MG TABLET PO SCH (09:11)
--- NOTE | 2017-10-09 10:05 | NUR ---
Resident received a haircut by tina Mejia.
--- NOTE | 2017-10-09 11:42 | NUR ---
SW called office of Dr. Monroy-thoracic surgery ( [address] [facility] [address] [place] [address] ) and spoke with Kristy. LENA asked if Dr. Monroy can come to the hospital in order to have trach change and Kristy passed telephone to PA of Dr. Eliana Rainey. SW explained to her that resident has not been able to have her trach changed and her anatomy makes it difficult to have it changed by the RT's. LENA explained that it took two ENT's to have the trach placed when resident was in the ER three months ago. Savi noted that they would have to come and assess to see if it is able to be done at the bedside or if it needs to be done in the OR. Savi Rainey also spoke to charge nurse and informed her of this.
--- NOTE | 2017-10-09 14:33 | NUR ---
LENA spoke with paola Newby and informed her of upcoming IDT meeting on October 11, 2017 from 12:30-1:30PM. She stated that she would not be able to attend but would try to have her come.
--- NOTE | 2017-10-09 17:27 | NUR ---
RT NOTE PATIENT TOLERATED ANGER CONTROL COUNSELOR FOR 2 HOURS WITH NO SOB NOTED. PLACED ANGER CONTROL COUNSELOR @ [phone]. PATIENT STABLE DURING TRIAL.
[2017-10-09 19:59] VITALS: BP 101/65
[2017-10-09] MEDS: ATORVASTATIN 10 MG TABLET PO SCH (21:19)
[2017-10-10] MEDS: IPRATROPIUM NEB FS 0.5 MG/2.5 ML AMPUL.NEB NEB SCH ×5 (01:41→20:58)
[2017-10-10] MEDS: SUCRALFATE 1 G/10 ML UDC PO SCH ×4 (05:41→23:18)
[2017-10-10] MEDS: PANTOPRAZOLE 40 MG TABLET.DR PO SCH (05:41)
[2017-10-10 07:53] VITALS: BP 136/68
--- NOTE | 2017-10-10 08:16 | NUR ---
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 PER MD ORDER. PT CHANTAL WELL AT THIS TIME. SPO2: 100%. WILL CONTINUE TO MONITOR PT.
[2017-10-10] MEDS: MIDODRINE HCL (5MG) 5 MG TABLET PO SCH ×2 (09:00→17:00)
[2017-10-10] MEDS: ASPIRIN 81 MG TAB.CHEW PO SCH (09:14)
[2017-10-10] MEDS: FLUTICASONE PROPIONATE 16 GM BOTTLE NS SCH ×2 (09:14→17:06)
[2017-10-10] MEDS: BUMETANIDE (1 MG) 1 MG TABLET PO SCH (09:14)
[2017-10-10] MEDS: FLUDROCORTISONE 0.1 MG TABLET PO SCH (09:14)
[2017-10-10] MEDS: ECONAZOLE NITRATE 15 GM TUBE TP SCH ×2 (09:15→21:54)
[2017-10-10] MEDS: HYDROGEN PEROXIDE 480 ML BOTTLE TP SCH ×2 (09:15→21:54)
[2017-10-10] MEDS: TINACTIN TP SCH ×2 (09:15→21:54)
[2017-10-10] MEDS: Z GUARD REMEDY 4 OZ OINT TP SCH ×2 (09:15→21:54)
--- NOTE | 2017-10-10 12:32 | NUR ---
seen by Chloe Sanchez NP. NNO given.
[2017-10-10 19:33] VITALS: BP 126/54
[2017-10-10] MEDS: ATORVASTATIN 10 MG TABLET PO SCH (21:54)
[2017-10-11] MEDS: IPRATROPIUM NEB FS 0.5 MG/2.5 ML AMPUL.NEB NEB SCH ×4 (01:10→19:26)
[2017-10-11] MEDS: SUCRALFATE 1 G/10 ML UDC PO SCH ×4 (06:20→23:54)
[2017-10-11] MEDS: PANTOPRAZOLE 40 MG TABLET.DR PO SCH (06:20)
[2017-10-11 07:28] VITALS: BP 126/61
[2017-10-11] MEDS: ASPIRIN 81 MG TAB.CHEW PO SCH (08:48)
[2017-10-11] MEDS: FLUTICASONE PROPIONATE 16 GM BOTTLE NS SCH ×2 (08:48→16:45)
[2017-10-11] MEDS: FLUDROCORTISONE 0.1 MG TABLET PO SCH (08:48)
[2017-10-11] MEDS: BUMETANIDE (1 MG) 1 MG TABLET PO SCH (08:48)
[2017-10-11] MEDS: Z GUARD REMEDY 4 OZ OINT TP SCH ×2 (08:49→21:55)
[2017-10-11] MEDS: HYDROGEN PEROXIDE 480 ML BOTTLE TP SCH ×2 (08:49→21:55)
[2017-10-11] MEDS: MIDODRINE HCL (5MG) 5 MG TABLET PO SCH ×2 (08:49→16:45)
[2017-10-11] MEDS: ECONAZOLE NITRATE 15 GM TUBE TP SCH ×2 (08:49→21:55)
[2017-10-11] MEDS: TINACTIN TP SCH ×2 (08:49→21:55)
--- NOTE | 2017-10-11 14:30 | NUR ---
INTERDISCIPLINARY PLAN OF CARE CONFERENCE was held today. Patient attended IDT meeting. Dr. Lisa and the interdisciplinary team discussed the current plan of care in detail. Current orders as well as treatments and medications were reviewed. Resident said that she can tolerate trach capping at the most 4 hours due to increase secretions and coughing. New order given for Musinex, Singulair and Astelin nasal spray. Orders carried out.
[2017-10-11] MEDS ORDERED: GUAIFENESIN 300 MG/15 ML UDC GT SCH (17:00)
[2017-10-11] MEDS: GUAIFENESIN LA 600 MG TABLET.SA PO SCH (19:07)
[2017-10-11 19:26] VITALS: BP 142/57
[2017-10-11] MEDS: AZELASTINE NASAL SPRAY 30 ML BOTTLE NS SCH (22:05)
[2017-10-11] MEDS: MONTELUKAST SODIUM (10MG) 10 MG TABLET PO SCH (22:05)
[2017-10-11] MEDS: ATORVASTATIN 10 MG TABLET PO SCH (22:05)
[2017-10-12] MEDS: IPRATROPIUM NEB FS 0.5 MG/2.5 ML AMPUL.NEB NEB SCH ×4 (01:45→19:18)
[2017-10-12] MEDS: PANTOPRAZOLE 40 MG TABLET.DR PO SCH (05:30)
[2017-10-12] MEDS: SUCRALFATE 1 G/10 ML UDC PO SCH ×3 (05:30→17:16)
[2017-10-12 07:30] VITALS: BP 119/61
[2017-10-12] MEDS: BUMETANIDE (1 MG) 1 MG TABLET PO SCH (08:01)
[2017-10-12] MEDS: FLUTICASONE PROPIONATE 16 GM BOTTLE NS SCH ×2 (08:01→16:32)
[2017-10-12] MEDS: FLUDROCORTISONE 0.1 MG TABLET PO SCH (08:01)
[2017-10-12] MEDS: ASPIRIN 81 MG TAB.CHEW PO SCH (08:01)
[2017-10-12] MEDS: MIDODRINE HCL (5MG) 5 MG TABLET PO SCH ×2 (08:02→16:32)
[2017-10-12] MEDS: ECONAZOLE NITRATE 15 GM TUBE TP SCH ×2 (09:00→21:00)
[2017-10-12] MEDS: Z GUARD REMEDY 4 OZ OINT TP SCH ×2 (09:00→21:00)
[2017-10-12] MEDS: HYDROGEN PEROXIDE 480 ML BOTTLE TP SCH ×2 (09:00→21:00)
[2017-10-12] MEDS: GUAIFENESIN LA 600 MG TABLET.SA PO SCH ×2 (09:00→16:33)
[2017-10-12] MEDS: TINACTIN TP SCH ×2 (09:00→21:00)
--- NOTE | 2017-10-12 13:22 | NUR ---
Seen by Chloe Sanchez NP for Dr. Maria L willingham.
--- NOTE | 2017-10-12 17:00 | NUR ---
Reported by ESE TEACHER that patient refused to take her Musinex because it is too big for her to swallow. Endorsed to notify Chloe Sanchez in AM for substitute.
[2017-10-12 20:14] VITALS: BP 129/60
[2017-10-12] MEDS: MONTELUKAST SODIUM (10MG) 10 MG TABLET PO SCH (22:00)
[2017-10-12] MEDS: AZELASTINE NASAL SPRAY 30 ML BOTTLE NS SCH (22:45)
[2017-10-12] MEDS: ATORVASTATIN 10 MG TABLET PO SCH (22:45)
[2017-10-13] MEDS: SUCRALFATE 1 G/10 ML UDC PO SCH ×4 (00:07→17:46)
[2017-10-13] MEDS: IPRATROPIUM NEB FS 0.5 MG/2.5 ML AMPUL.NEB NEB SCH ×4 (01:33→19:38)
[2017-10-13] MEDS: PANTOPRAZOLE 40 MG TABLET.DR PO SCH (06:46)
[2017-10-13 07:25] VITALS: BP 143/56
[2017-10-13] MEDS: ECONAZOLE NITRATE 15 GM TUBE TP SCH ×2 (09:00→21:34)
[2017-10-13] MEDS: GUAIFENESIN LA 600 MG TABLET.SA PO SCH (09:00)
[2017-10-13] MEDS: MIDODRINE HCL (5MG) 5 MG TABLET PO SCH ×2 (09:00→17:46)
[2017-10-13] MEDS: Z GUARD REMEDY 4 OZ OINT TP SCH ×2 (09:00→21:34)
[2017-10-13] MEDS: HYDROGEN PEROXIDE 480 ML BOTTLE TP SCH ×2 (09:00→21:34)
[2017-10-13] MEDS: TINACTIN TP SCH ×2 (09:00→21:34)
[2017-10-13] MEDS: ASPIRIN 81 MG TAB.CHEW PO SCH (09:39)
[2017-10-13] MEDS: FLUTICASONE PROPIONATE 16 GM BOTTLE NS SCH ×2 (09:39→17:46)
[2017-10-13] MEDS: FLUDROCORTISONE 0.1 MG TABLET PO SCH (09:39)
[2017-10-13] MEDS: BUMETANIDE (1 MG) 1 MG TABLET PO SCH (09:39)
--- NOTE | 2017-10-13 09:54 | NUR ---
SALINAS Corona seen the pt and ordered to d/c mucinex 600mg via po as per pt request and start mucomyst 20% via nebulizer bid x 7days and pt feels numbness on fingers,SALINAS corona examined the pt and take vital signs.BP- 137/63,HR-79,T-98.9,R-18.Ordered stat CBC,CMP.New orders noted and carried out.
[2017-10-13 11:23] LABS: BASOPHILS % (AUTO) 0.3 % (0.0-2.0); EOSINOPHILS % (AUTO) 3.6 % (0.0-6.0); HEMATOCRIT 26 % (33-45); HEMOGLOBIN 8.5 g/dL (11.5-14.8); LYMPHOCYTES # (AUTO) 1.4 /CMM (0.8-4.8); LYMPHOCYTES % (AUTO) 25.2 % (20.0-44.0); MEAN CORPUSCULAR HEMOGLOBIN 29 PG (26.0-33.0); MEAN CORPUSCULAR HGB CONC 32 g/dl (31.0-36.0); MEAN CORPUSCULAR VOLUME 91 fL (82-100); MONOCYTES # (AUTO) 0.6 /CMM (0.1-1.30); MONOCYTES % (AUTO) 11.1 % (2.0-12.0); NEUTROPHILS # (AUTO) 3.3 /CMM (1.8-8.9); NEUTROPHILS % (AUTO) 59.8 % (43.0-81.0); PLATELET COUNT (AUTO) 212 /CMM (150-450); RDW COEFFICIENT OF VARIATION 16.2 (11.5-15.0); RED BLOOD CELL COUNT(AUTO) 2.89 MIL/uL (4.0-5.2); WHITE BLOOD COUNT (AUTO) 5.5 K/uL (4.3-11.0)
[2017-10-13] MEDS ORDERED: ACETYLCYSTEINE 20% ORAL SOLN 6,000 MG/30 ML VIAL PO SCH (11:30)
[2017-10-13 11:36] LABS: ALBUMIN 2.7 g/dL (3.4-5.0); BILIRUBIN,TOTAL 0.3 mg/dL (0.2-1.0); CALCIUM, SERUM 7.9 mg/dL (8.5-10.1); CREATININE 1.9 mg/dL (0.6-1.3); POTASSIUM 3.8 mmol/L (3.5-5.1); TOTAL PROTEIN, SERUM 6.2 g/dL (6.4-8.2)
[2017-10-13] MEDS: ACETYLCYSTEINE 20% ORAL SOLN 6,000 MG/30 ML VIAL INH SCH (12:48)
[2017-10-13 13:28] LABS: FERRITIN 216 ng/mL (8-388)
[2017-10-13 13:42] LABS: IRON, SERUM 32 ug/dl (50-175); TOTAL IRON BINDING CAPACITY 217 ug/dl (250-450)
--- NOTE | 2017-10-13 15:59 | NUR ---
SALINAS salinas ordered stat iron panel and after informed the lab results,no new orders noted.
--- NOTE | 2017-10-13 18:43 | NUR ---
Vitamin B12 (163 PG/ML)informed to SALINAS Corona,ordered vitamin B12 1000mcg IM X1 now and 1000mcg SL daily.New orders noted and carried out.
[2017-10-13] MEDS ORDERED: CYANOCOBALAMIN 1,000 MCG/ML VIAL IM ONE (19:00)
[2017-10-13 20:25] VITALS: BP 126/57
[2017-10-13] MEDS: ATORVASTATIN 10 MG TABLET PO SCH (21:35)
[2017-10-13] MEDS: MONTELUKAST SODIUM (10MG) 10 MG TABLET PO SCH (21:35)
[2017-10-13] MEDS: AZELASTINE NASAL SPRAY 30 ML BOTTLE NS SCH (21:35)
[2017-10-14] MEDS: SUCRALFATE 1 G/10 ML UDC PO SCH ×5 (00:09→23:45)
[2017-10-14] MEDS: ACETYLCYSTEINE 20% ORAL SOLN 6,000 MG/30 ML VIAL INH SCH ×2 (00:48→12:48)
[2017-10-14] MEDS: IPRATROPIUM NEB FS 0.5 MG/2.5 ML AMPUL.NEB NEB SCH ×4 (01:46→19:35)
[2017-10-14] MEDS: PANTOPRAZOLE 40 MG TABLET.DR PO SCH (06:29)
[2017-10-14 07:37] LABS: CALCIUM, SERUM 7.7 mg/dL (8.5-10.1); POTASSIUM 3.7 mmol/L (3.5-5.1)
[2017-10-14 07:52] LABS: MAGNESIUM 0.9 mg/dL (1.8-2.4)
--- NOTE | 2017-10-14 08:00 | NUR ---
Relayed Mg 0.[address] Rebolledo. Received order to give Magnesium sulfate 4 mg IV x 1. Notified pt.
[2017-10-14 08:05] VITALS: BP 124/64
[2017-10-14] MEDS: FLUTICASONE PROPIONATE 16 GM BOTTLE NS SCH ×2 (08:27→17:00)
[2017-10-14] MEDS: FLUDROCORTISONE 0.1 MG TABLET PO SCH (08:27)
[2017-10-14] MEDS: BUMETANIDE (1 MG) 1 MG TABLET PO SCH (08:27)
[2017-10-14] MEDS: MIDODRINE HCL (5MG) 5 MG TABLET PO SCH ×2 (08:27→17:00)
[2017-10-14] MEDS: ASPIRIN 81 MG TAB.CHEW PO SCH (08:27)
[2017-10-14] MEDS: TINACTIN TP SCH ×2 (08:28→21:37)
[2017-10-14] MEDS: HYDROGEN PEROXIDE 480 ML BOTTLE TP SCH ×2 (09:00→21:37)
[2017-10-14] MEDS: Magnesium 1GM/D5W 100ML PREMIX 100 ML IV SCH ×4 (09:00→12:00)
[2017-10-14] MEDS: ECONAZOLE NITRATE 15 GM TUBE TP SCH ×2 (09:00→21:37)
[2017-10-14] MEDS: Z GUARD REMEDY 4 OZ OINT TP SCH ×2 (09:00→21:37)
[2017-10-14] MEDS: CYANOCOBALAMIN 500 MCG TABLET PO SCH (11:04)
[2017-10-14 20:22] VITALS: BP 128/51
[2017-10-14] MEDS: MONTELUKAST SODIUM (10MG) 10 MG TABLET PO SCH (21:38)
[2017-10-14] MEDS: AZELASTINE NASAL SPRAY 30 ML BOTTLE NS SCH (21:38)
[2017-10-14] MEDS: ATORVASTATIN 10 MG TABLET PO SCH (21:38)
[2017-10-15] MEDS: ACETYLCYSTEINE 20% ORAL SOLN 6,000 MG/30 ML VIAL INH SCH ×2 (01:21→13:10)
[2017-10-15] MEDS: IPRATROPIUM NEB FS 0.5 MG/2.5 ML AMPUL.NEB NEB SCH ×4 (01:21→19:30)
[2017-10-15] MEDS: SUCRALFATE 1 G/10 ML UDC PO SCH ×4 (05:55→23:43)
[2017-10-15] MEDS: PANTOPRAZOLE 40 MG TABLET.DR PO SCH (05:55)
[2017-10-15 08:11] VITALS: BP 112/52
[2017-10-15] MEDS: FLUTICASONE PROPIONATE 16 GM BOTTLE NS SCH ×2 (08:35→17:41)
[2017-10-15] MEDS: ASPIRIN 81 MG TAB.CHEW PO SCH (08:35)
[2017-10-15] MEDS: CYANOCOBALAMIN 500 MCG TABLET PO SCH (08:36)
[2017-10-15] MEDS: BUMETANIDE (1 MG) 1 MG TABLET PO SCH (08:36)
[2017-10-15] MEDS: FLUDROCORTISONE 0.1 MG TABLET PO SCH (08:36)
[2017-10-15] MEDS: MIDODRINE HCL (5MG) 5 MG TABLET PO SCH ×2 (08:36→17:42)
[2017-10-15] MEDS: Z GUARD REMEDY 4 OZ OINT TP SCH ×2 (08:36→21:11)
[2017-10-15] MEDS: HYDROGEN PEROXIDE 480 ML BOTTLE TP SCH ×2 (08:36→21:11)
[2017-10-15] MEDS: TINACTIN TP SCH ×2 (08:36→21:11)
[2017-10-15] MEDS: ECONAZOLE NITRATE 15 GM TUBE TP SCH ×2 (08:36→21:11)
--- NOTE | 2017-10-15 10:20 | NUR ---
LENA called office of Dr. Monroy-thoracic surgery ( [address] [facility] [address] [place] [address] ) and spoke with Kristy. Lena informed Kristy that SYLVIE Rainey still hasn't come to evaluate the resident for trach change. Informed her that Savi spoke to charge nurse on 10/09/2017 and the plan was for her to come to the unit and see the resident however, she has not yet come. Kristy noted that she will pass the message to Savi and Savi will call the SW. Charge nurse informed.
--- NOTE | 2017-10-15 13:57 | NUR ---
Resident will need nebulizer for breathing treatments, as she is currently receiving the treatments and per Dr. Lisa last week, resident will go home with them. LENA asked charge nurse to verify if the resident will go home with them and noted that she needs an order so she can send the request to medical supplier. LENA called [facility] [employer] [address] [place] [address] FAX: [phone] and spoke with Ashley. She noted they are able to fill request for nebulizer and supplies but needs the order. LENA informed the charge nurse who stated that she will verify with the doctor.
--- NOTE | 2017-10-15 16:20 | NUR ---
RT NOTE PATIENT TOLERATED SUPERVISOR CAR AND YARD WELL FOR 2 HOURS FROM [phone]. PATIENT PLACED BACK ON AEROSOL. NO SOB NOTED. MONITORED CLOSELY.
--- NOTE | 2017-10-15 18:44 | NUR ---
Pt's daughter Beba at bedside. Demonstration and instruction given on tracheostomy care. Pt's daughter able to return demonstrate procedure, verbalized understanding.
[2017-10-15 20:33] VITALS: BP 137/58
[2017-10-15] MEDS: ATORVASTATIN 10 MG TABLET PO SCH (21:11)
[2017-10-15] MEDS: AZELASTINE NASAL SPRAY 30 ML BOTTLE NS SCH (21:11)
[2017-10-15] MEDS: MONTELUKAST SODIUM (10MG) 10 MG TABLET PO SCH (21:11)
[2017-10-16] MEDS: IPRATROPIUM NEB FS 0.5 MG/2.5 ML AMPUL.NEB NEB SCH ×4 (01:30→20:02)
[2017-10-16] MEDS: SUCRALFATE 1 G/10 ML UDC PO SCH ×4 (05:44→23:43)
[2017-10-16] MEDS: PANTOPRAZOLE 40 MG TABLET.DR PO SCH (05:44)
[2017-10-16 07:54] VITALS: BP 140/60
[2017-10-16] MEDS: FLUTICASONE PROPIONATE 16 GM BOTTLE NS SCH ×2 (08:09→17:39)
[2017-10-16] MEDS: BUMETANIDE (1 MG) 1 MG TABLET PO SCH (08:10)
[2017-10-16] MEDS: ASPIRIN 81 MG TAB.CHEW PO SCH (08:10)
[2017-10-16] MEDS: MIDODRINE HCL (5MG) 5 MG TABLET PO SCH ×2 (08:10→17:00)
[2017-10-16] MEDS: FLUDROCORTISONE 0.1 MG TABLET PO SCH (08:10)
[2017-10-16] MEDS: CYANOCOBALAMIN 500 MCG TABLET PO SCH (08:11)
[2017-10-16] MEDS: TINACTIN TP SCH ×2 (11:00→21:07)
[2017-10-16] MEDS: HYDROGEN PEROXIDE 480 ML BOTTLE TP SCH ×2 (11:00→21:07)
[2017-10-16] MEDS: Z GUARD REMEDY 4 OZ OINT TP SCH ×2 (11:00→21:07)
[2017-10-16] MEDS: ECONAZOLE NITRATE 15 GM TUBE TP SCH ×2 (11:00→21:08)
[2017-10-16] MEDS: ACETYLCYSTEINE 20% ORAL SOLN 6,000 MG/30 ML VIAL INH SCH (12:48)
--- NOTE | 2017-10-16 14:50 | NUR ---
DR. MARCH INFORMED PT OF THE PROCEDURE. PT IS AWAKE AND ALERT. CONSENT GIVEN. DR. MARCH CHANGED THE TRACH FROM A SHILEY #6 XLT PROXIMAL CUFFED TRACH TO A SHILEY #6 XLT DISTAL CUFFED TRACH. MINIMAL BLEEDING OCCURRED DURING CHANGE. SATURATION NEVER FELL BELOW 96%. PT HAS A PRODUCTIVE COUGH. B/S BILAT. EQUAL AND CLEAR. CUFF DEFLATED, PT IS ON 28% COOL AEROSOL AT 5LPM. NO RESP. DISTRESS NOTED. Addendum: 10/16/17 at 1456 by RICKEY DUPREE RT Amended: Links added.
[2017-10-16] MEDS: MONTELUKAST SODIUM (10MG) 10 MG TABLET PO SCH (21:08)
[2017-10-16] MEDS: ATORVASTATIN 10 MG TABLET PO SCH (21:08)
[2017-10-16] MEDS: AZELASTINE NASAL SPRAY 30 ML BOTTLE NS SCH (21:08)
[2017-10-16 21:28] VITALS: BP 124/52
[2017-10-17] MEDS: ACETYLCYSTEINE 20% ORAL SOLN 6,000 MG/30 ML VIAL INH SCH ×2 (01:45→12:48)
[2017-10-17] MEDS: IPRATROPIUM NEB FS 0.5 MG/2.5 ML AMPUL.NEB NEB SCH ×4 (01:45→19:57)
[2017-10-17] MEDS: PANTOPRAZOLE 40 MG TABLET.DR PO SCH (06:06)
[2017-10-17] MEDS: SUCRALFATE 1 G/10 ML UDC PO SCH ×4 (06:06→23:27)
[2017-10-17 07:52] VITALS: BP 110/75
--- NOTE | 2017-10-17 08:45 | NUR ---
PT REFUSED CELL INSPECTOR AT THIS TIME, PT RETURNED FROM ACTIVITY ROOM. PT PREFERS TO STAY ON COOL AEROSOL AT THIS TIME. WILL CONTINUE TO MONITOR PT.
[2017-10-17] MEDS: CYANOCOBALAMIN 500 MCG TABLET PO SCH (09:00)
[2017-10-17] MEDS: FLUDROCORTISONE 0.1 MG TABLET PO SCH (09:04)
[2017-10-17] MEDS: FLUTICASONE PROPIONATE 16 GM BOTTLE NS SCH ×2 (09:04→17:00)
[2017-10-17] MEDS: Z GUARD REMEDY 4 OZ OINT TP SCH ×2 (09:04→21:23)
[2017-10-17] MEDS: ECONAZOLE NITRATE 15 GM TUBE TP SCH ×2 (09:04→21:23)
[2017-10-17] MEDS: TINACTIN TP SCH ×2 (09:04→21:23)
[2017-10-17] MEDS: HYDROGEN PEROXIDE 480 ML BOTTLE TP SCH ×2 (09:04→21:23)
[2017-10-17] MEDS: BUMETANIDE (1 MG) 1 MG TABLET PO SCH (09:04)
[2017-10-17] MEDS: ASPIRIN 81 MG TAB.CHEW PO SCH (09:04)
[2017-10-17] MEDS: MIDODRINE HCL (5MG) 5 MG TABLET PO SCH (09:04)
[2017-10-17] MEDS: AZELASTINE NASAL SPRAY 30 ML BOTTLE NS SCH (21:24)
[2017-10-17 21:38] VITALS: BP 119/57
[2017-10-17] MEDS: ATORVASTATIN 10 MG TABLET PO SCH (22:02)
[2017-10-17] MEDS: MONTELUKAST SODIUM (10MG) 10 MG TABLET PO SCH (22:02)
[2017-10-18] MEDS: ACETYLCYSTEINE 20% ORAL SOLN 6,000 MG/30 ML VIAL INH SCH ×2 (01:36→13:09)
[2017-10-18] MEDS: IPRATROPIUM NEB FS 0.5 MG/2.5 ML AMPUL.NEB NEB SCH ×4 (01:36→19:10)
[2017-10-18] MEDS: SUCRALFATE 1 G/10 ML UDC PO SCH ×4 (05:27→23:14)
[2017-10-18] MEDS: PANTOPRAZOLE 40 MG TABLET.DR PO SCH (05:27)
[2017-10-18 08:00] VITALS: BP 118/50
[2017-10-18] MEDS: FLUTICASONE PROPIONATE 16 GM BOTTLE NS SCH ×2 (09:00→17:00)
[2017-10-18] MEDS: CYANOCOBALAMIN 500 MCG TABLET PO SCH (09:00)
[2017-10-18] MEDS: TINACTIN TP SCH ×2 (09:00→21:26)
[2017-10-18] MEDS: ASPIRIN 81 MG TAB.CHEW PO SCH (09:00)
[2017-10-18] MEDS: Z GUARD REMEDY 4 OZ OINT TP SCH ×2 (09:00→21:26)
[2017-10-18] MEDS: BUMETANIDE (1 MG) 1 MG TABLET PO SCH (09:00)
[2017-10-18] MEDS: FLUDROCORTISONE 0.1 MG TABLET PO SCH (09:00)
[2017-10-18] MEDS: HYDROGEN PEROXIDE 480 ML BOTTLE TP SCH ×2 (09:00→21:26)
[2017-10-18] MEDS: MIDODRINE HCL 2.5 MG TABLET PO SCH ×2 (09:00→17:00)
[2017-10-18] MEDS: ECONAZOLE NITRATE 15 GM TUBE TP SCH ×2 (09:00→21:28)
[2017-10-18] MEDS: ATORVASTATIN 10 MG TABLET PO SCH (21:28)
[2017-10-18] MEDS: AZELASTINE NASAL SPRAY 30 ML BOTTLE NS SCH (21:28)
[2017-10-18] MEDS: MONTELUKAST SODIUM (10MG) 10 MG TABLET PO SCH (21:28)
[2017-10-18 22:05] VITALS: BP 105/71
[2017-10-19] MEDS: IPRATROPIUM NEB FS 0.5 MG/2.5 ML AMPUL.NEB NEB SCH ×4 (00:52→18:59)
[2017-10-19] MEDS: ACETYLCYSTEINE 20% ORAL SOLN 6,000 MG/30 ML VIAL INH SCH ×2 (00:52→14:13)
[2017-10-19] MEDS: PANTOPRAZOLE 40 MG TABLET.DR PO SCH (05:41)
[2017-10-19] MEDS: SUCRALFATE 1 G/10 ML UDC PO SCH ×3 (05:41→17:27)
[2017-10-19 07:43] VITALS: BP 132/51
[2017-10-19] MEDS: MIDODRINE HCL 2.5 MG TABLET PO SCH ×2 (09:00→17:00)
[2017-10-19] MEDS: BUMETANIDE (1 MG) 1 MG TABLET PO SCH (09:25)
[2017-10-19] MEDS: ASPIRIN 81 MG TAB.CHEW PO SCH (09:25)
[2017-10-19] MEDS: HYDROGEN PEROXIDE 480 ML BOTTLE TP SCH ×2 (09:25→21:57)
[2017-10-19] MEDS: TINACTIN TP SCH ×2 (09:25→21:57)
[2017-10-19] MEDS: FLUTICASONE PROPIONATE 16 GM BOTTLE NS SCH ×2 (09:25→17:27)
[2017-10-19] MEDS: ECONAZOLE NITRATE 15 GM TUBE TP SCH ×2 (09:25→21:58)
[2017-10-19] MEDS: FLUDROCORTISONE 0.1 MG TABLET PO SCH (09:25)
[2017-10-19] MEDS: CYANOCOBALAMIN 500 MCG TABLET PO SCH (09:25)
[2017-10-19] MEDS: Z GUARD REMEDY 4 OZ OINT TP SCH ×2 (09:25→21:57)
[2017-10-19 19:49] VITALS: BP 120/53
[2017-10-19] MEDS: ATORVASTATIN 10 MG TABLET PO SCH (21:58)
[2017-10-19] MEDS: AZELASTINE NASAL SPRAY 30 ML BOTTLE NS SCH (21:58)
[2017-10-19] MEDS: MONTELUKAST SODIUM (10MG) 10 MG TABLET PO SCH (21:58)
[2017-10-20] MEDS: SUCRALFATE 1 G/10 ML UDC PO SCH ×4 (00:29→17:21)
[2017-10-20] MEDS: IPRATROPIUM NEB FS 0.5 MG/2.5 ML AMPUL.NEB NEB SCH ×4 (01:33→19:25)
[2017-10-20] MEDS: PANTOPRAZOLE 40 MG TABLET.DR PO SCH (05:24)
[2017-10-20 07:28] VITALS: BP 141/67
[2017-10-20] MEDS: ASPIRIN 81 MG TAB.CHEW PO SCH (08:31)
[2017-10-20] MEDS: FLUTICASONE PROPIONATE 16 GM BOTTLE NS SCH ×2 (08:31→17:21)
[2017-10-20] MEDS: FLUDROCORTISONE 0.1 MG TABLET PO SCH (08:32)
[2017-10-20] MEDS: BUMETANIDE (1 MG) 1 MG TABLET PO SCH (08:32)
[2017-10-20] MEDS: MIDODRINE HCL 2.5 MG TABLET PO SCH ×2 (08:32→17:00)
[2017-10-20] MEDS: CYANOCOBALAMIN 500 MCG TABLET PO SCH (08:32)
[2017-10-20] MEDS: TINACTIN TP SCH ×2 (09:00→21:27)
[2017-10-20] MEDS: ECONAZOLE NITRATE 15 GM TUBE TP SCH ×2 (09:00→21:27)
[2017-10-20] MEDS: HYDROGEN PEROXIDE 480 ML BOTTLE TP SCH ×2 (09:00→21:27)
[2017-10-20] MEDS: Z GUARD REMEDY 4 OZ OINT TP SCH ×2 (09:00→21:27)
[2017-10-20 20:00] VITALS: BP 121/51
[2017-10-20] MEDS: MONTELUKAST SODIUM (10MG) 10 MG TABLET PO SCH (21:27)
[2017-10-20] MEDS: ATORVASTATIN 10 MG TABLET PO SCH (21:27)
[2017-10-20] MEDS: AZELASTINE NASAL SPRAY 30 ML BOTTLE NS SCH (21:27)
[2017-10-21] MEDS: IPRATROPIUM NEB FS 0.5 MG/2.5 ML AMPUL.NEB NEB SCH ×4 (00:44→19:08)
[2017-10-21] MEDS: SUCRALFATE 1 G/10 ML UDC PO SCH ×4 (00:44→18:02)
[2017-10-21] MEDS: PANTOPRAZOLE 40 MG TABLET.DR PO SCH (05:47)
[2017-10-21 07:50] VITALS: BP 113/56
[2017-10-21] MEDS: TINACTIN TP SCH ×2 (09:00→21:21)
[2017-10-21] MEDS: MIDODRINE HCL 2.5 MG TABLET PO SCH ×2 (09:00→17:00)
[2017-10-21] MEDS: HYDROGEN PEROXIDE 480 ML BOTTLE TP SCH ×2 (09:00→21:21)
[2017-10-21] MEDS: Z GUARD REMEDY 4 OZ OINT TP SCH ×2 (09:00→21:21)
[2017-10-21] MEDS: ECONAZOLE NITRATE 15 GM TUBE TP SCH (09:00)
[2017-10-21] MEDS: FLUDROCORTISONE 0.1 MG TABLET PO SCH (09:53)
[2017-10-21] MEDS: BUMETANIDE (1 MG) 1 MG TABLET PO SCH (09:54)
[2017-10-21] MEDS: FLUTICASONE PROPIONATE 16 GM BOTTLE NS SCH ×2 (09:54→17:00)
[2017-10-21] MEDS: ASPIRIN 81 MG TAB.CHEW PO SCH (09:54)
[2017-10-21] MEDS: CYANOCOBALAMIN 500 MCG TABLET PO SCH (09:54)
--- NOTE | 2017-10-21 10:06 | NUR ---
LENA informed charge nurse that in order to prepare the resident for discharge, we need to have physician sign order for nebulizer. LENA also informed Dr. Dwight Bowden and he will come to the unit to sign order. LENA informed charge nurse that we also need discharge prescriptions.
--- NOTE | 2017-10-21 11:01 | NUR ---
LENA called [facility] ([address], [address], [place]-[phone]) and spoke with Theresa. LENA informed her that the resident will be discharging home soon to [address] [place] [address] and will be needing home health with PT and medication management. LENA re-faxed referral to [phone] and previously spoke to Theresa on 10/08/2017. LENA to follow up to see if resident can be seen. Theresa notified LENA she will check the insurance. If accepted, LENA to notify theresa a few days before per her request so that the resident can be put on the schedule. Addendum: 10/21/17 at 1410 by DAWOOD PAREDES LENA spoke to Theresa and she noted that the resident is cleared and asked if LENA can call her a few days prior to dc. Theresa noted that she already spoke to the resident's' daughter but resident's dtr informed her that resident is still in hospital. LENA informed Theresa that resident should be discharging as soon as all medical supplies are delivered. LENA to follow up with theresa prior to discharge.
[2017-10-21 19:25] VITALS: BP 111/76
[2017-10-21] MEDS: ATORVASTATIN 10 MG TABLET PO SCH (21:21)
[2017-10-21] MEDS: MONTELUKAST SODIUM (10MG) 10 MG TABLET PO SCH (21:21)
[2017-10-21] MEDS: AZELASTINE NASAL SPRAY 30 ML BOTTLE NS SCH (21:21)
[2017-10-22] MEDS: SUCRALFATE 1 G/10 ML UDC PO SCH ×5 (00:32→23:59)
[2017-10-22] MEDS: IPRATROPIUM NEB FS 0.5 MG/2.5 ML AMPUL.NEB NEB SCH ×4 (01:08→20:20)
[2017-10-22] MEDS: PANTOPRAZOLE 40 MG TABLET.DR PO SCH (06:26)
[2017-10-22 07:43] VITALS: BP 121/57
[2017-10-22] MEDS: FLUTICASONE PROPIONATE 16 GM BOTTLE NS SCH ×2 (08:26→17:23)
[2017-10-22] MEDS: BUMETANIDE (1 MG) 1 MG TABLET PO SCH (08:27)
[2017-10-22] MEDS: FLUDROCORTISONE 0.1 MG TABLET PO SCH (08:27)
[2017-10-22] MEDS: ASPIRIN 81 MG TAB.CHEW PO SCH (08:27)
[2017-10-22] MEDS: TINACTIN TP SCH ×2 (08:27→21:08)
[2017-10-22] MEDS: MIDODRINE HCL 2.5 MG TABLET PO SCH (08:27)
[2017-10-22] MEDS: HYDROGEN PEROXIDE 480 ML BOTTLE TP SCH ×2 (08:27→21:08)
[2017-10-22] MEDS: Z GUARD REMEDY 4 OZ OINT TP SCH ×2 (08:27→21:08)
[2017-10-22] MEDS: CYANOCOBALAMIN 500 MCG TABLET PO SCH (08:27)
--- NOTE | 2017-10-22 12:00 | NUR ---
Seen by Dr. Rebolledo. He changed Florinef 0.1 mg from daily to every other day, Midodrine was decreased from 5 mg BID to 10 mg daily PRN for SBP less than 100. Dr. Rebolledo discussed changes with the pt. Dr. Rebolledo aware that pt is planning to go home on 10/26/17. He said he will write prescriptions for her.
[2017-10-22] MEDS ORDERED: MIDODRINE HCL 2.5 MG TABLET PO PRN (13:00)
--- NOTE | 2017-10-22 13:52 | NUR ---
SW received signed order for nebulizer. Resident will need nebulizer for breathing treatments. LENA faxed referral to [address] [address] FAX: [phone] and spoke with Handy. HE noted that they are able to fill the order but needs someone from the family to pick it up. LENA spoke with the resident who stated that her daughter Keyonna will be out of town and that the nebulizer can be picked up on Saturday before noon. Resident to be discharged around 10am. However, Handy noted they are closed on the weekends. Per Keyonna, she is able to slat pickler the nebulizer today at 4pm. Handy checked resident's insurance and address is registered in [facility]. They noted they cannot fulfill order but [facility] can since they have a national contract ([phone] fax: [phone]). LENA called and spoke to Tereza. They noted they can fulfill order and SW sent referral packet. She noted she will check insurance. Dtr notified that medicare address is showing up as [facility] but that [facility] will keep SW informed about the nebulizer ([address] [place] [address] .
[2017-10-22 19:26] VITALS: BP 119/62
[2017-10-22] MEDS: MONTELUKAST SODIUM (10MG) 10 MG TABLET PO SCH (21:08)
[2017-10-22] MEDS: AZELASTINE NASAL SPRAY 30 ML BOTTLE NS SCH (21:08)
[2017-10-22] MEDS: ATORVASTATIN 10 MG TABLET PO SCH (21:08)
[2017-10-23] MEDS: IPRATROPIUM NEB FS 0.5 MG/2.5 ML AMPUL.NEB NEB SCH ×4 (02:08→21:45)
[2017-10-23] MEDS: SUCRALFATE 1 G/10 ML UDC PO SCH ×4 (06:10→23:56)
[2017-10-23] MEDS: PANTOPRAZOLE 40 MG TABLET.DR PO SCH (06:11)
[2017-10-23 07:47] VITALS: BP 118/67
[2017-10-23] MEDS: ASPIRIN 81 MG TAB.CHEW PO SCH (08:44)
[2017-10-23] MEDS: FLUTICASONE PROPIONATE 16 GM BOTTLE NS SCH ×2 (08:44→17:21)
[2017-10-23] MEDS: BUMETANIDE (1 MG) 1 MG TABLET PO SCH (08:55)
[2017-10-23] MEDS: CYANOCOBALAMIN 500 MCG TABLET PO SCH (08:55)
[2017-10-23] MEDS: TINACTIN TP SCH ×2 (09:00→21:25)
[2017-10-23] MEDS: HYDROGEN PEROXIDE 480 ML BOTTLE TP SCH ×2 (09:00→21:25)
[2017-10-23] MEDS: Z GUARD REMEDY 4 OZ OINT TP SCH ×2 (09:00→21:49)
--- NOTE | 2017-10-23 14:52 | NUR ---
Social Service Section of [facility] ( day) completed. Resident is able to communicate with others and respond to questions. The resident [facility]. The resident's current diet order is Mechanical soft/chopped fine & pureed vegetables & pureed fruits. Per the resident, she has had a very good appetite and even noted periods of overeating. The resident is no longer receiving dialysis. Resident's anticipated date of discharge is 10/26/2017 and resident will discharge home with her daughter Keyonna to [address] [place] [address] (cell: [phone]). Resident was seen by pony cylinder press operator Dr. Huffman on 10/18/2017. Resident was seen on 08/26/[address] Thomas for initial exam and no problems were noted. Resident was seen by Dr. Agosto on 09/06/2017 and he recommended glasses for the resident. However, resident noted that she wants to wait to get the glasses so that she can get them using her medi-pretty, which is in the process of being approved.
--- NOTE | 2017-10-23 15:00 | NUR ---
SW provided Resident Transfer or Discharge Notice for the resident to sign and review. She agreed with the discharge plan and is happy about being able to go home with her daughter.
--- NOTE | 2017-10-23 16:22 | NUR ---
Dr. Rebolledo wrote prescription for patient's discharge on 10/26/17. All orders noted and carried out.
[2017-10-23 19:56] VITALS: BP 125/68
[2017-10-23] MEDS: AZELASTINE NASAL SPRAY 30 ML BOTTLE NS SCH (21:25)
[2017-10-23] MEDS: ATORVASTATIN 10 MG TABLET PO SCH (21:27)
[2017-10-23] MEDS: MONTELUKAST SODIUM (10MG) 10 MG TABLET PO SCH (21:27)
[2017-10-24] MEDS: IPRATROPIUM NEB FS 0.5 MG/2.5 ML AMPUL.NEB NEB SCH ×4 (01:47→20:04)
[2017-10-24] MEDS: PANTOPRAZOLE 40 MG TABLET.DR PO SCH (05:54)
[2017-10-24] MEDS: SUCRALFATE 1 G/10 ML UDC PO SCH ×4 (05:54→23:21)
[2017-10-24 07:24] VITALS: BP 110/50
[2017-10-24] MEDS: ASPIRIN 81 MG TAB.CHEW PO SCH (08:08)
[2017-10-24] MEDS: FLUTICASONE PROPIONATE 16 GM BOTTLE NS SCH ×2 (08:08→17:42)
[2017-10-24] MEDS: CYANOCOBALAMIN 500 MCG TABLET PO SCH (08:09)
[2017-10-24] MEDS: BUMETANIDE (1 MG) 1 MG TABLET PO SCH (08:09)
[2017-10-24] MEDS: FLUDROCORTISONE 0.1 MG TABLET PO SCH (08:09)
[2017-10-24] MEDS: Z GUARD REMEDY 4 OZ OINT TP SCH ×2 (10:15→20:59)
[2017-10-24] MEDS: HYDROGEN PEROXIDE 480 ML BOTTLE TP SCH ×2 (10:15→20:58)
[2017-10-24] MEDS: TINACTIN TP SCH ×2 (10:15→20:58)
--- NOTE | 2017-10-24 13:17 | NUR ---
LENA spoke with Tereza from [facility] regarding order for nebulizer ([address] [place] [address] [address], [place] [address]- [phone] fax: [phone]).LENA faxed back paperwork signed by Dr. Rebolledo confirming nebulizer order. Tereza noted they are open M-F 9am-5pm and since resident is discharging on Saturday, item would need to be picked up on Saturday. LENA called Debbie from [employer] (cell: [phone] fax:[phone]) and informed her. She noted that they can provide a loaner nebulizer to the resident and the RT will go to the house on Saturday. Humidifier bottles were added to the order. Debbie noted that the nebulizer can then be mailed back to them when the resident receives hers from [facility]. LENA faxed RT notes and order to Debbie. LENA spoke to Tereza from [facility] and confirmed address of location where resident is to last picker the nebulizer. Confirmed address of [address] [place] [address] [address] [address]. She noted daughter is able to last picker the nebulizer during business hours M-F 9-5pm. Tereza stated that she does not need anything else from the and that the resident must be present when she picks up the nebulizer so she can sign for it. LENA called [facility] ([address], [address], [place]-[phone]) and spoke with Gabriella. LENA informed her that the resident will be discharging Saturday to [address] [place] [address]. She noted that she will let Susan know so that she can put her on the schedule for Saturday.
--- NOTE | 2017-10-24 14:02 | NUR ---
SW spoke to the resident about upcoming discharge. SW provided the resident with information pertaining to doctors she will follow up with. LENA provided information for Dr. Lisa Lisa (steam shovel oiler) that will be seeing her and Dr. Tijerina (ENT) who will change out her trach on a monthly basis. Provided list of medicare providers near the hospital and in [place] that can see the resident as her primary care physician. Debbie from [employer] (cell: [phone] fax:[phone]) will have the RT bring the remaining supplies on Saturday (6XLT trachs, gauze, trach ties, suction yankauer, and humidifier bottles) and will leave the resident with a loaner nebulizer that she can use over the weekend. LENA informed her that she and her dtr need to milk pickup truck driver nebulizer from [facility] ([address] [place] [address] [address], [place] [address]- [phone] fax: [phone]) on Saturday and that she will need to sign for it. LENA also provided her with information for Dr. Agosto (supervisor plate forming) so she can arrange to order her glasses once medi-pretty becomes effective. Answered all of the resident's questions and will follow up with the resident before discharge.
--- NOTE | 2017-10-24 14:21 | NUR ---
LENA called [facility] ([address], [address], [place]-[phone]) and spoke with Susan. LENA informed her that the resident will be discharging Saturday to [address] [place] [address]. She noted she can place her on the schedule for Saturday and they will reach out to the daughter to see what is a good time. Informed the resident and provided home health information to the resident just in case she needs to follow up. Also provided the resident with brochure for accessibility [employer] and informed her that modifications will need to be made in the home in order to provide maximum safety. Resident noted that her daughter is working on installing grab bars in the bathroom for her.
[2017-10-24] MEDS: ATORVASTATIN 10 MG TABLET PO SCH (21:16)
[2017-10-24] MEDS: AZELASTINE NASAL SPRAY 30 ML BOTTLE NS SCH (21:16)
[2017-10-24] MEDS: MONTELUKAST SODIUM (10MG) 10 MG TABLET PO SCH (21:16)
[2017-10-24 21:49] VITALS: BP 113/58
--- NOTE | 2017-10-25 00:10 | NUR ---
SPUTUM CULTURE WRONG ENTRY.
[2017-10-25] MEDS: IPRATROPIUM NEB FS 0.5 MG/2.5 ML AMPUL.NEB NEB SCH ×4 (02:11→19:40)
[2017-10-25] MEDS: SUCRALFATE 1 G/10 ML UDC PO SCH ×4 (05:19→23:39)
[2017-10-25] MEDS: PANTOPRAZOLE 40 MG TABLET.DR PO SCH (05:19)
[2017-10-25 07:33] VITALS: BP 116/60
[2017-10-25] MEDS: CYANOCOBALAMIN 500 MCG TABLET PO SCH (09:31)
[2017-10-25] MEDS: FLUTICASONE PROPIONATE 16 GM BOTTLE NS SCH ×2 (09:31→17:21)
[2017-10-25] MEDS: Z GUARD REMEDY 4 OZ OINT TP SCH ×2 (09:31→20:29)
[2017-10-25] MEDS: BUMETANIDE (1 MG) 1 MG TABLET PO SCH (09:31)
[2017-10-25] MEDS: HYDROGEN PEROXIDE 480 ML BOTTLE TP SCH ×2 (09:31→20:29)
[2017-10-25] MEDS: ASPIRIN 81 MG TAB.CHEW PO SCH (09:31)
[2017-10-25] MEDS: TINACTIN TP SCH ×2 (09:31→20:29)
--- NOTE | 2017-10-25 12:38 | NUR ---
The SW assisted the client in obtaining her prescribed medications from [facility] ([phone] fax:[phone]). The pharmacy did not have Atrovent in stock and LENA informed charge nurse that the resident will need a separate prescription for this which she will have to take to her own pharmacy. LENA informed the resident of this as well and informed her that there are some over the counter items that she will also have to purchase (i.e., aspirin,icy hot,tinactin spray). Resident understood that she has to take the prescription to her own pharmacy to have the Atrovent filled tomorrow. Addendum: 10/25/17 at 1348 by DAWOOD PAREDES LENA called [facility] ([address] [place] [address] OPEN SATURDAY FROM 9-5PM) and spoke to Inder. They verified that they do have the Atrovent Sltn medication that the resident needs and informed resident that she needs to pick up truck driver her medication at this location. She will need to present the prescription to have the order filled.
[2017-10-25 13:34] LABS: BASOPHILS % (AUTO) 0.3 % (0.0-2.0); EOSINOPHILS % (AUTO) 2.6 % (0.0-6.0); HEMATOCRIT 27 % (33-45); HEMOGLOBIN 8.8 g/dL (11.5-14.8); LYMPHOCYTES # (AUTO) 1.7 /CMM (0.8-4.8); LYMPHOCYTES % (AUTO) 25.9 % (20.0-44.0); MEAN CORPUSCULAR HEMOGLOBIN 30 PG (26.0-33.0); MEAN CORPUSCULAR HGB CONC 33 g/dl (31.0-36.0); MEAN CORPUSCULAR VOLUME 91 fL (82-100); MONOCYTES # (AUTO) 0.6 /CMM (0.1-1.30); MONOCYTES % (AUTO) 8.6 % (2.0-12.0); NEUTROPHILS # (AUTO) 4.2 /CMM (1.8-8.9); NEUTROPHILS % (AUTO) 62.6 % (43.0-81.0); PLATELET COUNT (AUTO) 240 /CMM (150-450); RED BLOOD CELL COUNT(AUTO) 2.96 MIL/uL (4.0-5.2); WHITE BLOOD COUNT (AUTO) 6.7 K/uL (4.3-11.0)
[2017-10-25 13:48] LABS: CALCIUM, SERUM 9.3 mg/dL (8.5-10.1); CREATININE 2.1 mg/dL (0.6-1.3); MAGNESIUM 1.6 mg/dL (1.8-2.4); PHOSPHORUS 4.1 mg/dL (2.5-4.9); POTASSIUM 4.2 mmol/L (3.5-5.1)
--- NOTE | 2017-10-25 14:31 | NUR ---
Subacute staff threw a going away part for the resident. Resident was happy and was very appreciative of the care that was provided to her. Resident noted that the subacute staff is like her family. Resident became emotional during the goodbye republican but was excited about going home tomorrow.
--- NOTE | 2017-10-25 14:32 | NUR ---
Discharge Note for 10/25/2017: Patient will be discharged home with daughter Keyonna to [address] [place] [address]. LENA reminded the resident that she was provided with information pertaining to doctors she will follow up with: Dr. Lisa Lisa (electromyographic technician) and Dr. Tijerina (ENT) who will change out her trach on a monthly basis. Resident understood that she has to choose a new primary care physician since her current one cannot follow. SW had provided list of medicare providers near the hospital and in [place] for her to choose from. Informed her that appointments need to be made within thirty days so that she can obtain refills on her medications. SW received her medications from [facility] with the assistance of the SW. Resident will need to have Atrovent filled at her own pharmacy and she noted that she has this medication at home since she was using it prior to her hospital stay. Resident will be given prescription for this prior to her departure. Resident also understands that she will need to pickle cutter over the counter medications (i.e., icy hot, vitamin B, tinactin, and aspirin). Debbie from [employer] (cell: [phone] fax:[phone]) will have the RT bring the remaining supplies on Saturday (6XLT trachs, gauze, trach ties, suction yankauer, and humidifier bottles) and will leave the resident with a loaner nebulizer that she can use over the weekend. LENA informed her that she and her dtr need to pickle cutter nebulizer from [facility] ([address] [place] [address] [address], [place] [address]- [phone] fax: [phone]) on Saturday and that she will need to sign for it. LENA also provided her with information for Dr. Agosto (chairman & ceo) so she can arrange to order her glasses once medi-pretty becomes effective. Informed the resident that once her medi-pretty becomes active, she can apply for IHSS (In Home Health Supportive Services) and provided application packet and information to the resident. Addendum: 10/25/17 at 1445 by DAWOOD PAREDES Discharge Note for 10/26/2017. Resident will be discharged on Saturday.
[2017-10-25] MEDS: ATORVASTATIN 10 MG TABLET PO SCH (21:12)
[2017-10-25] MEDS: AZELASTINE NASAL SPRAY 30 ML BOTTLE NS SCH (21:12)
[2017-10-25] MEDS: MONTELUKAST SODIUM (10MG) 10 MG TABLET PO SCH (21:12)
[2017-10-25 21:58] VITALS: BP 119/57
[2017-10-26] MEDS: IPRATROPIUM NEB FS 0.5 MG/2.5 ML AMPUL.NEB NEB SCH ×2 (01:21→08:22)
[2017-10-26] MEDS: SUCRALFATE 1 G/10 ML UDC PO SCH ×2 (05:38→12:28)
[2017-10-26] MEDS: PANTOPRAZOLE 40 MG TABLET.DR PO SCH (05:38)
[2017-10-26 08:18] VITALS: BP 114/68
[2017-10-26] MEDS: TINACTIN TP SCH (09:05)
[2017-10-26] MEDS: CYANOCOBALAMIN 500 MCG TABLET PO SCH (09:05)
[2017-10-26] MEDS: BUMETANIDE (1 MG) 1 MG TABLET PO SCH (09:05)
[2017-10-26] MEDS: ASPIRIN 81 MG TAB.CHEW PO SCH (09:05)
[2017-10-26] MEDS: Z GUARD REMEDY 4 OZ OINT TP SCH (09:05)
[2017-10-26] MEDS: HYDROGEN PEROXIDE 480 ML BOTTLE TP SCH (09:05)
[2017-10-26] MEDS: FLUDROCORTISONE 0.1 MG TABLET PO SCH (09:05)
[2017-10-26] MEDS: FLUTICASONE PROPIONATE 16 GM BOTTLE NS SCH (09:05)
--- NOTE | 2017-10-26 13:10 | NUR ---
Pt discharged home. Discharge instructions given to pt and her daughter Beba. RT King educated daughter on how to use the O2 tank that she brought from home. O2 tank regulator was leaking earlier, Beba called the supplier and they came to replace it. Pt's daughter said an RT will see the pt at home today. Sent all of her belongings with her. She and her daughter expressed appreciation for staff.
== END 2017-10-26 13:08 | disposition home or self-care (01) | DRG 189 ==
LOC: SA 21:51
PROVIDERS: ADMIT Internal Medicine; ATTEND Internal Medicine
PROC: 02HV33Z Insertion of Infusion Device into Superior Vena Cava, Percutaneous Approach (ICD-10-PCS; 2017-07-26)
PROC: B548ZZA Ultrasonography of Superior Vena Cava, Guidance (ICD-10-PCS; 2017-07-26)
PROC: 0B21XFZ Change Tracheostomy Device in Trachea, External Approach (ICD-10-PCS; principal; 2017-10-16)
DX: J96.11 Chronic respiratory failure with hypoxia (principal); I46.9 Cardiac arrest, cause unspecified; I21.A1 Myocardial infarction type 2; N17.0 Acute kidney failure with tubular necrosis; E43 Unspecified severe protein-calorie malnutrition; N18.6 End stage renal disease; J44.1 Chronic obstructive pulmonary disease with (acute) exacerbation; I13.2 Hypertensive heart and chronic kidney disease with heart failure and with stage 5 chronic kidney disease, or end stage renal disease; I50.32 Chronic diastolic (congestive) heart failure; E87.2 Acidosis; E66.2 Morbid (severe) obesity with alveolar hypoventilation; Z68.41 Body mass index [BMI] 40.0-44.9, adult; F33.9 Major depressive disorder, recurrent, unspecified; R13.10 Dysphagia, unspecified; J96.12 Chronic respiratory failure with hypercapnia; I11.0 Hypertensive heart disease with heart failure; I25.2 Old myocardial infarction; Z93.0 Tracheostomy status; Z93.1 Gastrostomy status; D63.8 Anemia in other chronic diseases classified elsewhere; E83.51 Hypocalcemia; E83.42 Hypomagnesemia; E87.6 Hypokalemia; I25.10 Atherosclerotic heart disease of native coronary artery without angina pectoris; I95.1 Orthostatic hypotension; R73.9 Hyperglycemia, unspecified; B35.3 Tinea pedis; E78.5 Hyperlipidemia, unspecified; H66.90 Otitis media, unspecified, unspecified ear; Z99.2 Dependence on renal dialysis; L85.3 Xerosis cutis; D69.2 Other nonthrombocytopenic purpura; Z87.891 Personal history of nicotine dependence
CPT/HCPCS: 31720; 36415; 70360-TC; 74230-TC; 76856-TC; 80048-TC; 80053-TC; 80076-TC; 82150-TC; 82306; 82728-TC; 83540-TC; 83735-TC; 83970; 84100-TC; 85025-TC; 85610-TC; 85730-TC; 86580-TC; 87081-TC; 92521; 92526; 94640-TC; 94760-TC; 94762-TC; 94799-TC; 97110-TC; 97112-TC; 97116-TC; 97530-TC; 97535-TC; 99082-TC; A4217; A4606; A4623; A6253; A6402; A7526; J3420; J3475; J3490; J7030; J7042; J7050; Z7610